=== PATIENT | male | born 1965 | race Caucasian/White ===

== ENCOUNTER 2019-09-08 12:16 | Inpatient (IN) | payer OTHER, SELFPAY ==
[2019-09-08] VITALS (9 sets, daily range): BP systolic 106–149; BP diastolic 77–95; PULSE 51–68; RESP 15–22; TEMP 36.4–36.8; O2SAT 97–100; BMI 34.7
--- NOTE | ~2019-09-08 | US_ITS ---
US renal BI 09/09/2019 09:59 Procedure: Realtime transabdominal ultrasound of the kidneys and bladder. Indication: Acute renal insufficiency Comparison: Ultrasound dated 08/08/2014 Findings: Renal echotexture is normal bilaterally without hydronephrosis, contour deforming mass or r enal calculus. The right kidney measures 12.1 cm and left kidney measures 11.5 cm. Bladder within no rmal limits. Impression: 1: Unremarkable renal ultrasound. No stones, masses or hydronephrosis. Reviewed, dictated and finalized at location B. SIFICATIONS OFFICER CC/CM Impression: 1: Unremarkable renal ultrasound. No stones, masses or hydronephrosis.
--- NOTE | ~2019-09-08 | XR_ITS ---
EXAMINATION: XR chest 2V DATE: 09/08/2019 13:14 INDICATION: Shortness of breath. Frontal chest pain. Vomiting and cough. TECHNIQUE: Frontal and lateral views of the chest were obtained. COMPARISON: Chest 2 views 03/14/2019, chest CT 03/14/2019 FINDINGS: There is chronic mild elevation of right hemidiaphragm. No pneumonia, pleural effusion, or pneumothorax. Cardiomegaly is noted. IMPRESSION: 1. Cardiomegaly. Reviewed, dictated and finalized at location A. K THREADER IMPRESSION: 1. Cardiomegaly.
--- NOTE | 2019-09-08 12:28 | ECG_ITS ---
Measurements Intervals [place] Rate: 52 P: [place]: 0 QRS: -39 QRSD: 121 T: -12 QT: 465 QTc: 435 Interpretive Statements SINUS RHYTHM WITH AV DISSOCIATION JUNCTIONAL ESCAPE RHYTHM LEFT AXIS DEVIATION INTRAVENTRICULAR CONDUCTION DELAY VOLTAGE CRITERIA FOR LVH POOR R WAVE PROGRESSION, ANTERIOR LEADS BORDERLINE T WAVE ABNORMALITY- INFERIOR LEADS BASELINE WANDER- V2 ABNORMAL ECG Electronically Signed On 09-08-2019 12:51:[address] INSPECTOR by John Garcia D.O.
--- NOTE | 2019-09-08 12:53 | ED.SOB ---
HPI - SOB/Dyspnea General Chief Complaint: Shortness of Breath/Dyspnea Stated Complaint: dizzy,short of breath Time Seen by Provider: 09/08/19 12:48 Source: patient Mode of arrival: ambulatory Limitations: no limitations History of Present Illness HPI Narrative: Pt is a 54 y/o male who presents to the ED with c/o SOB since Thursday (3 days ago). He reports associated generalized weakness, N/V, MCMILLAN, and dizziness. He states that he felt dizzy when sitting up and felt like he was going to pass out. He also notes decreased intake d/t his N/V. Pt states that he was in the ED in April with similar Sx and he was referred to customer engagement analyst, Dr. Huertas for CAD, AAA, and nonischemic cardiomyopathy with an EF of 45-50%. Pt had a cardiac echo done recently and he was supposed to see his PCP, Dr. Chang tomorrow. Pt notes soreness to his chest. He denies diarrhea, fever, chills, sweats, rhinorrhea, sore throat, ABD pain, leg swelling, wounds, rashes, melena, hematochezia, or hemoptysis. He has not been around anyone sick and he got his flu shot this year. MD elicited complaint: shortness of breath Onset (ago): day(s) (3) Timing: constant Associated symptoms: other (generalized weakness, N/V, MCMILLAN, and dizziness.) Related Data Home Medications Medication Instructions Recorded Confirmed aspirin 81 mg tablet,delayed 81 mg PO DAILY 06/10/19 release Allergies Allergy/AdvReac Type Severity Reaction Status Date / Time No Known Allergies Allergy Unverified 04/10/17 09:54 Review of Systems Review of Systems: Narrative: All systems reviewed & are unremarkable except as noted in HPI and below Constitutional: Constitutional: Denies chills, Denies fever(s), Reports weakness (generalized) and Denies other (sweats) ENT: Denies sore throat and Denies other (rhinorrhea) Cardiovascular: Cardiovascular: Denies leg edema and Reports other (chest soreness) Respiratory: Respiratory: Denies hemoptysis and Reports dyspnea Gastrointestinal: Gastrointestinal: Denies abdominal pain, Denies melena, Denies hematochezia, Denies diarrhea, Reports nausea and Reports vomiting Integumentary/Breasts: Skin/Breast: Denies rash and Denies wounds Neurologic: Reports dizziness, Reports headache(s) and Reports other (near syncope) [facility] Past Medical History Medical History (Updated 09/08/19 @ 14:56 by Chiquis Alicea MD) Anxiety Ascending aortic aneurysm CAD (coronary artery disease) Combined systolic and diastolic cardiac dysfunction Depression Erectile dysfunction HTN (hypertension) ERIKA (obstructive sleep apnea) Surgical History Surgical History (Updated 09/08/19 @ 13:09 by Alexa Steven) Hx of appendectomy Family History Family History (Updated 03/10/17 @ 13:35 by DOCTOR UNKNOWN) Mother Cerebrovascular accident Father Family history of diabetes mellitus in first degree relative Family history of coronary artery disease Sibling Family history of diabetes mellitus in first degree relative Other Diabetes mellitus Family history of malignant neoplasm Social History Social History Smoking status: Never smoker Alcohol intake: current Gender identity (if verbalized by the patient): Male Exam Const: General: cooperative, no acute distress and alert Nutritional Appearance: obese Orientation/consciousness: patient oriented x3 Limitations: no limitations HENMT: Mouth: Yes lip normal and Yes dry mucous membranes Resp: Effort & Inspection: normal respiratory effort Auscultation: clear to auscultation bilaterally Cardio: Rate: bradycardic Rhythm: regular rhythm Heart sounds: Murmur heart sound present systolic Peripheral pulses: dorsalis pedis present bilateral GI: GI Palp: Yes Soft to palpation and No Tenderness to palpation present (GI) Auscultation: normal bowel sounds Skin: General skin exam: normal color Neuro: General: patient oriented x3 Cognition (Neuro
[2019-09-08 12:55] LABS: Basophils Percent Auto 0.5 % (0.2-1.2); Eosinophils Absolute Auto 0.1 K/mm3 (0-0.3); Eosinophils Percent Auto 0.8 % (0-4.4); Hematocrit 34.3 % (42.0-52.0); Hemoglobin 12.4 g/dL (14.0-18.0); Immature Granulocyte Absolute 0.02 K/mm3 (0.00-0.031); Immature Granulocyte Percent A 0.3 % (0-0.5); Lymphocytes Absolute Auto 0.84 K/mm3 (0.9-3.2); Mean Corpuscular HGB Conc 36.2 g/dl (32-36); Mean Corpuscular Hemoglobin 34.1 pg (26-34); Mean Corpuscular Volume 94.2 fl (80-100); Mean Platelet Volume 10.4 fl (7.4-10.4); Monocytes Absolute Auto 0.4 K/mm3 (0.1-0.6); Monocytes Percent Auto 7.1 % (2.6-8.5); Neutrophils Absolute Auto 4.7 K/mm3 (1.3-6.7); Neutrophils Percent Auto 77.3 % (45.5-73.1); Platelet Count Result 224 k/mm3 (150-375); Red Blood Count 3.64 M/mm3 (4.6-6.20); Red Cell Distribution Width 11.9 % (11.5-14.5)
[2019-09-08 13:07] LABS: Blood Urea Nitrogen 57 mg/dL (9-20); Calcium 7.6 mg/dL (8.4-10.2); Carbon Dioxide 26 mmol/L (22-30); Chloride 92 mmol/L (98-107); Estimated CRCL calculation 14 ml/min; Estimated Glomerular Filt Rate 9; Glucose 194 mg/dL (75-110); Potassium 3.1 mmol/L (3.4-5.0); Sodium 134 mmol/L (137-145)
[2019-09-08] MEDS: LACTATED RINGERS 1,000 ML 150 ML IV CONT ×3 (13:31→23:46)
[2019-09-08 13:37] LABS: INR 1.1
[2019-09-08 13:40] LABS: Partial Thromboplastin Time 26.7 SECONDS (22.3-36.8)
[2019-09-08 13:47] LABS: Alanine Aminotransferase 510 U/L (4-50); Albumin Level 3.6 g/dL (3.5-5.1); Alkaline Phosphatase 112 U/L (38-126); Aspartate Amino Transferase 491 U/L (17-59); Bilirubin Direct 0.4 mg/dL (0-0.3); Bilirubin,Total 2.6 mg/dL (0.2-1.3); Magnesium 1.1 mg/dL (1.6-2.3)
[2019-09-08 13:56] LABS: NT Pro B Type Natriuretic Pept 874 PG/ML (5-100)
[2019-09-08 13:57] LABS: Troponin I 0.023 ng/mL (0.000-0.034)
--- NOTE | 2019-09-08 14:25 | PM.IMHP ---
H&P: HPI History of Present Illness Chief complaint: Weakness, dizziness, shortness of breath. Narrative: Cesar Handley is a 54-year-old male with longstanding history of alcohol abuse with historically poorly controlled hypertension, mixed systolic and diastolic congestive heart failure, nonischemic cardiomyopathy, and sleep apnea who presented to the emergency department earlier this afternoon for evaluation of weakness, dizziness, and shortness of breath. He was admitted to the hospital in March 2019 with shortness of breath and uncontrolled hypertension. Echocardiogram done at that time showed mixed systolic and diastolic dysfunction with an ejection fraction of 40 to 45% as well as mild to moderate aortic stenosis. He underwent cardiac catheterization per Dr. Bay on March 17, 2019 which revealed a diagonal branch with diffuse 50% stenosis without any other significant coronary disease in addition to a 4 centimeter ascending aortic aneurysm. He was started on metoprolol, statin, and had his losartan increased at that time due to poorly controlled hypertension. Since that time, he has had some adjustments to his antihypertensives and tells me that is not unusual for his blood pressures to be in the 150s to 170 systolic despite these changes. He also notes occasional orthostatic hypotension, but that is rare. Since that stay, he has cut back his drinking significantly. Previously he drank upwards of 15 beers per day, but has been taking naltrexone and reportedly he is only drinking a few times a week now. He has not had any alcohol since Thursday, however, because he is felt so poorly. He notes dizziness with position changes, especially bending forward. With further questioning, he has noticed a decrease in urine output recently. Additionally, his appetite has been poor, but he goes on to say that he has had intermittent nausea and dry heaves since April of 2019. He also mentions dyspnea on exertion, and the inability to do as much at work as he typically does due to the shortness of breath and generalized weakness. He has not had fever, chills, or sweats. No headache, auditory visual changes, vertigo, paresthesias, or focal weakness. He has not had chest pain or pleuritic pain. No abdominal pain. He denies diarrhea. No melena or hematochezia. No dysuria or hematuria. Review of Systems Review of Systems: Narrative: Twelve systems were reviewed with pertinent positives and negatives as per HPI. No fever, chills, or sweats. No recent cold or flu symptoms. No hematemesis, melena, or hematochezia. Denies diarrhea. No history of alcohol withdrawal seizure. Denies hallucinations. No tremors. except as documented, all other systems were reviewed and are negative. [facility] Past Medical History Medical History (Updated 09/08/19 @ 23:41 by Mini Strong PA-C) Alcohol abuse Anxiety Aortic stenosis Mild to moderate aortic stenosis noted on echocardiogram in March 2019. Ascending aortic aneurysm 4 centimeter ascending aortic aneurysm noted in fall 2018. Bladder cancer With history of TURBT and mitomycin installation. CAD (coronary artery disease) Diffuse 50% stenosis of the marginal branch noted on cardiac catheterization in March 2019. Combined systolic and diastolic cardiac dysfunction Ejection fraction of 40 to 45% in March 2019. Depression Erectile dysfunction HTN (hypertension) ERIKA (obstructive sleep apnea) Previous history of noncompliance with CPAP therapy. Surgical History Surgical History Hx of appendectomy Family History Family History Mother Cerebrovascular accident Family history of diabetes mellitus in first degree relative Father Family history of diabetes mellitus in first degree relative Family history of coronary artery disease Sibling Family history of diabetes reynaldo
--- NOTE | 2019-09-08 14:31 | PC.NURSE ---
Pt given urinal to provide u/a.
[2019-09-08 15:20] LABS: Add Urine Microscopic? YES; Appearance Urine Clear (Clear); Bacteria Urine Trace /hpf; Bilirubin Urine Negative (Negative); Blood Urine Negative (Negative); Color Urine Yellow (Yellow); Glucose Urine UA Negative (Negative); Ketones Urine Negative (Negative); Leukocyte Esterase Ur Negative LEU/UL (Negative); Mucus Urine Rare /lpf; Nitrate Urine Negative (Negative); Protein Urine Negative (Negative); RBC Urine 0-2 /hpf (0-2); Specific Grav Ur 1.012 (1.001-1.035); Squamous Epithelial Cell Urine Rare /hpf (Few); WBC Urine 0-3 /hpf
[2019-09-08 16:51] LABS: Troponin I 0.018 ng/mL (0.000-0.034)
--- NOTE | 2019-09-08 17:34 | ADMGEN ---
This patient, Cesar Handley, was admitted to Medical Room 252-01. Patient/family oriented to hospital policies and general routines including ID bracelet, bed and alarms, visiting hours, pain management, procedures, bathroom and other care routines, personal items, smoking policy, room service/diet, and visiting hours. Valuables list has been completed. Information on how to activate the Rapid Response Team has been discussed. Patient/Family are encouraged to report perceived risks to care and to ask questions if they do not understand what they are told or what they should do.
[2019-09-08 22:43] LABS: Blood Urea Nitrogen 57 mg/dL (9-20); Calcium 7.6 mg/dL (8.4-10.2); Carbon Dioxide 29 mmol/L (22-30); Chloride 93 mmol/L (98-107); Creatine Kinase 93 U/L (55-170); Estimated CRCL calculation 14 ml/min; Estimated Glomerular Filt Rate 10; Glucose 104 mg/dL (75-110); Magnesium 1.2 mg/dL (1.6-2.3); Phosphorus 3.3 mg/dL (2.5-4.5); Potassium 3.3 mmol/L (3.4-5.0); Sodium 133 mmol/L (137-145)
[2019-09-08 23:14] LABS: Hepatitis B Surface Antigen Negative (Negative)
[2019-09-08 23:20] LABS: HAV RESULT Negative (Negative); Hepatitis B Core IgM Result Negative (Negative)
[2019-09-08 23:31] LABS: Hepatitis C Virus Antibody Negative (Negative)
[2019-09-08] MEDS: MAGNESIUM SULF 4 GM/WATER100ML 4 GM/100 ML BAG IVPB (23:40)
[2019-09-08] MEDS: carvediloL 6.25 MG TABLET PO (23:40)
[2019-09-08] MEDS: busPIRone HCL 5 MG TABLET PO (23:41)
[2019-09-09] VITALS (13 sets, daily range): BP systolic 105–147; BP diastolic 63–86; PULSE 49–62; RESP 14–20; TEMP 36.1–36.9; O2SAT 97–100
[2019-09-09 00:02] LABS: Folic Acid 16.3 ng/mL (2.76->20); Vitamin B12 > 1000.0 pg/mL (239-931)
[2019-09-09 05:30] LABS: Hematocrit 31.3 % (42.0-52.0); Hemoglobin 11.2 g/dL (14.0-18.0); Mean Corpuscular HGB Conc 35.8 g/dl (32-36); Mean Corpuscular Volume 95.1 fl (80-100); Mean Platelet Volume 10.3 fl (7.4-10.4); Platelet Count Result 187 k/mm3 (150-375); Red Blood Count 3.29 M/mm3 (4.6-6.20); Red Cell Distribution Width 11.9 % (11.5-14.5); White Blood Count 6.3 K/mm3 (4.5-10.0)
[2019-09-09 05:42] LABS: INR 1.2; Prothrombin Time 15.1 Seconds (11.1-14.7)
[2019-09-09 05:46] LABS: Alanine Aminotransferase 380 U/L (4-50); Albumin Level 3.2 g/dL (3.5-5.1); Alkaline Phosphatase 104 U/L (38-126); Aspartate Amino Transferase 296 U/L (17-59); Bilirubin,Total 1.9 mg/dL (0.2-1.3); Blood Urea Nitrogen 54 mg/dL (9-20); Calcium 7.4 mg/dL (8.4-10.2); Carbon Dioxide 26 mmol/L (22-30); Chloride 93 mmol/L (98-107); Estimated CRCL calculation 16 ml/min; Estimated Glomerular Filt Rate 11; Glucose 105 mg/dL (75-110); Magnesium 2.6 mg/dL (1.6-2.3); Phosphorus 4.1 mg/dL (2.5-4.5); Potassium 3.1 mmol/L (3.4-5.0); Sodium 132 mmol/L (137-145)
[2019-09-09] MEDS: LACTATED RINGERS 1,000 ML 150 ML IV CONT ×2 (08:06→15:39)
[2019-09-09] MEDS: FOLIC ACID 1 MG TABLET PO (08:12)
[2019-09-09] MEDS: CITALOPRAM HYDROBROMIDE 20 MG TABLET 40 MG PO (08:12)
[2019-09-09] MEDS: THIAMINE HCL 100 MG TABLET PO (08:12)
[2019-09-09] MEDS: carvediloL 6.25 MG TABLET PO ×2 (08:13→21:05)
[2019-09-09] MEDS: busPIRone HCL 5 MG TABLET PO ×2 (08:13→16:23)
--- NOTE | 2019-09-09 09:35 | PC.NURSE ---
To Radiology per stretcher.
--- NOTE | 2019-09-09 11:22 | PM.IMPN ---
Progress Note: A&P Assessment and Plan (1) Acute kidney injury: Code(s): N17.9 - Acute kidney failure, unspecified Status: Acute Assessment and Plan: Precipitating etiology is not clear, but is likely multifactorial in etiology due to poor oral intake in the setting of diuretic and ARB use. Renal US showing no postobstructive issues. Nephrology consulted. Cr better today. Continue IV fluids for rehydration. Avoid nephrotoxic agents. (2) Hypomagnesemia: Code(s): E83.42 - Hypomagnesemia Status: Acute Assessment and Plan: Magnesium 1.2 on admission. This has been replaced. Magnesium today is 2.6. Continue to follow. (3) Hypokalemia: Code(s): E87.6 - Hypokalemia Status: Acute Assessment and Plan: Potassium 3.1 on admission. This was not replaced. Repeat potassium this morning is unchanged. Urine output is poor so will hold on replacing potassium at this time. Continue to monitor. (4) Junctional escape rhythm: Code(s): I49.49 - Other premature depolarization Status: Acute Assessment and Plan: EKG showing junctional rhythm with bradycardia although P waves are noted. This is most likely related to electrolyte abnormalities with low magnesium and potassium. Magnesium has been replaced. Potassium is still low. Renal function is improved. Continue to monitor on telemetry. (5) Transaminasemia: Code(s): R74.0 - Nonspecific elevation of levels of transaminase and lactic acid dehydrogenase [LDH] Status: Acute Assessment and Plan: Elevated liver enzymes for unclear etiology. Most likely related to alcoholism and dehydration. Hepatitis panel is negative. Levels are trending downward. He has been educated about the benefits abstain from alcohol. Continue to monitor. (6) Combined systolic and diastolic cardiac dysfunction: Code(s): I51.89 - Other ill-defined heart diseases Status: Chronic Assessment and Plan: Appears euvolemic at this time. Continue to monitor closely for evidence of exacerbation. Continue IV fluids for now. (7) ERIKA (obstructive sleep apnea): Code(s): G47.33 - Obstructive sleep apnea (adult) (pediatric) Status: Chronic Assessment and Plan: Stable. Continue CPAP at night and with naps. (8) HTN (hypertension): Code(s): I10 - Essential (primary) hypertension Status: Chronic Assessment and Plan: Blood pressure 119/82 on admission most likely related to dehydration. blood pressure reviewed on 09/09/2019. Overall patient's blood pressures well controlled since admission continue Coreg. Losartan and chlorthalidone on hold related to the renal failure. (9) Alcohol use disorder: Status: Chronic Assessment and Plan: Brayan still continues to drink. No evidence of withdrawal at this time. Continue CIWA protocol. Continue thiamine and folate. Subjective Date/time seen: 09/09/19 11:22 Interval history: 54yo male with hx of alcohol abuse, CHF and ERIKA here for MACO and elevated LFTs. Patient still continues to drink but has cut back significantly and this is corroborated by family. He is compliant with CPAP most nights. He has not been eating much past few days. Also with n/v and dry heaves. Takes atorvastatin and chlorthalidone. He denies and nausea today and actually feels hungry. He denies CP. Still has the LH with standing. No dysuria or hematuria. Has been voiding small volumes recently. Exam Narrative: Exam Narrative: Gen - WN/WD male NARD sitting up in a chair Chest - CTA bilat, nml RR CV - RRR S1/S2 with a 2/6 systolic murmur loudest in the RUSB Abd - soft, NT/ND, +BS Ext - no pedal edema Psych - nml mood and affect. No tremors Skin - warmand dry, no diaphoresis Objective Data Vital Signs Vital Signs: Vital Signs - 24 hr 09/08/19 12:29 09/08/19 14:31 09/08/19 15:28 Temperature 97.
--- NOTE | 2019-09-09 15:28 | PM.CNNEP ---
Assessment and Plan Assessment and plan (1) Acute kidney injury: Code(s): N17.9 - Acute kidney failure, unspecified Status: Acute (2) Hypokalemia: Code(s): E87.6 - Hypokalemia Status: Acute (3) Hypomagnesemia: Code(s): E83.42 - Hypomagnesemia Status: Acute (4) HTN (hypertension): Code(s): I10 - Essential (primary) hypertension Status: Chronic (5) ERIKA (obstructive sleep apnea): Code(s): G47.33 - Obstructive sleep apnea (adult) (pediatric) Status: Chronic Assessment and Plan: . Additional Plan Cesar has suffered acute kidney injury/ acute renal failure as evidenced by his labs on admission. Is unclear what exactly occurred that led to this significant incline in his kidney function. . I suppose dehydration is a possibility particularly given his history of heavy alcohol intake both in the past and recently although this has been somewhat reduced by his symptoms in general. I suppose the possibility of some type of acute glomerulonephritis or vasculitis is possible as well, however he gives no history with regard to hematuria or hemoptysis and his urinalysis is essentially benign in terms of blood or protein as well. At this point, I would check urine electrolytes, urine senna fills, and follow the trend of his repeat labs and urine output with the interventions that have been done to date. His kidney function continues to deteriorate he may require further intervention in terms of possibly hitting dialysis which I discussed in detail with the patient as well. I will see what his urine output and repeat labs do in the next 24 hr and if they fail to improve significantly or deteriorate even further, I will proceed with a significant serological evaluation to rule out any other disease or disease process that may be present in general. I will continue to follow the patient with you while he may is hospitalized and make further recommendations during his hospital course Thank you for allowing me to participate in the care this patient. History of Present Illness Reason for Consult Consult date: 09/09/19 Reason for consult: acute renal failure Chief Complaint Chief complaint: Acute renal failure History of Present Illness Narrative: The patient is a 54-year-old male with a past medical history as outlined below who presented to the [facility] ER yesterday afternoon for conplains of weakness, dizziness, and shortness of breath. For the last few days if not longer, he has noted the a for mention dizziness with positional changes, especially wean forward. He also reports decreased urine output, poor appetite, and decreased energy level. He also reports mild symptoms of dyspnea on exertion as well but denies fevers chills headaches or night sweats. As these symptoms continued to persist if not worsen, he presented the ER for further evaluation. It should be noted the patient was recently hospitalized here in March 2019 for shortness of breath and uncontrolled hypertension. During that hospitalization he was diagnosed with mixed systolic and diastolic dysfunction as well as moderate aortic stenosis. He did undergo cardiac catheterization without much significant coronary artery disease but did have a 4 cm ascending aortic aneurysm. He was treated medically with beta-blockers, statin, and titration of his losartan for treatment of this condition as well as his uncontrolled hypertension. in spite of these issues, he still has difficult to control blood pressure with his systolic BP running normally anywhere from on 150s to 170s in general. Workup and evaluation in the emergency room demonstrated the patient to be hemodynamically stable. Routine blood test demonstrated marked decline in his kidney function in comparison to what it was previously. He had no critical electrolyte abnormalities (iin fact, his potassium was on the lower side of normal) in association
[2019-09-09 15:35] LABS: Potassium 2.9 mmol/L (3.4-5.0)
[2019-09-09] MEDS: POTASSIUM CHLORIDE 20 MEQ TABLET PO (17:02)
[2019-09-09 17:16] LABS: Creatinine Urine 116.1 mg/dL; Total Protein Urine Random 12 mg/dL
[2019-09-09 17:23] LABS: Sodium Urine Random 21 meq/L
[2019-09-10] VITALS (10 sets, daily range): BP systolic 123–149; BP diastolic 74–81; PULSE 53–66; RESP 16–18; TEMP 36.3–36.7; O2SAT 97–100
[2019-09-10] MEDS: LACTATED RINGERS 1,000 ML 150 ML IV CONT ×3 (00:31→17:08)
[2019-09-10] MEDS: LORAZEPAM INJ 2 MG/ML VIAL 1 MG IV PUSH ×2 (03:57→23:15)
[2019-09-10 05:35] LABS: Basophils Percent Auto 0.5 % (0.2-1.2); Eosinophils Absolute Auto 0.1 K/mm3 (0-0.3); Eosinophils Percent Auto 2.1 % (0-4.4); Hematocrit 28.4 % (42.0-52.0); Hemoglobin 9.8 g/dL (14.0-18.0); Immature Granulocyte Absolute 0.05 K/mm3 (0.00-0.031); Immature Granulocyte Percent A 0.9 % (0-0.5); Lymphocytes Absolute Auto 1.49 K/mm3 (0.9-3.2); Lymphocytes Percent Auto 25.5 % (18.3-44.2); Mean Corpuscular HGB Conc 34.5 g/dl (32-36); Mean Corpuscular Hemoglobin 33.6 pg (26-34); Mean Corpuscular Volume 97.3 fl (80-100); Mean Platelet Volume 10.6 fl (7.4-10.4); Monocytes Absolute Auto 0.7 K/mm3 (0.1-0.6); Monocytes Percent Auto 11.3 % (2.6-8.5); Neutrophils Absolute Auto 3.5 K/mm3 (1.3-6.7); Neutrophils Percent Auto 59.7 % (45.5-73.1); Platelet Count Result 157 k/mm3 (150-375); Red Blood Count 2.92 M/mm3 (4.6-6.20); White Blood Count 5.8 K/mm3 (4.5-10.0)
[2019-09-10 05:52] LABS: Alanine Aminotransferase 268 U/L (4-50); Alkaline Phosphatase 106 U/L (38-126); Aspartate Amino Transferase 157 U/L (17-59); Bilirubin,Total 1.8 mg/dL (0.2-1.3); Blood Urea Nitrogen 47 mg/dL (9-20); Calcium 7.2 mg/dL (8.4-10.2); Carbon Dioxide 29 mmol/L (22-30); Chloride 94 mmol/L (98-107); Estimated CRCL calculation 20 ml/min; Estimated Glomerular Filt Rate 15; Glucose 99 mg/dL (75-110); Magnesium 1.7 mg/dL (1.6-2.3); Potassium 3.1 mmol/L (3.4-5.0); Sodium 130 mmol/L (137-145)
--- NOTE | 2019-09-10 08:19 | PM.PNNEP ---
Progress Note: A&P Assessment and Plan (1) Acute kidney injury: Code(s): N17.9 - Acute kidney failure, unspecified Status: Acute Assessment and Plan: Patient has acute kidney injury. Renal ultrasound is unremarkable. Urine electrolytes are pre renal. Urinalysis shows a bland sediment. I suspect this is pre renal azotemia, possibly from over control of blood pressure and may be a little dehydration. His creatinine is better (2) Hypokalemia: Code(s): E87.6 - Hypokalemia Status: Acute Assessment and Plan: Potassium is a bit low. Supplement this. Potassium supplementation was already ordered (3) Hypomagnesemia: Code(s): E83.42 - Hypomagnesemia Status: Acute Assessment and Plan: Is okay today. (4) HTN (hypertension): Code(s): I10 - Essential (primary) hypertension Status: Chronic Assessment and Plan: Blood pressure meds on hold. His systolic seems to be coming up. (5) ERIKA (obstructive sleep apnea): Code(s): G47.33 - Obstructive sleep apnea (adult) (pediatric) Status: Chronic Assessment and Plan: . He is on a CPAP machine Additional Plan Subjective Date/time seen: 09/10/19 08:19 Interval history: Patient is alert. He is up in a chair. Feels bit woozy at times. Review of Systems Cardiovascular: Cardiovascular: Reports no additional cardiovascular complaints Respiratory: Respiratory: Reports no additional respiratory complaints Gastrointestinal: Gastrointestinal: Reports no additional gastrointestinal complaints Genitourinary: Genitourinary: Reports no additional male genitourinary complaints Exam Narrative: Exam Narrative: Well developed well-nourished in no acute distress Lungs clear Heart regular without rub Abdomen bowel sounds positive soft nontender Extremities no edema Skin no rash Objective Data Vital Signs Vital Signs: Vital Signs - 24 hr 09/09/19 12:00 09/09/19 14:00 09/09/19 16:01 Temperature 36.1 C L Pulse Rate 49 L 51 L 52 L Respiratory Rate 18 Blood Pressure 105/63 Pulse Oximetry 100 09/09/19 20:00 09/09/19 21:05 09/09/19 22:00 Temperature 36.9 C Pulse Rate 57 L 54 L 54 L Respiratory Rate 16 Blood Pressure 118/67 Pulse Oximetry 100 09/09/19 22:17 09/10/19 00:00 09/10/19 04:00 Temperature Pulse Rate 62 54 L 66 Respiratory Rate Blood Pressure Pulse Oximetry 97 09/10/19 06:00 Temperature 36.4 C Pulse Rate 57 L Respiratory Rate 16 Blood Pressure 127/74 Pulse Oximetry 97 Intake/Output Intake/Output: Intake & Output 09/07/19 09/08/19 09/09/19 09/10/19 23:59 23:59 23:59 23:59 Intake Total 1000 5175 300 Output Total 0 1550 600 Balance 1000 3625 -300 Meds/Results Medications: Active Medications Generic Name Dose Route Start Last Admin Trade Name Freq PRN Reason Stop Dose Admin Buspirone HCl 5 mg 09/08/19 23:00 09/09/19 16:23 Buspar PO 5 mg BID JAGDISH Administration Carvedilol 6.25 mg 09/08/19 23:00 09/09/19 21:05 Coreg PO 6.25 mg Q12HR JAGDISH Administration Citalopram Hydrobromide 40 mg 09/09/19 09:00 09/09/19 08:12 Celexa PO 40 mg DAILY JAGDISH Administration Folic Acid 1 mg 09/09/19 09:00 09/09/19 08:12 Folic Acid PO 1 mg DAILY JAGDISH Administration Lactated Ringer's 1,000 mls @ 150 mls/hr 09/08/19 14:25 09/10/19 00:31 Lr - Lactated Ringers Iv IV CONT 150 mls/hr .[id number] JAGDISH Administration Lorazepam 1 mg 09/08/19 23:45 09/10/19 03:57 Ativan Inj IV PUSH 1 mg Q6H PRN Administration Alcohol Withdrawal & CIWA > 8 Magnesium Oxide 400 mg 09/10/19 09:00 Mag-Ox PO QAM JAGDISH Potassium Chloride 10 meq 09/10/19 08:10 Kcl Tablet PO 09/10/19 08:11 ONCE ONE Thiamine HCl 100 mg 09/09/19 09:00 09/09/19 08:12 Vitamin B-1 PO 100 mg QAM JAGDISH Administration Radiology Results: ITS Impressions Chest X-Ray 09/08/19
[2019-09-10] MEDS: busPIRone HCL 5 MG TABLET PO ×2 (08:36→16:32)
[2019-09-10] MEDS: carvediloL 6.25 MG TABLET PO ×2 (08:36→20:41)
[2019-09-10] MEDS: POTASSIUM CHLORIDE 10 MEQ TABLET PO (08:36)
[2019-09-10] MEDS: CITALOPRAM HYDROBROMIDE 20 MG TABLET 40 MG PO (08:38)
[2019-09-10] MEDS: THIAMINE HCL 100 MG TABLET PO (08:38)
[2019-09-10] MEDS: FOLIC ACID 1 MG TABLET PO (08:38)
[2019-09-10] MEDS: MAGNESIUM OXIDE 400 MG TABLET PO (08:39)
--- NOTE | 2019-09-10 16:58 | PM.IMPN ---
Progress Note: A&P Assessment and Plan (1) Acute kidney injury: Code(s): N17.9 - Acute kidney failure, unspecified Status: Acute Assessment and Plan: BUN 57 with Cr 6.5 on admission. Precipitating etiology is not clear, but is likely multifactorial in etiology due to poor oral intake in the setting of diuretic and ARB use. Labs consistent with a pre-renal etiology. Renal US showing no postobstructive issues. Nephrology consulted and appreciate their input. Cr better today at 4.1. Continue IV fluids for rehydration. Avoid nephrotoxic agents. (2) Hypomagnesemia: Code(s): E83.42 - Hypomagnesemia Status: Acute Assessment and Plan: Magnesium 1.2 on admission. This has been replaced. Magnesium today is 1.7. Oral daily replacement ordered. Continue to follow. (3) Hypokalemia: Code(s): E87.6 - Hypokalemia Status: Acute Assessment and Plan: Potassium 3.1 on admission. Essentially unchanged today. Will replace today. Continue to follow. (4) Junctional escape rhythm: Code(s): I49.49 - Other premature depolarization Status: Acute Assessment and Plan: EKG showing junctional rhythm with bradycardia although P waves are noted. This is most likely related to electrolyte abnormalities with low magnesium and potassium. Magnesium has been replaced and remaining normal. Potassium is still low and small oral replacement dose given. Renal function is improved. Okay to stop tele. Oral daily Mag replacement ordered. (5) Transaminasemia: Code(s): R74.0 - Nonspecific elevation of levels of transaminase and lactic acid dehydrogenase [LDH] Status: Acute Assessment and Plan: Liver enzymes elevated on admission with AST 491 and ALT 510 with TB 2.6. Elevated liver enzymes of unclear etiology. Hepatitis panel is negative. Most likely related to alcoholism and dehydration. Levels are trending downward. He has been educated about the benefits abstain from alcohol. Continue to monitor. (6) Combined systolic and diastolic cardiac dysfunction: Code(s): I51.89 - Other ill-defined heart diseases Status: Chronic Assessment and Plan: Mild pedal edema noted. Monitor closely for evidence of exacerbation. Continue IV fluids for now but decrease rate. (7) ERIKA (obstructive sleep apnea): Code(s): G47.33 - Obstructive sleep apnea (adult) (pediatric) Status: Chronic Assessment and Plan: Stable. Continue CPAP at night and with naps. (8) HTN (hypertension): Code(s): I10 - Essential (primary) hypertension Status: Chronic Assessment and Plan: Blood pressure 119/82 on admission most likely related to dehydration. Blood pressure reviewed on 09/10/2019. BP remains well controlled with Coreg. Losartan and chlorthalidone remain on hold related to the renal failure. (9) Alcohol use disorder: Status: Chronic Assessment and Plan: Patient still continues to drink. No evidence of withdrawal at this time. Continue CIWA protocol. Continue thiamine and folate. Subjective Date/time seen: 09/10/19 16:58 Interval history: 54yo male with hx of alcohol abuse, CHF and ERIKA here for MACO and elevated LFTs. Patient had trouble getting comfortable last night. He was up and down. He denies orthopnea. Voiding well. Urine clear. Eating okay. Exam Narrative: Exam Narrative: Gen - WN/WD male NARD sitting up in a chair Chest - CTA bilat, nml RR CV - RRR S1/S2; Tele showing no significant dysrhythmias Abd - soft, NT/ND, +BS Ext - trace pedal edema Psych - nml mood and affect. No tremors Skin - warm and dry, no diaphoresis Objective Data Vital Signs Vital Signs: Vital Signs - 24 hr 09/09/19 20:00 09/09/19 21:05 09/09/19 22:00 Temperature 98.4 F Pulse Rate 57 L 54 L 54 L Respiratory Rate 16 Blood Pressure 118/67 Pulse Oximetry 100 09/09/19 2
[2019-09-11 00:32] VITALS: PULSE 66; O2SAT 98
--- NOTE | 2019-09-11 03:03 | PC.NURSE ---
Daylight Savings Time For Daylight Savings Time Ending in the Fall - Clocks are moved back. For Daylight Savings Time Beginning in the Spring - Clocks are moved ahead. For [facility], the time of change occurs at 0200 hrs. Time is taken from the in room dining server. This entry on the patient's chart recognizes the change in time reflected during documentation. Example: 2 entries for vital signs may be charted for 0200 hrs.
[2019-09-11 05:48] LABS: Basophils Absolute Auto 0.1 K/mm3 (0.0-0.1); Basophils Percent Auto 0.8 % (0.2-1.2); Eosinophils Absolute Auto 0.1 K/mm3 (0-0.3); Eosinophils Percent Auto 1.8 % (0-4.4); Hematocrit 28.8 % (42.0-52.0); Hemoglobin 9.8 g/dL (14.0-18.0); Immature Granulocyte Absolute 0.07 K/mm3 (0.00-0.031); Immature Granulocyte Percent A 1.1 % (0-0.5); Lymphocytes Absolute Auto 1.86 K/mm3 (0.9-3.2); Lymphocytes Percent Auto 28.3 % (18.3-44.2); Mean Corpuscular Hemoglobin 33.8 pg (26-34); Mean Corpuscular Volume 99.3 fl (80-100); Mean Platelet Volume 10.7 fl (7.4-10.4); Monocytes Absolute Auto 0.6 K/mm3 (0.1-0.6); Monocytes Percent Auto 9.4 % (2.6-8.5); Neutrophils Absolute Auto 3.9 K/mm3 (1.3-6.7); Neutrophils Percent Auto 58.6 % (45.5-73.1); Platelet Count Result 155 k/mm3 (150-375); Red Cell Distribution Width 12.1 % (11.5-14.5); White Blood Count 6.6 K/mm3 (4.5-10.0)
[2019-09-11] MEDS: LACTATED RINGERS 1,000 ML 100 ML IV CONT (05:58)
[2019-09-11 06:00] VITALS: BP 150/90; PULSE 57; RESP 20; TEMP 37.1; O2SAT 99
[2019-09-11 06:00] LABS: Potassium 3.4 mmol/L (3.4-5.0)
[2019-09-11 06:07] LABS: Alanine Aminotransferase 200 U/L (4-50); Albumin Level 2.9 g/dL (3.5-5.1); Alkaline Phosphatase 110 U/L (38-126); Aspartate Amino Transferase 92 U/L (17-59); Bilirubin,Total 1.1 mg/dL (0.2-1.3); Blood Urea Nitrogen 39 mg/dL (9-20); Calcium 7.4 mg/dL (8.4-10.2); Carbon Dioxide 29 mmol/L (22-30); Chloride 97 mmol/L (98-107); Estimated CRCL calculation 32 ml/min; Estimated Glomerular Filt Rate 26; Glucose 93 mg/dL (75-110); Phosphorus 3.2 mg/dL (2.5-4.5); Sodium 132 mmol/L (137-145)
[2019-09-11] MEDS: CITALOPRAM HYDROBROMIDE 20 MG TABLET 40 MG PO (08:01)
[2019-09-11] MEDS: busPIRone HCL 5 MG TABLET PO ×2 (08:01→16:56)
[2019-09-11] MEDS: FOLIC ACID 1 MG TABLET PO (08:01)
[2019-09-11 08:02] VITALS: PULSE 60
[2019-09-11] MEDS: carvediloL 6.25 MG TABLET PO ×2 (08:02→20:39)
[2019-09-11] MEDS: MAGNESIUM OXIDE 400 MG TABLET PO (08:02)
[2019-09-11] MEDS: THIAMINE HCL 100 MG TABLET PO (08:02)
--- NOTE | 2019-09-11 09:23 | PM.PNNEP ---
Progress Note: A&P Assessment and Plan (1) Acute kidney injury: Code(s): N17.9 - Acute kidney failure, unspecified Status: Acute Assessment and Plan: Patient has acute kidney injury. Renal ultrasound is unremarkable. Urine electrolytes are pre renal. Urinalysis shows a bland sediment. Most likely due to pre renal azotemia. He is getting IV fluids. His creatinine dropped quite a bit from above 4.0 to about 2.1. He is eating okay. Will stop IV fluids. (2) Hypokalemia: Code(s): E87.6 - Hypokalemia Status: Acute Assessment and Plan: Okay today. (3) Hypomagnesemia: Code(s): E83.42 - Hypomagnesemia Status: Acute Assessment and Plan: Is okay today. (4) HTN (hypertension): Code(s): I10 - Essential (primary) hypertension Status: Chronic Assessment and Plan: He is on carvedilol. His blood pressure is on the rise. This is expected because his dehydration is improving. He was on losartan and diuretic before admission. I do not want to restart either of those because of the renal insufficiency. Will add amlodipine for now. Once his creatinine is better we can go back to the losartan. He does drink a lot of alcohol. Since he is not drinking now he may not need as much blood pressure medication if he stays off the alcohol going forward. (5) ERIKA (obstructive sleep apnea): Code(s): G47.33 - Obstructive sleep apnea (adult) (pediatric) Status: Chronic Assessment and Plan: . He is on a CPAP machine Additional Plan Subjective Date/time seen: 09/11/19 09:23 Interval history: Patient is alert. He is up in a chair. He feels better today. Blood pressure is a bit higher. Review of Systems Cardiovascular: Cardiovascular: Reports no additional cardiovascular complaints Respiratory: Respiratory: Reports no additional respiratory complaints Gastrointestinal: Gastrointestinal: Reports no additional gastrointestinal complaints Genitourinary: Genitourinary: Reports no additional male genitourinary complaints Exam Narrative: Exam Narrative: Well developed well-nourished in no acute distress Lungs clear Heart regular without rub Abdomen bowel sounds positive soft nontender Extremities 1+ edema Skin no rash Objective Data Vital Signs Vital Signs: Vital Signs - 24 hr 09/10/19 08:36 09/10/19 12:00 09/10/19 14:00 Temperature 36.3 C L Pulse Rate 56 L 66 56 L Respiratory Rate 18 Blood Pressure 123/76 Pulse Oximetry 100 09/10/19 16:00 09/10/19 20:41 09/10/19 22:00 Temperature 36.7 C Pulse Rate 60 60 57 L Respiratory Rate 16 Blood Pressure 149/81 H Pulse Oximetry 100 09/11/19 00:32 09/11/19 06:00 09/11/19 08:02 Temperature 37.1 C Pulse Rate 66 57 L 60 Respiratory Rate 20 Blood Pressure 150/90 H Pulse Oximetry 98 99 Intake/Output Intake/Output: Intake & Output 09/08/19 09/09/19 09/10/19 09/12/19 23:59 23:59 23:59 00:59 Intake Total 1000 5175 4465 1350 Output Total 0 1550 2475 Balance 1000 3625 1989 1350 Meds/Results Medications: Active Medications Generic Name Dose Route Start Last Admin Trade Name Freq PRN Reason Stop Dose Admin Amlodipine Besylate 2.5 mg 09/11/19 09:00 Norvasc PO QAM JAGDISH Buspirone HCl 5 mg 09/08/19 23:00 09/11/19 08:01 Buspar PO 5 mg BID JAGDISH Administration Carvedilol 6.25 mg 09/08/19 23:00 09/11/19 08:02 Coreg PO 6.25 mg Q12HR JAGDISH Administration Citalopram Hydrobromide 40 mg 09/09/19 09:00 09/11/19 08:01 Celexa PO 40 mg DAILY JAGDISH Administration Folic Acid 1 mg 09/09/19 09:00 09/11/19 08:01 Folic Acid PO 1 mg DAILY JAGDISH Administration Lactated Ringer's 1,000 mls @ 50 mls/hr 09/08/19 14:25 09/11/19 09:01 Lr - Lactated Ringers Iv IV CONT 50 mls/hr .Q20H JAGDISH Infusion Lorazepam 1 mg 09/08/19 23:45 09/10/19 23:15 Ativan Inj IV PUSH 1 mg Q6H
[2019-09-11] MEDS: AMLODIPINE BESYLATE 2.5 MG TABLET PO (10:05)
[2019-09-11 14:00] VITALS: BP 126/77; PULSE 58; RESP 18; TEMP 36.7; O2SAT 100
--- NOTE | 2019-09-11 16:17 | PM.IMPN ---
Progress Note: A&P Assessment and Plan (1) Acute kidney injury: Code(s): N17.9 - Acute kidney failure, unspecified Status: Acute Assessment and Plan: BUN 57 with Cr 6.5 on admission. Precipitating etiology is not clear, but is likely multifactorial in etiology due to alcoholism, poor oral intake in the setting of diuretic and ARB use. Labs consistent with a pre-renal etiology. Renal US showing no postobstructive issues. Nephrology consulted and appreciate their input. Cr better today at 2.6 Will stop IV fluids. Avoid nephrotoxic agents. Home tomorrow if Cr remains stable or improves. (2) Hypomagnesemia: Code(s): E83.42 - Hypomagnesemia Status: Acute Assessment and Plan: Magnesium 1.2 on admission. This has been replaced. Magnesium 1.7 yesterday. Continue oral daily replacement. Continue to follow. (3) Hypokalemia: Code(s): E87.6 - Hypokalemia Status: Acute Assessment and Plan: Potassium 3.1 on admission. Potassium normal today. Continue to monitor. (4) Junctional escape rhythm: Code(s): I49.49 - Other premature depolarization Status: Acute Assessment and Plan: EKG showing junctional rhythm with bradycardia although P waves are noted. This is most likely related to electrolyte abnormalities with low magnesium and potassium. Electrolytes have been replaced. Renal function also improving. Off tele currently (5) Transaminasemia: Code(s): R74.0 - Nonspecific elevation of levels of transaminase and lactic acid dehydrogenase [LDH] Status: Acute Assessment and Plan: Liver enzymes elevated on admission with AST 491 and ALT 510 with TB 2.6. Elevated liver enzymes of unclear etiology. Hepatitis panel is negative. Most likely related to alcoholism and dehydration. Levels continue to trend downward. He has been educated about the benefits abstain from alcohol. Continue to monitor. (6) Combined systolic and diastolic cardiac dysfunction: Code(s): I51.89 - Other ill-defined heart diseases Status: Chronic Assessment and Plan: Mild pedal edema noted but lungs clear. IV fluids stopped. Monitor closely for evidence of exacerbation. (7) ERIKA (obstructive sleep apnea): Code(s): G47.33 - Obstructive sleep apnea (adult) (pediatric) Status: Chronic Assessment and Plan: Stable. Continue CPAP at night and with naps. (8) HTN (hypertension): Code(s): I10 - Essential (primary) hypertension Status: Chronic Assessment and Plan: Blood pressure 119/82 on admission most likely related to dehydration. Blood pressure reviewed on 09/11/2019. BP remains well controlled with Coreg. Losartan and chlorthalidone remain on hold related to the renal failure. (9) Alcohol use disorder: Status: Chronic Assessment and Plan: Patient has been educated about the benefits of abstaining from alcohol. CIWA mostly 2-3 but up to 11 last night. Has Ativan available and did require 1 dose last night and has had only 2 doses since admission. Continue CIWA protocol. Continue thiamine and folate. Subjective Date/time seen: 09/11/19 16:17 Interval history: 54yo male with hx of alcohol abuse, CHF and ERIKA here for MACO and elevated LFTs. Slept off and on. Anxious last night for unclear reasons. Feels fatigued today. He is now able to walk back and forth to the BR with minimal dizziness. No CP or SOB Exam Narrative: Exam Narrative: Gen - NARD Chest - CTA bilat, nml RR CV - RRR S1/S2 with a 2/6 systolic murmur loudest in the RUSB Abd - soft, NT Ext - trace pedal edema Psych - nml mood and affect. No tremors Skin - warm and dry, no diaphoresis Objective Data Vital Signs Vital Signs: Vital Signs - 24 hr 09/10/19 16:00 09/10/19 20:41 09/10/19 22:00 Temperature 98.1 F Pulse Rate 60 60 57 L Respiratory Rate 16 Blood Pressure 149/81 H Pu
[2019-09-11 20:39] VITALS: PULSE 70
[2019-09-11 21:20] VITALS: BP 139/89; PULSE 100; RESP 18; TEMP 36.1; O2SAT 100
[2019-09-12 06:00] VITALS: BP 168/87; PULSE 59; RESP 18; TEMP 36.2; O2SAT 99
[2019-09-12 06:59] LABS: Alanine Aminotransferase 160 U/L (4-50); Albumin Level 3.1 g/dL (3.5-5.1); Alkaline Phosphatase 98 U/L (38-126); Aspartate Amino Transferase 65 U/L (17-59); Bilirubin,Total 0.8 mg/dL (0.2-1.3); Blood Urea Nitrogen 31 mg/dL (9-20); Calcium 8.1 mg/dL (8.4-10.2); Carbon Dioxide 32 mmol/L (22-30); Chloride 100 mmol/L (98-107); Estimated CRCL calculation 49 ml/min; Estimated Glomerular Filt Rate 40; Glucose 89 mg/dL (75-110); Potassium 3.6 mmol/L (3.4-5.0); Sodium 135 mmol/L (137-145)
[2019-09-12 08:51] VITALS: PULSE 59
[2019-09-12] MEDS: CITALOPRAM HYDROBROMIDE 20 MG TABLET 40 MG PO (08:51)
[2019-09-12] MEDS: carvediloL 6.25 MG TABLET PO (08:51)
[2019-09-12] MEDS: AMLODIPINE BESYLATE 2.5 MG TABLET PO (08:52)
[2019-09-12] MEDS: FOLIC ACID 1 MG TABLET PO (08:52)
[2019-09-12] MEDS: busPIRone HCL 5 MG TABLET PO (08:52)
[2019-09-12] MEDS: THIAMINE HCL 100 MG TABLET PO (08:52)
[2019-09-12] MEDS: MAGNESIUM OXIDE 400 MG TABLET PO (08:52)
--- NOTE | 2019-09-12 10:40 | PM.DS ---
DS: Diagnosis Admitting Diagnosis Admitting Diagnosis: Acute kidney failure, unspecified Discharge Diagnosis (1) Acute kidney injury: Code(s): N17.9 - Acute kidney failure, unspecified Status: Acute Assessment and Plan: BUN 57 with Cr 6.5 on admission. Precipitating etiology is not clear, but is likely multifactorial due to alcoholism, poor oral intake in the setting of diuretic and ARB use. Labs consistent with a pre-renal etiology. Renal US showing no postobstructive issues. Nephrology consulted and appreciate their input. Cr improved to 2.6 with IV fluids. IV fluids stopped and Cr today is 1.8. (2) Hypomagnesemia: Code(s): E83.42 - Hypomagnesemia Status: Acute Assessment and Plan: Magnesium 1.2 on admission. This has been replaced. Magnesium climbed to 1.7. (3) Hypokalemia: Code(s): E87.6 - Hypokalemia Status: Acute Assessment and Plan: Potassium 3.1 on admission. Potassium normal today. (4) Junctional escape rhythm: Code(s): I49.49 - Other premature depolarization Status: Acute Assessment and Plan: EKG showing junctional rhythm with bradycardia although P waves are noted. This is most likely related to electrolyte abnormalities with low magnesium and potassium. Electrolytes have been replaced. Renal function also improving. Off tele currently (5) Transaminasemia: Code(s): R74.0 - Nonspecific elevation of levels of transaminase and lactic acid dehydrogenase [LDH] Status: Acute Assessment and Plan: Liver enzymes elevated on admission with AST 491 and ALT 510 with TB 2.6. Elevated liver enzymes of unclear etiology. Hepatitis panel is negative. Most likely related to alcoholism and dehydration. Atorvastatin held. Levels continue to trend downward with AST 65 and ALT 160 now. Total bili normal. He has been educated about the benefits abstaining from alcohol. (6) Combined systolic and diastolic cardiac dysfunction: Code(s): I51.89 - Other ill-defined heart diseases Status: Chronic Assessment and Plan: Not felt to have fluid overload. Fluid status was monitored closely (7) ERIKA (obstructive sleep apnea): Code(s): G47.33 - Obstructive sleep apnea (adult) (pediatric) Status: Chronic Assessment and Plan: Stable. We continued CPAP at night and with naps. (8) HTN (hypertension): Code(s): I10 - Essential (primary) hypertension Status: Chronic Assessment and Plan: Blood pressure low normal on admission most likely related to dehydration. Blood pressure monitored closely. BP became elevated at times so amlodipine added to the Coreg. Losartan and chlorthalidone remain on hold related to the renal failure. Elevated BP seems mostly in the morning before his meds. Will advance Amlodipne and change to HS dosing. (9) Alcohol use disorder: Status: Chronic Assessment and Plan: Patient has been educated about the benefits of abstaining from alcohol. Last alcoholic drink was 1 week ago. CIWA protocol followed. Only required 2 doses of Ativan since admission. Also treated with thiamine and folate. DS: Summary Hospital Course Reason for hospitalization: 54yo male here for weakness and found to have MACO. please see H&P for details Hospital Course: as above Time Spent with Patient Time attestation: Total time spent providing and/or coordinating discharge services:33 minutes Time spent: Greater than 30 minutes Specific discharge activities: discussed with patient and nephrology Exam Narrative: Exam Narrative: Gen - NARD Chest - CTA bilat, nml RR CV - RRR S1/S2 with a 2/6 systolic murmur USB Abd - soft, NT/ND, +BS Ext - trace pedal edema Psych - nml mood and affect Skin - warm and dry DS: Data Data Completed and Pending Labs on day of discharge: Labs from last 24 hours 09/12/19 05:45 Sodium 135
[2019-09-14 13:42] LABS: Chloride Rand Ur < 20 mmol/L (32-290); Creatinine Random Urine 111 mg/dL (20-320)
== END 2019-09-12 13:05 | disposition home or self-care (01) | DRG 683 ==
LOC: ANHED 14:56 → ANH2MED 23:35
PROVIDERS: Internal Medicine Nephrology; Physician Assistant; Admitting Provider Family Medicine; Emergency Provider Emergency Medicine; PCP Family Medicine; Visit Provider Internal Medicine
DX: N17.9 Acute kidney failure, unspecified (principal); I50.32 Chronic diastolic (congestive) heart failure; I42.8 Other cardiomyopathies; I11.0 Hypertensive heart disease with heart failure; F41.8 Other specified anxiety disorders; I35.0 Nonrheumatic aortic (valve) stenosis; I71.4 Abdominal aortic aneurysm, without rupture; G47.33 Obstructive sleep apnea (adult) (pediatric); Z85.51 Personal history of malignant neoplasm of bladder; I25.10 Atherosclerotic heart disease of native coronary artery without angina pectoris; N52.9 Male erectile dysfunction, unspecified; T50.2X5A Adverse effect of carbonic-anhydrase inhibitors, benzothiadiazides and other diuretics, initial encounter; E87.6 Hypokalemia; E86.0 Dehydration; E83.42 Hypomagnesemia; I49.49 Other premature depolarization; F10.20 Alcohol dependence, uncomplicated
CPT/HCPCS: 36415; 71046; 76775; 80048; 80053; 80074; 80076; 81001; 81050; 82436; 82550; 82570; 82607; 82746; 83735; 83880; 84100; 84132; 84156; 84300; 84443; 84484; 85025; 85027; 85610; 85730; 85999; 87804; 93005; 99285; A9270; J2060; J3475; J7120

== ENCOUNTER 2019-10-10 11:39 | Outpatient (CLI) | payer OTHER, SELFPAY ==
[2019-10-10 12:13] LABS: Hemoglobin 12.2 g/dL (14.0-18.0); Mean Corpuscular HGB Conc 33.9 g/dl (32-36); Mean Corpuscular Hemoglobin 33.8 pg (26-34); Mean Corpuscular Volume 99.7 fl (80-100); Mean Platelet Volume 9.2 fl (7.4-10.4); Platelet Count Result 274 k/mm3 (150-375); Red Blood Count 3.61 M/mm3 (4.6-6.20); Red Cell Distribution Width 12.4 % (11.5-14.5); White Blood Count 7.6 K/mm3 (4.5-10.0)
[2019-10-10 12:31] LABS: Alanine Aminotransferase 24 U/L (4-50); Alkaline Phosphatase 70 U/L (38-126); Aspartate Amino Transferase 26 U/L (17-59); Bilirubin,Total 0.5 mg/dL (0.2-1.3); Blood Urea Nitrogen 13 mg/dL (9-20); Calcium 9.3 mg/dL (8.4-10.2); Carbon Dioxide 32 mmol/L (22-30); Chloride 101 mmol/L (98-107); Estimated Glomerular Filt Rate > 60; Glucose 182 mg/dL (75-110); Magnesium 1.6 mg/dL (1.6-2.3); Potassium 4.4 mmol/L (3.4-5.0); Sodium 136 mmol/L (137-145)
[2019-10-10 12:37] LABS: NT Pro B Type Natriuretic Pept 469 PG/ML (5-100)
== END 2019-10-10 11:40 | disposition home or self-care (01) ==
PROVIDERS: PCP Family Medicine; Visit Provider Physician Assistant
DX: E83.42 Hypomagnesemia (principal); I51.89 Other ill-defined heart diseases; N17.9 Acute kidney failure, unspecified
CPT/HCPCS: 36415; 80053; 83735; 83880; 85027

== ENCOUNTER 2021-07-29 11:05 | Observation (INO) | payer OTHER, SELFPAY ==
[2021-07-29] VITALS (10 sets, daily range): BP systolic 124–184; BP diastolic 95–114; PULSE 74–83; RESP 13–96; TEMP 36.5; O2SAT 95–99; BMI 37.4
--- NOTE | ~2021-07-29 | XR_ITS ---
EXAMINATION: XR chest 2V 07/29/2021 12:06 INDICATION: Shortness of breath. PROCEDURE: 2 view chest COMPARISON: 09/08/2019 FINDINGS: The lungs are clear. The cardiomediastinal silhouette is within normal limits. There are no pleural effusions. There is no pneumothorax suspected. Shallow inspiration with crowding of the pulmonary vasculature. IMPRESSION: 1: NO ACUTE CARDIOPULMONARY DISEASE. Reviewed, dictated and finalized at location B. 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
--- NOTE | ~2021-07-29 | CT_ITS ---
EXAMINATION: CTA chest PE protocol DATE: 07/29/2021 15:32 INDICATION: Shortness of breath for 2 days TECHNIQUE: Computed tomography angiography (CTA) of the chest was performed with 100 mL Omnipaque-350 intravenous contrast timed to evaluate the pulmonary arteries. Coronal maximum intensity projection 3D-reconstructions were created by the technologist. Automated exposure control and iterative reconst ruction technique were employed. Exam dose: 1045.16 mGy-cm total exam DLP. COMPARISON: 07/25/2021 PA and lateral chest FINDINGS: There is diagnostic contrast enhancement of the pulmonary arteries and no evidence of pulmo nary embolism. Heart size is upper limits of normal. Coronary artery calcifications. No pericardial or pleural effus ion. No thoracic aortic aneurysm or dissection. No hilar or mediastinal mass lesion or lymphadenopathy. No pulmonary infiltrate or consolidation or pulmonary mass lesion. There is very prominent diffuse hepatic steatosis. Normal morphology of the adrenal glands. Included skeletal structures are unremarkable. IMPRESSION: No evidence of pulmonary embolism Reviewed, dictated and finalized at Location A. Reviewed, dictated and finalized at location A. TNING ROD ERECTOR
--- NOTE | 2021-07-29 11:52 | ECG_ITS ---
Measurements Intervals [place] Rate: 70 P: 50 [place]: 196 QRS: -55 QRSD: 106 T: 44 QT: 413 QTc: 449 Interpretive Statements SINUS RHYTHM LEFT AXIS DEVIATION POOR R WAVE PROGRESSION, ANTERIOR LEADS BASELINE ARTIFACT- I, II, III, AVR, AVL, AVF, V3-V6 BORDERLINE ECG Electronically Signed On 07-29-2021 12:46:21 REHABILITATION MEDICINE PHYSICIAN by John Garcia D.O.
[2021-07-29 12:11] LABS: Basophils Absolute Auto 0.1 K/mm3 (0.0-0.1); Basophils Percent Auto 0.9 % (0.2-1.2); Eosinophils Absolute Auto 0.1 K/mm3 (0-0.3); Eosinophils Percent Auto 0.9 % (0-4.4); Hematocrit 45.2 % (42.0-52.0); Hemoglobin 16.3 g/dL (14.0-18.0); Immature Granulocyte Absolute 0.04 K/mm3 (0.00-0.031); Immature Granulocyte Percent A 0.6 % (0-0.5); Lymphocytes Absolute Auto 0.94 K/mm3 (0.9-3.2); Lymphocytes Percent Auto 14.2 % (18.3-44.2); Mean Corpuscular HGB Conc 36.1 g/dl (32-36); Mean Corpuscular Hemoglobin 35.7 pg (26-34); Mean Corpuscular Volume 98.9 fl (80-100); Mean Platelet Volume 9.7 fl (7.4-10.4); Monocytes Absolute Auto 0.6 K/mm3 (0.1-0.6); Monocytes Percent Auto 9.4 % (2.6-8.5); Neutrophils Absolute Auto 4.9 K/mm3 (1.3-6.7); Platelet Count Result 202 k/mm3 (150-375); Red Blood Count 4.57 M/mm3 (4.6-6.20); Red Cell Distribution Width 11.9 % (11.5-14.5); White Blood Count 6.6 K/mm3 (4.5-10.0)
[2021-07-29 12:19] LABS: Alanine Aminotransferase 100 U/L (4-50); Albumin Level 4.6 g/dL (3.5-5.1); Alkaline Phosphatase 74 U/L (38-126); Anion Gap 14 mmol/L (8-16); Aspartate Amino Transferase 117 U/L (17-59); Bilirubin,Total 1.6 mg/dL (0.2-1.3); Blood Urea Nitrogen 10 mg/dL (9-20); Calcium 9.3 mg/dL (8.4-10.2); Carbon Dioxide 27 mmol/L (22-30); Chloride 92 mmol/L (98-107); Estimated CRCL calculation 122 ml/min; Estimated Glomerular Filt Rate > 60; Glucose 165 mg/dL (65-110); Lipase 368 U/L (23-300); Sodium 133 mmol/L (137-145)
[2021-07-29 12:23] LABS: INR 1.1
[2021-07-29 12:24] LABS: Partial Thromboplastin Time 29.1 SECONDS (22.3-36.8)
[2021-07-29 12:29] LABS: Troponin I < 0.012 ng/mL (0.000-0.034)
--- NOTE | 2021-07-29 13:48 | ED.GENADULT ---
HPI - General Adult General Chief complaint: Shortness of Breath/Dyspnea Stated complaint: sob Time Seen by Provider: 07/29/21 13:16 Source: patient and RN notes reviewed History of Present Illness HPI narrative: Patient is a 56 y/o male complaining of severe SOB starting 3-4 days ago. There is no alleviating or exacerbating factor. He also has some cough and chest pain. He has no fever. He states that he has a bad valve in his heart and he may need surgery. Related Data Home Medications Medication Instructions Recorded Confirmed aspirin 81 mg tablet,delayed 81 mg PO DAILY 06/10/19 07/29/21 release Allergies Allergy/AdvReac Type Severity Reaction Status Date / Time No Known Allergies Allergy Unverified 07/29/21 22:11 Review of Systems Constitutional: Constitutional: Denies chills, Denies fever(s), Denies headache(s) and Denies weakness Eyes: Eyes: Denies blurry vision ENT: Denies headache(s) and Denies neck pain Cardiovascular: Cardiovascular: Denies chest pain and Reports dyspnea Respiratory: Respiratory: Reports cough and Reports dyspnea Gastrointestinal: Gastrointestinal: Denies abdominal pain, Denies diarrhea, Denies nausea and Denies vomiting Genitourinary: Genitourinary: Denies hematuria and Denies dysuria Musculoskeletal: Musculoskeletal: Denies back pain and Denies neck pain Neurologic: Denies headache(s) and Denies weakness PMFSH Past Medical History Medical History Alcohol abuse Anxiety Aortic stenosis Mild to moderate aortic stenosis noted on echocardiogram in March 2019. Ascending aortic aneurysm 4 centimeter ascending aortic aneurysm noted in fall 2018. Bladder cancer With history of TURBT and mitomycin installation. CAD (coronary artery disease) Diffuse 50% stenosis of the marginal branch noted on cardiac catheterization in March 2019. Combined systolic and diastolic cardiac dysfunction Ejection fraction of 40 to 45% in March 2019. Depression Erectile dysfunction HTN (hypertension) Nonischemic cardiomyopathy ERIKA (obstructive sleep apnea) Previous history of noncompliance with CPAP therapy. Surgical History Surgical History Hx of appendectomy Family History Family History Mother Cerebrovascular accident Family history of diabetes mellitus in first degree relative Father Family history of diabetes mellitus in first degree relative Family history of coronary artery disease Sibling Family history of diabetes mellitus in first degree relative Family history of malignant neoplasm Other Diabetes mellitus Social History Social History Social History: The patient lives in his own home in [place]. Recently . 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 He designates his daughter, Gita Mccullough, as his surrogate decision maker and he wishes to be a full code. He has a history of alcohol abuse, drinking between 7 to 15 beers a day for most of his adult life. He has cut back significantly in recent months, but does not qualify. He chews tobacco daily. Denies illicit drug use. Smoking status: Never smoker Alcohol intake: current Drinks per week: 18 Substance use: never Substance use type: does not use Gender identity (if verbalized by the patient): Male Spiritual care concerns: No Agree to blood products: No Exam Const: General: no acute distress and well developed Orientation/consciousness: oriented to person, oriented to place, oriented to time and patient oriented x3 HENMT: Head: normocephalic Ears: external ears normal General nose exam: Normal external nose present Eyes: General: appearance normal, both eyes and all related structures Conjunctivae: conjunctivae normal Neck: Neck: normal visual inspection and ful
[2021-07-29 13:56] LABS: NT Pro B Type Natriuretic Pept 910 pg/mL (5-100)
[2021-07-29 15:51] LABS: SARS-CoV-2 RNA PCR Negative
[2021-07-29] MEDS: FUROSEMIDE INJ 40 MG/4 ML VIAL IV PUSH (17:50)
--- NOTE | 2021-07-29 17:55 | PC.NURSE ---
added ethanol on with michael in lab at 17:55
[2021-07-29 18:04] LABS: Ethanol < 10 mg/dL (<10)
[2021-07-29 18:27] LABS: Troponin I < 0.012 ng/mL (0.000-0.034)
--- NOTE | 2021-07-29 20:18 | PM.IMHP ---
H&P: HPI History of Present Illness Date/Time: 07/29/21 20:18 Chief Complaint: Shortness of breath Narrative: This is a 56-year-old male with past medical history significant for obesity, hypertension, dyslipidemia, GERD, moderate aortic stenosis. Patient presents to the emergency room due to shortness of breath for the last 3 days or so patient has not been able to sleep apparently patient is wakes up in the middle of the night with shortness of breath he denies any cough or sputum production no fevers no rigors no chills has retrosternal chest pain and numbness of the left upper extremity denies radiation of the pain to the jaw or shoulder denies any chest pain with activity or at exertion has had leg swelling patient drinks 2 beers every night before going to bed and on the weekends he can not drink up to a six-pack, no light headedness no dizziness no syncope or near syncope, no palpitations. Preliminary workup has been essentially nonrevealing. Patient has been admitted for further evaluation management and treatment. Review of Systems Review of Systems: Shortness of breath and retrosternal chest pain Constitutional: Constitutional: Denies chills, Denies fatigue, Denies fever(s), Denies malaise, Denies night sweats and Denies weakness Eyes: Eyes: Denies change in vision ENT: Denies dysphagia, Denies vertigo, Denies dizziness, Denies nasal congestion, Denies nasal discharge, Denies nasal obstruction and Denies odynophagia Cardiovascular: Cardiovascular: Denies irregular heart rhythm, Reports leg edema, Denies lightheadedness, Denies radiating jaw, neck or arm pain, Denies palpitations, Denies dyspnea on exertion, Reports orthopnea and Reports paroxysmal nocturnal dyspnea Comments: Left arm numbness Respiratory: Respiratory: Denies change in phlegm color, Denies chest congestion, Denies cough and Denies excessive phlegm production Gastrointestinal: Gastrointestinal: Denies abdominal pain, Denies dyspepsia, Denies heartburn, Denies diarrhea, Denies nausea and Denies vomiting Genitourinary: Genitourinary: Denies dysuria Musculoskeletal: Musculoskeletal: Denies back pain Integumentary/Breasts: Skin/Breast: Denies rash Neurologic: Denies vertigo, Denies dizziness, Denies focal weakness and Denies Sensory deficit (Neuro) Psychiatric: Psychiatric: Reports no additional psychiatric complaints and Reports as per HPI Endocrine: Endocrine: Denies cold intolerance, Denies heat intolerance, Denies polyphagia, Denies polydipsia, Denies polyuria and Denies palpitations Hematologic/Lymphatic: Hematologic/Lymphatic: Reports no additional hematologic/lymphatic complaints and Reports as per HPI Allergic/Immunologic: Allergic/Immunologic: Reports no additional allergic/immunologic complaints and Reports as per HPI [facility] Past Medical History Medical History Alcohol abuse Anxiety Aortic stenosis Mild to moderate aortic stenosis noted on echocardiogram in March 2019. Ascending aortic aneurysm 4 centimeter ascending aortic aneurysm noted in fall 2018. Bladder cancer With history of TURBT and mitomycin installation. CAD (coronary artery disease) Diffuse 50% stenosis of the marginal branch noted on cardiac catheterization in March 2019. Combined systolic and diastolic cardiac dysfunction Ejection fraction of 40 to 45% in March 2019. Depression Erectile dysfunction HTN (hypertension) Nonischemic cardiomyopathy ERIKA (obstructive sleep apnea) Previous history of noncompliance with CPAP therapy. Surgical History Surgical History Hx of appendectomy Family History Family History Mother Cerebrovascular accident Family history of diabetes mellitus in first degree relative Father Family history of diabetes mellitus in first degree relative Family history of coronary artery di
--- NOTE | 2021-07-29 22:08 | ADMGEN ---
This patient, Cesar Handley, was admitted to Medical Room 247-. Patient/family oriented to hospital policies and general routines including ID bracelet, bed and alarms, visiting hours, pain management, procedures, bathroom and other care routines, personal items, smoking policy, room service/diet, and visiting hours. Information on how to activate the Rapid Response Team has been discussed. Patient/Family are encouraged to report perceived risks to care and to ask questions if they do not understand what they are told or what they should do.
[2021-07-30] VITALS (10 sets, daily range): BP systolic 126–160; BP diastolic 81–98; PULSE 65–81; RESP 14–18; TEMP 36.4–36.6; O2SAT 95–98
--- NOTE | 2021-07-30 06:00 | ECHO_ITS ---
Patient Info Name: Cesar Handley Age: 56 years : 1965 Gender: Male Ht: 67 in Wt: 239 lbs BSA: 2.31 m2 HR: 81 bpm BP: 150 / 81 mmHg Heart Rhythm: Sinus Rhythm Technical Quality: Fair Exam Date: 07/30/2021 7:23 AM Exam Location: [facility] Pul[facility] Patient Status: Outpatient Admit Date: 07/29/2021 Staff Ordering Physician: Alea Garza MD Box Sorter: Migdalia Francois RDCS Attending Provider: Argenis Tidwell DO Referring Physician: Greg BALDERAS; Exam Type: CA echo doppler color flow Study Info Indications - aortic stenosis Complete two-dimensional, color flow and Doppler transthoracic echocardiogram is performed. Summary 1. Complete two-dimensional, color flow and Doppler transthoracic echocardiogram is performed. 2. Left ventricular chamber dimension is normal. 3. Left ventricular systolic function is normal, estimated at 55-60%. 4. There is mildly increased left ventricular wall thickness. 5. Left ventricular septal wall motion is abnormal with septal motion related to bundle branch block. 6. The left ventricular diastolic function is grade I diastolic dysfunction. 7. The aortic valve is not well visualized. 8. There is moderate to severe aortic valve stenosis with a peak velocity of 363 cm/s, mean gradient of 26 mmHg, and aortic valve area of 0.9 cm2. 9. There is severe focal calcification of the anterior leaflet with poor visualization of the other leaflet(s). Cqnnot rule out bicuspid aortic valve. Consider TREY if clinically indicated. 10. There is no aortic valve regurgitation. 11. Epicardial fat pad noted. 12. There is small pericardial effusion. Left Ventricle Left ventricular chamber dimension is normal. Left ventricular systolic function is normal, estimated at 55-60%. There is mildly increased left ventricular wall thickness. Left ventricular septal wall motion is abnormal with septal motion related to bundle branch block. The left ventricular diastolic function is grade I diastolic dysfunction. Right Ventricle Right ventricular chamber dimension is normal. Right ventricular systolic function is normal. Left Atria Left atrial chamber dimension is normal. Right Atria Right atrial chamber dimension is mildly enlarged. Aortic Valve The aortic valve is not well visualized. There is moderate to severe aortic valve stenosis with a peak velocity of 363 cm/s, mean gradient of 26 mmHg, and aortic valve area of 0.9 cm2. There is no aortic valve regurgitation. There is severe focal calcification of the anterior leaflet with poor visualization of the other leaflet(s). Cqnnot rule out bicuspid aortic valve. Consider TREY if clinically indicated. Pulmonic Valve The pulmonic valve is not well visualized. Mitral Valve The mitral valve has normal leaflets. There is trace mitral valve regurgitation. The mitral valve annulus is mildly calcified. Tricuspid Valve The tricuspid valve leaflets are normal. There is trace tricuspid valve regurgitation. Mild pulmonary hypertension, estimated pulmonary arterial systolic pressure is 37 mmHg. Pericardium/Pleural Epicardial fat pad noted. There is small pericardial effusion. Aorta The aortic root size at the sinus of Valsalva is normal. There is mild-moderate aortic atherosclerosis. Left Ventricular Outflow Tract Name Value Normal
--- NOTE | 2021-07-30 08:58 | PM.CNCAR ---
Assessment and Plan Assessment and plan (1) Aortic stenosis: Qualifiers: Cardiac valve disease etiology: etiology unspecified Qualified Code(s): I35.0 - Nonrheumatic aortic (valve) stenosis Code(s): I35.0 - Nonrheumatic aortic (valve) stenosis Status: Acute Assessment and Plan: suspected bicuspid congenital aortic stenosis, however, this has not been definitively documented. Discussed options at length. Discussed criteria for severe aortic stenosis valve area 0.9 centimeters squared but with peak velocity 3.6 a mean gradient 26 mm Hg. This has progressed compared to echo July 2020 and symptoms are also consistent with progressive aortic stenosis. -Explained the potential he may have an anatomic 3 leaflet valve but acting functionally bicuspid due to leaflet fusion vs anatomically bicuspid valve and clinical implications. He verbalized understanding. We also discussed symptoms may also be complicated by underlying CAD particularly if he had progression in severity. in 2019 left heart catheterization had mild nonobstructive CAD. we discussed at length options including open surgical aortic valve replacement mechanical versus bioprosthetic and or TAVR options and potential for valve in valve replacement as necessary in the future. Discussed anticoagulation with mechanical aortic valve. He would require preoperative left heart catheterization either way. Given severe aortic stenosis and potential for valve replacement surgery stress test was canceled until further clarification of management plans. All questions answered to his satisfaction. Patient verbalized understanding and agreed with plan of care. Spent 75 minutes in the care of this patient at bedside including patient discussions, counseling, examination, chart review, decision making, discussions with colleagues including primary service and Dr Huertas. (2) Chest pain: Code(s): R07.9 - Chest pain, unspecified Status: Acute Assessment and Plan: Somewhat atypical may be explained by severe aortic stenosis and or progression of underlying CAD although previously noted 2019 to be nonobstructive. Discussed potential difficulty in determining precise etiology of his symptoms given the circumstances. Nonetheless as above he will require left heart catheterization preoperatively. 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 Huertas we agree clarification of the anatomy is aortic valve and planimetry of the aortic valve area then to decide which direction to go as far as possible TAVR versus surgical valve replacement and accordance to scheduling with left heart catheterization. For example, TAVR workup would not be ideally initiated here at this hospital. - troponins negative thus far. Obtained 3rd set to complete series. Twelve lead EKG without acute ischemic changes, poor R-wave progression (3) Acute on chronic diastolic (congestive) heart failure: Code(s): I50.33 - Acute on chronic diastolic (congestive) heart failure Status: Acute Assessment and Plan: Minimal decompensation heart failure with preserved ejection fraction in setting of probable severe aortic stenosis, uncontrolled hypertension, ERIKA, morbid obesity. He also has a history of alcohol abuse. Cautious diuresis. Mild elevation in BNP, CT angiogram of the chest no pulmonary embolism, thoracic aortic aneurysm or dissection, infiltrate or vascular congestion. (4) CAD (coronary artery disease): Code(s): I25.10 - Atherosclerotic heart disease of yurok coronary artery without angina pectoris Status: Chronic Assessment and Plan: Coronary calcification by CT angiogram of the chest with known history of mild nonobstructive CAD 50% stenosis diagonal branch 2019 left heart catheterization. Continue aggressive medical therapy with aspirin, statin beta-alexandru. Workup for elevated blood sugars per primary service, lifestyle loreto
[2021-07-30 09:23] LABS: Hemoglobin A1C 5.8 % (<5.7)
[2021-07-30] MEDS: ASPIRIN 81 MG ENTERIC TABLET PO (10:07)
[2021-07-30] MEDS: MAGNESIUM OXIDE 400 MG TABLET PO (10:07)
[2021-07-30] MEDS: FOLIC ACID 1 MG TABLET PO (10:07)
[2021-07-30] MEDS: CITALOPRAM HYDROBROMIDE 20 MG TABLET 40 MG PO (10:07)
[2021-07-30] MEDS: ATORVASTATIN 20 MG TABLET PO (10:07)
[2021-07-30] MEDS: THIAMINE HCL 100 MG TABLET PO (10:07)
[2021-07-30] MEDS: busPIRone HCL 5 MG TABLET PO ×2 (10:07→17:22)
--- NOTE | 2021-07-30 11:24 | PM.IMPN ---
Progress Note: A&P Assessment and Plan (1) Acute on chronic diastolic (congestive) heart failure: Code(s): I50.33 - Acute on chronic diastolic (congestive) heart failure Status: Acute Assessment and Plan: Pt received iv lasix in ED can transition to oral lasix (2) Aortic stenosis: Qualifiers: Cardiac valve disease etiology: etiology unspecified Qualified Code(s): I35.0 - Nonrheumatic aortic (valve) stenosis Code(s): I35.0 - Nonrheumatic aortic (valve) stenosis Status: Acute Assessment and Plan: Moderate benefits from TAVR work up later, Slitting Machine Feeder are in discussion. (3) Chest pain: Code(s): R07.9 - Chest pain, unspecified Status: Acute Assessment and Plan: Resolved presently, reviewed by cardiology, PRN NTG, heart cath later as outpatient (4) Aortic stenosis: Code(s): I35.0 - Nonrheumatic aortic (valve) stenosis Status: Acute Assessment and Plan: As above (5) Obesity (BMI 30-39.9): Code(s): E66.9 - Obesity, unspecified Status: Acute Assessment and Plan: Weight loss adviced HBAic ordered to check for preDM (6) Alcohol abuse: Code(s): F10.10 - Alcohol abuse, uncomplicated Status: Acute Assessment and Plan: Adviced to quit Alcholol Subjective Date/time seen: 07/30/21 11:25 Interval history: 56-year-old male with past medical history significant for obesity, hypertension, dyslipidemia, GERD, moderate aortic stenosis. Patient presents to the emergency room due to shortness of breath for the last 3 days or so patient has not been able to sleep apparently patient is wakes up in the middle of the night with shortness of breath. Cardiologists are in discussion regarding TAVR and heart cath, Heart cath can be completed as outpatient. Review of Systems Review of Systems: All systems reviewed & are unremarkable except as noted in HPI and below Exam Const: General: cooperative and healthy appearing; No in distress Nutritional Appearance: overweight Orientation/consciousness: oriented to person HENMT: Head: normal to inspection Resp: Effort & Inspection: no respiratory distress Auscultation: no rhonchi and no wheezes Cardio: Rate: regular rate Rhythm: regular rhythm GI: Inspection: normal to inspection GI Palp: No abdominal tenderness, No Guarding due to palpation present (GI) and No Hepatomegaly present Auscultation: normal bowel sounds Neuro: General: oriented to person Objective Data Vital Signs Vital Signs: Vital Signs - 24 hr 07/29/21 13:12 07/29/21 13:35 07/29/21 14:59 Temperature Pulse Rate 76 74 Respiratory Rate 13 19 Blood Pressure 164/113 H 156/107 H Pulse Oximetry 97 99 96 07/29/21 17:55 07/29/21 18:49 07/29/21 19:12 Temperature Pulse Rate 79 81 83 Respiratory Rate 21 H 18 96 H Blood Pressure 158/114 H 124/95 H Pulse Oximetry 98 98 97 07/29/21 21:36 07/29/21 22:05 07/29/21 22:37 Temperature 36.5 C Pulse Rate 81 81 78 Respiratory Rate 18 18 16 Blood Pressure 124/95 H 145/95 H Pulse Oximetry 95 95 97 07/30/21 00:00 07/30/21 04:00 07/30/21 06:00 Temperature 36.6 C Pulse Rate 71 65 81 Respiratory Rate 16 Blood Pressure 150/81 H Pulse Oximetry 97 07/30/21 08:23 Temperature Pulse Rate 77 Respiratory Rate Blood Pressure Pulse Oximetry Intake/Output Intake/Output: Intake & Output 07/27/21 07/28/21 07/29/21 07/30/21 23:59 23:59 23:59 23:59 Intake Total 300 Balance 300 Meds/Results Medications: Active Medications Generic Name Dose Route Start Last Admin Trade Name Freq PRN Reason Stop Dose Admin Amlodipine Besylate 5 mg 07/30/21 21:00 Amlodipine Besylate 5 Mg Tablet PO HS JAGDISH Aspirin 81 mg 07/30/21 09:00 07/30/21 10:07 Aspirin 81 Mg Enteric Tablet PO 81 mg DAILY JAGDISH Administration Atorvastatin Calcium 20 mg 07/30/21 09:00 07/30/21 10:07 Atorvastatin
[2021-07-30] MEDS: amLODIPine BESYLATE 5 MG TABLET PO (23:15)
[2021-07-31] VITALS (14 sets, daily range): BP systolic 113–149; BP diastolic 82–118; PULSE 69–97; RESP 12–20; TEMP 36.1–36.9; O2SAT 96–99
[2021-07-31 08:50] LABS: Alanine Aminotransferase 90 U/L (4-50); Albumin Level 4.1 g/dL (3.5-5.1); Alkaline Phosphatase 68 U/L (38-126); Anion Gap 11 mmol/L (8-16); Aspartate Amino Transferase 89 U/L (17-59); Bilirubin,Total 1.2 mg/dL (0.2-1.3); Blood Urea Nitrogen 13 mg/dL (9-20); Calcium 8.9 mg/dL (8.4-10.2); Carbon Dioxide 30 mmol/L (22-30); Chloride 93 mmol/L (98-107); Estimated CRCL calculation 121 ml/min; Estimated Glomerular Filt Rate > 60; Glucose 130 mg/dL (65-110); Magnesium 1.5 mg/dL (1.6-2.3); Potassium 3.5 mmol/L (3.4-5.0); Sodium 134 mmol/L (137-145)
[2021-07-31 09:39] LABS: Basophils Percent Auto 0.8 % (0.2-1.2); Eosinophils Absolute Auto 0.2 K/mm3 (0-0.3); Hematocrit 45.8 % (42.0-52.0); Hemoglobin 15.8 g/dL (14.0-18.0); Immature Granulocyte Absolute 0.03 K/mm3 (0.00-0.031); Immature Granulocyte Percent A 0.6 % (0-0.5); Lymphocytes Absolute Auto 1.09 K/mm3 (0.9-3.2); Lymphocytes Percent Auto 20.8 % (18.3-44.2); Mean Corpuscular HGB Conc 34.5 g/dl (32-36); Mean Corpuscular Volume 101.6 fl (80-100); Mean Platelet Volume 10.5 fl (7.4-10.4); Monocytes Absolute Auto 0.7 K/mm3 (0.1-0.6); Monocytes Percent Auto 13.4 % (2.6-8.5); Neutrophils Absolute Auto 3.2 K/mm3 (1.3-6.7); Neutrophils Percent Auto 60.4 % (45.5-73.1); Platelet Count Result 167 k/mm3 (150-375); Red Blood Count 4.51 M/mm3 (4.6-6.20); White Blood Count 5.2 K/mm3 (4.5-10.0)
[2021-07-31 10:02] LABS: Hemoglobin A1C 5.8 % (<5.7)
--- NOTE | 2021-07-31 10:30 | PM.IMPN ---
Progress Note: A&P Assessment and Plan (1) Acute on chronic diastolic (congestive) heart failure: Code(s): I50.33 - Acute on chronic diastolic (congestive) heart failure Status: Acute Assessment and Plan: BNP 910 Echo EF of 55-60%, grade 1 DD, and severe aortic valve stenosis Lasix 20mg PO daily Probably an acute exacerbation of diastolic dysfunction Monitor urine output Daily weights (2) Aortic stenosis: Qualifiers: Cardiac valve disease etiology: etiology unspecified Qualified Code(s): I35.0 - Nonrheumatic aortic (valve) stenosis Code(s): I35.0 - Nonrheumatic aortic (valve) stenosis Status: Acute Assessment and Plan: Moderate benefits from TAVR work up later, Student Accounts Coordinator are in discussion Is being referred by cards (3) Chest pain: Code(s): R07.9 - Chest pain, unspecified Status: Acute Assessment and Plan: Resolved presently, reviewed by cardiology, PRN NTG, heart cath later as outpatient (4) Obesity (BMI 30-39.9): Code(s): E66.9 - Obesity, unspecified Status: Acute Assessment and Plan: Weight loss adviced HBAic ordered to check for preDM (5) Alcohol abuse: Code(s): F10.10 - Alcohol abuse, uncomplicated Status: Acute Assessment and Plan: Advised to quit Alcohol Time Spent With Patient Time with patient: Greater than 35 minutes Subjective Date/time seen: 07/31/21 1030 Interval history: 56-year-old male with past medical history significant for obesity, hypertension, dyslipidemia, GERD, moderate aortic stenosis. Patient presents to the emergency room due to shortness of breath for the last 3 days or so patient has not been able to sleep apparently patient is wakes up in the middle of the night with shortness of breath. Cardiologists are in discussion regarding TAVR and heart cath, Heart cath can be completed as outpatient. 07/31/21 1030 Patient is lying in bed. Patient did state that he felt okay. Patient is worried about having his valve replacement surgery. Patient is going down for TREY. Patient denies having any complaints of chest pain, shortness of breath, nausea, vomiting, sweats, fevers, chills. Patient did state that he was just really tired and has no idea how he feels today. Review of Systems Review of Systems: All systems reviewed & are unremarkable except as noted in HPI and below Exam Const: General: cooperative, healthy appearing, comfortable, no acute distress, well developed, alert, awake, Physically active and anxious; No in distress Nutritional Appearance: obese and overweight Orientation/consciousness: oriented to person and patient oriented x3 HENMT: Head: normal to inspection, normocephalic and atraumatic Ears: hearing grossly normal bilaterally General nose exam: Normal external nose present Face and sinus: normal facial exam Mouth: Yes Normal oral and palatal mucosa present Eyes: General: appearance normal, both eyes and all related structures Alignment and Position: alignment normal Sclera: sclerae normal Pupils: Equal, round and reactive pupils present EOM: EOMs intact bilaterally Neck: Neck: normal visual inspection, full ROM, no lymphadenopathy, supple and no JVD Thyroid: thyroid normal Lymphatic: no lymphadenopathy noted Resp: Effort & Inspection: normal respiratory effort, able to speak in complete sentences, no cough and no respiratory distress Auscultation: clear to auscultation bilaterally, no crackles, no rales, no rhonchi and no wheezes Cardio: Jugular venous distension: no JVD Rate: regular rate Rhythm: regular rhythm Heart sounds: S1 normal heart sound present, S2 normal heart sound present and Murmur heart sound present diastolic mid, harsh and III/ GI: Inspection: normal to inspection and obesity Auscultation: normal bowel sounds : General: Yes deferred Skin: General skin exam: normal color Rashes: no rashes Wounds
--- NOTE | 2021-07-31 10:50 | WPDANESEPPF ---
Anes - Initial Pre Proc Eval Procedure: Operation Date: 07/31/21 12:30 Proposed Procedures p Trans Esophageal Echo TREY - Chu Yoon MD Date/Time: 07/31/21 10:50 Surgeon: Argenis Tidwell DO Pre Op Diagnosis: sob Patient Data Age: 56 Gender: M Height: 1.7 m Weight: 108.5 kg Last Vital Signs Temp 36.9 C 07/31/21 03:52 Pulse 71 07/31/21 04:00 Resp 18 07/31/21 03:52 BP 134/99 H 07/31/21 03:52 Pulse Ox 96 07/31/21 03:52 Allergies Allergy/AdvReac Type Severity Reaction Status Date / Time No Known Allergies Allergy Unverified 07/29/21 22:11 Home Medications Medication Instructions Recorded Confirmed Type aspirin 81 mg tablet,delayed 81 mg PO DAILY 06/10/19 07/29/21 History release thiamine HCl (vitamin B1) [Vitamin 100 mg PO QAM #30 tablet 09/12/19 07/29/21 Rx B-1] folic acid 1 mg tablet 1 mg PO DAILY #30 tablet 10/17/19 07/29/21 Rx magnesium oxide 400 mg (241.3 mg 400 mg PO QAM #30 tablet 10/17/19 07/29/21 Rx magnesium) tablet amlodipine 5 mg tablet 5 mg PO HS #90 tablet 12/05/20 07/29/21 Rx atorvastatin 20 mg tablet 20 mg PO DAILY #90 tablet 03/14/21 07/29/21 Rx buspirone 5 mg tablet 5 mg PO BID #60 tablet 04/15/21 07/29/21 Rx citalopram 40 mg tablet 40 mg PO DAILY #30 tablet 04/29/21 07/29/21 Rx Laboratory Tests 07/31/21 07/31/21 07/31/21 08:17 08:17 08:17 WBC 5.2 K/mm3 K/mm3 (4.5-10.0) RBC 4.51 M/mm3 L M/mm3 (4.6-6.20) Hgb 15.8 g/dL g/dL (14.0-18.0) Hct 45.8 % % (42.0-52.0) MCV 101.6 fl H fl (80-100) MCH 35.0 pg H pg (26-34) MCHC 34.5 g/dl g/dl (32-36) RDW 12.0 % % (11.5-14.5) Plt Count 167 k/mm3 k/mm3 (150-375) MPV 10.5 fl H fl (7.4-10.4) Immature Gran % (Auto) 0.6 % H % (0-0.5) Neut % (Auto) 60.4 % % (45.5-73.1) Lymph % (Auto) 20.8 % % (18.3-44.2) Lincoln % (Auto) 13.4 % H % (2.6-8.5) Eos % (Auto) 4.0 % % (0-4.4) Baso % (Auto) 0.8 % % (0.2-1.2) Lymph # (Auto) 1.09 K/mm3 K/mm3 (0.9-3.2) Lincoln # (Auto) 0.7 K/mm3 H K/mm3 (0.1-0.6) Eos # (Auto) 0.2 K/mm3 K/mm3 (0-0.3) Baso # (Auto) 0.0 K/mm3 K/mm3 (0.0-0.1) Abs Immat Gran (auto) 0.03 K/mm3 K/mm3 (0.00-0.031) Absolute Neuts (auto) 3.2 K/mm3 K/mm3 (1.3-6.7) Absolute Nucleated RBC 0.0 K/mm3 K/mm3 (0.0-0.012) Nucleated RBC % 0.0 % % (0.0-0.2) Sodium 134 mmol/L L mmol/L (137-145) Potassium 3.5 mmol/L mmol/L (3.4-5.0) Chloride 93 mmol/L L mmol/L (98-107) Carbon Dioxide 30 mmol/L mmol/L (22-30) Anion Gap 11 mmol/L mmol/L (8-16) BUN 13 mg/dL mg/dL (9-20) Creatinine 0.70 mg/dL mg/dL (0.7-1.3) Estim Creat Clear Calc 121 ml/min ml/min Estimated GFR > 60 (59 - ) Glucose 130 mg/dL H mg/dL (65-110) Hemoglobin A1c 5.8 % H % (<5.7) Calcium 8.9 mg/dL mg/dL (8.4-10.2) Magnesium 1.5 mg/dL L mg/dL (1.6-2.3) Total Bilirubin 1.2 mg/dL mg/dL (0.2-1.3) AST 89 U/L H U/L (17-59) ALT 90 U/L H U/L (4-50) Alkaline Phosphatase 68 U/L U/L (38-126) Total Protein 7.0 g/dL g/dL (6.3-8.2) Albumin 4.1 g/dL g/dL (3.5-5.1) Patient hx anesthesia problems: none Family hx anesthesia problems: none Results Review: All pre-operative results and documents have been reviewed as part of the pre-operative evaluation. [facility] Past Medical History Medical History Alcohol abuse Anxiety Aortic stenosis Mild to moderate aortic stenosis noted on echocardiogram in March 2019. Ascending aortic aneurysm 4 centimeter ascending aortic aneurysm noted in fall 2018. Bladder cancer With history of TURBT
--- NOTE | 2021-07-31 12:15 | PC.NURSE ---
Patient to [facility] for TREY. IV intact.
--- NOTE | 2021-07-31 12:59 | WPDTEECHO ---
TREY TransEsophageal Echocardiogram Date of procedure: 07/31/21 Procedure Type: Transesophageal echocardiogram Diagnosis: aortic stenosis, possible bicuspid aortic valve Indications: aortic stenosis, possible bicuspid aortic valve Image Quality: fair Findings: Brief history present illness: Patient is a pleasant 56-year-old male with a history of probable bicuspid aortic valve stenosis, nonobstructive CAD, hypertension, alcohol abuse, morbid obesity, ERIKA on CPAP who presented with progressive exertional dyspnea, fatigue and chest discomfort ruled out for myocardial infarction with mild heart failure with preserved ejection fraction surface echocardiogram suggested progression of his aortic stenosis severity with calculated valve area 0.9 centimeters squared referred for transesophageal echocardiogram. Procedure in detail: After verbal and written informed consent was obtained the patient risks, benefits, and alternatives explained in detail the patient agreed to proceed with the plan of care as outlined above. The patient was evaluated at bedside in the gastroenterology procedure room. The posterior oropharynx, neck, and jaw angle all within normal limits on examination. Lungs were clear to auscultation. See pre-sedation note for further details The patient was then placed in the appropriate 30 to 45 degree angle supine position at a slight left lateral decubitus position. Patient was monitored throughout the study with telemetry, oxygen saturation, end-tidal CO2 monitoring, blood pressure, heart rate, and respirations per Anesthesiology. After confirmation of adequate sedation administered by Anesthesiology, the transesophageal echocardiogram probe was advanced through the oral bite block into the posterior hypopharynx and into the esophagus easily and without complication. Multiple, multiplanar echocardiographic images were obtained in multiple standard re- projections. Pulsed wave, continuous-wave, and color-flow Doppler were utilized in conjunction with this study. At the conclusion of the study, the transesophageal echocardiogram probe was removed easily and without complication. The patient tolerated the procedure well without difficulty. Patient was in sinus rhythm throughout the study. Sedation/Anesthesia administration: Patient reports no prior problems with sedation/anesthesia. Please see Anesthesiology documentation for further details and protocols regarding sedation administration. FINDINGS: LEFT VENTRICLE: Technically difficult study. Size and systolic function were within normal limits without wall motion abnormalities with ejection fraction of 55%with mild concentric left ventricular hypertrophy. RIGHT VENTRICLE: Appears at least moderately enlarged with mild RV systolic dysfunction where it could be visualized although clearest imaging off axis. LEFT ATRIUM: Normal size. RIGHT ATRIUM: Moderate enlargement although off axis. INTERATRIAL SEPTUM: Interatrial septum is anatomically normal without evidence of shunt with color-flow Doppler nor with injection of agitated saline. MITRAL VALVE: Mitral valve is anatomically normal with preserved leaflet excursion and mild regurgitation with several smaller jets. AORTIC VALVE: The aortic valve was difficult to visualize, however, appeared to be a bicuspid valve with leaflets in the 11 o'clock and 5 o'clock positions with moderate calcification and more prominent calcification and restriction the leaflet in the 5 o'clock position. Multiple planimetered valve areas obtained averaging approximately 1.0cm2 consistent with moderate to severe aortic stenosis. Trivial regurgitation identified. Median raphe suspected 5 o'clock leaflet. TRICUSPID VALVE: The tricuspid valve is anatomically normal with normal leaflet excursion with mild regurgitation. No mobile elements identified. PULMONIC VALVE: Pulmonic valve was not well visualized. LEFT ATRIAL APPENDAGE: Anatomically normal structure
--- NOTE | 2021-07-31 13:45 | PC.NURSE ---
Patient back to room from [facility]
[2021-07-31] MEDS: MAGNESIUM OXIDE 400 MG TABLET PO (13:53)
[2021-07-31] MEDS: THIAMINE HCL 100 MG TABLET PO (13:53)
[2021-07-31] MEDS: CITALOPRAM HYDROBROMIDE 20 MG TABLET 40 MG PO (13:53)
[2021-07-31] MEDS: ATORVASTATIN 20 MG TABLET PO (13:53)
[2021-07-31] MEDS: ASPIRIN 81 MG ENTERIC TABLET PO (13:53)
[2021-07-31] MEDS: FUROSEMIDE 20 MG TABLET PO (13:53)
[2021-07-31] MEDS: MAGNESIUM SULF 4 GM/WATER100ML 4 GM/100 ML BAG IVPB (13:54)
[2021-07-31] MEDS: FOLIC ACID 1 MG TABLET PO (13:54)
[2021-07-31] MEDS: ENOXAPARIN 40 MG/0.4 ML SYRINGE SUB-Q (13:54)
[2021-07-31] MEDS: busPIRone HCL 5 MG TABLET PO ×2 (13:54→17:09)
[2021-07-31] MEDS: amLODIPine BESYLATE 5 MG TABLET PO (20:52)
[2021-08-01] VITALS (24 sets, daily range): BP systolic 112–156; BP diastolic 90–117; PULSE 64–91; RESP 13–20; TEMP 36.2–36.5; O2SAT 95–100
[2021-08-01 06:41] LABS: Basophils Absolute Auto 0.1 K/mm3 (0.0-0.1); Basophils Percent Auto 1.3 % (0.2-1.2); Eosinophils Absolute Auto 0.3 K/mm3 (0-0.3); Hematocrit 42.3 % (42.0-52.0); Hemoglobin 14.8 g/dL (14.0-18.0); Immature Granulocyte Absolute 0.03 K/mm3 (0.00-0.031); Immature Granulocyte Percent A 0.6 % (0-0.5); Lymphocytes Absolute Auto 1.33 K/mm3 (0.9-3.2); Lymphocytes Percent Auto 25.3 % (18.3-44.2); Mean Corpuscular Hemoglobin 35.2 pg (26-34); Mean Corpuscular Volume 100.5 fl (80-100); Mean Platelet Volume 10.4 fl (7.4-10.4); Monocytes Absolute Auto 0.7 K/mm3 (0.1-0.6); Monocytes Percent Auto 13.3 % (2.6-8.5); Neutrophils Absolute Auto 2.9 K/mm3 (1.3-6.7); Neutrophils Percent Auto 54.5 % (45.5-73.1); Platelet Count Result 162 k/mm3 (150-375); Red Blood Count 4.21 M/mm3 (4.6-6.20); Red Cell Distribution Width 11.9 % (11.5-14.5); White Blood Count 5.3 K/mm3 (4.5-10.0)
[2021-08-01 07:00] LABS: Alanine Aminotransferase 85 U/L (4-50); Albumin Level 3.9 g/dL (3.5-5.1); Alkaline Phosphatase 63 U/L (38-126); Anion Gap 10 mmol/L (8-16); Aspartate Amino Transferase 74 U/L (17-59); Bilirubin,Total 1.1 mg/dL (0.2-1.3); Blood Urea Nitrogen 18 mg/dL (9-20); Calcium 8.4 mg/dL (8.4-10.2); Carbon Dioxide 29 mmol/L (22-30); Chloride 93 mmol/L (98-107); Estimated CRCL calculation 107 ml/min; Estimated Glomerular Filt Rate > 60; Glucose 122 mg/dL (65-110); Potassium 3.5 mmol/L (3.4-5.0); Sodium 132 mmol/L (137-145)
--- NOTE | 2021-08-01 08:30 | PM.IMPN ---
Progress Note: A&P Assessment and Plan (1) Acute on chronic diastolic (congestive) heart failure: Code(s): I50.33 - Acute on chronic diastolic (congestive) heart failure Status: Acute Assessment and Plan: BNP 910 Echo EF of 55-60%, grade 1 DD, and severe aortic valve stenosis Lasix 20mg PO daily Probably an acute exacerbation of diastolic dysfunction Monitor urine output Daily weights (2) Aortic stenosis: Qualifiers: Cardiac valve disease etiology: etiology unspecified Qualified Code(s): I35.0 - Nonrheumatic aortic (valve) stenosis Code(s): I35.0 - Nonrheumatic aortic (valve) stenosis Status: Acute Assessment and Plan: Moderate benefits from TAVR work up later, Supply Chain Development Manager are in discussion Is being referred by cards (3) Chest pain: Code(s): R07.9 - Chest pain, unspecified Status: Acute Assessment and Plan: Resolved presently, reviewed by cardiology, PRN NTG, Cardiac cath done today with no blockages noted. (4) Obesity (BMI 30-39.9): Code(s): E66.9 - Obesity, unspecified Status: Acute Assessment and Plan: Weight loss adviced A1c 5.8 Probably would benefit from some metformin (5) Alcohol abuse: Code(s): F10.10 - Alcohol abuse, uncomplicated Status: Acute Assessment and Plan: Advised to quit Alcohol Subjective Date/time seen: 08/01/21829 Interval history: 56-year-old male with past medical history significant for obesity, hypertension, dyslipidemia, GERD, moderate aortic stenosis. Patient presents to the emergency room due to shortness of breath for the last 3 days or so patient has not been able to sleep apparently patient is wakes up in the middle of the night with shortness of breath. Cardiologists are in discussion regarding TAVR and heart cath, Heart cath can be completed as outpatient. 07/31/21 1030 Patient is lying in bed. Patient did state that he felt okay. Patient is worried about having his valve replacement surgery. Patient is going down for TREY. Patient denies having any complaints of chest pain, shortness of breath, nausea, vomiting, sweats, fevers, chills. Patient did state that he was just really tired and has no idea how he feels today. 08/01/21 08 Patient is laying in bed. He does not really know how he feels because he just woke up. He did ask about getting a new CPAP. Talked with Dr. Yoon and he would like to wait to watch his kidney functions due to the fact the patient received a lot of contrast in the cardiac cath. He denies chest pain, shortness of breath, nausea, vomiting, diarrhea. Review of Systems Review of Systems: All systems reviewed & are unremarkable except as noted in HPI and below Exam Const: General: cooperative, healthy appearing, comfortable, no acute distress, well developed, alert, awake, Physically active and anxious; No in distress Nutritional Appearance: obese and overweight Orientation/consciousness: oriented to person and patient oriented x3 HENMT: Head: normal to inspection, normocephalic and atraumatic Ears: hearing grossly normal bilaterally General nose exam: Normal external nose present Face and sinus: normal facial exam Mouth: Yes Normal oral and palatal mucosa present Eyes: General: appearance normal, both eyes and all related structures Alignment and Position: alignment normal Sclera: sclerae normal Pupils: Equal, round and reactive pupils present EOM: EOMs intact bilaterally Neck: Neck: normal visual inspection, full ROM, no lymphadenopathy, supple and no JVD Thyroid: thyroid normal Lymphatic: no lymphadenopathy noted Resp: Effort & Inspection: normal respiratory effort, able to speak in complete sentences, no cough and no respiratory distress Auscultation: clear to auscultation bilaterally, no crackles, no rales, no rhonchi and no wheezes Cardio: Jugular venous distension: no JVD Rate: regular
--- NOTE | 2021-08-01 09:24 | WPDANESPN ---
Anes - Prog Note Post-Op Date/Time: 08/01/21 09:24 Cardiovascular status: normal Respiratory status: normal Airway patency: baseline Mental status: baseline Post-Op hydration status: normal Vital Signs: Last Vital Signs Temp 36.5 C 08/01/21 03:30 Pulse 69 08/01/21 04:00 Resp 16 08/01/21 03:30 BP 140/90 08/01/21 03:30 Pulse Ox 97 08/01/21 03:30 Pain Score (VAS): 1 I/O: Intake & Output 07/31/21 08/01/21 08/01/21 23:59 07:59 15:59 Intake Total 640 400 Balance 640 400 Laboratory Tests 08/01/21 06:00 08/01/21 06:00 07/31/21 07/31/21 08/01/21 08:17 08:17 06:00 WBC 5.2 5.3 RBC 4.51 L 4.21 L Hgb 15.8 14.8 Hct 45.8 42.3 MCV 101.6 H 100.5 H MCH 35.0 H 35.2 H MCHC 34.5 35.0 RDW 12.0 11.9 Plt Count 167 162 MPV 10.5 H 10.4 Immature Gran % (Auto) 0.6 H 0.6 H Neut % (Auto) 60.4 54.5 Lymph % (Auto) 20.8 25.3 [place] % (Auto) 13.4 H 13.3 H Eos % (Auto) 4.0 5.0 H Baso % (Auto) 0.8 1.3 H Lymph # (Auto) 1.09 1.33 [place] # (Auto) 0.7 H 0.7 H Eos # (Auto) 0.2 0.3 Baso # (Auto) 0.0 0.1 Abs Immat Gran (auto) 0.03 0.03 Absolute Neuts (auto) 3.2 2.9 Absolute Nucleated RBC 0.0 0.0 Nucleated RBC % 0.0 0.0 Sodium Potassium Chloride Carbon Dioxide Anion Gap BUN Creatinine Estim Creat Clear Calc Estimated GFR Glucose Hemoglobin A1c 5.8 H Calcium Magnesium Total Bilirubin AST ALT Alkaline Phosphatase Total Protein Albumin 08/01/21 06:00 WBC RBC Hgb Hct MCV MCH MCHC RDW Plt Count MPV Immature Gran % (Auto) Neut % (Auto) Lymph % (Auto) [place] % (Auto) Eos % (Auto) Baso % (Auto) Lymph # (Auto) [place] # (Auto) Eos # (Auto) Baso # (Auto) Abs Immat Gran (auto) Absolute Neuts (auto) Absolute Nucleated RBC Nucleated RBC % Sodium 132 L Potassium 3.5 Chloride 93 L Carbon Dioxide 29 Anion Gap 10 BUN 18 Creatinine 0.80 Estim Creat Clear Calc 107 Estimated GFR > 60 Glucose 122 H Hemoglobin A1c Calcium 8.4 Magnesium 2.0 Total Bilirubin 1.1 AST 74 H ALT 85 H Alkaline Phosphatase 63 Total Protein 7.0 Albumin 3.9 Post-procedural complaints: none Patient Feedback: Patient satisfied with anesthetic care.
--- NOTE | 2021-08-01 10:50 | PC.NURSE ---
Patient to [facility] for heart cath. IV intact.
--- NOTE | 2021-08-01 11:03 | WPDMODSED ---
Moderate Sedation Note-Pt Data Patient Data Diagnosis: CAD, progressive exertional dyspnea, chest pain Present Complaint: shortness of breath Procedure to be performed/Plan: left heart catheterization with selective left and right coronary angiography with possible percutaneous intervention and stent implantation. Allergies Allergy/AdvReac Type Severity Reaction Status Date / Time No Known Allergies Allergy Unverified 07/29/21 22:11 Home Medications Medication Instructions Recorded Confirmed Type aspirin 81 mg tablet,delayed 81 mg PO DAILY 06/10/19 07/29/21 History release thiamine HCl (vitamin B1) [Vitamin 100 mg PO QAM #30 tablet 09/12/19 07/29/21 Rx B-1] folic acid 1 mg tablet 1 mg PO DAILY #30 tablet 10/17/19 07/29/21 Rx magnesium oxide 400 mg (241.3 mg 400 mg PO QAM #30 tablet 10/17/19 07/29/21 Rx magnesium) tablet amlodipine 5 mg tablet 5 mg PO HS #90 tablet 12/05/20 07/29/21 Rx atorvastatin 20 mg tablet 20 mg PO DAILY #90 tablet 03/14/21 07/29/21 Rx buspirone 5 mg tablet 5 mg PO BID #60 tablet 04/15/21 07/29/21 Rx citalopram 40 mg tablet 40 mg PO DAILY #30 tablet 04/29/21 07/29/21 Rx Current Medications: Active Medications Amlodipine Besylate (Amlodipine Besylate 5 Mg Tablet) 5 mg PO HS [facility] Last Admin: 07/31/21 20:52 Dose: 5 mg Documented by: Aspirin (Aspirin 81 Mg Enteric Tablet) 81 mg PO DAILY [facility] Last Admin: 07/31/21 13:53 Dose: 81 mg Documented by: Atorvastatin Calcium (Atorvastatin 20 Mg Tablet) 20 mg PO DAILY [facility] Last Admin: 07/31/21 13:53 Dose: 20 mg Documented by: Buspirone HCl (Buspirone Hcl 5 Mg Tablet) 5 mg PO BID [facility] Last Admin: 07/31/21 17:09 Dose: 5 mg Documented by: Citalopram Hydrobromide (Citalopram Hydrobromide 20 Mg Tablet) 40 mg PO DAILY [facility] Last Admin: 07/31/21 13:53 Dose: 40 mg Documented by: Enoxaparin Sodium (Enoxaparin 40 Mg/0.4 Ml Syringe) 40 mg SUB-Q DAILY [facility] Last Admin: 07/31/21 13:54 Dose: 40 mg Documented by: Folic Acid (Folic Acid 1 Mg Tablet) 1 mg PO DAILY [facility] Last Admin: 07/31/21 13:54 Dose: 1 mg Documented by: Furosemide (Furosemide 20 Mg Tablet) 20 mg PO DAILY [facility] Last Admin: 07/31/21 13:53 Dose: 20 mg Documented by: Magnesium Oxide (Magnesium Oxide 400 Mg Tablet) [facility] [place] [facility] [place] Last Admin: 07/31/21 13:53 Dose: 400 mg Documented by: Nitroglycerin (Nitroglycerin Sl 0.4 Mg Tablet) 0.4 mg SUBLINGUAL Q5MIN PRN PRN Reason: Chest Pain Thiamine HCl (Thiamine Hcl 100 Mg Tablet) [facility] [place] [facility] [place] Last Admin: 07/31/21 13:53 Dose: 100 mg Documented by: Sedation/Anesthesia: Patient had difficulty with sedation/anesthesia recently so prefers to avoid any sedation which is the plan (including family history). [facility] Past Medical History Medical History Alcohol abuse Anxiety Aortic stenosis Mild to moderate aortic stenosis noted on echocardiogram in March 2019. Ascending aortic aneurysm 4 centimeter ascending aortic aneurysm noted in fall 2018. Bladder cancer With history of TURBT and mitomycin installation. CAD (coronary artery disease) Diffuse 50% stenosis of the marginal branch noted on cardiac catheterization in March 2019. Combined systolic and diastolic cardiac dysfunction Ejection fraction of 40 to 45% in March 2019. Depression Erectile dysfunction HTN (hypertension) Nonischemic cardiomyopathy ERIKA (obstructive sleep apnea) Previous history of noncompliance with CPAP therapy. Surgical History Surgical History Hx of appendectomy Family History Family History Mother Cerebrovascular accident Family history of diabetes mellitus in first degree relative Father Family history of diabetes mellitus in first degree relative Family history of coronary artery disease Sibling Family history of diabetes mellitus in first degree rel
--- NOTE | 2021-08-01 12:56 | PM.OP ---
Procedure Note - Brief Procedure Note - Brief Date of procedure: 08/01/21 Pre-op diagnosis: sob SOB, CP, CAD, bicuspid aortic stenosis Post-op diagnosis: same Procedure performed: Left heart catheterization with selective left and right coronary angiography, selective Right femoral/iliac angiography Description of procedure: BRIEF HISTORY OF PRESENT ILLNESS: Patient is a pleasant 56-year-old male with a history of nonobstructive CAD previously documented as 50% diagonal branch stenosis, bicuspid aortic valve, small ascending aortic aneurysm, hypertension, alcohol abuse, obesity, ERIKA on CPAP presented with progressive limiting exertional dyspnea chest pain decompensated failure with preserved ejection fraction. He underwent TREY confirming congenital bicuspid aortic valve with calculated valve area ranging 0.9-1.0 cm2. Given persistence of symptoms with suspicion they may be out of proportion to that expected due to his aortic stenosis severity with rather mild progression from 07/2020, coronary angiography was then recommended to exclude progression of underlying CAD as additional contribution to symptom complex. PROCEDURES PERFORMED: 1. Left heart catheterization 2. Selective left and right coronary angiography 3. Selective R femoral/iliac angiography CATHETERS UTILIZED: Left coronary system- 5 Spanish FL6 catheter Right coronary system- 5 Spanish AL1 catheter Left ventriculography and hemodynamics- not performed PROCEDURE IN DETAIL: This was a very difficult case requiring involvement of my interventionalist with case start 1111 and case end 1233 for a total of 82 minutes. After verbal and written informed consent was obtained the patient, risks, benefits, and alternatives explained in detail the patient agreed to proceed with the plan of care as outlined above. The patient was subsequently brought to the cardiac catheterization lab, placed on the cardiac catheterization table, and prepped and draped in the usual sterile fashion. Utilizing approximately 20cc of 1% subcutaneous Lidocaine, the right groin was then locally anesthetized. Utilizing the modified Seldinger technique, a 5 Spanish arterial vascular access sheath was inserted in the right common femoral artery easily and without complications. Through this access, the standard length guidewire and FL4 catheter was advanced easily. upon removal of the guidewire the FL4 catheter was noted to have prolapsed upon itself. This was once again straightening with the guidewire and again upon removal the catheter prolapsed. Subsequently, the FL4 catheter over the guidewire was removed. Over the guidewire, the FR4 catheter was able to be advanced without resistance and attempts to cannulate the right coronary artery were undertaken but were unsuccessful. Catheter manipulation was very difficult complicating attempts at engagement of the coronary arteries. Of note, significant catheter whip was noted presumably due to high velocity outflow from this severe aortic stenosis. Upon removal of the FR4 catheter over the guidewire we then planned to attempt one more time but this time advancement of the standard guidewire and FR4 catheter were met with resistance so further attempt to advance the guidewire were immediately stopped and catheters/guidewires removed. Selective right femoral and iliac angiography was performed with a saline contrast mix injected through the side arm port of the 5 Spanish arterial vascular access sheath in the standard ROLON projection. The arteriotomy site was noted to be above the bifurcation at the proximal 3rd of the femoral head and below the inguinal ligament. Beginning at the most proximal portion of the right common femoral and distal external iliac were noted to be highly tortuous with an abrupt rubi's crook following a long sweeping path but no evidence of dissection or significant stenosis. Following this, one further attempt with a 260cm exchange length guidewire was successf
--- NOTE | 2021-08-01 14:25 | SUR.PHASEII ---
NAKIA Melton gave report to NAKIA Panda-[phone].
--- NOTE | 2021-08-01 14:41 | PC.NURSE ---
Patient returned to room from [facility]. Will maintain bedrest until 1610 per [facility] RN.
--- NOTE | 2021-08-01 16:09 | PC.NURSE ---
On 08/01/21, the student, [Bryce Mackey], provided care and completed [facility] documentation on this patient. I have reviewed the student's documentation and agree with the findings.
[2021-08-01] MEDS: ATORVASTATIN 20 MG TABLET PO (16:35)
[2021-08-01] MEDS: THIAMINE HCL 100 MG TABLET PO (16:35)
[2021-08-01] MEDS: CITALOPRAM HYDROBROMIDE 20 MG TABLET 40 MG PO (16:35)
[2021-08-01] MEDS: MAGNESIUM OXIDE 400 MG TABLET PO (16:35)
[2021-08-01] MEDS: FOLIC ACID 1 MG TABLET PO (16:35)
[2021-08-01] MEDS: busPIRone HCL 5 MG TABLET PO (16:35)
[2021-08-01] MEDS: FUROSEMIDE 20 MG TABLET PO (16:35)
[2021-08-01] MEDS: ASPIRIN 81 MG ENTERIC TABLET PO (16:35)
[2021-08-01] MEDS: amLODIPine BESYLATE 5 MG TABLET PO (21:30)
[2021-08-02] VITALS (7 sets, daily range): BP systolic 143–149; BP diastolic 76–94; PULSE 62–85; RESP 18–20; TEMP 36.2–36.4; O2SAT 95–98
[2021-08-02 07:52] LABS: Basophils Absolute Auto 0.1 K/mm3 (0.0-0.1); Basophils Percent Auto 0.8 % (0.2-1.2); Eosinophils Absolute Auto 0.2 K/mm3 (0-0.3); Eosinophils Percent Auto 3.5 % (0-4.4); Hematocrit 44.4 % (42.0-52.0); Hemoglobin 15.5 g/dL (14.0-18.0); Immature Granulocyte Absolute 0.02 K/mm3 (0.00-0.031); Immature Granulocyte Percent A 0.3 % (0-0.5); Lymphocytes Absolute Auto 0.91 K/mm3 (0.9-3.2); Lymphocytes Percent Auto 15.1 % (18.3-44.2); Mean Corpuscular HGB Conc 34.9 g/dl (32-36); Mean Corpuscular Hemoglobin 35.8 pg (26-34); Mean Corpuscular Volume 102.5 fl (80-100); Mean Platelet Volume 10.1 fl (7.4-10.4); Monocytes Absolute Auto 0.9 K/mm3 (0.1-0.6); Monocytes Percent Auto 14.5 % (2.6-8.5); Neutrophils Percent Auto 65.8 % (45.5-73.1); Platelet Count Result 150 k/mm3 (150-375); Red Blood Count 4.33 M/mm3 (4.6-6.20); Red Cell Distribution Width 12.1 % (11.5-14.5)
--- NOTE | 2021-08-02 08:00 | PM.DS ---
DS: Admitting Diagnosis Discharge Date 08/02/21 0800 Admitting Diagnosis Aortic valve stenosis DS: Discharge Diagnosis Discharge Diagnosis (1) Acute on chronic diastolic (congestive) heart failure: Code(s): I50.33 - Acute on chronic diastolic (congestive) heart failure Status: Acute Assessment and Plan: BNP 910 Echo EF of 55-60%, grade 1 DD, and severe aortic valve stenosis Lasix 20mg PO daily Probably an acute exacerbation of diastolic dysfunction Monitor urine output Daily weights (2) Aortic stenosis: Qualifiers: Cardiac valve disease etiology: etiology unspecified Qualified Code(s): I35.0 - Nonrheumatic aortic (valve) stenosis Code(s): I35.0 - Nonrheumatic aortic (valve) stenosis Status: Acute Assessment and Plan: Moderate benefits from TAVR work up later, Cloth Sponger are in discussion Is being referred by cards (3) Chest pain: Code(s): R07.9 - Chest pain, unspecified Status: Acute Assessment and Plan: Resolved presently, reviewed by cardiology, PRN NTG, Cardiac cath done today with no blockages noted. (4) Obesity (BMI 30-39.9): Code(s): E66.9 - Obesity, unspecified Status: Acute Assessment and Plan: Weight loss adviced A1c 5.8 Probably would benefit from some metformin (5) Alcohol abuse: Code(s): F10.10 - Alcohol abuse, uncomplicated Status: Acute Assessment and Plan: Advised to quit Alcohol (6) Transaminasemia: Code(s): R74.0 - Nonspecific elevation of levels of transaminase and lactic acid dehydrogenase [LDH] Status: Acute Assessment and Plan: Liver enzymes have been elevated since admission Trending down Secondary to ETOH abuse DS: Summary Hospital Course Hospital Course: Patient is a 56-year-old male with a past medical history significant for obesity, hypertension, hyperlipidemia, GERD and alcohol abuse who presented the ED for shortness of breath for 3 days. Patient was noted chest pain. Cardiology was consulted. EEG was performed upon arrival and showed sinus rhythm. Echocardiogram was also performed which showed an EF of 55-60% with severe aortic stenosis and grade 1 diastolic dysfunction. John was also performed and showed ejection fraction 55% with left ventricular hypertrophy moderate calcification on 11 and 5:00 a.m. positions. John also showed moderate RV enlargement and dysfunction. Patient also went for a cardiac catheterization which did not show any blockages. Patient is probably in an acute exacerbation of diastolic heart failure. Patient has been treated with 20 mg of p.o. Lasix. BNP was elevated on admission at 910. Since admission chest pain has resolved. Patient is concerned about getting a new CPAP. Liver enzymes have been elevated since admission. AST and ALT are trending down. Magnesium has also been low and has been replaced accordingly. Alcohol cessation has been advised. Patient is aware that he has had need a valve replacement and Cardiology is sitting up further workup outpatient. Today patient is anxious is worried about going home however he was reassured that he will need to follow up outpatient for further medical progression. Cardiology has set the patient up with a surgeon. Patient denies chest pain, shortness of breath, nausea, vomiting, diarrhea constipation, weakness, fatigue. Status at Discharge Functional status at discharge: independent ambulation Overall status at discharge: patient is progressing back to baseline Time Spent with Patient Time attestation: Total time spent providing and/or coordinating discharge services:52 minutes Time spent: Greater than 30 minutes Specific discharge activities: Diagnostic testing, chart review, developing a treatment plan, education, care coordination documentation, physical exam, result review Exam Const: General: cooperative, healthy appearing, comfortable,
[2021-08-02 08:25] LABS: Alanine Aminotransferase 83 U/L (4-50); Albumin Level 4.1 g/dL (3.5-5.1); Alkaline Phosphatase 73 U/L (38-126); Anion Gap 10 mmol/L (8-16); Aspartate Amino Transferase 69 U/L (17-59); Bilirubin,Total 1.1 mg/dL (0.2-1.3); Blood Urea Nitrogen 14 mg/dL (9-20); Calcium 8.8 mg/dL (8.4-10.2); Carbon Dioxide 29 mmol/L (22-30); Chloride 96 mmol/L (98-107); Estimated CRCL calculation 107 ml/min; Estimated Glomerular Filt Rate > 60; Glucose 128 mg/dL (65-110); Magnesium 1.9 mg/dL (1.6-2.3); Potassium 3.9 mmol/L (3.4-5.0); Sodium 135 mmol/L (137-145)
--- NOTE | 2021-08-02 09:15 | PM.PNCARD ---
Progress Note: A&P Assessment and Plan (1) Aortic stenosis: Qualifiers: Cardiac valve disease etiology: etiology unspecified Qualified Code(s): I35.0 - Nonrheumatic aortic (valve) stenosis <TRINITY Sierra - Last Filed: 08/02/21 11:25> Code(s): I35.0 - Nonrheumatic aortic (valve) stenosis <TRINITY Sierra - Last Filed: 08/02/21 11:25> Status: Acute <TRINITY Sierra - Last Filed: 08/02/21 11:25> Assessment and Plan: Presented with symptoms consistent with severe aortic stenosis. Underwent transesophageal echocardiogram earlier this week that did reveal a bicuspid aortic valve with in aortic valve area 1.0 cm2 suggestive moderate to severe stenosis with moderate calcification. -patient has been referred to Cardiothoracic surgery a [facility] for consideration for AVR. <TRINITY Sierra - Last Filed: 08/02/21 11:25> (2) Chest pain: Code(s): R07.9 - Chest pain, unspecified <TRINITY Sierra - Last Filed: 08/02/21 11:25> Status: Acute <TRINITY Sierra - Last Filed: 08/02/21 11:25> Assessment and Plan: He underwent left heart catheterization yesterday as part of a preoperative evaluation for AVR. He does have single-vessel coronary artery disease with 80% stenosis in his 1st diagonal branch. This is unchanged from previous left heart catheterization from March of 2019. Chest pain possibly secondary to severe that I he had negative troponins and his EKG did not have any acute ischemic changes. Currently not experiencing chest pain. <TRINITY Sierra - Last Filed: 08/02/21 11:25> (3) Acute on chronic diastolic (congestive) heart failure: Code(s): I50.33 - Acute on chronic diastolic (congestive) heart failure <TRINITY Sierra - Last Filed: 08/02/21 11:25> Status: Acute <TRINITY Sierra - Last Filed: 08/02/21 11:25> Assessment and Plan: Minimal decompensation heart failure with preserved ejection fraction in setting of probable severe aortic stenosis, uncontrolled hypertension, ERIKA, morbid obesity. He also has a history of alcohol abuse. Want to avoid intravascular volume depletion given his severe aortic stenosis status. Cautious diuresis. <TRINITY Sierra - Last Filed: 08/02/21 11:25> (4) CAD (coronary artery disease): Code(s): I25.10 - Atherosclerotic heart disease of [place] coronary artery without angina pectoris <TRINITY Sierra - Last Filed: 08/02/21 11:25> Status: Chronic <TRINITY Sierra - Last Filed: 08/02/21 11:25> Assessment and Plan: Coronary calcification by CT angiogram of the chest with known history of mild nonobstructive CAD 50% stenosis diagonal branch 2019 left heart catheterization. Continue aggressive medical therapy with aspirin, statin beta-alexandru. Workup for elevated blood sugars per primary service, lifestyle modification risk factor did counseling performed. <TRINITY Sierra - Last Filed: 08/02/21 11:25> (5) ERIKA (obstructive sleep apnea): Code(s): G47.33 - Obstructive sleep apnea (adult) (pediatric) <TRINITY Sierra - Last Filed: 08/02/21 11:25> Status: Chronic <TRINITY Sierra - Last Filed: 08/02/21 11:25> Assessment and Plan: Strongly encouraged compliance with CPAP for treatment of ERIKA. <TRINITY Sierra - Last Filed: 08/02/21 11:25> (6) Ascending aortic aneurysm: Code(s): I71.2 - Thoracic aortic aneurysm, without rupture <TRINITY Sierra - Last Filed: 08/02/21 11:25> Status: Chronic <TRINITY Sierra - Last Filed: 08/02/21 11:25> (7) HTN (hypertension): Qualifiers: Hypertension type: primary hypertension Qualified Code(s): I10 - Essential (primary) hypertension <THOR SierraC - Last Filed: 08/02/21 11:25> Code(s): I10 - Essent
[2021-08-02] MEDS: ENOXAPARIN 40 MG/0.4 ML SYRINGE SUB-Q (09:24)
[2021-08-02] MEDS: busPIRone HCL 5 MG TABLET PO (09:25)
[2021-08-02] MEDS: CITALOPRAM HYDROBROMIDE 20 MG TABLET 40 MG PO (10:39)
[2021-08-02] MEDS: ASPIRIN 81 MG ENTERIC TABLET PO (10:39)
[2021-08-02] MEDS: ATORVASTATIN 20 MG TABLET PO (10:39)
[2021-08-02] MEDS: THIAMINE HCL 100 MG TABLET PO (10:40)
[2021-08-02] MEDS: FUROSEMIDE 20 MG TABLET PO (10:40)
[2021-08-02] MEDS: MAGNESIUM OXIDE 400 MG TABLET PO (10:40)
[2021-08-02] MEDS: FOLIC ACID 1 MG TABLET PO (10:40)
== END 2021-08-02 15:15 | disposition home or self-care (01) ==
LOC: ANHED 13:16 → ANH2MED 07-30 04:29 → ANH3MEDSUR 08-06 10:12
PROVIDERS: Family Medicine; Internal Medicine; Internal Medicine Cardiovascular Disease; Nurse Practitioner; Admitting Provider Internal Medicine; Emergency Provider Emergency Medicine; PCP Family Medicine; Visit Provider Internal Medicine
PROC: (CPT 93312; principal; 2021-07-31 12:30)
DX: I11.0 Hypertensive heart disease with heart failure (principal); I50.33 Acute on chronic diastolic (congestive) heart failure; Q23.1 Congenital insufficiency of aortic valve; R74.01 Elevation of levels of liver transaminase levels; R74.02 Elevation of levels of lactic acid dehydrogenase [LDH]; R07.9 Chest pain, unspecified; R06.02 Shortness of breath; I71.2 Thoracic aortic aneurysm, without rupture; I25.10 Atherosclerotic heart disease of native coronary artery without angina pectoris; I42.8 Other cardiomyopathies; G47.33 Obstructive sleep apnea (adult) (pediatric); F10.10 Alcohol abuse, uncomplicated; F41.8 Other specified anxiety disorders; E78.5 Hyperlipidemia, unspecified; K21.9 Gastro-esophageal reflux disease without esophagitis; E66.9 Obesity, unspecified; Z68.37 Body mass index [BMI] 37.0-37.9, adult; Z85.51 Personal history of malignant neoplasm of bladder; Z79.82 Long term (current) use of aspirin; Z20.822 Contact with and (suspected) exposure to COVID-19; Z79.899 Other long term (current) drug therapy
CPT/HCPCS: 36415; 71046; 71275; 80053; 80307; 83036; 83690; 83735; 83880; 84484; 85025; 85380; 85610; 85730; 93005; 93306; 93312; 93320; 93325; 93454; 96374; 99285; A9270; C1769; C1887; C1894; C9803; G0378; J1644; J1650; J1940; J2704; J3475; J7030; J7040; Q9967; U0003; U0005

== ENCOUNTER 2021-09-16 13:47 | Outpatient (CLI) | payer OTHER, SELFPAY ==
[2021-09-16 14:23] LABS: Anion Gap 5 mmol/L (8-16); Blood Urea Nitrogen 15 mg/dL (9-20); Calcium 9.2 mg/dL (8.4-10.2); Carbon Dioxide 32 mmol/L (22-30); Chloride 98 mmol/L (98-107); Estimated Glomerular Filt Rate > 60; Glucose 148 mg/dL (65-110); Potassium 3.9 mmol/L (3.4-5.0); Sodium 135 mmol/L (137-145)
== END 2021-09-16 13:48 | disposition home or self-care (01) ==
LOC: ANHLAB 13:51
PROVIDERS: PCP Family Medicine
DX: Z95.2 Presence of prosthetic heart valve (principal); Z95.1 Presence of aortocoronary bypass graft; R35.0 Frequency of micturition
CPT/HCPCS: 36415; 80048

== ENCOUNTER 2021-09-16 14:57 | Outpatient (CLI) | payer OTHER, SELFPAY ==
--- NOTE | ~2021-09-16 | US_ITS ---
EXAMINATION: US venous doppler [facility] DATE: 09/16/2021 15:26 INDICATION: Left lower limb swelling. TECHNIQUE: Grayscale ultrasound images without and with compression and Doppler ultrasound images of the left lower extremity veins were obtained. COMPARISON: None. FINDINGS: The visualized portions of left common femoral vein, profunda (deep) femoral vein, femoral vein, popl iteal vein, peroneal veins, posterior tibial veins, and greater saphenous vein outflow are patent. IMPRESSION: 1. No deep venous thrombosis. Reviewed, dictated and finalized at location A.
== END 2021-09-16 14:58 | disposition home or self-care (01) ==
LOC: ANHIMG 15:01
PROVIDERS: PCP Family Medicine; Visit Provider Internal Medicine Cardiovascular Disease
DX: M79.89 Other specified soft tissue disorders (principal)
CPT/HCPCS: 36415; 80048; 93971

== ENCOUNTER 2021-12-04 11:45 | Outpatient (CLI) | payer OTHER, SELFPAY ==
--- NOTE | ~2021-12-04 | XR_ITS ---
EXAMINATION: XR wrist RT min 3V, XR hand RT 2V, XR hand LT 2V, XR wrist LT min 3V DATE: 12/04/2021 12:44 INDICATION: Bilateral hand and wrist pain. TECHNIQUE: 1. Posteroanterior, ulnar deviation, oblique, and lateral views of the left wrist were obtained. 2. Dorsal palmar and lateral views of the left hand were obtained. 3. Posteroanterior, ulnar deviation, oblique, and lateral views of the right wrist were obtained. 4. Dorsal palmar and lateral views of the right hand were obtained. COMPARISON: None. FINDINGS: Bilateral dorsal intercalated segment instability (DISI) with increased scapholunate and lunocapitate angles. Alignment of the bilateral hands and wrists is otherwise normal. Small ossicle at the radial side of the head of the left third proximal phalanx which could represent either degenerative loose body or more likely heterotopic ossicles related to chronic soft tissue injury likely of the radial c ollateral ligament complex. No fracture identified. Moderate osteoarthritis at the left lunocapitate articulation of the midcarpal joint and mild left radiocarpal osteoarthritis consistent with scapholu ana maria advanced collapse (SLAC) wrist. Minimal osteoarthritis at the bilateral first carpometacarpal magda ints and several bilateral interphalangeal joints.. No erosions to suggest an inflammatory arthritis. IMPRESSION: 1. 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 2. Atypical pattern of moderate osteoarthritis at the left lunocapitate articulation and mild radiosc aphoid osteoarthritis consistent with secondary scapholunate advanced collapse (SLAC) wrist. Reviewed, dictated and finalized at location B. IMPRESSION: 1. Bilateral dorsal intercalated segment instability (DISI) consistent with sca pholunate ligament insufficiency. 2. Atypical pattern of moderate osteoarthritis at the left lunocapitate articul ation and mild radioscaphoid osteoarthritis consistent with secondary scapholun ate advanced collapse (SLAC) wrist. IMPRESSION: 1. Bilateral dorsal intercalated segment instability (DISI) consistent with sca pholunate ligament insufficiency. 2. Atypical pattern of moderate osteoarthritis at the left lunocapitate articul ation and mild radioscaphoid osteoarthritis consistent with secondary scapholun ate advanced collapse (SLAC) wrist. IMPRESSION: 1. Bilateral dorsal intercalated segment instability (DISI) consistent with sca pholunate ligament insufficiency. 2. Atypical pattern of moderate osteoarthritis at the left lunocapitate articul ation and mild radioscaphoid osteoarthritis consistent with secondary scapholun ate advanced collapse (SLAC) wrist.
--- NOTE | ~2021-12-04 | XR_ITS ---
XR knee LT 3V 12/04/2021 12:45 Indication: Right knee pain Procedure: 3 views right knee Comparison: No prior studies for comparison. Findings: There is an oval mass medial to the proximal tibia near the surgical clips. No significant joint space narrowing. No joint effusion. No fracture or traumatic malalignment. Impression: 1: Oval soft tissue mass medial to the proximal aspect of the tibia near the previous surgical site, possibly postoperative seroma/hematoma. Correlate for point tenderness. Consider correlation with ult rasound. Reviewed, dictated and finalized at location A. Impression: 1: Oval soft tissue mass medial to the proximal aspect of the tibia near the pr evious surgical site, possibly postoperative seroma/hematoma. Correlate for poi nt tenderness. Consider correlation with ultrasound.
--- NOTE | ~2021-12-04 | XR_ITS ---
XR chest 2V 12/04/2021 12:45 Indication: Chest pain Procedure: 2 view chest Comparison: Comparison to multiple prior studies sequentially, with oldest reviewed study dated 12/24. Findings: Status post median sternotomy for CABG. There is a prosthetic heart valve. Heart size upper normal for technique. No focal air space disease, pulmonary edema, pleural effusion or suspected pne umothorax. Impression: 1: No acute cardiopulmonary disease. Reviewed, dictated and finalized at location A. Impression: 1: No acute cardiopulmonary disease.
--- NOTE | ~2021-12-04 | XR_ITS ---
XR knee RT 3V 12/04/2021 12:45 Indication: Right knee pain Procedure: 3 views right knee Comparison: No prior studies for comparison. Findings: No fracture, subluxation or dislocation. No significant joint effusion. No foreign bodies. There is anatomic alignment. No focal soft tissue abnormality. Impression: 1: No significant bone or joint abnormality. Reviewed, dictated and finalized at location A. Impression: 1: No significant bone or joint abnormality.
--- NOTE | ~2021-12-04 | XR_ITS ---
EXAMINATION: XR ankle LT 2V, XR foot RT 2V, XR ankle RT 2V, XR foot LT 2V DATE: 12/04/2021 12:44 INDICATION: Bilateral foot and ankle pain TECHNIQUE: 1. Anteroposterior and lateral view of the left ankle were obtained. 2. Dorsoplantar and lateral views of the left foot were obtained. 3. Anteroposterior and lateral view of the right ankle were obtained. 4. Dorsoplantar and lateral views of the right foot were obtained. COMPARISON: None. FINDINGS: There appears to be bilateral pes planus, left greater than right although this is not diagnostically evaluated on nonweightbearing imaging. Alignment of the bilateral feet and ankles is otherwise humble l. Corticated ossicle at the tip of the left lateral malleolus likely either chronic nonunited avulsi on fracture fragment or heterotopic ossification related to chronic lateral ankle sprain. No acute fr acture. Mild osteoarthritis at the left navicular cuneiform and tarsal metatarsal joints. Remaining j oint spaces at the bilateral feet and ankles appear relatively preserved. Small left plantar calcanea l spur. No ankle joint effusion. The soft tissues are unremarkable. IMPRESSION: 1. Ossicle at the tip of the left lateral malleolus likely sequela of old trauma. No acute osseous ab normality at either foot or ankle. 2. Bilateral pes planus, left greater than right, suggested on nonweightbearing imaging. 3. Mild osteoarthritis at the left navicular cuneiform and first metatarsophalangeal joints. Reviewed, dictated and finalized at location B. IMPRESSION: 1. Ossicle at the tip of the left lateral malleolus likely sequela of old traum a. No acute osseous abnormality at either foot or ankle. 2. Bilateral pes planus, left greater than right, suggested on nonweightbearing imaging. 3. Mild osteoarthritis at the left navicular cuneiform and first metatarsophala ngeal joints. IMPRESSION: 1. Ossicle at the tip of the left lateral malleolus likely sequela of old traum a. No acute osseous abnormality at either foot or ankle. 2. Bilateral pes planus, left greater than right, suggested on nonweightbearing imaging. 3. Mild osteoarthritis at the left navicular cuneiform and first metatarsophala ngeal joints. IMPRESSION: 1. Ossicle at the tip of the left lateral malleolus likely sequela of old traum a. No acute osseous abnormality at either foot or ankle. 2. Bilateral pes planus, left greater than right, suggested on nonweightbearing imaging. 3. Mild osteoarthritis at the left navicular cuneiform and first metatarsophala ngeal joints.
== END 2021-12-04 11:46 | disposition home or self-care (01) ==
PROVIDERS: PCP Family Medicine; Visit Provider Nurse Practitioner Family
DX: M25.562 Pain in left knee (principal); M25.561 Pain in right knee; R07.9 Chest pain, unspecified; M79.642 Pain in left hand; M79.641 Pain in right hand; M25.532 Pain in left wrist; M25.531 Pain in right wrist; M25.571 Pain in right ankle and joints of right foot; M25.572 Pain in left ankle and joints of left foot; M79.671 Pain in right foot; M79.672 Pain in left foot; M25.332 Other instability, left wrist; M25.331 Other instability, right wrist; M13.0 Polyarthritis, unspecified; M21.42 Flat foot [pes planus] (acquired), left foot; M21.41 Flat foot [pes planus] (acquired), right foot; M89.9 Disorder of bone, unspecified; R22.41 Localized swelling, mass and lump, right lower limb
CPT/HCPCS: 71046; 73110; 73120; 73562; 73600; 73620

== ENCOUNTER 2021-12-12 09:52 | Outpatient (CLI) | payer OTHER, SELFPAY ==
[2021-12-12 10:19] LABS: Basophils Absolute Auto 0.1 K/mm3 (0.0-0.1); Basophils Percent Auto 1.4 % (0.2-1.2); Eosinophils Absolute Auto 0.1 K/mm3 (0-0.3); Eosinophils Percent Auto 2.7 % (0-4.4); Hematocrit 41.7 % (42.0-52.0); Hemoglobin 13.8 g/dL (14.0-18.0); Immature Granulocyte Absolute 0.02 K/mm3 (0.00-0.031); Immature Granulocyte Percent A 0.5 % (0-0.5); Lymphocytes Absolute Auto 1.38 K/mm3 (0.9-3.2); Lymphocytes Percent Auto 33.3 % (18.3-44.2); Mean Corpuscular HGB Conc 33.1 g/dl (32-36); Mean Corpuscular Hemoglobin 31.1 pg (26-34); Mean Corpuscular Volume 93.9 fl (80-100); Mean Platelet Volume 9.3 fl (7.4-10.4); Monocytes Absolute Auto 0.4 K/mm3 (0.1-0.6); Monocytes Percent Auto 9.9 % (2.6-8.5); Neutrophils Absolute Auto 2.2 K/mm3 (1.3-6.7); Neutrophils Percent Auto 52.2 % (45.5-73.1); Platelet Count Result 246 k/mm3 (150-375); Red Blood Count 4.44 M/mm3 (4.6-6.20); Red Cell Distribution Width 14.2 % (11.5-14.5); White Blood Count 4.1 K/mm3 (4.5-10.0)
[2021-12-12 10:35] LABS: Alanine Aminotransferase 68 U/L (6-50); Albumin Level 4.4 g/dL (3.5-5.1); Alkaline Phosphatase 95 U/L (38-126); Anion Gap 8 mmol/L (8-16); Aspartate Amino Transferase 71 U/L (17-59); Bilirubin,Total 0.2 mg/dL (0.2-1.3); Blood Urea Nitrogen 19 mg/dL (9-20); Calcium 8.5 mg/dL (8.4-10.2); Carbon Dioxide 28 mmol/L (22-30); Chloride 107 mmol/L (98-107); Estimated Glomerular Filt Rate > 60; Glucose 122 mg/dL (65-110); Sodium 143 mmol/L (137-145)
[2021-12-12 11:04] LABS: Hemoglobin A1C 5.9 % (<5.7)
== END 2021-12-12 09:53 | disposition home or self-care (01) ==
PROVIDERS: PCP Family Medicine; Visit Provider Nurse Practitioner Family
DX: D64.9 Anemia, unspecified (principal); I10 Essential (primary) hypertension; R73.01 Impaired fasting glucose
CPT/HCPCS: 36415; 80053; 83036; 85025

== ENCOUNTER 2021-12-27 12:33 | Outpatient (RCR) | payer OTHER, SELFPAY ==
[2021-09-30 10:43] LABS: Prothrombin Time 22.2 Seconds (11.1-14.7)
[2021-10-15 11:50] LABS: INR 1.2; Prothrombin Time 14.9 Seconds (11.1-14.7)
[2021-10-18 11:08] LABS: INR 2.1; Prothrombin Time 22.5 Seconds (11.1-14.7)
[2021-10-23 10:35] LABS: INR 3.1; Prothrombin Time 30.6 Seconds (11.1-14.7)
[2021-10-29 13:29] LABS: INR 2.6; Prothrombin Time 26.7 Seconds (11.1-14.7)
[2021-11-11 10:29] LABS: INR 3.9; Prothrombin Time 36.7 Seconds (11.1-14.7)
[2021-11-28 12:17] LABS: INR 2.7; Prothrombin Time 27.5 Seconds (11.1-14.7)
[2021-12-12 10:35] LABS: Prothrombin Time 44.7 Seconds (11.1-14.7)
[2021-12-27 13:17] LABS: INR 3.3; Prothrombin Time 32.4 Seconds (11.1-14.7)
== END 2021-12-29 23:59 | disposition home or self-care (01) ==
LOC: ANHLAB 12:33
PROVIDERS: PCP Family Medicine; Visit Provider Internal Medicine Cardiovascular Disease
DX: Z95.2 Presence of prosthetic heart valve (principal)
CPT/HCPCS: 36415; 85610

== ENCOUNTER 2022-08-06 13:08 | Emergency (ER) | payer OTHER, SELFPAY ==
--- NOTE | ~2022-08-06 | CT_ITS ---
EXAMINATION: CTA chest PE protocol DATE: 08/06/2022 19:30 INDICATION: Shortness of breath. TECHNIQUE: Computed tomography angiography (CTA) of the chest was performed with 100 mL Omnipaque-350 intravenous contrast timed to evaluate the pulmonary arteries. Coronal maximum intensity projection 3D-reconstructions were created by the technologist. Automated exposure control and iterative reconst ruction technique were employed. The dose-length product was 883.93 mGy-cm. COMPARISON: Chest CT 07/29/2021 FINDINGS: The lungs demonstrate mild atelectasis. No pleural effusion. Cardiomegaly is noted. There a re changes of aortic valve replacement. There is ectasia of ascending aorta measuring 4.5 cm. There a re coronary artery calcifications. No pericardial effusion. There is no pulmonary embolus. There is d iffuse hepatic steatosis. There is mild thoracic spondylosis. IMPRESSION: 1. No pulmonary embolus. Reviewed, dictated and finalized at location A. E TEACHER IMPRESSION: 1. No pulmonary embolus.
--- NOTE | ~2022-08-06 | XR_ITS ---
EXAMINATION: XR chest 2V DATE: 08/06/2022 18:46 INDICATION: Shortness of breath. TECHNIQUE: Frontal and lateral views of the chest were obtained. COMPARISON: Chest 2 views 12/04/2021, chest CT 07/29/2021 FINDINGS: There is no pneumonia, pleural effusion, or pneumothorax. Cardiomegaly is noted. There are changes of heart valve replacement. Mediastinal lipomatosis is noted. IMPRESSION: 1. Cardiomegaly. Reviewed, dictated and finalized at location A. WOOD CUTTER IMPRESSION: 1. Cardiomegaly.
[2022-08-06 13:12] VITALS: BP 188/107; PULSE 76; RESP 16; TEMP 36.4; O2SAT 96
[2022-08-06 13:12] LABS: Glucose Point of Care 245 mg/dl (65-105)
--- NOTE | 2022-08-06 13:15 | ECG_ITS ---
Measurements Intervals [place] Rate: 77 P: 34 NE: 206 QRS: -48 QRSD: 90 T: -27 QT: 308 QTc: 349 Interpretive Statements SINUS RHYTHM POOR R-WAVE PROGRESSION INFERIOR MYOCARDIAL INFARCTION , OF INDETERMINATE AGE [40+ ms Q WAVE AND/OR ST/T ABNORMALITY IN II/aVF] COMPARED TO ECG 07/29/2021 11:57:03 NO SIGNIFICANT CHANGES Electronically Signed On 08-06-2022 15:07:41 PARTS CONTROL CLERK by Noe Astorga M.D.
[2022-08-06 13:36] LABS: Basophils Absolute Auto 0.1 K/mm3 (0.0-0.1); Eosinophils Absolute Auto 0.1 K/mm3 (0-0.3); Eosinophils Percent Auto 1.9 % (0-4.4); Hematocrit 44.9 % (42.0-52.0); Hemoglobin 15.3 g/dL (14.0-18.0); Immature Granulocyte Absolute 0.03 K/mm3 (0.00-0.031); Immature Granulocyte Percent A 0.4 % (0-0.5); Lymphocytes Absolute Auto 1.23 K/mm3 (0.9-3.2); Lymphocytes Percent Auto 16.7 % (18.3-44.2); Mean Corpuscular HGB Conc 34.1 g/dl (32-36); Mean Corpuscular Hemoglobin 35.7 pg (26-34); Mean Corpuscular Volume 104.9 fl (80-100); Mean Platelet Volume 9.5 fl (7.4-10.4); Monocytes Absolute Auto 0.7 K/mm3 (0.1-0.6); Monocytes Percent Auto 9.2 % (2.6-8.5); Neutrophils Absolute Auto 5.2 K/mm3 (1.3-6.7); Neutrophils Percent Auto 70.8 % (45.5-73.1); Platelet Count Result 228 k/mm3 (150-375); Red Blood Count 4.28 M/mm3 (4.6-6.20); Red Cell Distribution Width 12.4 % (11.5-14.5); White Blood Count 7.4 K/mm3 (4.5-10.0)
[2022-08-06 13:45] LABS: Alanine Aminotransferase 65 U/L (6-50); Alkaline Phosphatase 107 U/L (38-126); Anion Gap 6 mmol/L (8-16); Aspartate Amino Transferase 99 U/L (17-59); Bilirubin,Total 1.2 mg/dL (0.2-1.3); Blood Urea Nitrogen 12 mg/dL (9-20); Calcium 8.7 mg/dL (8.4-10.2); Carbon Dioxide 29 mmol/L (22-30); Chloride 96 mmol/L (98-107); Estimated CRCL calculation 115 ml/min; Estimated Glomerular Filt Rate > 60; Glucose 200 mg/dL (65-110); Potassium 4.3 mmol/L (3.4-5.0); Sodium 131 mmol/L (137-145)
[2022-08-06 15:18] LABS: INR 1.1; Partial Thromboplastin Time 28.9 SECONDS (22.3-36.8); Prothrombin Time 13.5 Seconds (11.1-14.7)
[2022-08-06 16:16] VITALS: BP 173/113; PULSE 70; RESP 16; O2SAT 98
[2022-08-06 16:29] LABS: Appearance Urine Slightly Cloudy (Clear); Bilirubin Urine 2+ (Negative); Blood Urine Negative (Negative); Color Urine Yellow (Yellow); Glucose Urine UA Negative (Negative); Ketones Urine 1+ mg/dL (Negative); Leukocyte Esterase Ur Negative LEU/UL (Negative); Nitrate Urine Negative (Negative); Protein Urine 2+ mg/dL (Negative); Specific Grav Ur 1.015 (1.001-1.035); pH Urine 8.5 (5.0-9.0)
[2022-08-06 16:39] LABS: Mucus Urine Few /lpf; RBC Urine 0-2 /hpf (0-2); Squamous Epithelial Cell Urine Rare /hpf (Few); WBC Urine 0-3 /hpf
[2022-08-06 16:40] LABS: Add Urine Microscopic? NO
--- NOTE | 2022-08-06 17:26 | ED.RECABL ---
HPI - Recheck/Abnormal Lab/Rx General Chief Complaint: Recheck/Abnormal Lab/Rx Stated Complaint: not feeling right , weakness Time Seen by Provider: 08/06/22 16:24 Source: patient Mode of arrival: ambulatory Limitations: no limitations History of Present Illness HPI narrative: This is a 57 year old male that presents to the ER for feeling generally unwell. Reports worsening shortness of breath over the last couple of months. Reports he has not seen his doctors in some time and hasn't been taking great care of himself. Reports he has been drinking daily. Reports he has been taking his medications. Denies fever, chest pain, abdominal pain, vomiting, dysuria, or lower extremity edema. Related Data Allergies Allergy/AdvReac Type Severity Reaction Status Date / Time No Known Allergies Allergy Unverified 12/06/21 10:30 Review of Systems Review of Systems: CONSTITUTIONAL: Denies fever ENT: Denies rhinorrhea, congestion, sore throat CARDIOVASCULAR: Denies chest pain, or edema. RESPIRATORY: Reports dyspnea. Denies cough GASTROINTESTINAL: Denies abdominal pain, nausea, vomiting GENITOURINARY: Denies dysuria NEUROLOGIC: Denies numbness, or weakness. All systems reviewed & are unremarkable except as noted in HPI and below PMFSH Past Medical History Medical History Alcohol abuse Anxiety Aortic stenosis Mild to moderate aortic stenosis noted on echocardiogram in March 2019. Ascending aortic aneurysm 4 centimeter ascending aortic aneurysm noted in fall 2018. Bladder cancer With history of TURBT and mitomycin installation. CAD (coronary artery disease) Diffuse 50% stenosis of the marginal branch noted on cardiac catheterization in March 2019. Chronic diastolic (congestive) heart failure Combined systolic and diastolic cardiac dysfunction Ejection fraction of 40 to 45% in March 2019. Depression Erectile dysfunction HTN (hypertension) Nonischemic cardiomyopathy ERIKA (obstructive sleep apnea) Previous history of noncompliance with CPAP therapy. Surgical History Surgical History Hx of appendectomy S/P aortic valve replacement Family History Family History Mother Cerebrovascular accident Family history of diabetes mellitus in first degree relative Father Family history of diabetes mellitus in first degree relative Family history of coronary artery disease Sibling Family history of diabetes mellitus in first degree relative Family history of malignant neoplasm Other Diabetes mellitus Social History Social History Social History: The patient lives in his own home in [place]. Recently . 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 He designates his daughter, Gita Mccullough, as his surrogate decision maker and he wishes to be a full code. He has a history of alcohol abuse, drinking between 7 to 15 beers a day for most of his adult life. He has cut back significantly in recent months, but does not qualify. He chews tobacco daily. Denies illicit drug use. Smoking status: Never smoker Alcohol intake: current Drinks per week: 18 Substance use: never Substance use type: does not use Living arrangements: alone Occupation/Education: occupation Gender identity (if verbalized by the patient): Male Spiritual care concerns: No Agree to blood products: No Exam Narrative: GENERAL: Well-appearing, well-nourished, and in no acute distress. HEAD: Normocephalic, atraumatic. EYES: PERRLA and EOMI. ENT: Nares clear, no rhinorrhea or epistaxis. Mucous membranes moist. Oropharynx without tonsillar hypertrophy exudate or other lesions. Bilateral TMs pearly alarcon non-bulging NECK: Supple. No adenopathy or masses. CHEST: Clear to auscultation. No respiratory distress. No
[2022-08-06 18:00] VITALS: BP 157/105; PULSE 70; RESP 17; O2SAT 99
[2022-08-06 18:26] LABS: NT Pro B Type Natriuretic Pept 1950 pg/mL (19.9-100)
[2022-08-06 18:39] LABS: Hemoglobin A1C 5.4 % (<5.7)
[2022-08-06 19:03] LABS: D Dimer 0.66 ug/mL (<0.48)
[2022-08-06 19:58] VITALS: BP 158/101; PULSE 98; O2SAT 98
[2022-08-06] MEDS: ONDANSETRON HCL ODT 4 MG TABLET PO (20:35)
[2022-08-06 20:39] LABS: Glucose Point of Care 144 mg/dl (65-105)
[2022-08-06 21:03] VITALS: BP 178/102; PULSE 96; RESP 21; O2SAT 99
== END 2022-08-06 21:04 | disposition home or self-care (01) ==
PROVIDERS: Emergency Medicine; Physician Assistant; Emergency Provider Emergency Medicine; PCP Family Medicine
DX: R06.02 Shortness of breath (principal); R53.1 Weakness; I11.0 Hypertensive heart disease with heart failure; F10.90 Alcohol use, unspecified, uncomplicated; F41.9 Anxiety disorder, unspecified; G47.30 Sleep apnea, unspecified; I25.10 Atherosclerotic heart disease of native coronary artery without angina pectoris; F32.9 Major depressive disorder, single episode, unspecified; I50.9 Heart failure, unspecified
CPT/HCPCS: 36415; 71046; 71275; 80053; 81003; 82948; 83036; 83880; 85025; 85380; 85610; 85730; 93005; 99284; A9270; Q9967

== ENCOUNTER 2022-10-24 10:52 | Inpatient (IN) | payer OTHER, MEDICAID, SELFPAY ==
[2022-10-24] VITALS (34 sets, daily range): BP systolic 101–153; BP diastolic 50–96; PULSE 74–86; RESP 10–21; TEMP 36.1–36.8; O2SAT 92–100; BMI 38.3
--- NOTE | ~2022-10-24 | CT_ITS ---
EXAMINATION: CT abdomen pelvis w con DATE: 10/24/2022 12:54 INDICATION: Jaundice. Hyperbilirubinemia. TECHNIQUE: Computed tomography (CT) of the abdomen and pelvis was performed with 100 cc Omnipaque 350 intravenous contrast. The dose-length product was 1295.04 mGy-cm. Automated exposure control and ite rative reconstruction technique were employed. COMPARISON: CT dated 09/18/2016. FINDINGS: Diffuse fatty infiltration of the liver. Small amount of ascites along the hepatic margin. Gallbladder is present. Lung bases are unremarkable. Mild cardiomegaly. No significant pleural or per icardial effusion. Mild atherosclerosis without aneurysm. The spleen, pancreas, adrenal glands and ri ght kidney are unremarkable. Small subcentimeter hypodensities of the left kidney, most likely benign cysts. No lymphadenopathy. Nonobstructive bowel pattern. No free air. There is grade 1 spondylolisth esis at L5-S1 secondary to spondylolysis. There is disc narrowing at L4-5 and L5-S1. IMPRESSION: 1. Hepatic steatosis. 2: Trace ascites along the liver margin. Reviewed, dictated and finalized at location A.
--- NOTE | ~2022-10-24 | XR_ITS ---
XR chest 2V 10/24/2022 11:36 Indication: Chest pain and weakness Procedure: 2 views of the chest Comparison: Comparison to multiple prior studies sequentially, with oldest reviewed study dated 11/2019. Findings: Status post median sternotomy for CABG. Heart size normal. No focal air space disease, pulm onary edema, pleural effusion or suspected pneumothorax. There is a prosthetic heart valve. Impression: 1: No acute cardiopulmonary disease. Reviewed, dictated and finalized at location A. Impression: 1: No acute cardiopulmonary disease.
--- NOTE | ~2022-10-24 | US_ITS ---
EXAMINATION: US abdomen complete DATE: 10/30/2022 11:02 INDICATION: Hepatomegaly TECHNIQUE: Multiple grayscale and Doppler ultrasound images of the abdomen were obtained. COMPARISON: CT and ultrasounds dated 10/24/2022 FINDINGS: Bowel gas obscures visualization of the pancreas. The visualized portions of the pancreas a re unremarkable. The liver demonstrates increased echogenicity, heterogenous echotexture, and decreas ed through transmission. The enlarged liver measures 23 cm. No surface nodularity. Normal hepatopetal flow in the main portal vein. The gallbladder is normal with no abnormal wall thickening, pericholec ystic fluid or stones. The normal common bile duct measures 6 mm. There was no sonographic Crowder sig n. The aorta and inferior vena cava are not visualized due to body habitus. The spleen measures 11.9 cm. A hypoechoic area in the caudal pole of the spleen measuring approximate ly 1.5 cm likely reflects a cyst or lymphangioma. The right kidney measures 11.8 x 6.6 x 6.1 cm. The left kidney measures 12.3 x 5.3 x 6.1 cm. There is an area of cortical scarring in the left kidney. T he kidneys demonstrate normal parenchymal echogenicity. A small volume of ascites is present. There i s no hydronephrosis. IMPRESSION: 1. Hepatomegaly with diffuse hepatic steatosis. 2. Small volume of ascites. Reviewed, dictated and finalized at location L.
--- NOTE | ~2022-10-24 | US_ITS ---
Limited Abdominal Sonogram: Real-time sonographic imaging of the right upper quadrant was performed. Clinical History: Elevated bilirubin Findings: The liver appears echogenic, with no evidence of mass lesion or bile duct dilatation. Main portal vein demonstrates normal direction of flow. The gallbladder is well distended, and appears no rmal with no evidence of gallstone or wall thickening. The common bile duct is not well seen. The pa ncreas, aorta, and IVC are obscured by bowel gas shadowing. Impression: Diffuse fatty infiltration of the liver. Reviewed, dictated and finalized at location M. Impression: Diffuse fatty infiltration of the liver.
--- NOTE | 2022-10-24 11:04 | ECG_ITS ---
Measurements Intervals [place] Rate: 75 P: 13 DC: 206 QRS: -54 QRSD: 105 T: 157 QT: 378 QTc: 425 Interpretive Statements SINUS RHYTHM LEFT VENTRICULAR HYPERTROPHY AND ST-T CHANGE [VOLTAGE CRITERIA PLUS ST/T ABNORMALITY] PREVIOUS ANTERIOR AND PREVIOUS INFERIOR INFARCTION ABNORMAL ECG COMPARED TO ECG 08/06/2022 13:21:10 NO SIGNIFICANT DIFFERENCE Electronically Signed On 10-24-2022 15:36:26 CDT by Diego Lei M.D.
[2022-10-24 11:28] LABS: Basophils Absolute Auto 0.1 K/mm3 (0.0-0.1); Basophils Percent Auto 1.5 % (0.2-1.2); Eosinophils Percent Auto 0.3 % (0-4.4); Hematocrit 31.7 % (42.0-52.0); Hemoglobin 10.8 g/dL (14.0-18.0); Immature Granulocyte Absolute 0.07 K/mm3 (0.00-0.031); Immature Granulocyte Percent A 1.1 % (0-0.5); Lymphocytes Absolute Auto 0.93 K/mm3 (0.9-3.2); Lymphocytes Percent Auto 15.2 % (18.3-44.2); Mean Corpuscular HGB Conc 34.1 g/dl (32-36); Mean Corpuscular Hemoglobin 34.7 pg (26-34); Mean Corpuscular Volume 101.9 fl (80-100); Mean Platelet Volume 10.7 fl (7.4-10.4); Monocytes Absolute Auto 0.5 K/mm3 (0.1-0.6); Monocytes Percent Auto 7.4 % (2.6-8.5); Neutrophils Absolute Auto 4.6 K/mm3 (1.3-6.7); Neutrophils Percent Auto 74.5 % (45.5-73.1); Nucleated Red Blood Cells Absolute Auto 0.1 K/mm3 (0.0-0.012); Nucleated Red Blood Cells Perc 1.3 % (0.0-0.2); Platelet Count Result 177 k/mm3 (150-375); Red Blood Count 3.11 M/mm3 (4.6-6.20); Red Cell Distribution Width 18.2 % (11.5-14.5); White Blood Count 6.1 K/mm3 (4.5-10.0)
[2022-10-24 11:38] LABS: INR 1.3; Prothrombin Time 15.5 Seconds (11.1-14.7)
[2022-10-24 11:39] LABS: Alanine Aminotransferase 106 U/L (6-50); Albumin Level 3.8 g/dL (3.5-5.1); Alkaline Phosphatase 233 U/L (38-126); Anion Gap 13 mmol/L (8-16); Aspartate Amino Transferase 590 U/L (17-59); Bilirubin,Total 10.7 mg/dL (0.2-1.3); Blood Urea Nitrogen 10 mg/dL (9-20); Calcium 8.4 mg/dL (8.4-10.2); Carbon Dioxide 31 mmol/L (22-30); Chloride 91 mmol/L (98-107); Estimated CRCL calculation 135 ml/min; Estimated Glomerular Filt Rate > 60; Glucose 178 mg/dL (65-110); Lipase 330 U/L (23-300); Partial Thromboplastin Time 32.3 SECONDS (22.3-36.8); Potassium 3.2 mmol/L (3.4-5.0); Sodium 135 mmol/L (137-145)
[2022-10-24 11:54] LABS: Troponin I 0.154 ng/mL (0.000-0.034)
--- NOTE | 2022-10-24 12:07 | ED.GENADULT ---
HPI - General Adult General Chief complaint: Chest Pain Stated complaint: Nausea Time Seen by Provider: 10/24/22 11:58 History of Present Illness HPI narrative: 57-year-old male presented to the emergency department for evaluation of jaundice nausea vomiting and increased generalized weakness. Patient states he does drink daily, drinks about a half a pint of vodka daily, has not drank since yesterday. Patient suspects he may be going through withdrawals at this time. Patient reports over the course of the last 7 to 9 days he has had increased nausea, increased generalized weakness and has noticed a yellowing of his skin. Patient does state that he has had history of liver disease but denies any prior history of gallbladder disease. Patient states that he does not currently follow-up with a liver specialist. Patient did have a CABG approximately 1 year ago at [facility]. Patient states he is not having any chest pain at this time. Related Data Home Medications Medication Instructions Recorded Confirmed arginine (L-arginine) 500 mg tablet 500 mg PO DAILY 10/24/22 10/24/22 [id number] 333 mg-133 3 tablet PO DAILY 10/24/22 10/24/22 mg-8.3 mg tablet carvedilol 6.25 mg tablet 6.25 mg PO Q12H 10/24/22 10/24/22 cyanocobalamin (vitamin B-12) 5,000 mcg sublingual DAILY 10/24/22 10/24/22 5,000 mcg sublingual tablet (Vitamin B-12) diphenhydramine HCl 50 mg capsule 50 mg PO HS PRN Insomnia 10/24/22 10/24/22 furosemide 20 mg tablet 20 mg PO DAILY 10/24/22 10/24/22 melatonin 12 mg tablet 12 mg PO HS PRN Insomnia 10/24/22 10/24/22 potassium 99 mg tablet 99 mg PO DAILY 10/24/22 10/24/22 warfarin 3 mg tablet 3 mg PO DAILY 10/24/22 10/24/22 Allergies Allergy/AdvReac Type Severity Reaction Status Date / Time No Known Allergies Allergy Verified 08/08/22 13:47 Review of Systems Review of Systems: All systems reviewed & are unremarkable except as noted in HPI and below PMFSH Past Medical History Medical History Alcohol abuse Anxiety Aortic stenosis Mild to moderate aortic stenosis noted on echocardiogram in March 2019. Ascending aortic aneurysm 4 centimeter ascending aortic aneurysm noted in fall 2018. Bladder cancer With history of TURBT and mitomycin installation. CAD (coronary artery disease) Diffuse 50% stenosis of the marginal branch noted on cardiac catheterization in March 2019. Chronic diastolic (congestive) heart failure Combined systolic and diastolic cardiac dysfunction Ejection fraction of 40 to 45% in March 2019. Depression Erectile dysfunction HTN (hypertension) Nonischemic cardiomyopathy ERIKA (obstructive sleep apnea) Previous history of noncompliance with CPAP therapy. Surgical History Surgical History Hx of appendectomy S/P aortic valve replacement Family History Family History (Updated 10/24/22 @ 19:00 by Deedee Zambrano RN) Mother Family history of diabetes mellitus in first degree relative Cerebrovascular accident Father Family history of diabetes mellitus in first degree relative Family history of coronary artery disease Sibling Family history of diabetes mellitus in first degree relative Other Diabetes mellitus Social History Social History Social History: The patient lives in his own home in [place]. Recently . 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 He designates his daughter, Gita Mccullough, as his surrogate decision maker and he wishes to be a full code. He has a history of alcohol abuse, drinking between 7 to 15 beers a day for most of his adult life. He has cut back significantly in recent months, but does not qualify. He chews tobacco daily. Denies illicit drug use. Smoking status: Never smoker Alcohol intake: current Drinks per week: 18 Substance use: never Subst
--- NOTE | 2022-10-24 12:10 | ECG_ITS ---
Measurements Intervals [place] Rate: 81 P: 43 AL: 210 QRS: -55 QRSD: 93 T: 157 QT: 385 QTc: 447 Interpretive Statements SINUS RHYTHM WITH FIRST DEGREE AV BLOCK PREVIOUS ANTERIOR AND PREVIOUS INFERIOR INFARCTION ABNORMAL ECG COMPARED TO ECG 10/24/2022 11:16:49 COMPARED TO 15 MINUTES AGO NO SIGNIFICANT DIFFERENCE Electronically Signed On 10-24-2022 15:40:02 CDT by Diego Lei M.D.
[2022-10-24] MEDS: LORazepam INJ (*CRX) 2 MG/ML VIAL 0.5 MG IV PUSH (12:15)
[2022-10-24] MEDS: ONDANSETRON INJ 4 MG/2 ML VIAL IV PUSH (12:15)
[2022-10-24 12:34] LABS: Ammonia 27 umol/L (9-30); Ethanol 32 mg/dL (<10)
--- NOTE | 2022-10-24 12:42 | PC.NURSE ---
ERP via verbal order readback. Do not administer 4 baby aspirins at this time.
[2022-10-24 12:43] LABS: Erythrocyte Sedimentation Rate 97 mm/hr (0-20)
[2022-10-24 12:44] LABS: NT Pro B Type Natriuretic Pept 513 pg/mL (19.9-100)
[2022-10-24] MEDS: SODIUM CHLORIDE 0.9% IV 1,000 ML 500 ML IV CONT (13:04)
[2022-10-24] MEDS: LORazepam INJ (*CRX) 2 MG/ML VIAL 1 MG IV PUSH (14:40)
[2022-10-24 14:45] LABS: Troponin I 0.136 ng/mL (0.000-0.034)
[2022-10-24 14:52] LABS: Barbiturate Screen Urine Negative (Negative); Benzodiazepines Screen Urine Negative (Negative)
[2022-10-24 14:56] LABS: Amphetamine Screen Urine Negative (Negative); Cocaine Screen Urine Negative (Negative); Methadone Screen Urine Negative (Negative); Opiate Screen Urine Negative (Negative); Phencyclidine Screen Urine Negative (Negative)
[2022-10-24] MEDS: METOCLOPRAMIDE HCL INJ 10 MG/2 ML VIAL IV PUSH (14:56)
[2022-10-24 15:03] LABS: Cannabinoid Screen Urine Negative (Negative)
[2022-10-24 15:20] LABS: Reflex Lactic Acid Yes or No Add Lactic
--- NOTE | 2022-10-24 15:30 | WPDGICN ---
Assessment and Plan Assessment and plan (1) Jaundice: Code(s): R17 - Unspecified jaundice Status: Acute Assessment and Plan: he 1st noticed that his urine was turning dark and that his eyes were yellow sometime up over week ago. He thinks his urine has been dark for almost 2 weeks. (2) Acute liver failure: Code(s): K72.00 - Acute and subacute hepatic failure without coma Status: Acute Assessment and Plan: his liver function studies are dramatically different from the last values in August when bilirubin was only 1.2 verses 10.7 now. Likewise transaminases which were less than 100 are no 590 and 106 respectively for AST and ALT I had a discussion with the patient and his daughter regarding his liver status. I told him that he may well have cirrhosis. I also explained that the elevation of the enzymes being rather acute suggest that this may be at least in part reversible, only if he can stop drinking alcohol. We discussed the natural progression of liver disease from fatty liver to cirrhosis. I also discussed with them possible complications of chronic liver disease such as ascites due to portal hypertension as well as esophageal varices and hepatic encephalopathy. (3) Alcohol abuse: Code(s): F10.10 - Alcohol abuse, uncomplicated Status: Acute Assessment and Plan: he admits to drinking at least a half pt of vodka per day. Even in the past week when he has been nauseated most the time he had been able to drink up until last evening. He denies any prior hospitalizations for alcohol abuse. He states that he is definitely going to go into alcohol rehab center when he is discharged. I discussed with the patient and his daughter the fact that he is at risk for alcohol withdrawal syndrome that we monitor him for that initiate a protocol. (4) Transaminasemia: Code(s): R74.0 - Nonspecific elevation of levels of transaminase and lactic acid dehydrogenase [LDH] Status: Acute Assessment and Plan: Transaminases have been somewhat elevated for the past year. In August AST was 99 but now is 590 ALT was 65 and now is 106. The alkaline phosphatase had been normal but now is 233. (5) Pancreatitis: Code(s): K85.90 - Acute pancreatitis without necrosis or infection, unspecified Status: Acute Assessment and Plan: He is not having liver disease but lipase is elevated at 330. He does not believe that he has ever had pancreatitis. Ultrasound is negative for gallstone (6) Nausea and vomiting: Code(s): R11.2 - Nausea with vomiting, unspecified Status: Acute Assessment and Plan: this began 2 weeks ago. I am fairly certain this is all secondary to his acute alcoholic hepatitis. (7) Elevated troponin: Code(s): R77.8 - Other specified abnormalities of plasma proteins Status: Acute Assessment and Plan: cardiology will be consulted. He does not give any history or complained of any symptoms that would suggest acute ischemia. (8) Lactic acidemia: Code(s): E87.20 - Acidosis, unspecified Status: Acute Assessment and Plan: The elevation is probably due to his overall poor condition but At this juncture I do not think he has ischemic disease. GI Consult Note Consult date/time: 10/24/22 15:30 HPI: Cesar Handley is a 57 year old male who presented to the emergency room today complaining of weakness and dark urine for the past 2 weeks. He states that he has been able to eat for 2 weeks he has been vomiting. He can eat some breakfast but after that cannot keep anything down although he has been able to keep 5 get down and does drink quite a bit of vodka every day. His daughter added that this has been going on for a long time. He has never had admission for alcohol-related problems such as withdrawal symptoms. He had never been told he had cirrhosis. He has been told to watch it referring
[2022-10-24 15:51] LABS: Lactic Acid 1.9 mmol/L (0.7-2.0)
[2022-10-24 17:50] LABS: Troponin I 0.157 ng/mL (0.000-0.034)
--- NOTE | 2022-10-24 18:42 | ADMGEN ---
This patient, Cesar Handley, was admitted to IMU Room 204-01. Patient/family oriented to hospital policies and general routines including ID bracelet, bed and alarms, visiting hours, pain management, procedures, bathroom and other care routines, personal items, smoking policy, room service/diet, and visiting hours. Information on how to activate the Rapid Response Team has been discussed. Patient/Family are encouraged to report perceived risks to care and to ask questions if they do not understand what they are told or what they should do.
--- NOTE | 2022-10-24 19:10 | PM.IMHP ---
H&P: HPI History of Present Illness Date/Time: 10/24/22 19:10 Chief Complaint: Chest pain and nausea Narrative: This is a 57-year-old male patient to came to the emergency room for complaint of jaundice. The patient has nausea vomiting and increased generalized weakness. The patient states that he drinks approximately a half pt of vodka daily the patient has not drink since yesterday. The patient suspects that he is going through withdrawals. The patient has some mild hand tremors. The patient has has increased nausea and increased generalized weakness over the last 7-9 days. Patient also noticed that he has yellowing of his eyes and is skin. 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 The patient stated that he has had a history of liver disease. His H&H is 10.8 and 31.7. MCV 101.9. Platelets are 177. ESR is 97. INR is 1.3. His sodium was 135 potassium 3.2. Chloride 91. His blood glucose is 178. Lactic is 1.9. Total bilirubin 10.7. AST is 590. ALT is 106. Patient's toxicology screen was negative. His ethyl alcohol was 32. The patient was given aspirin, Ativan, Zofran, Reglan, and normal saline in the ER. Patient is being admitted to observation status on 10/24/2022 Review of Systems Review of Systems: All systems reviewed & are unremarkable except as noted in HPI and below Constitutional: Constitutional: Reports as per HPI and Reports no additional constitutional complaints Eyes: Eyes: Reports as per HPI and Reports no additional eye complaints ENT: Reports system reviewed and no additional complaints, except as documented and Reports Normal hearing present Cardiovascular: Cardiovascular: Reports no additional cardiovascular complaints Respiratory: Respiratory: Reports no additional respiratory complaints and Reports no additional respiratory complaints Gastrointestinal: Gastrointestinal: Reports as per HPI and Reports no additional gastrointestinal complaints Musculoskeletal: Musculoskeletal: Reports no additional musculoskeletal complaints Integumentary/Breasts: Skin/Breast: Reports system reviewed and no additional complaints, except as docu and Reports as per HPI Neurologic: Reports system reviewed and no additional complaints, except as documented, Reports as per HPI and Reports Normal hearing present Psychiatric: Psychiatric: Reports no additional psychiatric complaints and Reports as per HPI Endocrine: Endocrine: Reports no additional endocrine complaints Hematologic/Lymphatic: Hematologic/Lymphatic: Reports no additional hematologic/lymphatic complaints Allergic/Immunologic: Allergic/Immunologic: Reports no additional allergic/immunologic complaints PMFSH Past Medical History Medical History (Updated 10/24/22 @ 23:47 by Yee Cabrera NP) Alcohol abuse Anxiety Aortic stenosis Mild to moderate aortic stenosis noted on echocardiogram in March 2019. Ascending aortic aneurysm 4 centimeter ascending aortic aneurysm noted in fall 2018. Bladder cancer With history of TURBT and mitomycin installation. CAD (coronary artery disease) Diffuse 50% stenosis of the marginal branch noted on cardiac catheterization in March 2019. Chronic diastolic (congestive) heart failure Combined systolic and diastolic cardiac dysfunction Ejection fraction of 40 to 45% in March 2019. Depression Erectile dysfunction HTN (hypertension) Nonischemic cardiomyopathy ERIKA (obstructive sleep apnea) Previous history of noncompliance with CPAP therapy. Surgical History Surgical History (Updated 10/24/22 @ 23:45 by Yee Cabrera NP) Aortic valve replaced History of tonsillectomy and adenoidectomy Hx of appendectomy S/P aortic valve replacement S/P CABG x 1 S/P TURP Family History Family History Mother Family history of diabetes mellitus in first degree relative Cerebrovascular accident Father Family history of diabetes mellitus in f
[2022-10-24] MEDS: SODIUM CHLORIDE 0.9% IV 1,000 ML 100 ML IV CONT (20:37)
[2022-10-24 23:13] LABS: Hematocrit 29.6 % (42.0-52.0); Hemoglobin 10.1 g/dL (14.0-18.0)
[2022-10-24 23:49] LABS: Glucose Point of Care 130 mg/dl (65-105)
[2022-10-25] VITALS (16 sets, daily range): BP systolic 104–123; BP diastolic 65–88; PULSE 70–115; RESP 12–20; TEMP 35.1–36.4; O2SAT 92–97
--- NOTE | 2022-10-25 | ECHO_ITS ---
Patient Info Name: Cesar Handley Age: 57 years : 1965 Gender: Male Ht: 67 in Wt: 244 lbs BSA: 2.34 m2 HR: 78 bpm BP: 110 / 67 mmHg Heart Rhythm: Sinus Rhythm Technical Quality: Fair Exam Date: 10/25/2022 1:53 PM Exam Location: [facility] Pul[facility] Exam Room: [facility] Patient Status: Outpatient Admit Date: 10/24/2022 Staff Ordering Physician: Yee Cabrera NP [employer] Driver: Radha Sierra RDCS Attending Provider: Diego Montgomery MD Referring Physician: Rick ORTIZ; Exam Type: CA echo doppler color flow Study Info Indications - chf s/p AVR Complete two-dimensional, color flow and Doppler transthoracic echocardiogram is performed. Summary 1. Complete two-dimensional, color flow and Doppler transthoracic echocardiogram is performed. 2. Technically somewhat difficult echocardiogram. 3. Postop septal motion otherwise preserved left ventricular systolic function. 4. Aortic valve appears to be a prosthetic apparatus which is not well visualized but by Doppler is functioning well. 5. Identity of the aortic valve prosthesis is not provided to me at the time of this report. Left Ventricle Left ventricular chamber dimension is normal. Left ventricular systolic function is normal, estimated at 50-55%. Left ventricular septal wall motion is abnormal with septal motion related to a post-operative state. The left ventricular diastolic function is grade I diastolic dysfunction. Right Ventricle Right ventricular chamber dimension is normal. Left Atria Left atrial chamber dimension is normal. Right Atria Right atrial chamber dimension is normal. Aortic Valve The not well visualized prosthetic aortic valve is not well visualized. Pulmonic Valve The pulmonic valve is normal. Mitral Valve The mitral valve has normal leaflets. Tricuspid Valve The tricuspid valve leaflets are normal. Pericardium/Pleural The pericardium appears normal. Aorta The aortic root size at the sinus of Valsalva is normal. Left Ventricular Outflow Tract Name Value Normal LVOT 2D LVOT Diameter 2.2 cm LVOT Doppler LVOT Peak Gradient 5 mmHg LVOT Mean Gradient 3 mmHg LVOT VTI 22 cm LVOT VTI/AV VTI Ratio 0.6 LVOT Stroke Volume 80 ml LVOT CO 16.9 l/min LVOT CI 7.2 l/min/m2 Pulmonic Valve Name Value Normal PV Doppler PV Peak Gradient 3 mmHg Mitral Valve Name Value Normal MV Doppler
[2022-10-25] MEDS: POTASSIUM CHLORIDE 20 MEQ PACKET (FOR LIQUID) PO (00:12)
[2022-10-25] MEDS: carvediloL 6.25 MG TABLET PO ×3 (00:12→20:21)
[2022-10-25] MEDS: chlordiazePOXIDE (*CRX) 25 MG CAPSULE PO ×4 (00:12→17:36)
[2022-10-25] MEDS: WARFARIN (*PBKC) 3 MG TABLET PO ×2 (00:13→17:33)
[2022-10-25] MEDS: ENOXAPARIN 100 MG/ML SYRINGE SUB-Q ×3 (00:13→20:22)
[2022-10-25] MEDS: MELATONIN 5 MG TABLET 10 MG PO (00:14)
[2022-10-25 05:27] LABS: Basophils Absolute Auto 0.1 K/mm3 (0.0-0.1); Basophils Percent Auto 0.9 % (0.2-1.2); Eosinophils Absolute Auto 0.1 K/mm3 (0-0.3); Eosinophils Percent Auto 0.9 % (0-4.4); Hemoglobin 9.5 g/dL (14.0-18.0); Immature Granulocyte Absolute 0.05 K/mm3 (0.00-0.031); Immature Granulocyte Percent A 0.9 % (0-0.5); Lymphocytes Absolute Auto 0.86 K/mm3 (0.9-3.2); Lymphocytes Percent Auto 15.5 % (18.3-44.2); Mean Corpuscular HGB Conc 33.9 g/dl (32-36); Mean Corpuscular Hemoglobin 34.8 pg (26-34); Mean Corpuscular Volume 102.6 fl (80-100); Mean Platelet Volume 10.7 fl (7.4-10.4); Monocytes Absolute Auto 0.5 K/mm3 (0.1-0.6); Neutrophils Absolute Auto 4.1 K/mm3 (1.3-6.7); Neutrophils Percent Auto 72.8 % (45.5-73.1); Nucleated Red Blood Cells Absolute Auto 0.1 K/mm3 (0.0-0.012); Nucleated Red Blood Cells Perc 2.2 % (0.0-0.2); Platelet Count Result 147 k/mm3 (150-375); Red Blood Count 2.73 M/mm3 (4.6-6.20); Red Cell Distribution Width 18.5 % (11.5-14.5); White Blood Count 5.6 K/mm3 (4.5-10.0)
[2022-10-25 05:36] LABS: INR 1.6; Prothrombin Time 18.1 Seconds (11.1-14.7)
[2022-10-25 05:39] LABS: Lactic Acid Reflex 1.2 mmol/L (0.7-2.0)
[2022-10-25 05:39] LABS: Alanine Aminotransferase 95 U/L (6-50); Albumin Level 3.1 g/dL (3.5-5.1); Alkaline Phosphatase 186 U/L (38-126); Anion Gap 4 mmol/L (8-16); Aspartate Amino Transferase 514 U/L (17-59); Blood Urea Nitrogen 11 mg/dL (9-20); Calcium 7.7 mg/dL (8.4-10.2); Carbon Dioxide 36 mmol/L (22-30); Chloride 94 mmol/L (98-107); Estimated CRCL calculation 164 ml/min; Estimated Glomerular Filt Rate > 60; Glucose 117 mg/dL (65-110); Magnesium 1.3 mg/dL (1.6-2.3); Potassium 3.5 mmol/L (3.4-5.0); Sodium 134 mmol/L (137-145)
[2022-10-25 05:42] LABS: Ammonia 46 umol/L (9-30)
[2022-10-25] MEDS: SODIUM CHLORIDE 0.9% IV 1,000 ML 100 ML IV CONT ×2 (05:43→17:31)
[2022-10-25 06:03] LABS: Hemoglobin A1C 5.1 % (<5.7)
--- NOTE | 2022-10-25 06:03 | ECG_ITS ---
Measurements Intervals [place] Rate: 116 P: NC: 0 QRS: -44 QRSD: 101 T: 162 QT: 326 QTc: 453 Interpretive Statements ATRIAL FIBRILLATION WITH RAPID VENTRICULAR RESPONSE PREVIOUS ANTERIOR AND INFERIOR INFARCTIONS NONSPECIFIC T-WAVE ABNORMALITY ABNORMAL ECG COMPARED TO ECG 10/24/2022 12:16:49 ATRIAL FIBRILLATION REPLACES SINUS RHYTHM Electronically Signed On 10-25-2022 7:30:39 CDT by Diego Lei M.D.
[2022-10-25] MEDS: POTASSIUM CHLORIDE 20 MEQ TABLET 40 MEQ PO (07:20)
[2022-10-25] MEDS: MAGNESIUM SULFATE 3GM/D5W100ML 3 GM/100 ML BAG IVPB (07:20)
[2022-10-25] MEDS: ONDANSETRON INJ 4 MG/2 ML VIAL IV PUSH (09:26)
--- NOTE | 2022-10-25 09:56 | PM.CNCAR ---
Assessment and Plan Assessment and plan (1) Aortic valve replaced: Code(s): Z95.2 - Presence of prosthetic heart valve Status: Acute (2) Elevated troponin: Code(s): R77.8 - Other specified abnormalities of plasma proteins Status: Acute Plan This is a 57-year-old man with a very difficult an unfortunate situation. He is in actively drinking alcoholic with alcoholic liver disease and hepatic inflammation and significant jaundice. He also has and mechanical aortic valve it was placed about 1 year ago elsewhere for treatment of significant aortic valve stenosis. His INR has not been therapeutic in quite some time. Coumadin at the previously effective dose of 3 mg per day has been started. It is nearly impossible to predict how this gentleman will metabolize Coumadin given his active alcoholic liver disease. The principal reason for consulting me to see him was elevated troponin. There is no clinical evidence of a coronary problem and there is no need to consider an ischemia workup in this setting. At this point I would simply monitor his INR with a target range of 2-3 and strong recommendation is for alcohol cessation. Diego Lei MD [facility] History of Present Illness History of Present Illness Consult date/time: 10/25/22 09:56 Reason For Visit: Liver Failure/Alcohol Withdrawal/Elevated Troponin Narrative: This is a 57-year-old man was unknown to me prior to this encounter I am seeing at the request of the hospitalist today because of troponin being out of normal range. The patient is known to Dr. Huertas of our practice with a history of coronary and aortic valve disease. He entered the hospital yesterday through the emergency room because of jaundice and significant hepatic inflammation related to active alcohol excess. The patient is an actively drinking alcoholic and drinks an excessive amount of vodka on a daily basis. He was evaluated in the emergency room he is not reporting any sense of chest pain pressure or heaviness and denies any active cardiac symptomatology. He has been followed in the past by our practice/Dr. Huertas because of aortic valve and coronary disease. He had a bicuspid aortic valve and has a moderate stenosis in a diagonal branch of his LAD. His a echo aortic stenosis became severe/symptomatic last year and he was referred for cardiothoracic surgery consultation. He was evaluated in [place] and underwent mechanical aortic valve replacement and a single-vessel bypass to his diagonal. The patient states that he saw Dr. Chip crews once in the office after his surgery and then he lost his job lost his insurance and could not afford further follow-up appointments. He also freely admits to ongoing drinking and to not taking his Coumadin reliably. I do not believe there is any when checking his INR he has had several of them checked since July of this year all of which are normal. He in this setting is being seen in consultation. Patient's electrocardiogram interestingly shows sinus rhythm with anterior and inferior Q-waves. His electrocardiogram last year prior to his surgery had the same appearance. Troponin level was found to be 0.15 which prompted the decision to consult me to see him today. I am not sure why troponins were checked in the emergency room. Review of Systems Constitutional: Constitutional: Reports fatigue Eyes: Eyes: Reports no additional eye complaints ENT: Reports system reviewed and no additional complaints, except as documented Cardiovascular: Cardiovascular: Reports no additional cardiovascular complaints Respiratory: Respiratory: Reports no additional respiratory complaints Gastrointestinal: Gastrointestinal: Reports as per HPI Genitourinary: Comments: Dark colored urine Musculoskeletal: Musculoskeletal: Reports no additional musculoskeletal complaints Neurologic: Reports system reviewed and no additional complaints, except as documented Psyc
--- NOTE | 2022-10-25 10:09 | WPDGIPROGNO ---
Progress Note: A&P Assessment and Plan (1) Jaundice: Code(s): R17 - Unspecified jaundice Status: Acute Assessment and Plan: he 1st noticed that his urine was turning dark and that his eyes were yellow sometime up over week ago. He thinks his urine has been dark for almost 2 weeks. He does not have pruritus. He has not been exposed to hepatitis. (2) Acute liver failure: Qualifiers: Hepatic coma status: without hepatic coma Qualified Code(s): K72.00 - Acute and subacute hepatic failure without coma Code(s): K72.00 - Acute and subacute hepatic failure without coma Status: Acute Assessment and Plan: his liver function studies are dramatically different from the last values in August when bilirubin was only 1.2 verses 10.7 now. Likewise transaminases which were less than 100 are no 590 and 106 respectively for AST and ALT I had a discussion with the patient and his daughter regarding his liver status. I told him that he may well have cirrhosis. I also explained that the elevation of the enzymes being rather acute suggest that this may be at least in part reversible, only if he can stop drinking alcohol. We discussed the natural progression of liver disease from fatty liver to cirrhosis. I also discussed with them possible complications of chronic liver disease such as ascites due to portal hypertension as well as esophageal varices and hepatic encephalopathy. His Oxford alcoholic hepatitis score is 8. Patient's who are 9 or greater benefit from steroids. Therefore think at this point we can observe him and see what direction he heads. (3) Alcohol abuse: Code(s): F10.10 - Alcohol abuse, uncomplicated Status: Acute Assessment and Plan: he admits to drinking at least a half pt of vodka per day. Even in the past week when he has been nauseated most the time he had been able to drink up until last evening. He denies any prior hospitalizations for alcohol abuse. He states that he is definitely going to go into alcohol rehab center when he is discharged. I discussed with the patient and his daughter the fact that he is at risk for alcohol withdrawal syndrome that we monitor him for that, initiate a protocol. (4) Transaminasemia: Code(s): R74.0 - Nonspecific elevation of levels of transaminase and lactic acid dehydrogenase [LDH] Status: Acute Assessment and Plan: Transaminases have been somewhat elevated for the past year. In August AST was 99 but now is 590 ALT was 65 and now is 106. The alkaline phosphatase had been normal but now is 233. (5) Pancreatitis: Code(s): K85.90 - Acute pancreatitis without necrosis or infection, unspecified Status: Acute Assessment and Plan: He has no history of pancreatic diseasebut lipase is elevated at 330. He does not believe that he has ever had pancreatitis. Ultrasound is negative for gallstone (6) Nausea and vomiting: Code(s): R11.2 - Nausea with vomiting, unspecified Status: Acute Assessment and Plan: this began 2 weeks ago. I am fairly certain this is all secondary to his acute alcoholic hepatitis. he no vomiting this morning. Will try advancing diet (7) Elevated troponin: Code(s): R77.8 - Other specified abnormalities of plasma proteins Status: Acute Assessment and Plan: cardiology will be consulted. He does not give any history or complained of any symptoms that would suggest acute ischemia. (8) Lactic acidemia: Code(s): E87.20 - Acidosis, unspecified Status: Acute Assessment and Plan: The elevation is probably due to his overall poor condition but At this juncture I do not think he has ischemic disease. (9) Anemia: Code(s): D64.9 - Anemia, unspecified Status: Acute Assessment and Plan: hemoglobin was 13.8 last December, 15.3 in August of this year, 10.8 on admission and 9.5 today. Platelet
[2022-10-25] MEDS: THIAMINE HCL 200 MG/2 ML VIAL 100 MG IV PUSH (10:43)
[2022-10-25] MEDS: busPIRone HCL 10 MG TABLET PO ×2 (10:44→17:33)
[2022-10-25] MEDS: PANTOPRAZOLE SODIUM IV 40 MG VIAL IV PUSH ×2 (10:44→20:22)
[2022-10-25] MEDS: CITALOPRAM HYDROBROMIDE 20 MG TABLET 40 MG PO (10:45)
[2022-10-25] MEDS: FUROSEMIDE 20 MG TABLET PO (10:45)
[2022-10-25] MEDS: MAGNESIUM OXIDE 400 MG TABLET PO (10:46)
[2022-10-25] MEDS: CYANOCOBALAMIN 1,000 MCG TABLET 5000 MCG BY MOUTH (10:46)
[2022-10-25] MEDS: CALCIUM CARBONATE (OSCAL) 500 MG TABLET PO (10:46)
[2022-10-25] MEDS: ZINC SULFATE 220 MG CAPSULE PO (10:46)
[2022-10-25] MEDS: FOLIC ACID 1 MG TABLET PO (10:46)
[2022-10-25] MEDS: ATORVASTATIN 20 MG TABLET PO (10:46)
[2022-10-25 12:13] LABS: Hematocrit 30.8 % (42.0-52.0); Hemoglobin 10.7 g/dL (14.0-18.0)
[2022-10-25 12:23] LABS: Glucose Point of Care 153 mg/dl (65-105)
[2022-10-25] MEDS: LORazepam INJ (*CRX) 2 MG/ML VIAL IV PUSH (12:53)
--- NOTE | 2022-10-25 12:54 | PM.IMPN ---
Progress Note: A&P Assessment and Plan (1) Elevated troponin: Code(s): R77.8 - Other specified abnormalities of plasma proteins Status: Acute Assessment and Plan: The patient does have a history of coronary artery disease status post CABG x1 vessel Patient's troponin 0.154, 0.136, and 0.157. Patient has no further complaints of chest pain. Cardiology has been consulted. Continue with Coreg Continue with atorvastatin (2) Jaundice: Code(s): R17 - Unspecified jaundice Status: Acute Assessment and Plan: The patient has a history of alcoholism and has elevated liver enzymes Check ammonia level GI has been consulted LFTs acutely elevated likely due to acute alcohol use Acute alcoholic hepatitis Ultrasound negative for cirrhosis (3) Acute liver failure: Qualifiers: Hepatic coma status: without hepatic coma Qualified Code(s): K72.00 - Acute and subacute hepatic failure without coma Code(s): K72.00 - Acute and subacute hepatic failure without coma Status: Acute Assessment and Plan: GI has seen the patient as per Dr. Freeman's note his liver function studies are dramatically different from the last values in August when bilirubin was only 1.2 verses 10.7 now.? Likewise transaminases which were less than 100 are no 590 and 106 respectively for AST and ALT ?I had a discussion with the patient and his daughter regarding his liver status.? I told him that he may well have cirrhosis.? I also explained that the elevation of the enzymes being rather acute suggest that this may be at least in part reversible, only if he can stop drinking alcohol.? We discussed the natural progression of liver disease from fatty liver to cirrhosis.? I also discussed with them possible complications of chronic liver disease such as ascites due to portal hypertension as well as esophageal varices and hepatic encephalopathy.' Protonix IV has been started Abdominal ultrasound was read as diffuse fatty infiltration of the liver. Abdominal pelvis CT was read as. 1.Hepatic steatosis. 2:? Trace ascites along the liver margin. Ammonia level slightly elevated will add lactulose institutional research coordinator consult for possible rehab Monitor liver enzymes Monitor coags as well. (4) Alcohol withdrawal: Qualifiers: Complication of substance-induced condition: uncomplicated Qualified Code(s): F10.930 - Alcohol use, unspecified with withdrawal, uncomplicated Code(s): F10.939 - Alcohol use, unspecified with withdrawal, unspecified Status: Acute Assessment and Plan: Continue with [facility] protocol Folic acid and thiamin P.r.n. Librium P.r.n. Ativan P.r.n. Haldol (5) HTN (hypertension): Qualifiers: Hypertension type: primary hypertension Qualified Code(s): I10 - Essential (primary) hypertension Code(s): I10 - Essential (primary) hypertension Status: Chronic Assessment and Plan: Continue with Coreg I am holding his Benadryl as that may cause his blood pressure to elevate. (6) Anxiety: Code(s): F41.9 - Anxiety disorder, unspecified Status: Chronic Assessment and Plan: P.r.n. Ativan (7) Depression: Qualifiers: Depression Type: unspecified Qualified Code(s): F32.A - Depression, unspecified Code(s): F32.9 - Major depressive disorder, single episode, unspecified Status: Chronic Assessment and Plan: Continue with Celexa (8) ERIKA (obstructive sleep apnea): Code(s): G47.33 - Obstructive sleep apnea (adult) (pediatric) Status: Chronic Assessment and Plan: The patient is not compliant. 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 Continue with Coreg Continue with Lasix Last echo on 07/30/2021 read as the following? 1. Complete two-dimensional,
[2022-10-25] MEDS: LACTULOSE 20 GM/30 ML UDC PO (17:32)
[2022-10-25] MEDS: ASPIRIN 81 MG CHEWABLE TABLET PO (17:37)
[2022-10-25 17:44] LABS: Hematocrit 32.6 % (42.0-52.0); Hemoglobin 10.7 g/dL (14.0-18.0)
[2022-10-25 18:13] LABS: Glucose Point of Care 186 mg/dl (65-105)
[2022-10-25 19:38] LABS: Glucose Point of Care 167 mg/dl (65-105)
[2022-10-25 23:43] LABS: Glucose Point of Care 131 mg/dl (65-105)
[2022-10-26] VITALS (18 sets, daily range): BP systolic 98–122; BP diastolic 67–83; PULSE 76–110; RESP 16–24; TEMP 36.2–37.1; O2SAT 94–98
[2022-10-26] MEDS: SODIUM CHLORIDE 0.9% IV 1,000 ML 100 ML IV CONT (03:33)
[2022-10-26 03:55] LABS: Basophils Absolute Auto 0.1 K/mm3 (0.0-0.1); Basophils Percent Auto 1.2 % (0.2-1.2); Eosinophils Absolute Auto 0.1 K/mm3 (0-0.3); Eosinophils Percent Auto 1.3 % (0-4.4); Hematocrit 28.2 % (42.0-52.0); Hemoglobin 9.6 g/dL (14.0-18.0); Immature Granulocyte Absolute 0.09 K/mm3 (0.00-0.031); Immature Granulocyte Percent A 1.5 % (0-0.5); Lymphocytes Absolute Auto 1.36 K/mm3 (0.9-3.2); Lymphocytes Percent Auto 22.4 % (18.3-44.2); Mean Corpuscular Hemoglobin 34.2 pg (26-34); Mean Corpuscular Volume 100.4 fl (80-100); Mean Platelet Volume 11.3 fl (7.4-10.4); Monocytes Absolute Auto 0.5 K/mm3 (0.1-0.6); Monocytes Percent Auto 7.4 % (2.6-8.5); Neutrophils Percent Auto 66.2 % (45.5-73.1); Nucleated Red Blood Cells Absolute Auto 0.2 K/mm3 (0.0-0.012); Nucleated Red Blood Cells Perc 3.6 % (0.0-0.2); Platelet Count Result 158 k/mm3 (150-375); Red Blood Count 2.81 M/mm3 (4.6-6.20); Red Cell Distribution Width 18.8 % (11.5-14.5); White Blood Count 6.1 K/mm3 (4.5-10.0)
[2022-10-26 04:14] LABS: Alanine Aminotransferase 88 U/L (6-50); Albumin Level 2.8 g/dL (3.5-5.1); Alkaline Phosphatase 188 U/L (38-126); Anion Gap 4 mmol/L (8-16); Aspartate Amino Transferase 407 U/L (17-59); Bilirubin,Total 10.4 mg/dL (0.2-1.3); Blood Urea Nitrogen 10 mg/dL (9-20); Calcium 7.4 mg/dL (8.4-10.2); Carbon Dioxide 33 mmol/L (22-30); Chloride 96 mmol/L (98-107); Estimated CRCL calculation 140 ml/min; Estimated Glomerular Filt Rate > 60; Glucose 103 mg/dL (65-110); Lipase 305 U/L (23-300); Magnesium 1.7 mg/dL (1.6-2.3); Potassium 3.3 mmol/L (3.4-5.0); Sodium 133 mmol/L (137-145)
[2022-10-26] MEDS: ENOXAPARIN 100 MG/ML SYRINGE SUB-Q (08:57)
[2022-10-26] MEDS: PANTOPRAZOLE SODIUM IV 40 MG VIAL IV PUSH ×2 (08:57→21:48)
[2022-10-26] MEDS: THIAMINE HCL 200 MG/2 ML VIAL 100 MG IV PUSH (08:57)
[2022-10-26] MEDS: LACTULOSE 20 GM/30 ML UDC PO (08:57)
[2022-10-26] MEDS: CYANOCOBALAMIN 1,000 MCG TABLET 5000 MCG BY MOUTH (08:58)
[2022-10-26] MEDS: busPIRone HCL 10 MG TABLET PO ×2 (08:59→17:44)
[2022-10-26] MEDS: ASPIRIN 81 MG CHEWABLE TABLET PO (08:59)
[2022-10-26] MEDS: CALCIUM CARBONATE (OSCAL) 500 MG TABLET PO (09:00)
[2022-10-26] MEDS: MAGNESIUM OXIDE 400 MG TABLET PO (09:00)
[2022-10-26] MEDS: chlordiazePOXIDE (*CRX) 25 MG CAPSULE PO ×3 (09:00→17:44)
[2022-10-26] MEDS: ZINC SULFATE 220 MG CAPSULE PO (09:00)
[2022-10-26] MEDS: FOLIC ACID 1 MG TABLET PO (09:01)
[2022-10-26] MEDS: CITALOPRAM HYDROBROMIDE 20 MG TABLET 40 MG PO (09:01)
--- NOTE | 2022-10-26 10:02 | WPDGIPROGNO ---
Progress Note: A&P Assessment and Plan (1) Jaundice: Code(s): R17 - Unspecified jaundice Status: Acute Assessment and Plan: he 1st noticed that his urine was turning dark and that his eyes were yellow sometime up over week ago. He thinks his urine has been dark for almost 2 weeks. He does not have pruritus. He has not been exposed to hepatitis. 10/26/2022 bilirubin remains elevated unchanged. 10.4 today. Denies pruritus (2) Acute liver failure: Qualifiers: Hepatic coma status: without hepatic coma Qualified Code(s): K72.00 - Acute and subacute hepatic failure without coma Code(s): K72.00 - Acute and subacute hepatic failure without coma Status: Acute Assessment and Plan: his liver function studies are dramatically different from the last values in August when bilirubin was only 1.2 verses 10.7 now. Likewise transaminases which were less than 100 are no 590 and 106 respectively for AST and ALT I had a discussion with the patient and his daughter regarding his liver status. I told him that he may well have cirrhosis. I also explained that the elevation of the enzymes being rather acute suggest that this may be at least in part reversible, only if he can stop drinking alcohol. We discussed the natural progression of liver disease from fatty liver to cirrhosis. I also discussed with them possible complications of chronic liver disease such as ascites due to portal hypertension as well as esophageal varices and hepatic encephalopathy. His [place] alcoholic hepatitis score is 8. Patient's who are 9 or greater benefit from steroids. Therefore think at this point we can observe him and see what direction he heads. 10/26/2022 fortunately his liver status is stable and not worsening. He has had some increased however pneumonia and we will need to watch that. (3) Alcohol abuse: Code(s): F10.10 - Alcohol abuse, uncomplicated Status: Acute Assessment and Plan: he admits to drinking at least a half pt of vodka per day. Even in the past week when he has been nauseated most the time he had been able to drink up until last evening. He denies any prior hospitalizations for alcohol abuse. He states that he is definitely going to go into alcohol rehab center when he is discharged. I discussed with the patient and his daughter the fact that he is at risk for alcohol withdrawal syndrome that we monitor him for that, initiate a protocol. (4) Transaminasemia: Code(s): R74.0 - Nonspecific elevation of levels of transaminase and lactic acid dehydrogenase [LDH] Status: Acute Assessment and Plan: Transaminases have been somewhat elevated for the past year. In August AST was 99 but now is 590 ALT was 65 and now is 106. The alkaline phosphatase had been normal but now is 233. 10/26/2022 transaminases are slowly improving. (5) Pancreatitis: Code(s): K85.90 - Acute pancreatitis without necrosis or infection, unspecified Status: Acute Assessment and Plan: He has no history of pancreatic diseasebut lipase is elevated at 330. He does not believe that he has ever had pancreatitis. Ultrasound is negative for gallstone 10/26/2022 lipase remains elevated, 305 today. He is not having pain. I told him that this probably reflects chronic inflammation of the pancreas due to the alcohol. (6) Nausea and vomiting: Code(s): R11.2 - Nausea with vomiting, unspecified Status: Acute Assessment and Plan: this began 2 weeks ago. I am fairly certain this is all secondary to his acute alcoholic hepatitis. he no vomiting this morning. Will try advancing diet Will begin regular diet today (7) Elevated troponin: Code(s): R77.8 - Other specified abnormalities of plasma proteins Status: Acute Assessment and Plan: cardiology will be consulted. He does not give any history or complained of any symptoms that wo
[2022-10-26 10:06] LABS: INR 2.2; Prothrombin Time 23.4 Seconds (11.1-14.7)
[2022-10-26 10:07] LABS: Ammonia 54 umol/L (9-30)
[2022-10-26 12:26] LABS: Glucose Point of Care 164 mg/dl (65-105)
--- NOTE | 2022-10-26 13:48 | PM.IMPN ---
Progress Note: A&P Assessment and Plan (1) Elevated troponin: Code(s): R77.8 - Other specified abnormalities of plasma proteins Status: Acute Assessment and Plan: The patient does have a history of coronary artery disease status post CABG x1 vessel Patient's troponin 0.154, 0.136, and 0.157. Patient has no further complaints of chest pain. Cardiology has been consulted. Continue with Coreg Continue with atorvastatin (2) Jaundice: Code(s): R17 - Unspecified jaundice Status: Acute Assessment and Plan: The patient has a history of alcoholism and has elevated liver enzymes Ammonia level mildly elevated on lactulose p.r.n. titrate to get at least 1-2 bowel movement every day GI has been consulted LFTs acutely elevated likely due to acute alcohol use Acute alcoholic hepatitis Ultrasound negative for cirrhosis (3) Acute liver failure: Qualifiers: Hepatic coma status: without hepatic coma Qualified Code(s): K72.00 - Acute and subacute hepatic failure without coma Code(s): K72.00 - Acute and subacute hepatic failure without coma Status: Acute Assessment and Plan: GI has seen the patient as per Dr. Freeman's note his liver function studies are dramatically different from the last values in August when bilirubin was only 1.2 verses 10.7 now.? Likewise transaminases which were less than 100 are no 590 and 106 respectively for AST and ALT ?I had a discussion with the patient and his daughter regarding his liver status.? I told him that he may well have cirrhosis.? I also explained that the elevation of the enzymes being rather acute suggest that this may be at least in part reversible, only if he can stop drinking alcohol.? We discussed the natural progression of liver disease from fatty liver to cirrhosis.? I also discussed with them possible complications of chronic liver disease such as ascites due to portal hypertension as well as esophageal varices and hepatic encephalopathy.' Protonix IV has been started Abdominal ultrasound was read as diffuse fatty infiltration of the liver. Abdominal pelvis CT was read as. 1.Hepatic steatosis. 2:? Trace ascites along the liver margin. Ammonia level slightly elevated will add lactulose record center coordinator consult for possible rehab Monitor liver enzymes Monitor coags as well. (4) Alcohol withdrawal: Qualifiers: Complication of substance-induced condition: uncomplicated Qualified Code(s): F10.930 - Alcohol use, unspecified with withdrawal, uncomplicated Code(s): F10.939 - Alcohol use, unspecified with withdrawal, unspecified Status: Acute Assessment and Plan: Continue with CIWA protocol Folic acid and thiamin Schedule Librium P.r.n. Ativan P.r.n. Haldol (5) HTN (hypertension): Qualifiers: Hypertension type: primary hypertension Qualified Code(s): I10 - Essential (primary) hypertension Code(s): I10 - Essential (primary) hypertension Status: Chronic Assessment and Plan: Continue with Coreg Hold Lasix at borderline blood pressures (6) Anxiety: Code(s): F41.9 - Anxiety disorder, unspecified Status: Chronic Assessment and Plan: P.r.n. Ativan (7) Depression: Qualifiers: Depression Type: unspecified Qualified Code(s): F32.A - Depression, unspecified Code(s): F32.9 - Major depressive disorder, single episode, unspecified Status: Chronic Assessment and Plan: Continue with Celexa (8) ERIKA (obstructive sleep apnea): Code(s): G47.33 - Obstructive sleep apnea (adult) (pediatric) Status: Chronic Assessment and Plan: The patient is not compliant. 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 Continue with Coreg Continue with Lasix Last echo on 07/30/2021 [place]
[2022-10-26] MEDS: POTASSIUM CHLORIDE 20 MEQ TABLET 40 MEQ PO (14:14)
[2022-10-26] MEDS: carvediloL 6.25 MG TABLET PO ×2 (14:14→21:48)
[2022-10-26 14:59] LABS: Creatine Kinase 70 U/L (55-170)
[2022-10-26 16:51] LABS: Glucose Point of Care 165 mg/dl (65-105)
[2022-10-26] MEDS: WARFARIN (*PBKC) 3 MG TABLET PO (17:44)
[2022-10-26] MEDS: SODIUM CHLORIDE 0.45% 1,000 ML 50 ML IV CONT (17:44)
--- NOTE | 2022-10-26 18:39 | PC.NURSE ---
Attempted to obtain urine specimen, patient was incontinent of urine. Postvoid bladder scan obtained to verify bladder empty, and 30 ml urine noted. Will continue to attempt to collect urine specimen.
[2022-10-26] MEDS: SALINE LOCK FLUSH 10 ML IV PUSH (21:48)
[2022-10-27] VITALS (20 sets, daily range): BP systolic 97–134; BP diastolic 56–92; PULSE 77–107; RESP 11–20; TEMP 35.7–36.7; O2SAT 95–100; BMI 39.6
[2022-10-27] MEDS: chlordiazePOXIDE (*CRX) 25 MG CAPSULE PO ×2 (00:38→11:52)
[2022-10-27 07:16] LABS: Basophils Absolute Auto 0.1 K/mm3 (0.0-0.1); Basophils Percent Auto 1.3 % (0.2-1.2); Eosinophils Absolute Auto 0.1 K/mm3 (0-0.3); Eosinophils Percent Auto 1.9 % (0-4.4); Hematocrit 31.4 % (42.0-52.0); Hemoglobin 10.3 g/dL (14.0-18.0); Immature Granulocyte Absolute 0.12 K/mm3 (0.00-0.031); Immature Granulocyte Percent A 1.9 % (0-0.5); Lymphocytes Absolute Auto 1.16 K/mm3 (0.9-3.2); Lymphocytes Percent Auto 18.8 % (18.3-44.2); Mean Corpuscular HGB Conc 32.8 g/dl (32-36); Mean Corpuscular Hemoglobin 34.9 pg (26-34); Mean Corpuscular Volume 106.4 fl (80-100); Monocytes Absolute Auto 0.4 K/mm3 (0.1-0.6); Neutrophils Absolute Auto 4.3 K/mm3 (1.3-6.7); Neutrophils Percent Auto 69.1 % (45.5-73.1); Nucleated Red Blood Cells Absolute Auto 0.3 K/mm3 (0.0-0.012); Platelet Count Result 165 k/mm3 (150-375); Red Blood Count 2.95 M/mm3 (4.6-6.20); Red Cell Distribution Width 20.2 % (11.5-14.5); White Blood Count 6.2 K/mm3 (4.5-10.0)
[2022-10-27 07:27] LABS: INR 2.7; Prothrombin Time 27.6 Seconds (11.1-14.7)
[2022-10-27 07:30] LABS: Alanine Aminotransferase 83 U/L (6-50); Albumin Level 3.2 g/dL (3.5-5.1); Alkaline Phosphatase 193 U/L (38-126); Anion Gap 4 mmol/L (8-16); Aspartate Amino Transferase 394 U/L (17-59); Bilirubin,Total 10.7 mg/dL (0.2-1.3); Blood Urea Nitrogen 9 mg/dL (9-20); Calcium 7.7 mg/dL (8.4-10.2); Carbon Dioxide 33 mmol/L (22-30); Chloride 98 mmol/L (98-107); Estimated CRCL calculation 141 ml/min; Estimated Glomerular Filt Rate > 60; Glucose 102 mg/dL (65-110); Magnesium 1.5 mg/dL (1.6-2.3); Potassium 3.7 mmol/L (3.4-5.0); Sodium 135 mmol/L (137-145)
[2022-10-27] MEDS: THIAMINE HCL 200 MG/2 ML VIAL 100 MG IV PUSH (08:27)
[2022-10-27] MEDS: FOLIC ACID 1 MG TABLET PO (08:27)
[2022-10-27] MEDS: PANTOPRAZOLE SODIUM IV 40 MG VIAL IV PUSH ×2 (08:27→21:13)
[2022-10-27] MEDS: ZINC SULFATE 220 MG CAPSULE PO (08:27)
[2022-10-27] MEDS: CITALOPRAM HYDROBROMIDE 20 MG TABLET 40 MG PO (08:27)
[2022-10-27] MEDS: CYANOCOBALAMIN 1,000 MCG TABLET 5000 MCG BY MOUTH (08:27)
[2022-10-27] MEDS: busPIRone HCL 10 MG TABLET PO ×2 (08:27→16:47)
[2022-10-27] MEDS: MAGNESIUM OXIDE 400 MG TABLET PO (08:27)
[2022-10-27] MEDS: CALCIUM CARBONATE (OSCAL) 500 MG TABLET PO (08:27)
[2022-10-27] MEDS: carvediloL 6.25 MG TABLET PO ×2 (08:28→21:13)
[2022-10-27] MEDS: ASPIRIN 81 MG CHEWABLE TABLET PO (08:29)
[2022-10-27 08:45] LABS: Glucose Point of Care 128 mg/dl (65-105)
[2022-10-27 10:17] LABS: Glucose Point of Care 109 mg/dl (65-105)
--- NOTE | 2022-10-27 11:49 | PM.PNCARD ---
Progress Note: A&P Assessment and Plan (1) Aortic valve replaced: Code(s): Z95.2 - Presence of prosthetic heart valve Status: Acute Assessment and Plan: Resume warfarin. Follow INRs. 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 On warfarin. Some degree of auto anticoagulation also because of liver dysfunction (6) Chronic diastolic (congestive) heart failure: Code(s): I50.32 - Chronic diastolic (congestive) heart failure Status: Acute Assessment and Plan: He does have some worsening swelling. Will give a dose of IV furosemide 20 mg IV x1. Subjective Date/time seen: 10/27/22 11:49 Interval history: 57-year-old with alcoholism as well as mechanical aortic valve and placing coronary disease. Date of service 10/27/2022: Feels weak. Has swelling. No chest pain. Review of Systems Constitutional: Constitutional: Reports fatigue Eyes: Eyes: Reports no additional eye complaints ENT: Reports system reviewed and no additional complaints, except as documented Cardiovascular: Cardiovascular: Reports no additional cardiovascular complaints Respiratory: Respiratory: Reports no additional respiratory complaints Gastrointestinal: Gastrointestinal: Reports as per HPI Musculoskeletal: Musculoskeletal: Reports no additional musculoskeletal complaints Neurologic: Reports system reviewed and no additional complaints, except as documented Psychiatric: Psychiatric: Reports as per HPI Endocrine: Endocrine: Reports no additional endocrine complaints and Reports fatigue Hematologic/Lymphatic: Hematologic/Lymphatic: Reports no additional hematologic/lymphatic complaints Allergic/Immunologic: Allergic/Immunologic: Reports no additional allergic/immunologic complaints Exam Const: Other: Overweight white male appearing his stated age sitting in the chair watching television no distress HENMT: Mouth: Yes moist mucous membranes Eyes: Other: Scleral icterus noted Neck: Neck: no JVD Other: Neck is supple no audible carotid bruit Resp: Effort & Inspection: normal respiratory effort Auscultation: clear to auscultation bilaterally Cardio: Other: Normal mechanical aortic valve closure sound noted systolic murmur at the base does not radiate no diastolic murmur GI: Auscultation: normal bowel sounds Skin: General skin exam: normal color Neuro: Other: Alert and oriented x3 Extrem: General: edema Objective Data Vital Signs Vital Signs: Vital Signs - 24 hr 10/26/22 12:00 10/26/22 12:00 10/26/22 12:00 Temperature 36.2 C L Pulse Rate 76 94 Pulse Rate [Bilateral Pedal (Dorsalis Pedis) Palpation] 76 Respiratory Rate 24 H Blood Pressure 105/77 105/77 Pulse Oximetry 98 Oxygen Delivery 10/26/22 12:00 10/26/22 14:00 10/26/22 14:14 Temperature Pulse Rate 98 95 93 Pulse Rate [Bilateral Pedal (Dorsalis Pedis) Palpation] Respiratory Rate 24 H Blood Pressure Pulse Oximetry 98 Oxygen Delivery Room Air 10/26/22 15:26 10/26/22 16:00 10/26/22 16:00 Temperature 36.4 C Pulse Rate 93 110 H Pulse Rate [Bilateral Pedal (Dorsalis Pedis) Palpation] Respiratory Rate 16 Blood Pressure 119/78 119/78 Pulse Oximetry 98 Oxygen Delivery Room Air 10/26/22 16:00 10/26/22 18:00 10/26/22 20:16 Temperature
[2022-10-27 12:02] LABS: Glucose Point of Care 135 mg/dl (65-105)
--- NOTE | 2022-10-27 13:14 | PC.NURSE ---
To GI Lab per [ stretcher], IV [fluids paused ]. Report given to [NAKIA Kemp @ [id number] ].
--- NOTE | 2022-10-27 13:50 | WPDANESEPPF ---
Anes - Initial Pre Proc Eval Procedure: Operation Date: 10/27/22 14:45 Proposed Procedures p Esophagogastroduodenoscopy - Liam Freeman MD Date/Time: 10/27/22 13:50 Surgeon: Diego Montgomery MD Pre Op Diagnosis: Liver Failure/Alcohol Withdrawal/Elevated Troponin Patient Data Age: 57 Gender: M Height: 1.7 m Weight: 114.9 kg Last Vital Signs Temp 36.3 C L 10/27/22 13:36 Pulse 77 10/27/22 13:36 Resp 20 10/27/22 13:36 BP 120/92 H 10/27/22 13:36 Pulse Ox 99 10/27/22 13:36 O2 Del Method Room Air 10/27/22 13:36 Allergies Allergy/AdvReac Type Severity Reaction Status Date / Time No Known Allergies Allergy Verified 10/27/22 13:32 Home Medications Medication Instructions Recorded Confirmed Type atorvastatin 20 mg tablet 20 mg PO DAILY #90 tabs 03/14/21 10/24/22 Rx nitroglycerin 0.4 mg sublingual 0.4 mg sublingual Q5MIN PRN Chest 08/02/21 10/24/22 Rx tablet (Nitrostat) Pain #30 tabs lancets #200 ea 09/17/21 10/24/22 Rx blood sugar diagnostic (Blood #100 ea 10/02/21 10/24/22 Rx Glucose Test strips) blood-glucose meter #1 ea 10/02/21 10/24/22 Rx buspirone 10 mg tablet 10 mg PO BID #180 tabs 08/05/22 10/24/22 Rx naltrexone 50 mg tablet 50 mg PO DAILY #30 tabs 08/08/22 10/24/22 Rx pantoprazole 40 mg tablet,delayed 40 mg PO QAM #90 tabs 08/08/22 10/24/22 Rx release citalopram 40 mg tablet (Celexa) 40 mg PO DAILY #30 tabs 09/01/22 10/24/22 Rx arginine (L-arginine) 500 mg tablet 500 mg PO DAILY 10/24/22 10/24/22 History ezgbvxw-upxizqonn-djgm 333 mg-133 3 tablet PO DAILY 10/24/22 10/24/22 History mg-8.3 mg tablet carvedilol 6.25 mg tablet 6.25 mg PO Q12H 10/24/22 10/24/22 History cyanocobalamin (vitamin B-12) 5,000 mcg sublingual DAILY 10/24/22 10/24/22 History 5,000 mcg sublingual tablet (Vitamin B-12) diphenhydramine HCl 50 mg capsule 50 mg PO HS PRN Insomnia 10/24/22 10/24/22 History furosemide 20 mg tablet 20 mg PO DAILY 10/24/22 10/24/22 History melatonin 12 mg tablet 12 mg PO HS PRN Insomnia 10/24/22 10/24/22 History potassium 99 mg tablet 99 mg PO DAILY 10/24/22 10/24/22 History warfarin 3 mg tablet 3 mg PO DAILY 10/24/22 10/24/22 History Laboratory Tests 10/26/22 10/26/22 10/26/22 03:07 16:02 20:08 WBC RBC Hgb Hct MCV MCH MCHC RDW Plt Count MPV Immature Gran % (Auto) Neut % (Auto) Lymph % (Auto) [place] % (Auto) Eos % (Auto) Baso % (Auto) Lymph # (Auto) [place] # (Auto) Eos # (Auto) Baso # (Auto) Abs Immat Gran (auto) Absolute Neuts (auto) Absolute Nucleated RBC Nucleated RBC % PT INR Sodium Potassium Chloride Carbon Dioxide Anion Gap BUN Creatinine Estim Creat Clear Calc Estimated GFR Glucose POC Capillary Glucose 165 mg/dl H mg/dl 109 mg/dl H mg/dl (65-105) (65-105) Calcium Magnesium Total Bilirubin AST ALT Alkaline Phosphatase Total Creatine Kinase 70 U/L U/L (55-170) Total Protein Albumin 10/27/22 10/27/22 10/27/22 07:06 07:06 07:06 WBC 6.2 K/mm3 K/mm3 (4.5-10.0) RBC 2.95 M/mm3 L M/mm3 (4.6-6.20) Hgb 10.3 g/dL L g/dL (14.0-18.0) Hct 31.4 % L % (42.0-52.0) MCV 106.4 fl H D fl (80-100) MCH 34.9 pg H pg (26-34) MCHC 32.8 g/dl g/dl (32-36) RDW 20.2 % H % (11.5-14.5) Plt Count 165 k/mm3 k/mm3 (150-375) MPV 11.0 fl H fl (7.4-10.4) Immature Gran % (Auto) 1.9 % H % (0-
[2022-10-27] MEDS: LACTATED RINGERS 1,000 ML 150 ML IV CONT (13:57)
[2022-10-27] MEDS: GENTAMICIN 80MG/SOD CHL 50 ML 80 MG/50 ML BAG 100 MG IVPB (13:57)
[2022-10-27] MEDS: AMPICILLIN 2 GM/NS 100 ML 2 GM/100 ML BAG IVPB (14:09)
--- NOTE | 2022-10-27 14:58 | PC.NURSE ---
Returned from GI Lab. Report received from NAKIA Holloway @ [id number]. IV Fluids resumed. No complaints from patient noted
[2022-10-27] MEDS: SALINE LOCK FLUSH 10 ML IV PUSH ×2 (15:09→21:14)
[2022-10-27] MEDS: FUROSEMIDE INJ 40 MG/4 ML VIAL 20 MG IV PUSH (15:09)
[2022-10-27] MEDS: LACTULOSE 20 GM/30 ML UDC PO (16:47)
--- NOTE | 2022-10-27 16:59 | PM.IMPN ---
Progress Note: A&P Assessment and Plan (1) Elevated troponin: Code(s): R77.8 - Other specified abnormalities of plasma proteins Status: Acute Assessment and Plan: The patient does have a history of coronary artery disease status post CABG x1 vessel Patient's troponin 0.154, 0.136, and 0.157. Patient has no further complaints of chest pain. Cardiology has been consulted. Continue with Coreg Continue with atorvastatin (2) Jaundice: Code(s): R17 - Unspecified jaundice Status: Acute Assessment and Plan: The patient has a history of alcoholism and has elevated liver enzymes Ammonia level mildly elevated on lactulose p.r.n. titrate to get at least 1-2 bowel movement every day GI has been consulted LFTs acutely elevated likely due to acute alcohol use Acute alcoholic hepatitis Ultrasound negative for cirrhosis LFT slowly improving the jaundice level is about the same (3) Acute liver failure: Qualifiers: Hepatic coma status: without hepatic coma Qualified Code(s): K72.00 - Acute and subacute hepatic failure without coma Code(s): K72.00 - Acute and subacute hepatic failure without coma Status: Acute Assessment and Plan: GI has seen the patient as per Dr. Freeman's note his liver function studies are dramatically different from the last values in August when bilirubin was only 1.2 verses 10.7 now.? Likewise transaminases which were less than 100 are no 590 and 106 respectively for AST and ALT ?I had a discussion with the patient and his daughter regarding his liver status.? I told him that he may well have cirrhosis.? I also explained that the elevation of the enzymes being rather acute suggest that this may be at least in part reversible, only if he can stop drinking alcohol.? We discussed the natural progression of liver disease from fatty liver to cirrhosis.? I also discussed with them possible complications of chronic liver disease such as ascites due to portal hypertension as well as esophageal varices and hepatic encephalopathy.' Protonix IV has been started Abdominal ultrasound was read as diffuse fatty infiltration of the liver. Abdominal pelvis CT was read as. 1.Hepatic steatosis. 2:? Trace ascites along the liver margin. Ammonia level slightly elevated will add lactulose environmental services coordinator consult for possible rehab Monitor liver enzymes Monitor coags as well. Monitor coags INR is 2.7 will hold Coumadin tonight (4) Alcohol withdrawal: Qualifiers: Complication of substance-induced condition: uncomplicated Qualified Code(s): F10.930 - Alcohol use, unspecified with withdrawal, uncomplicated Code(s): F10.939 - Alcohol use, unspecified with withdrawal, unspecified Status: Acute Assessment and Plan: Continue with CIWA protocol Folic acid and thiamin Schedule Librium. Lower Librium as he is bit sleepy today P.r.n. Ativan P.r.n. Haldol (5) HTN (hypertension): Qualifiers: Hypertension type: primary hypertension Qualified Code(s): I10 - Essential (primary) hypertension Code(s): I10 - Essential (primary) hypertension Status: Chronic Assessment and Plan: Continue with Coreg Hold Lasix at borderline blood pressures (6) Anxiety: Code(s): F41.9 - Anxiety disorder, unspecified Status: Chronic Assessment and Plan: P.r.n. Ativan (7) Depression: Qualifiers: Depression Type: unspecified Qualified Code(s): F32.A - Depression, unspecified Code(s): F32.9 - Major depressive disorder, single episode, unspecified Status: Chronic Assessment and Plan: Continue with Celexa (8) ERIKA (obstructive sleep apnea): Code(s): G47.33 - Obstructive sleep apnea (adult) (pediatric) Status: Chronic Assessment and Plan: The patient is not compliant. 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
[2022-10-27 17:12] LABS: Glucose Point of Care 114 mg/dl (65-105)
[2022-10-27] MEDS: chlordiazePOXIDE (*CRX) 10 MG CAPSULE PO ×2 (17:24→23:23)
[2022-10-27 20:40] LABS: Glucose Point of Care 113 mg/dl (65-105)
[2022-10-28] VITALS (13 sets, daily range): BP systolic 98–105; BP diastolic 52–84; PULSE 73–973; RESP 18–22; TEMP 36.2–36.9; O2SAT 95–97
[2022-10-28 04:55] LABS: Basophils Absolute Auto 0.1 K/mm3 (0.0-0.1); Basophils Percent Auto 0.8 % (0.2-1.2); Eosinophils Absolute Auto 0.1 K/mm3 (0-0.3); Eosinophils Percent Auto 1.3 % (0-4.4); Hematocrit 29.6 % (42.0-52.0); Hemoglobin 9.8 g/dL (14.0-18.0); Immature Granulocyte Absolute 0.11 K/mm3 (0.00-0.031); Immature Granulocyte Percent A 1.6 % (0-0.5); Lymphocytes Absolute Auto 1.09 K/mm3 (0.9-3.2); Lymphocytes Percent Auto 15.4 % (18.3-44.2); Mean Corpuscular HGB Conc 33.1 g/dl (32-36); Mean Corpuscular Hemoglobin 34.3 pg (26-34); Mean Corpuscular Volume 103.5 fl (80-100); Mean Platelet Volume 10.8 fl (7.4-10.4); Monocytes Absolute Auto 0.7 K/mm3 (0.1-0.6); Monocytes Percent Auto 9.6 % (2.6-8.5); Neutrophils Percent Auto 71.3 % (45.5-73.1); Nucleated Red Blood Cells Absolute Auto 0.2 K/mm3 (0.0-0.012); Nucleated Red Blood Cells Perc 2.4 % (0.0-0.2); Platelet Count Result 150 k/mm3 (150-375); Red Blood Count 2.86 M/mm3 (4.6-6.20); White Blood Count 7.1 K/mm3 (4.5-10.0)
[2022-10-28 05:06] LABS: Alanine Aminotransferase 79 U/L (6-50); Albumin Level 2.7 g/dL (3.5-5.1); Alkaline Phosphatase 188 U/L (38-126); Anion Gap 4 mmol/L (8-16); Aspartate Amino Transferase 322 U/L (17-59); Bilirubin,Total 10.5 mg/dL (0.2-1.3); Blood Urea Nitrogen 10 mg/dL (9-20); Calcium 7.6 mg/dL (8.4-10.2); Carbon Dioxide 33 mmol/L (22-30); Chloride 100 mmol/L (98-107); Estimated CRCL calculation 141 ml/min; Estimated Glomerular Filt Rate > 60; Glucose 116 mg/dL (65-110); Magnesium 1.5 mg/dL (1.6-2.3); Potassium 3.5 mmol/L (3.4-5.0); Sodium 137 mmol/L (137-145)
[2022-10-28] MEDS: SALINE LOCK FLUSH 10 ML IV PUSH ×3 (05:18→20:33)
[2022-10-28 07:39] LABS: Iron 89 ug/dL (49-181)
[2022-10-28 07:48] LABS: Percent Iron Saturation 50 % (20-50)
--- NOTE | 2022-10-28 07:58 | WPDGIPROGNO ---
Progress Note: A&P Assessment and Plan (1) Jaundice: Code(s): R17 - Unspecified jaundice Status: Acute Assessment and Plan: he 1st noticed that his urine was turning dark and that his eyes were yellow sometime up over week ago. He thinks his urine has been dark for almost 2 weeks. He does not have pruritus. He has not been exposed to hepatitis. 10/26/2022 bilirubin remains elevated unchanged. 10.4 today. Denies pruritus 10/28/2022 although LFTs are improving, bilirubin remains at 10. It appears that this may be his baseline although he is fairly certain that he was not jaundiced until 2 weeks ago. He certainly needs to follow-up with acid conditioning worker. (2) Acute liver failure: Qualifiers: Hepatic coma status: without hepatic coma Qualified Code(s): K72.00 - Acute and subacute hepatic failure without coma Code(s): K72.00 - Acute and subacute hepatic failure without coma Status: Acute Assessment and Plan: his liver function studies are dramatically different from the last values in August when bilirubin was only 1.2 verses 10.7 now. Likewise transaminases which were less than 100 are no 590 and 106 respectively for AST and ALT I had a discussion with the patient and his daughter regarding his liver status. I told him that he may well have cirrhosis. I also explained that the elevation of the enzymes being rather acute suggest that this may be at least in part reversible, only if he can stop drinking alcohol. We discussed the natural progression of liver disease from fatty liver to cirrhosis. I also discussed with them possible complications of chronic liver disease such as ascites due to portal hypertension as well as esophageal varices and hepatic encephalopathy. His [place] alcoholic hepatitis score is 8. Patient's who are 9 or greater benefit from steroids. Therefore think at this point we can observe him and see what direction he heads. 10/26/2022 fortunately his liver status is stable and not worsening. He has had some increased however ammonia and we will need to watch that. (3) Alcohol abuse: Code(s): F10.10 - Alcohol abuse, uncomplicated Status: Acute Assessment and Plan: he admits to drinking at least a half pt of vodka per day. Even in the past week when he has been nauseated most the time he had been able to drink up until last evening. He denies any prior hospitalizations for alcohol abuse. He states that he is definitely going to go into alcohol rehab center when he is discharged. I discussed with the patient and his daughter the fact that he is at risk for alcohol withdrawal syndrome that we monitor him for that, initiate a protocol. (4) Transaminasemia: Code(s): R74.0 - Nonspecific elevation of levels of transaminase and lactic acid dehydrogenase [LDH] Status: Acute Assessment and Plan: Transaminases have been somewhat elevated for the past year. In August AST was 99 but now is 590 ALT was 65 and now is 106. The alkaline phosphatase had been normal but now is 233. 10/26/2022 transaminases are slowly improving. (5) Pancreatitis: Code(s): K85.90 - Acute pancreatitis without necrosis or infection, unspecified Status: Acute Assessment and Plan: He has no history of pancreatic diseasebut lipase is elevated at 330. He does not believe that he has ever had pancreatitis. Ultrasound is negative for gallstone 10/26/2022 lipase remains elevated, 305 today. He is not having pain. I told him that this probably reflects chronic inflammation of the pancreas due to the alcohol. (6) Nausea and vomiting: Code(s): R11.2 - Nausea with vomiting, unspecified Status: Acute Assessment and Plan: this began 2 weeks ago. I am fairly certain this is all secondary to his acute alcoholic hepatitis. he no vomiting this morning. Will try advancing diet Will begin regular diet today (7) Elevated t
[2022-10-28 08:07] LABS: Glucose Point of Care 123 mg/dl (65-105)
[2022-10-28 09:09] LABS: Ferritin > 2000.00 ng/mL (11.1-264)
[2022-10-28] MEDS: PANTOPRAZOLE SODIUM IV 40 MG VIAL IV PUSH ×2 (09:09→20:33)
[2022-10-28] MEDS: CYANOCOBALAMIN 1,000 MCG TABLET 5000 MCG BY MOUTH ×2 (09:09→09:16)
[2022-10-28] MEDS: CITALOPRAM HYDROBROMIDE 20 MG TABLET 40 MG PO (09:10)
[2022-10-28] MEDS: LACTULOSE 20 GM/30 ML UDC PO ×2 (09:10→17:04)
[2022-10-28] MEDS: ZINC SULFATE 220 MG CAPSULE PO (09:10)
[2022-10-28] MEDS: ATORVASTATIN 20 MG TABLET PO (09:10)
[2022-10-28] MEDS: THIAMINE HCL 200 MG/2 ML VIAL 100 MG IV PUSH (09:12)
--- NOTE | 2022-10-28 09:14 | PM.IMPN ---
Progress Note: A&P Assessment and Plan (1) Elevated troponin: Code(s): R77.8 - Other specified abnormalities of plasma proteins Status: Acute Assessment and Plan: The patient does have a history of coronary artery disease status post CABG x1 vessel Patient's troponin 0.154, 0.136, and 0.157. Patient has no further complaints of chest pain. Cardiology has been consulted. Continue with Coreg Continue with atorvastatin Echo with EF 50-55% functioning well aortic valve by Doppler. Grade 1 diastolic dysfunction (2) Jaundice: Code(s): R17 - Unspecified jaundice Status: Acute Assessment and Plan: The patient has a history of alcoholism and has elevated liver enzymes Ammonia level mildly elevated on lactulose p.r.n. titrate to get at least 1-2 bowel movement every day GI has been consulted LFTs acutely elevated likely due to acute alcohol use Acute alcoholic hepatitis Ultrasound negative for cirrhosis LFT slowly improving the jaundice level is about the same (3) Acute liver failure: Qualifiers: Hepatic coma status: without hepatic coma Qualified Code(s): K72.00 - Acute and subacute hepatic failure without coma Code(s): K72.00 - Acute and subacute hepatic failure without coma Status: Acute Assessment and Plan: GI has seen the patient as per Dr. Freeman's note his liver function studies are dramatically different from the last values in August when bilirubin was only 1.2 verses 10.7 now.? Likewise transaminases which were less than 100 are no 590 and 106 respectively for AST and ALT ?I had a discussion with the patient and his daughter regarding his liver status.? I told him that he may well have cirrhosis.? I also explained that the elevation of the enzymes being rather acute suggest that this may be at least in part reversible, only if he can stop drinking alcohol.? We discussed the natural progression of liver disease from fatty liver to cirrhosis.? I also discussed with them possible complications of chronic liver disease such as ascites due to portal hypertension as well as esophageal varices and hepatic encephalopathy.' Protonix IV has been started Abdominal ultrasound was read as diffuse fatty infiltration of the liver. Abdominal pelvis CT was read as. 1.Hepatic steatosis. 2:? Trace ascites along the liver margin. Ammonia level slightly elevated will add lactulose student outreach coordinator consult for possible rehab Monitor liver enzymes Monitor coags as well. Monitor coags INR is 2.7 held Coumadin 10/27/2022 awaiting INR to resume the Coumadin back (4) Alcohol withdrawal: Qualifiers: Complication of substance-induced condition: uncomplicated Qualified Code(s): F10.930 - Alcohol use, unspecified with withdrawal, uncomplicated Code(s): F10.939 - Alcohol use, unspecified with withdrawal, unspecified Status: Acute Assessment and Plan: Continue with CIWA protocol Folic acid and thiamin Schedule Librium. Lower Librium to 10 mg q.6 hours slowly taper as tolerated P.r.n. Ativan P.r.n. Haldol (5) HTN (hypertension): Qualifiers: Hypertension type: primary hypertension Qualified Code(s): I10 - Essential (primary) hypertension Code(s): I10 - Essential (primary) hypertension Status: Chronic Assessment and Plan: Continue with Coreg Lasix and Aldactone as ordered Borderline l blood pressure (6) Anxiety: Code(s): F41.9 - Anxiety disorder, unspecified Status: Chronic Assessment and Plan: P.r.n. Ativan (7) Depression: Qualifiers: Depression Type: unspecified Qualified Code(s): F32.A - Depression, unspecified Code(s): F32.9 - Major depressive disorder, single episode, unspecified Status: Chronic Assessment and Plan: Continue with Celexa (8) ERIKA (obstructive sleep apnea): Code(s): G47.33 - Obstructive sleep apnea (adult) (pediatric) Status: Chronic
[2022-10-28] MEDS: MAGNESIUM OXIDE 400 MG TABLET PO (09:16)
[2022-10-28] MEDS: carvediloL 6.25 MG TABLET PO ×2 (09:16→20:33)
[2022-10-28] MEDS: busPIRone HCL 10 MG TABLET PO ×2 (09:16→17:04)
[2022-10-28] MEDS: CALCIUM CARBONATE (OSCAL) 500 MG TABLET PO (09:16)
[2022-10-28] MEDS: FUROSEMIDE 20 MG TABLET PO (09:17)
[2022-10-28] MEDS: FOLIC ACID 1 MG TABLET PO (09:17)
[2022-10-28] MEDS: MAGNESIUM SULF 1 GM/D5W 100 ML 1 GM/100 ML BAG IVPB (09:37)
[2022-10-28] MEDS: ASPIRIN 81 MG CHEWABLE TABLET PO (09:37)
[2022-10-28 10:00] LABS: INR 3.3; Prothrombin Time 32.1 Seconds (11.1-14.7)
--- NOTE | 2022-10-28 10:22 | WPDANESPN ---
Anes - Prog Note Post-Op Date/Time: 10/28/22 10:22 Cardiovascular status: normal Respiratory status: normal Airway patency: baseline Mental status: baseline Post-Op hydration status: normal Vital Signs: Last Vital Signs Temp 36.2 C L 10/28/22 08:37 Pulse 84 10/28/22 09:16 Resp 22 H 10/28/22 08:37 BP 105/70 10/28/22 08:37 Pulse Ox 96 10/28/22 08:37 O2 Del Method Room Air 10/28/22 04:00 Pain Score (VAS): Patient asleep, no nonverbal signs of pain at this time I/O: Intake & Output 10/27/22 10/28/22 10/28/22 23:59 07:59 15:59 Intake Total 1360 350 240 Output Total 200 Balance 1360 150 240 Laboratory Tests 10/28/22 04:36 10/28/22 04:36 10/27/22 10/27/22 10/27/22 11:56 16:47 20:37 WBC RBC Hgb Hct MCV MCH MCHC RDW Plt Count MPV Immature Gran % (Auto) Neut % (Auto) Lymph % (Auto) [place] % (Auto) Eos % (Auto) Baso % (Auto) Lymph # (Auto) [place] # (Auto) Eos # (Auto) Baso # (Auto) Abs Immat Gran (auto) Absolute Neuts (auto) Absolute Nucleated RBC Nucleated RBC % PT INR Sodium Potassium Chloride Carbon Dioxide Anion Gap BUN Creatinine Estim Creat Clear Calc Estimated GFR Glucose POC Capillary Glucose 135 H 114 H 113 H Calcium Magnesium Iron TIBC % Saturation Ferritin Total Bilirubin AST ALT Alkaline Phosphatase Total Protein Albumin SHRUTHI Screen 10/28/22 10/28/22 10/28/22 04:33 04:33 04:36 WBC 7.1 RBC 2.86 L Hgb 9.8 L Hct 29.6 L MCV 103.5 H MCH 34.3 H MCHC 33.1 RDW 21.0 H Plt Count 150 MPV 10.8 H Immature Gran % (Auto) 1.6 H Neut % (Auto) 71.3 Lymph % (Auto) 15.4 L [place] % (Auto) 9.6 H Eos % (Auto) 1.3 Baso % (Auto) 0.8 Lymph # (Auto) 1.09 [place] # (Auto) 0.7 H Eos # (Auto) 0.1 Baso # (Auto) 0.1 Abs Immat Gran (auto) 0.11 H Absolute Neuts (auto) 5.0 Absolute Nucleated RBC 0.2 H Nucleated RBC % 2.4 H PT INR Sodium Potassium Chloride Carbon Dioxide Anion Gap BUN Creatinine Estim Creat Clear Calc Estimated GFR Glucose POC Capillary Glucose Calcium Magnesium Iron 89 TIBC 177 L % Saturation 50 Ferritin > 2000.00 H Total Bilirubin AST ALT Alkaline Phosphatase Total Protein Albumin SHRUTHI Screen Pending 10/28/22 10/28/22 10/28/22 04:36 07:33 09:33 WBC RBC Hgb Hct MCV MCH MCHC RDW Plt Count MPV Immature Gran % (Auto) Neut % (Auto) Lymph % (Auto) [place] % (Auto) Eos % (Auto) Baso % (Auto) Lymph # (Auto) [place] # (Auto) Eos # (Auto) Baso # (Auto) Abs Immat Gran (auto) Absolute Neuts (auto) Absolute Nucleated RBC Nucleated RBC % PT 32.1 H INR 3.3 Sodium 137 Potassium 3.5 Chloride 100 Carbon Dioxide 33 H Anion Gap 4 L BUN 10 Creatinine 0.60 L Estim Creat Clear Calc 141 Estimated GFR > 60 Glucose 116 H POC Capillary Glucose 123 H Calcium 7.6 L Magnesium 1.5 L Iron TIBC % Saturation Ferritin Total Bilirubin 10.5 H AST 322 H ALT 79 H Alkaline Phosphatase 188 H Total Protein 6.0 L Albumin 2.7 L SHRUTHI Screen Post-procedural complaints: none Patient Feedback: Patient satisfied with anesthetic care.
[2022-10-28] MEDS: MAGNESIUM SULF 2 GM/WATER 50ML 2 GM/50 ML BAG IVPB (10:54)
[2022-10-28 11:57] LABS: Glucose Point of Care 142 mg/dl (65-105)
--- NOTE | 2022-10-28 16:20 | PC.NURSE ---
Received from [facility] / via bed.
[2022-10-28 16:54] LABS: Glucose Point of Care 152 mg/dl (65-105)
[2022-10-28] MEDS: chlordiazePOXIDE (*CRX) 10 MG CAPSULE PO (17:19)
[2022-10-28 21:13] LABS: Glucose Point of Care 120 mg/dl (65-105)
[2022-10-29] MEDS: chlordiazePOXIDE (*CRX) 10 MG CAPSULE PO ×4 (00:06→21:52)
[2022-10-29 05:16] VITALS: BP 112/71; PULSE 76; RESP 18; TEMP 36.8; O2SAT 100
[2022-10-29 05:51] LABS: Basophils Absolute Auto 0.1 K/mm3 (0.0-0.1); Basophils Percent Auto 0.8 % (0.2-1.2); Eosinophils Absolute Auto 0.1 K/mm3 (0-0.3); Eosinophils Percent Auto 1.3 % (0-4.4); Hematocrit 30.8 % (42.0-52.0); Hemoglobin 10.4 g/dL (14.0-18.0); Immature Granulocyte Percent A 1.3 % (0-0.5); Immature Platelet Fraction Pct 9.2 % (0.9-11.2); Lymphocytes Absolute Auto 0.97 K/mm3 (0.9-3.2); Lymphocytes Percent Auto 12.6 % (18.3-44.2); Mean Corpuscular HGB Conc 33.8 g/dl (32-36); Mean Corpuscular Volume 106.6 fl (80-100); Mean Platelet Volume 11.6 fl (7.4-10.4); Monocytes Absolute Auto 0.6 K/mm3 (0.1-0.6); Neutrophils Absolute Auto 5.8 K/mm3 (1.3-6.7); Nucleated Red Blood Cells Absolute Auto 0.1 K/mm3 (0.0-0.012); Nucleated Red Blood Cells Perc 1.2 % (0.0-0.2); Platelet Count Result 135 k/mm3 (150-375); Red Blood Count 2.89 M/mm3 (4.6-6.20); Red Cell Distribution Width 21.6 % (11.5-14.5); White Blood Count 7.7 K/mm3 (4.5-10.0)
[2022-10-29 05:59] LABS: Alanine Aminotransferase 77 U/L (6-50); Albumin Level 2.7 g/dL (3.5-5.1); Alkaline Phosphatase 198 U/L (38-126); Ammonia 45 umol/L (9-30); Anion Gap 1 mmol/L (8-16); Aspartate Amino Transferase 296 U/L (17-59); Bilirubin,Total 10.9 mg/dL (0.2-1.3); Blood Urea Nitrogen 10 mg/dL (9-20); Calcium 7.6 mg/dL (8.4-10.2); Carbon Dioxide 35 mmol/L (22-30); Chloride 100 mmol/L (98-107); Estimated CRCL calculation 141 ml/min; Estimated Glomerular Filt Rate > 60; Glucose 121 mg/dL (65-110); Magnesium 1.7 mg/dL (1.6-2.3); Potassium 3.5 mmol/L (3.4-5.0); Sodium 136 mmol/L (137-145)
[2022-10-29 06:06] LABS: INR 3.2; Prothrombin Time 31.9 Seconds (11.1-14.7)
[2022-10-29] MEDS: SALINE LOCK FLUSH 20 ML IV PUSH (06:20)
[2022-10-29] MEDS: SALINE LOCK FLUSH 10 ML IV PUSH ×3 (06:21→21:52)
[2022-10-29 06:23] LABS: Poikilocytosis 1+ (NORMAL); Target Cells 2+ (NORMAL); Tear Drop Cells 1+ (NORMAL)
[2022-10-29 06:24] LABS: Anisocytosis 1+ (NORMAL); Macrocytosis 1+ (NORMAL); Polychromasia 1+ (NORMAL); Schistocytes Rare (NORMAL)
[2022-10-29 08:10] VITALS: RESP 18; O2SAT 100
[2022-10-29] MEDS: ASPIRIN 81 MG CHEWABLE TABLET PO (08:27)
[2022-10-29] MEDS: MAGNESIUM OXIDE 400 MG TABLET PO (08:27)
[2022-10-29] MEDS: CALCIUM CARBONATE (OSCAL) 500 MG TABLET PO (08:27)
[2022-10-29] MEDS: busPIRone HCL 10 MG TABLET PO ×2 (08:28→16:32)
[2022-10-29] MEDS: THIAMINE HCL 200 MG/2 ML VIAL 100 MG IV PUSH (08:28)
[2022-10-29] MEDS: CITALOPRAM HYDROBROMIDE 20 MG TABLET 40 MG PO (08:28)
[2022-10-29] MEDS: ATORVASTATIN 20 MG TABLET PO (08:28)
[2022-10-29] MEDS: FUROSEMIDE 20 MG TABLET PO (08:28)
[2022-10-29] MEDS: FOLIC ACID 1 MG TABLET PO (08:28)
[2022-10-29] MEDS: PANTOPRAZOLE SODIUM IV 40 MG VIAL IV PUSH (08:28)
[2022-10-29] MEDS: ZINC SULFATE 220 MG CAPSULE PO (08:28)
[2022-10-29] MEDS: LACTULOSE 20 GM/30 ML UDC PO ×2 (08:29→16:32)
[2022-10-29 08:50] LABS: Glucose Point of Care 129 mg/dl (65-105)
[2022-10-29 08:52] VITALS: BP 94/72; PULSE 86
--- NOTE | 2022-10-29 09:13 | WPDPN ---
Progress Note: A&P Assessment and Plan (1) Elevated troponin: Code(s): R77.8 - Other specified abnormalities of plasma proteins Status: Acute Assessment and Plan: The patient does have a history of coronary artery disease status post CABG x1 vessel Patient's troponin elevated but flat at 0.154, 0.136, and 0.157. Patient has no further complaints of chest pain. Echo with EF 50-55%, Grade 1 diastolic dysfunction and septal wall motion abnormality (felt related to post-op state) Cardiology consulted and appreciate their input. Continue medical management with Coreg and atorvastatin (2) Jaundice: Code(s): R17 - Unspecified jaundice Status: Acute Assessment and Plan: The patient has a history of alcoholism and has elevated liver enzymes TBili elevated 10.7 and relatively unchanged since admission. Bili has not been fractionated. Ammonia level mildly elevated to 54. On scheduled lactulose now. AST 514 and ALT 106 and values have trended downward. Alk-phos was 233 and runs mostly in the 180-[address] A/P showing hepatic steatosis and trace ascites RUQ US showing diffuse fatty liver infiltration GI has been consulted and appreciate their input. Liver function studies are higher from the last values in August when bili was only 1.2 and transaminases were less than 100 LFTs acutely elevated likely due to acute alcoholic hepatitis LFT slowly improving the jaundice level is about the same. Continue to monitor (3) Acute liver failure: Qualifiers: Hepatic coma status: without hepatic coma Qualified Code(s): K72.00 - Acute and subacute hepatic failure without coma Code(s): K72.00 - Acute and subacute hepatic failure without coma Status: Acute Assessment and Plan: As above (4) Alcohol withdrawal: Qualifiers: Complication of substance-induced condition: uncomplicated Qualified Code(s): F10.930 - Alcohol use, unspecified with withdrawal, uncomplicated Code(s): F10.939 - Alcohol use, unspecified with withdrawal, unspecified Status: Acute Assessment and Plan: CIWA protocol ordered and scores running 0-1. Continue folic acid and thiamine. On scheduled Librium. Continue taper as tolerated Continue P.r.n. Ativan and P.r.n. Haldol (5) HTN (hypertension): Qualifiers: Hypertension type: primary hypertension Qualified Code(s): I10 - Essential (primary) hypertension Code(s): I10 - Essential (primary) hypertension Status: Chronic Assessment and Plan: Patient's blood pressure was reviewed on 10/29 Blood pressure remains borderline Will continue current medications. (6) Anxiety: Code(s): F41.9 - Anxiety disorder, unspecified Status: Chronic Assessment and Plan: Pshayne Sifuentes (7) Depression: Qualifiers: Depression Type: unspecified Qualified Code(s): F32.A - Depression, unspecified Code(s): F32.9 - Major depressive disorder, single episode, unspecified Status: Chronic Assessment and Plan: Mood stable. Continue with Celexa (8) ERIKA (obstructive sleep apnea): Code(s): G47.33 - Obstructive sleep apnea (adult) (pediatric) Status: Chronic Assessment and Plan: The patient is not compliant. 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
--- NOTE | 2022-10-29 10:25 | PC.NURSE ---
On 10/29/22, the student, [Brenda Causey], provided care and completed [facility] documentation on this patient. I have reviewed the student's documentation and agree with the findings.
[2022-10-29 12:11] LABS: Glucose Point of Care 129 mg/dl (65-105)
[2022-10-29 13:50] VITALS: BP 107/80; PULSE 81; RESP 16; TEMP 36.4; O2SAT 99
--- NOTE | 2022-10-29 13:55 | WPDGIPROGNO ---
Progress Note: A&P Assessment and Plan (1) Jaundice: Code(s): R17 - Unspecified jaundice Status: Acute Assessment and Plan: he 1st noticed that his urine was turning dark and that his eyes were yellow sometime up over week ago. He thinks his urine has been dark for almost 2 weeks. He does not have pruritus. He has not been exposed to hepatitis. 10/26/2022 bilirubin remains elevated unchanged. 10.4 today. Denies pruritus 10/28/2022 although LFTs are improving, bilirubin remains at 10. It appears that this may be his baseline although he is fairly certain that he was not jaundiced until 2 weeks ago. He certainly needs to follow-up with [employer] commissioner. 10/29/2022 no change in bilirubin. I think that we can discontinue daily checks. This appears to be his baseline. (2) Acute liver failure: Qualifiers: Hepatic coma status: without hepatic coma Qualified Code(s): K72.00 - Acute and subacute hepatic failure without coma Code(s): K72.00 - Acute and subacute hepatic failure without coma Status: Acute Assessment and Plan: his liver function studies are dramatically different from the last values in August when bilirubin was only 1.2 verses 10.7 now. Likewise transaminases which were less than 100 are no 590 and 106 respectively for AST and ALT I had a discussion with the patient and his daughter regarding his liver status. I told him that he may well have cirrhosis. I also explained that the elevation of the enzymes being rather acute suggest that this may be at least in part reversible, only if he can stop drinking alcohol. We discussed the natural progression of liver disease from fatty liver to cirrhosis. I also discussed with them possible complications of chronic liver disease such as ascites due to portal hypertension as well as esophageal varices and hepatic encephalopathy. His Alycia alcoholic hepatitis score is 8. Patient's who are 9 or greater benefit from steroids. Therefore think at this point we can observe him and see what direction he heads. 10/26/2022 fortunately his liver status is stable and not worsening. He has had some increased however ammonia and we will need to watch that. 10/29/2022 LFTs continue to improve. We do need to get him connected with hepatology (3) Alcohol abuse: Code(s): F10.10 - Alcohol abuse, uncomplicated Status: Acute Assessment and Plan: he admits to drinking at least a half pt of vodka per day. Even in the past week when he has been nauseated most the time he had been able to drink up until last evening. He denies any prior hospitalizations for alcohol abuse. He states that he is definitely going to go into alcohol rehab center when he is discharged. I discussed with the patient and his daughter the fact that he is at risk for alcohol withdrawal syndrome that we monitor him for that, initiate a protocol. (4) Transaminasemia: Code(s): R74.0 - Nonspecific elevation of levels of transaminase and lactic acid dehydrogenase [LDH] Status: Acute Assessment and Plan: Transaminases have been somewhat elevated for the past year. In August AST was 99 but now is 590 ALT was 65 and now is 106. The alkaline phosphatase had been normal but now is 233. 10/26/2022 transaminases are slowly improving. 10/29/2022 continue slow improvement in transaminases. (5) Pancreatitis: Code(s): K85.90 - Acute pancreatitis without necrosis or infection, unspecified Status: Acute Assessment and Plan: He has no history of pancreatic diseasebut lipase is elevated at 330. He does not believe that he has ever had pancreatitis. Ultrasound is negative for gallstone 10/26/2022 lipase remains elevated, 305 today. He is not having pain. I told him that this probably reflects chronic inflammation of the pancreas due to the alcohol. (6) Nausea and vomiting: Code(s): R11.2 - Nausea with vomiting, uns
[2022-10-29 17:08] LABS: Glucose Point of Care 141 mg/dl (65-105)
[2022-10-29 21:06] LABS: Glucose Point of Care 216 mg/dl (65-105)
[2022-10-29 21:52] VITALS: PULSE 74
[2022-10-29] MEDS: carvediloL 6.25 MG TABLET PO (21:52)
[2022-10-29 22:00] VITALS: BP 103/73; PULSE 76; RESP 18; TEMP 36.3; O2SAT 98
[2022-10-30 04:55] VITALS: BP 108/66; PULSE 80; RESP 18; TEMP 36.7; O2SAT 95
[2022-10-30] MEDS: SALINE LOCK FLUSH 20 ML IV PUSH (05:18)
[2022-10-30 05:33] LABS: Basophils Absolute Auto 0.1 K/mm3 (0.0-0.1); Basophils Percent Auto 0.9 % (0.2-1.2); Eosinophils Absolute Auto 0.1 K/mm3 (0-0.3); Eosinophils Percent Auto 1.6 % (0-4.4); Hematocrit 29.7 % (42.0-52.0); Hemoglobin 10.1 g/dL (14.0-18.0); Immature Granulocyte Absolute 0.11 K/mm3 (0.00-0.031); Immature Granulocyte Percent A 1.6 % (0-0.5); Immature Platelet Fraction Pct 11.2 % (0.9-11.2); Lymphocytes Absolute Auto 1.31 K/mm3 (0.9-3.2); Mean Corpuscular Hemoglobin 36.3 pg (26-34); Mean Corpuscular Volume 106.8 fl (80-100); Monocytes Absolute Auto 0.7 K/mm3 (0.1-0.6); Monocytes Percent Auto 9.9 % (2.6-8.5); Neutrophils Absolute Auto 4.6 K/mm3 (1.3-6.7); Nucleated Red Blood Cells Absolute Auto 0.1 K/mm3 (0.0-0.012); Platelet Count Result 133 k/mm3 (150-375); Red Blood Count 2.78 M/mm3 (4.6-6.20); Red Cell Distribution Width 22.1 % (11.5-14.5); White Blood Count 6.9 K/mm3 (4.5-10.0)
[2022-10-30 05:49] LABS: Alanine Aminotransferase 73 U/L (6-50); Albumin Level 2.6 g/dL (3.5-5.1); Alkaline Phosphatase 205 U/L (38-126); Anion Gap 0 mmol/L (8-16); Aspartate Amino Transferase 249 U/L (17-59); Bilirubin Indirect 1.6 mg/dL (0-1.1); Blood Urea Nitrogen 11 mg/dL (9-20); Calcium 7.4 mg/dL (8.4-10.2); Carbon Dioxide 37 mmol/L (22-30); Chloride 98 mmol/L (98-107); Estimated CRCL calculation 142 ml/min; Estimated Glomerular Filt Rate > 60; Glucose 102 mg/dL (65-110); Magnesium 1.6 mg/dL (1.6-2.3); Phosphorus 2.6 mg/dL (2.5-4.5); Potassium 3.6 mmol/L (3.4-5.0); Sodium 135 mmol/L (137-145)
[2022-10-30] MEDS: chlordiazePOXIDE (*CRX) 10 MG CAPSULE PO ×3 (05:53→22:30)
[2022-10-30] MEDS: SALINE LOCK FLUSH 10 ML IV PUSH ×3 (05:54→22:29)
[2022-10-30 06:33] LABS: Hypochromasia 1+ (NORMAL)
[2022-10-30 06:34] LABS: Anisocytosis 1+ (NORMAL); Macrocytosis 1+ (NORMAL); Target Cells 1+ (NORMAL)
[2022-10-30 06:35] LABS: Schistocytes None Seen (NORMAL)
--- NOTE | 2022-10-30 06:42 | WPDGIPROGNO ---
Progress Note: A&P Assessment and Plan (1) Jaundice: Code(s): R17 - Unspecified jaundice Status: Acute Assessment and Plan: he 1st noticed that his urine was turning dark and that his eyes were yellow sometime up over week ago. He thinks his urine has been dark for almost 2 weeks. He does not have pruritus. He has not been exposed to hepatitis. 10/26/2022 bilirubin remains elevated unchanged. 10.4 today. Denies pruritus 10/28/2022 although LFTs are improving, bilirubin remains at 10. It appears that this may be his baseline although he is fairly certain that he was not jaundiced until 2 weeks ago. He certainly needs to follow-up with stitching machine feeder or offbearer. 10/29/2022 no change in bilirubin. I think that we can discontinue daily checks. This appears to be his baseline. 10/30/2022 I told him that his bilirubin is staying around 10 and 11 [address] to stay that way indicating he has significant liver disease and will need to be seen by hepatology. (2) Acute liver failure: Qualifiers: Hepatic coma status: without hepatic coma Qualified Code(s): K72.00 - Acute and subacute hepatic failure without coma Code(s): K72.00 - Acute and subacute hepatic failure without coma Status: Acute Assessment and Plan: his liver function studies are dramatically different from the last values in August when bilirubin was only 1.2 verses 10.7 now. Likewise transaminases which were less than 100 are no 590 and 106 respectively for AST and ALT I had a discussion with the patient and his daughter regarding his liver status. I told him that he may well have cirrhosis. I also explained that the elevation of the enzymes being rather acute suggest that this may be at least in part reversible, only if he can stop drinking alcohol. We discussed the natural progression of liver disease from fatty liver to cirrhosis. I also discussed with them possible complications of chronic liver disease such as ascites due to portal hypertension as well as esophageal varices and hepatic encephalopathy. His Alycia alcoholic hepatitis score is 8. Patient's who are 9 or greater benefit from steroids. Therefore think at this point we can observe him and see what direction he heads. 10/26/2022 fortunately his liver status is stable and not worsening. He has had some increased however ammonia and we will need to watch that. 10/29/2022 LFTs continue to improve. We do need to get him connected with hepatology (3) Alcohol abuse: Code(s): F10.10 - Alcohol abuse, uncomplicated Status: Acute Assessment and Plan: he admits to drinking at least a half pt of vodka per day. Even in the past week when he has been nauseated most the time he had been able to drink up until last evening. He denies any prior hospitalizations for alcohol abuse. He states that he is definitely going to go into alcohol rehab center when he is discharged. I discussed with the patient and his daughter the fact that he is at risk for alcohol withdrawal syndrome that we monitor him for that, initiate a protocol. (4) Transaminasemia: Code(s): R74.0 - Nonspecific elevation of levels of transaminase and lactic acid dehydrogenase [LDH] Status: Acute Assessment and Plan: Transaminases have been somewhat elevated for the past year. In August AST was 99 but now is 590 ALT was 65 and now is 106. The alkaline phosphatase had been normal but now is 233. 10/26/2022 transaminases are slowly improving. 10/29/2022 continue slow improvement in transaminases. (5) Pancreatitis: Code(s): K85.90 - Acute pancreatitis without necrosis or infection, unspecified Status: Acute Assessment and Plan: He has no history of pancreatic diseasebut lipase is elevated at 330. He does not believe that he has ever had pancreatitis. Ultrasound is negative for gallstone 10/26/2022 lipase remains elevated, 305 today. He is not hav
[2022-10-30 07:28] LABS: Creatine Kinase 26 U/L (55-170)
[2022-10-30 08:40] LABS: Glucose Point of Care 126 mg/dl (65-105)
[2022-10-30 09:20] LABS: INR 2.6; Prothrombin Time 30.1 Seconds (11.1-14.7)
[2022-10-30 09:29] VITALS: RESP 18; O2SAT 95
[2022-10-30] MEDS: CYANOCOBALAMIN 1,000 MCG TABLET 5000 MCG BY MOUTH (10:58)
[2022-10-30] MEDS: MAGNESIUM OXIDE 400 MG TABLET PO (10:58)
[2022-10-30] MEDS: CITALOPRAM HYDROBROMIDE 20 MG TABLET 40 MG PO (10:59)
[2022-10-30] MEDS: SPIRONOLACTONE 50 MG TABLET PO (10:59)
[2022-10-30 11:00] VITALS: PULSE 80
[2022-10-30] MEDS: FUROSEMIDE 20 MG TABLET PO (11:00)
[2022-10-30] MEDS: carvediloL 6.25 MG TABLET PO ×2 (11:00→22:30)
[2022-10-30] MEDS: PANTOPRAZOLE 40 MG TABLET PO (11:00)
[2022-10-30] MEDS: FOLIC ACID 1 MG TABLET PO (11:01)
[2022-10-30] MEDS: busPIRone HCL 10 MG TABLET PO ×2 (11:01→16:54)
[2022-10-30] MEDS: ZINC SULFATE 220 MG CAPSULE PO (11:01)
[2022-10-30] MEDS: ASPIRIN 81 MG CHEWABLE TABLET PO (11:01)
[2022-10-30] MEDS: CALCIUM CARBONATE (OSCAL) 500 MG TABLET PO (11:01)
[2022-10-30] MEDS: THIAMINE HCL 200 MG/2 ML VIAL 100 MG IV PUSH (11:02)
--- NOTE | 2022-10-30 11:03 | PC.NURSE ---
On 10/30/22, the student, [Yousuf James], provided care and completed [facility] documentation on this patient. I have reviewed the student's documentation and agree with the findings.
[2022-10-30 12:02] LABS: Glucose Point of Care 125 mg/dl (65-105)
--- NOTE | 2022-10-30 12:06 | PCNFU ---
Nutrition Follow-Up Complete: Inadequate energy intake related to NPO status as evidenced by current diet order Goal: PO intake 75% of meals Patient is progressing towards goal. Pt current nutrition is 2 gm Na . Last recorded weight is 116.4 kg. Bowel Motility:+Bm reported 10/29 Labs Reviewed:Cr 0.6,Na 135, Alb 2.6 Meds Noted:B12, Thiamine, Oscal, Lasix, Folic Acid Skin: WNL Additional Notes: Patient had US of abdomen today. Diet order has advanced to a 2 gm Na diet. Oral Intake is being tolerated as patient is consuming 50-100% of meals. Agree with diet orders. Monitor for diet order, intake, wt, labs. Follow up in 7 days.
--- NOTE | 2022-10-30 13:43 | PC.NURSE ---
On 10/30/22, the student, [Jose J Merino], provided care and completed [facility] documentation on this patient. I have reviewed the student's documentation and agree with the findings.
[2022-10-30 13:49] VITALS: BP 110/65; PULSE 73; RESP 18; TEMP 37.2; O2SAT 98
[2022-10-30] MEDS: LACTULOSE 20 GM/30 ML UDC PO (16:55)
--- NOTE | 2022-10-30 17:13 | PM.IMPN ---
Progress Note: A&P Assessment and Plan (1) Elevated troponin: Code(s): R77.8 - Other specified abnormalities of plasma proteins Status: Acute Assessment and Plan: The patient does have a history of coronary artery disease status post CABG x1 vessel Patient's troponin elevated but flat at 0.154, 0.136, and 0.157. Patient has no further complaints of chest pain. Echo with EF 50-55%, Grade 1 diastolic dysfunction and septal wall motion abnormality (felt related to post-op state) Cardiology consulted and appreciate their input. Continue medical management with Coreg and atorvastatin (2) Jaundice: Code(s): R17 - Unspecified jaundice Status: Acute Assessment and Plan: The patient has a history of alcoholism and has elevated liver enzymes Liver function studies are higher from the last values in August when bili was only 1.2 and transaminases were less than 100. TBili elevated 10.7 and relatively unchanged since admission. Mostly direct bilirubin. Ammonia level mildly elevated to 54. On scheduled lactulose now. AST 514 and ALT 106 and values have trended downward. Alk-phos was [address] A/P showing hepatic steatosis and trace ascites RUQ US showing diffuse fatty liver infiltration. GI has been consulted and appreciate their input. LFTs acutely elevated likely due to acute alcoholic hepatitis. LFT slowly improving but the TBili level is about the same. Continue to monitor (3) Acute liver failure: Qualifiers: Hepatic coma status: without hepatic coma Qualified Code(s): K72.00 - Acute and subacute hepatic failure without coma Code(s): K72.00 - Acute and subacute hepatic failure without coma Status: Acute Assessment and Plan: As above (4) Alcohol withdrawal: Qualifiers: Complication of substance-induced condition: uncomplicated Qualified Code(s): F10.930 - Alcohol use, unspecified with withdrawal, uncomplicated Code(s): F10.939 - Alcohol use, unspecified with withdrawal, unspecified Status: Acute Assessment and Plan: CIWA protocol ordered and scores running 0-1. Continue folic acid and thiamine. On scheduled Librium. Continue wean librium Continue P.r.n. Ativan and P.r.n. Haldol (5) HTN (hypertension): Qualifiers: Hypertension type: primary hypertension Qualified Code(s): I10 - Essential (primary) hypertension Code(s): I10 - Essential (primary) hypertension Status: Chronic Assessment and Plan: Patient's blood pressure was reviewed on 10/30 Blood pressure remains well controlled Will continue current medications. (6) Anxiety: Code(s): F41.9 - Anxiety disorder, unspecified Status: Chronic Assessment and Plan: Pshayne Sifuentes (7) Depression: Qualifiers: Depression Type: unspecified Qualified Code(s): F32.A - Depression, unspecified Code(s): F32.9 - Major depressive disorder, single episode, unspecified Status: Chronic Assessment and Plan: Mood stable. Continue with Celexa (8) ERIKA (obstructive sleep apnea): Code(s): G47.33 - Obstructive sleep apnea (adult) (pediatric) Status: Chronic Assessment and Plan: The patient is not compliant. 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 Therap
[2022-10-30 17:19] LABS: Glucose Point of Care 143 mg/dl (65-105)
[2022-10-30] MEDS: WARFARIN (*PBKC) 3 MG TABLET PO (19:07)
[2022-10-30 22:00] VITALS: BP 112/79; PULSE 84; RESP 20; TEMP 36.1; O2SAT 98
[2022-10-30 22:30] VITALS: PULSE 84
[2022-10-30 23:34] LABS: Glucose Point of Care 123 mg/dl (65-105)
[2022-10-31] MEDS: SALINE LOCK FLUSH 10 ML IV PUSH (05:10)
[2022-10-31] MEDS: SALINE LOCK FLUSH 20 ML IV PUSH (05:10)
[2022-10-31 05:30] LABS: Ammonia 51 umol/L (9-30)
[2022-10-31 05:33] LABS: Basophils Absolute Auto 0.1 K/mm3 (0.0-0.1); Basophils Percent Auto 0.8 % (0.2-1.2); Eosinophils Absolute Auto 0.1 K/mm3 (0-0.3); Eosinophils Percent Auto 1.7 % (0-4.4); Hematocrit 31.2 % (42.0-52.0); Hemoglobin 10.5 g/dL (14.0-18.0); Immature Granulocyte Percent A 1.7 % (0-0.5); Lymphocytes Absolute Auto 1.31 K/mm3 (0.9-3.2); Lymphocytes Percent Auto 21.9 % (18.3-44.2); Mean Corpuscular HGB Conc 33.7 g/dl (32-36); Mean Corpuscular Volume 106.8 fl (80-100); Mean Platelet Volume 12.2 fl (7.4-10.4); Monocytes Absolute Auto 0.7 K/mm3 (0.1-0.6); Monocytes Percent Auto 11.2 % (2.6-8.5); Neutrophils Absolute Auto 3.7 K/mm3 (1.3-6.7); Neutrophils Percent Auto 62.7 % (45.5-73.1); Nucleated Red Blood Cells Perc 0.5 % (0.0-0.2); Platelet Count Result 133 k/mm3 (150-375); Red Blood Count 2.92 M/mm3 (4.6-6.20); Red Cell Distribution Width 22.3 % (11.5-14.5)
[2022-10-31 05:43] LABS: INR 2.4; Prothrombin Time 27.4 Seconds (11.1-14.7)
[2022-10-31 06:00] VITALS: BP 108/75; PULSE 80; RESP 20; TEMP 36; O2SAT 98
[2022-10-31 06:00] LABS: Alanine Aminotransferase 72 U/L (6-50); Albumin Level 2.6 g/dL (3.5-5.1); Alkaline Phosphatase 199 U/L (38-126); Anion Gap -1 mmol/L (8-16); Aspartate Amino Transferase 224 U/L (17-59); Bilirubin,Total 11.1 mg/dL (0.2-1.3); Blood Urea Nitrogen 13 mg/dL (9-20); Calcium 7.5 mg/dL (8.4-10.2); Carbon Dioxide 37 mmol/L (22-30); Chloride 98 mmol/L (98-107); Estimated CRCL calculation 142 ml/min; Estimated Glomerular Filt Rate > 60; Glucose 99 mg/dL (65-110); Potassium 3.8 mmol/L (3.4-5.0); Sodium 134 mmol/L (137-145)
[2022-10-31 06:43] LABS: Anisocytosis 3+ (NORMAL); Macrocytosis 1+ (NORMAL)
[2022-10-31 06:45] LABS: Schistocytes None Seen (NORMAL); Target Cells 2+ (NORMAL)
[2022-10-31 08:34] LABS: Glucose Point of Care 116 mg/dl (65-105)
[2022-10-31] MEDS: PANTOPRAZOLE 40 MG TABLET PO (08:42)
[2022-10-31] MEDS: CALCIUM CARBONATE (OSCAL) 500 MG TABLET PO (08:42)
[2022-10-31] MEDS: THIAMINE HCL 200 MG/2 ML VIAL 100 MG IV PUSH (08:42)
[2022-10-31 08:43] VITALS: PULSE 86
[2022-10-31] MEDS: FUROSEMIDE 20 MG TABLET PO (08:43)
[2022-10-31] MEDS: LACTULOSE 20 GM/30 ML UDC PO ×2 (08:43→17:42)
[2022-10-31] MEDS: carvediloL 6.25 MG TABLET PO ×2 (08:43→21:27)
[2022-10-31] MEDS: SPIRONOLACTONE 50 MG TABLET PO (08:43)
[2022-10-31] MEDS: busPIRone HCL 10 MG TABLET PO ×2 (08:45→17:42)
[2022-10-31] MEDS: CYANOCOBALAMIN 1,000 MCG TABLET 5000 MCG BY MOUTH (08:45)
[2022-10-31] MEDS: CITALOPRAM HYDROBROMIDE 20 MG TABLET 40 MG PO (08:45)
[2022-10-31] MEDS: ASPIRIN 81 MG CHEWABLE TABLET PO (08:45)
[2022-10-31] MEDS: MAGNESIUM OXIDE 400 MG TABLET PO (08:45)
[2022-10-31] MEDS: FOLIC ACID 1 MG TABLET PO (08:45)
[2022-10-31] MEDS: ZINC SULFATE 220 MG CAPSULE PO (08:46)
--- NOTE | 2022-10-31 11:33 | PC.NURSE ---
On 10/31/22, the student, [Jose J Merino], provided care and completed [facility] documentation on this patient. I have reviewed the student's documentation and agree with the findings.
[2022-10-31 12:06] LABS: Glucose Point of Care 124 mg/dl (65-105)
--- NOTE | 2022-10-31 12:27 | WPDGIPROGNO ---
Progress Note: A&P Assessment and Plan (1) Alcoholic liver disease: Code(s): K70.9 - Alcoholic liver disease, unspecified Status: Acute Assessment and Plan: Patient with alcoholic liver disease. Difficult this stage no office alcoholic hepatitis or if there could be underlying cirrhosis. Plan to continue supportive care. Patient remains quite jaundiced but his liver tests are stable. He likely will need to follow-up with hepatology at [facility]. Continue supportive care for now. Patient appears to have very mild ascites and elevated ammonia suggesting he may have some encephalopathy on this basis. Low-dose diuretic and lactulose will be of some benefit. I would probably avoid steroids for now. (2) Hepatomegaly: Code(s): R16.0 - Hepatomegaly, not elsewhere classified Status: Acute (3) Alcohol use disorder: Status: Chronic Assessment and Plan: Alcohol avoidance strongly encouraged (4) Hyperammonemia: Code(s): E72.20 - Disorder of urea cycle metabolism, unspecified Status: Acute Assessment and Plan: elevated ammonia level suggest patient may have some hepatic encephalopathy. Currently on lactulose would continue this and titrate so that he only has loose stools and no overt diarrhea. (5) Pancreatitis: Code(s): K85.90 - Acute pancreatitis without necrosis or infection, unspecified Status: Acute Assessment and Plan: Pancreatitis felt to be unlikely. He has a mild elevation of lipase but this is nonspecific. This not elevated to the degree I will call pancreatitis. (6) Type 2 diabetes mellitus: Qualifiers: Diabetes mellitus jail insulin use: without terminal operator use Diabetes mellitus complication status: without complication Qualified Code(s): E11.9 - Type 2 diabetes mellitus without complications Code(s): E11.9 - Type 2 diabetes mellitus without complications Status: Acute (7) Aortic valve replaced: Code(s): Z95.2 - Presence of prosthetic heart valve Status: Acute Assessment and Plan: Patient on anticoagulation with history of aortic valve replacement anticoagulation will be continued. Subjective Date/time seen: 10/31/22 12:27 Interval history: Patient is seen today in the absence of Dr. Freeman. Patient denies abdominal pain. Appears to have somewhat slow mentation. But answers appropriately. Tolerating diet. Review of Systems Review of Systems: Review of systems noncontributory. Exam Narrative: Physical exam reveals patient be alert. Appears to be oriented. Vital signs are stable. HEENT exam reveals marked icterus. Lungs are clear. Heart without murmur. Abdomen is obese. Bowel sounds are present soft nontender. Difficult to appreciate any shifting dullness. Objective Data Vital Signs Vital Signs: Vital Signs - 24 hr 10/30/22 13:12 10/30/22 13:49 10/30/22 22:30 Temperature 98.9 F Pulse Rate 73 84 Respiratory Rate 18 Blood Pressure 110/65 Pulse Oximetry 98 Oxygen Delivery Room Air 10/30/22 22:00 10/30/22 20:00 10/31/22 06:00 Temperature 97.0 F L 96.8 F L Pulse Rate 84 80 Respiratory Rate 20 20 Blood Pressure 112/79 108/75 Pulse Oximetry 98 98 Oxygen Delivery Room Air 10/31/22 08:43 Temperature Pulse Rate 86 Respiratory Rate Blood Pressure Pulse Oximetry Oxygen Delivery Intake/Output Intake/Output: Intake & Output 10/28/22 10/29/22 10/30/22 10/31/22 23:59 23:59 23:59 23:59 Intake Total 1070 779 820 620 Output Total 200 Balance 870 779 820 620 Meds/Results Medications: Active Medications Generic Name Dose Route Start Last Admin Trade Name Freq PRN Reason Stop Dose Admin Aspirin 81 mg 10/25/22 08:00 10/31/22 08:45 Aspirin 81 Mg Chewable Tablet PO 81 mg DAILY@0800 JAGDISH Administration Atorvastatin Calcium 20 mg 10/25/22 09:00 10/29/22 08:28 Atorvastatin
[2022-10-31 14:00] VITALS: BP 122/75; PULSE 75; RESP 16; TEMP 37.2; O2SAT 95
--- NOTE | 2022-10-31 15:26 | PM.IMPN ---
Progress Note: A&P Assessment and Plan (1) Elevated troponin: Code(s): R77.8 - Other specified abnormalities of plasma proteins Status: Acute Assessment and Plan: The patient does have a history of coronary artery disease status post CABG x1 vessel Patient's troponin elevated but flat at 0.154, 0.136, and 0.157. Echo with EF 50-55%, Grade 1 diastolic dysfunction and septal wall motion abnormality (felt related to post-op state) Cardiology consulted and appreciate their input. Patient has no further complaints of chest pain. Continue medical management with Coreg and atorvastatin (2) Acute liver failure: Qualifiers: Hepatic coma status: without hepatic coma Qualified Code(s): K72.00 - Acute and subacute hepatic failure without coma Code(s): K72.00 - Acute and subacute hepatic failure without coma Status: Acute Assessment and Plan: The patient has a history of alcoholism and has elevated liver enzymes on admission Liver function studies are higher from the last values in August when bili was only 1.2 and transaminases were less than 100. TBili elevated 10-11 and relatively unchanged since admission. Mostly direct bilirubin. Ammonia level mildly elevated to 54. On scheduled lactulose now. INR elevated but on Coumadin AST 514 and ALT 106 and values have trended downward. Alk-phos was [address] up [address] A/P 10/24 showing hepatic steatosis and trace ascites RUQ US 10/24 showing diffuse fatty liver infiltration (US repeated 10/30 without change) GI has been consulted and appreciate their input. LFTs acutely elevated likely due to acute alcoholic hepatitis with underlying liver dysfunction. LFT slowly improving but the TBili level is about the same. Spironolactone added. Continue Lasix. Mild confusion. Will stop librium. Advance latulose. Continue to monitor (3) Jaundice: Code(s): R17 - Unspecified jaundice Status: Acute Assessment and Plan: As above (4) Alcohol withdrawal: Qualifiers: Complication of substance-induced condition: uncomplicated Qualified Code(s): F10.930 - Alcohol use, unspecified with withdrawal, uncomplicated Code(s): F10.939 - Alcohol use, unspecified with withdrawal, unspecified Status: Acute Assessment and Plan: CIWA protocol ordered and scores running 0-1. Was on scheduled Librium. Librium being weaned but will stop now Continue P.r.n. Haldol Continue folic acid and thiamine. (5) HTN (hypertension): Qualifiers: Hypertension type: primary hypertension Qualified Code(s): I10 - Essential (primary) hypertension Code(s): I10 - Essential (primary) hypertension Status: Chronic Assessment and Plan: Patient's blood pressure was reviewed on 10/31 Blood pressure remains well controlled Will continue current medications. (6) Anxiety: Code(s): F41.9 - Anxiety disorder, unspecified Status: Chronic Assessment and Plan: Stop prn ativan. monitor. (7) Depression: Qualifiers: Depression Type: unspecified Qualified Code(s): F32.A - Depression, unspecified Code(s): F32.9 - Major depressive disorder, single episode, unspecified Status: Chronic Assessment and Plan: Mood stable. Continue with Celexa (8) ERIKA (obstructive sleep apnea): Code(s): G47.33 - Obstructive sleep apnea (adult) (pediatric) Status: Chronic Assessment and Plan: The patient is not compliant. Midl confusion. 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
[2022-10-31 16:09] LABS: Alveolar/Arterial O2 Gradient 23.9 mmHg; Base Excess ABG 6.3 mEq/l (+/-2.0); Fractional Inspired Oxygen 21 %; HCO3 ABG 31.5 mEq/l (22.0-26.0); Oxygen Content ABG 15.6 %vol (16.0-22.0); Oxyhemoglobin 91.3 % THb (90.0-100.0); PCO2 ABG 48.1 mmHg (35.0-45.0); PO2 ABG 68.2 mmHg (80.0-100.0); PO2 FiO2 Ratio Arterial Blood 3.25 %; Total Hemoglobin 12.1 g/dL (12.0-18.0); pH ABG 7.434 (7.350-7.450)
[2022-10-31 16:10] LABS: Device ROOM AIR; Modified Allen's Test Pass; Site Drawn RIGHT RADIAL
[2022-10-31 17:09] LABS: Glucose Point of Care 114 mg/dl (65-105)
[2022-10-31] MEDS: WARFARIN (*PBKC) 3 MG TABLET PO (17:43)
[2022-10-31 20:46] VITALS: BP 114/87; PULSE 81; RESP 19; TEMP 36.1; O2SAT 95
[2022-10-31 20:53] LABS: Glucose Point of Care 130 mg/dl (65-105)
[2022-10-31 21:27] VITALS: PULSE 81
[2022-11-01 04:40] VITALS: BP 100/65; PULSE 92; RESP 19; TEMP 36.6; O2SAT 90
[2022-11-01 08:33] LABS: Glucose Point of Care 143 mg/dl (65-105)
[2022-11-01 08:41] VITALS: PULSE 90
[2022-11-01] MEDS: CALCIUM CARBONATE (OSCAL) 500 MG TABLET PO (08:41)
[2022-11-01] MEDS: carvediloL 6.25 MG TABLET PO ×2 (08:41→20:23)
[2022-11-01] MEDS: LACTULOSE 20 GM/30 ML UDC PO ×3 (08:41→17:46)
[2022-11-01] MEDS: SPIRONOLACTONE 50 MG TABLET PO (08:42)
[2022-11-01] MEDS: busPIRone HCL 10 MG TABLET PO ×2 (08:42→17:46)
[2022-11-01] MEDS: ASPIRIN 81 MG CHEWABLE TABLET PO (08:42)
[2022-11-01] MEDS: PANTOPRAZOLE 40 MG TABLET PO (08:42)
[2022-11-01] MEDS: FOLIC ACID 1 MG TABLET PO (08:42)
[2022-11-01] MEDS: MAGNESIUM OXIDE 400 MG TABLET PO (08:42)
[2022-11-01] MEDS: FUROSEMIDE 20 MG TABLET PO (08:42)
[2022-11-01] MEDS: CYANOCOBALAMIN 1,000 MCG TABLET 5000 MCG BY MOUTH (08:42)
[2022-11-01] MEDS: CITALOPRAM HYDROBROMIDE 20 MG TABLET 40 MG PO (08:42)
[2022-11-01] MEDS: ZINC SULFATE 220 MG CAPSULE PO (08:43)
--- NOTE | 2022-11-01 08:52 | WPDGIPROGNO ---
Progress Note: A&P Assessment and Plan (1) Alcoholic liver disease: Code(s): K70.9 - Alcoholic liver disease, unspecified Status: Acute Assessment and Plan: Patient with alcoholic liver disease. He may have underlying cirrhosis. Apparently was drinking up until time of admission the hospital. Plan to continue supportive care for now. Small amount of ascites on CT scan. Patient now on diuretics and low-salt diet. He continues to have significant jaundice. predominantly indirect bilirubin. Plan to fractionate bilirubin more completely. No evidence of dilated bile ducts on imaging. No gallstones on ultrasound. Given his prolonged elevation of bilirubin he being benefit from hepatology consultation at [facility]. Long-term alcohol abstinence will be necessary. To new supportive care. Family is anticipating rehab after discharge from hospital. (2) Hyperammonemia: Code(s): E72.20 - Disorder of urea cycle metabolism, unspecified Status: Acute Assessment and Plan: Mild elevation of ammonia level noted. He may have tendency towards encephalopathy. Agree with lactulose currently in progress. (3) Alcohol abuse: Code(s): F10.10 - Alcohol abuse, uncomplicated Status: Acute Assessment and Plan: Alcohol abstinence is crucial (4) Aortic valve replaced: Code(s): Z95.2 - Presence of prosthetic heart valve Status: Acute (5) Chronic anticoagulation: Code(s): Z79.01 - long term care phlebotomist (current) use of anticoagulants Status: Acute Assessment and Plan: patient now on anticoagulation because of history of aortic valve replacement. Subjective Date/time seen: 11/01/22 08:52 Interval history: Patient seen today in the absence of Dr. Freeman. Patient alert. Appears comfortable at rest. He reports he tolerates diet okay. He denies abdominal pain. Answers questions appropriately today. Daughter present today. Concerned about hepatic encephalopathy. Apparently they will seek physical therapy and rehab. Ultimately plan to see soap drier tender at tertiary [facility]. Review of Systems Review of Systems: Review of systems noncontributory. Exam Narrative: Physical exam reveals patient lying in bed comfortable at rest. HEENT exam reveals scleral icterus. Lungs are clear. Heart without murmur. Abdomen is obese. Somewhat distended. No organomegaly is able to be palpated. No shifting dullness appreciated. No tenderness noted. Objective Data Vital Signs Vital Signs: Vital Signs - 24 hr 10/31/22 10:40 10/31/22 14:00 10/31/22 20:46 Temperature 98.9 F 97 F L Pulse Rate 75 81 Respiratory Rate 16 19 Blood Pressure 122/75 114/87 Pulse Oximetry 95 95 Oxygen Delivery Room Air 10/31/22 21:27 11/01/22 04:40 10/31/22 20:00 Temperature 97.9 F Pulse Rate 81 92 Respiratory Rate 19 Blood Pressure 100/65 Pulse Oximetry 90 Oxygen Delivery Room Air 11/01/22 08:41 Temperature Pulse Rate 90 Respiratory Rate Blood Pressure Pulse Oximetry Oxygen Delivery Intake/Output Intake/Output: Intake & Output 10/29/22 10/30/22 10/31/22 11/01/22 23:59 23:59 23:59 23:59 Intake Total 754 361 8202 200 Balance 094 803 0299 200 Meds/Results Medications: Active Medications Generic Name Dose Route Start Last Admin Trade Name Freq PRN Reason Stop Dose Admin Aspirin 81 mg 10/25/22 08:00 11/01/22 08:42 Aspirin 81 Mg Chewable Tablet PO 81 mg DAILY@0800 JAGDISH Administration Atorvastatin Calcium 20 mg 10/25/22 09:00 10/29/22 08:28 Atorvastatin 20 Mg Tablet PO 20 mg DAILY JADGISH Administration Buspirone HCl 10 mg 10/25/22 09:00 11/01/22 08:42 Buspirone Hcl 10 Mg Tablet PO 10 mg BID JAGDISH Administration Calcium Carbonate 500 mg 10/25/22 09:00 11/01/22 08:41 Calcium Carbonate (Oscal) 500 Mg Tablet PO 500 mg QAM JAGDISH Administration Carvedilol 6.25 mg 10/24/22
[2022-11-01 11:10] LABS: Basophils Absolute Auto 0.1 K/mm3 (0.0-0.1); Basophils Percent Auto 0.8 % (0.2-1.2); Eosinophils Absolute Auto 0.1 K/mm3 (0-0.3); Eosinophils Percent Auto 1.4 % (0-4.4); Hematocrit 32.5 % (42.0-52.0); Hemoglobin 10.6 g/dL (14.0-18.0); Immature Granulocyte Absolute 0.07 K/mm3 (0.00-0.031); Immature Granulocyte Percent A 1.2 % (0-0.5); Lymphocytes Absolute Auto 1.14 K/mm3 (0.9-3.2); Lymphocytes Percent Auto 19.4 % (18.3-44.2); Mean Corpuscular HGB Conc 32.6 g/dl (32-36); Mean Corpuscular Volume 107.3 fl (80-100); Mean Platelet Volume 12.1 fl (7.4-10.4); Monocytes Absolute Auto 0.7 K/mm3 (0.1-0.6); Monocytes Percent Auto 11.4 % (2.6-8.5); Neutrophils Absolute Auto 3.9 K/mm3 (1.3-6.7); Neutrophils Percent Auto 65.8 % (45.5-73.1); Nucleated Red Blood Cells Perc 0.3 % (0.0-0.2); Platelet Count Result 140 k/mm3 (150-375); Red Blood Count 3.03 M/mm3 (4.6-6.20); Red Cell Distribution Width 22.1 % (11.5-14.5); White Blood Count 5.9 K/mm3 (4.5-10.0)
[2022-11-01 11:22] LABS: Prothrombin Time 33.4 Seconds (11.1-14.7)
[2022-11-01 11:25] LABS: Bilirubin Direct 5.7 mg/dL (0-0.3); Bilirubin Indirect 1.9 mg/dL (0-1.1); Bilirubin,Total 12.4 mg/dL (0.2-1.3)
[2022-11-01 11:26] LABS: Alanine Aminotransferase 66 U/L (6-50); Albumin Level 2.7 g/dL (3.5-5.1); Alkaline Phosphatase 201 U/L (38-126); Anion Gap 1 mmol/L (8-16); Aspartate Amino Transferase 200 U/L (17-59); Bilirubin,Total 11.9 mg/dL (0.2-1.3); Blood Urea Nitrogen 11 mg/dL (9-20); Calcium 7.9 mg/dL (8.4-10.2); Carbon Dioxide 34 mmol/L (22-30); Chloride 98 mmol/L (98-107); Estimated CRCL calculation 144 ml/min; Estimated Glomerular Filt Rate > 60; Glucose 133 mg/dL (65-110); Potassium 3.8 mmol/L (3.4-5.0); Sodium 133 mmol/L (137-145)
[2022-11-01 11:40] LABS: Macrocytosis 1+ (NORMAL); Platelet Estimate Decreased (Adequate)
[2022-11-01 11:41] LABS: Schistocytes None Seen (NORMAL); Target Cells 2+ (NORMAL)
--- NOTE | 2022-11-01 12:04 | PM.IMPN ---
Progress Note: A&P Assessment and Plan (1) Acute liver failure: Qualifiers: Hepatic coma status: without hepatic coma Qualified Code(s): K72.00 - Acute and subacute hepatic failure without coma Code(s): K72.00 - Acute and subacute hepatic failure without coma Status: Acute Assessment and Plan: The patient has a history of alcoholism and has elevated liver enzymes on admission Liver function studies are higher from the last values in August when bili was only 1.2 and transaminases were less than 100. TBili elevated 10-11 and relatively unchanged since admission. Mostly direct bilirubin. Ammonia level mildly elevated to 54. On scheduled lactulose TID INR elevated but on Coumadin AST 514 and ALT 106 and values have trended downward. Alk-phos was [address] and up and down. [address] A/P 10/24 showing hepatic steatosis and trace ascites RUQ US 10/24 showing diffuse fatty liver infiltration (US repeated 10/30 without change) GI has been consulted and appreciate their input. LFTs acutely elevated likely due to acute alcoholic hepatitis with underlying liver dysfunction. LFT slowly improving but the TBili level is about the same. Continue Spironolactone and Lasix. Mild confusion still. Related to kernicterus? Librium stopped. Continue latulose. Continue to monitor (2) Elevated troponin: Code(s): R77.8 - Other specified abnormalities of plasma proteins Status: Acute Assessment and Plan: The patient does have a history of coronary artery disease status post CABG x1 vessel Patient's troponin elevated but flat at 0.154, 0.136, and 0.157. Echo with EF 50-55%, Grade 1 diastolic dysfunction and septal wall motion abnormality (felt related to post-op state) Cardiology consulted and appreciate their input. Patient has no further complaints of chest pain. Continue medical management with Coreg and atorvastatin (3) Jaundice: Code(s): R17 - Unspecified jaundice Status: Acute Assessment and Plan: As above (4) Alcohol withdrawal: Qualifiers: Complication of substance-induced condition: uncomplicated Qualified Code(s): F10.930 - Alcohol use, unspecified with withdrawal, uncomplicated Code(s): F10.939 - Alcohol use, unspecified with withdrawal, unspecified Status: Acute Assessment and Plan: CIWA protocol ordered and scores running 0-1. Was on scheduled Librium. Librium weaned off Continue P.r.n. Haldol Continue folic acid and thiamine. (5) HTN (hypertension): Qualifiers: Hypertension type: primary hypertension Qualified Code(s): I10 - Essential (primary) hypertension Code(s): I10 - Essential (primary) hypertension Status: Chronic Assessment and Plan: Patient's blood pressure was reviewed on 11/01 Blood pressure remains well controlled Will continue current medications. (6) Combined systolic and diastolic cardiac dysfunction: Code(s): I51.89 - Other ill-defined heart diseases Status: Chronic Assessment and Plan: Echo EF 50-55% grade 1 diastolic dysfunction Mild pedal edema noted but felt related to cirrhosis Continue with Coreg and Lasix. Add Tanner hose (7) Aortic valve replaced: Code(s): Z95.2 - Presence of prosthetic heart valve Status: Acute Assessment and Plan: The patient is on Coumadin however his INR was only 1.3. Therapeutic INR is 2-3. Echo showing that the aortic valve is not well visualized. Was on Lovenox but stopped with elevated INR. INR jumped so Coumadin held 10/27 INR better and Coumadin resumed. INR 3.0 Continue Coumadin. Continue daily INR (8) Anemia: Code(s): D64.9 - Anemia, unspecified Status: Acute Assessment and Plan: Hgb 10.8 on admission. His baseline Hgb is relatively normal. He is on anticoagulation Status post EGD with findings of gastritis 10/27/2022 Continue PPI (9) Elevated blood sugar: Code(s):
[2022-11-01] MEDS: THIAMINE HCL 100 MG TABLET PO (12:17)
[2022-11-01 12:32] LABS: Glucose Point of Care 125 mg/dl (65-105)
[2022-11-01 14:45] VITALS: BP 109/67; PULSE 76; RESP 18; TEMP 36.4; O2SAT 96
[2022-11-01 17:29] LABS: Glucose Point of Care 127 mg/dl (65-105)
[2022-11-01] MEDS: WARFARIN (*PBKC) 3 MG TABLET PO (17:47)
[2022-11-01 19:19] VITALS: BP 128/86; PULSE 85; RESP 18; TEMP 36.4; O2SAT 100
[2022-11-01 20:23] VITALS: PULSE 85
[2022-11-01 21:05] LABS: Glucose Point of Care 122 mg/dl (65-105)
[2022-11-02 06:00] VITALS: BP 98/55; PULSE 93; RESP 18; TEMP 36.7; O2SAT 90
[2022-11-02 07:29] LABS: Basophils Absolute Auto 0.1 K/mm3 (0.0-0.1); Basophils Percent Auto 1.2 % (0.2-1.2); Eosinophils Absolute Auto 0.1 K/mm3 (0-0.3); Eosinophils Percent Auto 1.2 % (0-4.4); Hematocrit 34.9 % (42.0-52.0); Hemoglobin 11.5 g/dL (14.0-18.0); Immature Granulocyte Absolute 0.06 K/mm3 (0.00-0.031); Immature Granulocyte Percent A 1.1 % (0-0.5); Lymphocytes Absolute Auto 1.04 K/mm3 (0.9-3.2); Lymphocytes Percent Auto 18.4 % (18.3-44.2); Mean Corpuscular Hemoglobin 35.1 pg (26-34); Mean Corpuscular Volume 106.4 fl (80-100); Mean Platelet Volume 12.5 fl (7.4-10.4); Monocytes Absolute Auto 0.6 K/mm3 (0.1-0.6); Monocytes Percent Auto 10.6 % (2.6-8.5); Neutrophils Absolute Auto 3.8 K/mm3 (1.3-6.7); Neutrophils Percent Auto 67.5 % (45.5-73.1); Platelet Count Result 152 k/mm3 (150-375); Red Blood Count 3.28 M/mm3 (4.6-6.20); Red Cell Distribution Width 22.2 % (11.5-14.5); White Blood Count 5.7 K/mm3 (4.5-10.0)
[2022-11-02 07:34] LABS: INR 3.7; Prothrombin Time 39.7 Seconds (11.1-14.7)
[2022-11-02 07:35] LABS: Alanine Aminotransferase 71 U/L (6-50); Albumin Level 2.8 g/dL (3.5-5.1); Alkaline Phosphatase 205 U/L (38-126); Anion Gap 2 mmol/L (8-16); Aspartate Amino Transferase 205 U/L (17-59); Blood Urea Nitrogen 10 mg/dL (9-20); Carbon Dioxide 36 mmol/L (22-30); Chloride 96 mmol/L (98-107); Estimated CRCL calculation 125 ml/min; Estimated Glomerular Filt Rate > 60; Glucose 149 mg/dL (65-110); Potassium 3.9 mmol/L (3.4-5.0); Sodium 134 mmol/L (137-145)
[2022-11-02 08:19] VITALS: PULSE 88
[2022-11-02] MEDS: SPIRONOLACTONE 50 MG TABLET PO (08:19)
[2022-11-02] MEDS: THIAMINE HCL 100 MG TABLET PO (08:19)
[2022-11-02] MEDS: CITALOPRAM HYDROBROMIDE 20 MG TABLET 40 MG PO (08:19)
[2022-11-02] MEDS: ZINC SULFATE 220 MG CAPSULE PO (08:19)
[2022-11-02] MEDS: CALCIUM CARBONATE (OSCAL) 500 MG TABLET PO (08:19)
[2022-11-02] MEDS: carvediloL 6.25 MG TABLET PO ×2 (08:19→21:48)
[2022-11-02] MEDS: ASPIRIN 81 MG CHEWABLE TABLET PO (08:20)
[2022-11-02] MEDS: busPIRone HCL 10 MG TABLET PO ×2 (08:20→17:16)
[2022-11-02] MEDS: FUROSEMIDE 20 MG TABLET PO (08:20)
[2022-11-02] MEDS: FOLIC ACID 1 MG TABLET PO (08:20)
[2022-11-02] MEDS: LACTULOSE 20 GM/30 ML UDC PO ×3 (08:20→17:16)
[2022-11-02] MEDS: MAGNESIUM OXIDE 400 MG TABLET PO (08:20)
[2022-11-02] MEDS: PANTOPRAZOLE 40 MG TABLET PO (08:20)
[2022-11-02] MEDS: CYANOCOBALAMIN 1,000 MCG TABLET 5000 MCG BY MOUTH (08:20)
[2022-11-02 08:34] LABS: Glucose Point of Care 138 mg/dl (65-105)
[2022-11-02 08:49] LABS: Platelet Estimate Adequate (Adequate)
[2022-11-02 08:50] LABS: Macrocytosis 1+ (NORMAL); Schistocytes None Seen (NORMAL); Target Cells 2+ (NORMAL)
--- NOTE | 2022-11-02 10:05 | WPDGIPROGNO ---
Progress Note: A&P Assessment and Plan (1) Alcoholic liver disease: Code(s): K70.9 - Alcoholic liver disease, unspecified Status: Acute Assessment and Plan: Patient with significant alcohol induced liver disease. His bilirubin LFTs remain quite elevated. Plan to continue alcohol avoidance. Continue monitor LFTs after discharge. I would encourage opinion from hepatology at tertiary care [facility] electively. Supportive care for now. Patient on low-dose lactulose and low-dose diuretic should be maintained. Continue to monitor electrolytes intermittently. (2) Chronic anticoagulation: Code(s): Z79.01 - [facility] (current) use of anticoagulants Status: Acute Assessment and Plan: Patient has restart anticoagulation because of history of heart valve replacement. Will need to monitor for signs of bleeding. No evidence bleeding today. (3) Hyperammonemia: Code(s): E72.20 - Disorder of urea cycle metabolism, unspecified Status: Acute Assessment and Plan: Mild elevation ammonia on presentation suggesting may have mild hepatic encephalopathy. Agree with maintaining lactulose. (4) Aortic valve replaced: Code(s): Z95.2 - Presence of prosthetic heart valve Status: Acute (5) Jaundice: Code(s): R17 - Unspecified jaundice Status: Acute Assessment and Plan: Patient's LFTs are essentially stable but quite elevated. The should be monitored as an outpatient. (6) Type 2 diabetes mellitus: Qualifiers: Diabetes mellitus chcf insulin use: without chcf use Diabetes mellitus complication status: without complication Qualified Code(s): E11.9 - Type 2 diabetes mellitus without complications Code(s): E11.9 - Type 2 diabetes mellitus without complications Status: Acute Subjective Date/time seen: 11/02/22 10:05 Interval history: Patient is seen today in absence of Dr. Freeman. Patient alert and this seems to be thinking clearly today. Denies abdominal pain. No clear evidence of agitation. No evidence for alcohol withdrawal. Denies abdominal pain. Review of Systems Review of Systems: Review of systems noncontributory. Exam Narrative: Physical exam reveals patient be alert. Vital signs stable. HEENT exam reveals scleral icterus. Lungs are clear. Heart without murmur. Abdomen is obese. Bowel sounds are present soft nontender. No obvious organomegaly. Objective Data Vital Signs Vital Signs: Vital Signs - 24 hr 11/01/22 14:45 11/01/22 19:19 11/01/22 20:23 Temperature 97.6 F 97.5 F L Pulse Rate 76 85 85 Respiratory Rate 18 18 Blood Pressure 109/67 128/86 Pulse Oximetry 96 100 Oxygen Delivery 11/02/22 06:00 11/02/22 08:19 11/02/22 08:18 Temperature 98.0 F Pulse Rate 93 88 Respiratory Rate 18 Blood Pressure 98/55 L Pulse Oximetry 90 Oxygen Delivery Room Air Intake/Output Intake/Output: Intake & Output 10/30/22 10/31/22 11/01/22 11/02/22 23:59 23:59 23:59 23:59 Intake Total 820 1280 570 Output Total 2 Balance 820 1280 570 -2 Meds/Results Medications: Active Medications Generic Name Dose Route Start Last Admin Trade Name Freq PRN Reason Stop Dose Admin Aspirin 81 mg 10/25/22 08:00 11/02/22 08:20 Aspirin 81 Mg Chewable Tablet PO 81 mg DAILY@0800 JAGDISH Administration Atorvastatin Calcium 20 mg 10/25/22 09:00 10/29/22 08:28 Atorvastatin 20 Mg Tablet PO 20 mg DAILY JAGDISH Administration Buspirone HCl 10 mg 10/25/22 09:00 11/02/22 08:20 Buspirone Hcl 10 Mg Tablet PO 10 mg BID JAGDISH Administration Calcium Carbonate 500 mg 10/25/22 09:00 11/02/22 08:19 Calcium Carbonate (Oscal) 500 Mg Tablet PO 500 mg QAM JAGDISH Administration Carvedilol 6.25 mg 10/24/22 22:30 11/02/22 08:19 Carvedilol 6.25 Mg Tablet PO 6.25 mg Q12HR JAGDISH Administration Citalopram Hydrobromide 40 mg 10/25/22 09:00 11/02/22 08
[2022-11-02 12:11] LABS: Glucose Point of Care 118 mg/dl (65-105)
[2022-11-02 14:00] VITALS: BP 109/66; PULSE 83; RESP 18; TEMP 36.4; O2SAT 97
--- NOTE | 2022-11-02 17:21 | PM.IMPN ---
Progress Note: A&P Assessment and Plan (1) Acute liver failure: Qualifiers: Hepatic coma status: without hepatic coma Qualified Code(s): K72.00 - Acute and subacute hepatic failure without coma Code(s): K72.00 - Acute and subacute hepatic failure without coma Status: Acute Assessment and Plan: The patient has a history of alcoholism and has elevated liver enzymes on admission Liver function studies are higher from the last values in August when bili was only 1.2 and transaminases were less than 100. TBili elevated 10-11 and relatively unchanged since admission. Mostly direct bilirubin. Ammonia level mildly elevated to 54. On scheduled lactulose TID INR elevated but on Coumadin AST 514 and ALT 106 and values have mostly trended downward. Alk-phos was [address] and up and down. CT A/P 10/24 showing hepatic steatosis and trace ascites RUQ US 10/24 showing diffuse fatty liver infiltration (US repeated 10/30 without change) GI has been consulted and appreciate their input. LFTs acutely elevated likely due to acute alcoholic hepatitis with underlying liver dysfunction. LFT mostly improving but the TBili level is about the same. Continue Spironolactone and Lasix. Mild confusion still. Related to kernicterus? Librium stopped. Continue Lactulose. Continue to monitor (2) Elevated troponin: Code(s): R77.8 - Other specified abnormalities of plasma proteins Status: Acute Assessment and Plan: The patient does have a history of coronary artery disease status post CABG x1 vessel Patient's troponin elevated but flat at 0.154, 0.136, and 0.157. Echo with EF 50-55%, Grade 1 diastolic dysfunction and septal wall motion abnormality (felt related to post-op state) Cardiology consulted and appreciate their input. Patient has no further complaints of chest pain. Continue medical management with Coreg; atorvastatin on hold (3) Jaundice: Code(s): R17 - Unspecified jaundice Status: Acute Assessment and Plan: As above (4) Alcohol withdrawal: Qualifiers: Complication of substance-induced condition: uncomplicated Qualified Code(s): F10.930 - Alcohol use, unspecified with withdrawal, uncomplicated Code(s): F10.939 - Alcohol use, unspecified with withdrawal, unspecified Status: Acute Assessment and Plan: CIWA protocol ordered and scores were running 0-1. Was on scheduled Librium but now weaned off Continue P.r.n. Haldol Continue folic acid and thiamine. (5) HTN (hypertension): Qualifiers: Hypertension type: primary hypertension Qualified Code(s): I10 - Essential (primary) hypertension Code(s): I10 - Essential (primary) hypertension Status: Chronic Assessment and Plan: Patient's blood pressure was reviewed on 11/02 Blood pressure remains reasonably well controlled Will continue current medications. (6) Combined systolic and diastolic cardiac dysfunction: Code(s): I51.89 - Other ill-defined heart diseases Status: Chronic Assessment and Plan: Echo EF 50-55% grade 1 diastolic dysfunction Mild pedal edema noted but felt related to cirrhosis Continue with Coreg and Lasix. Tanner mendez (7) Aortic valve replaced: Code(s): Z95.2 - Presence of prosthetic heart valve Status: Acute Assessment and Plan: The patient is on Coumadin however his INR was only 1.3. Therapeutic INR is 2-3. Echo showing that the aortic valve is not well visualized. Coumadin resumed. Was on Lovenox until INR therapeutic INR increased at times so Coumadin held. INR 3.7 today so will hold Coumadin again Continue Coumadin at lower dose when resuming. Continue daily INR (8) Anemia: Code(s): D64.9 - Anemia, unspecified Status: Acute Assessment and Plan: Hgb 10.8 on admission. His baseline Hgb is relatively normal. He is on anticoagulation Status post EGD with findings of gastritis 04
[2022-11-02 17:29] LABS: Glucose Point of Care 173 mg/dl (65-105)
[2022-11-02 19:15] VITALS: BP 107/79; PULSE 96; RESP 18; TEMP 36.3; O2SAT 96
[2022-11-02 21:48] VITALS: PULSE 96
[2022-11-03 05:19] LABS: Basophils Absolute Auto 0.1 K/mm3 (0.0-0.1); Basophils Percent Auto 1.1 % (0.2-1.2); Eosinophils Absolute Auto 0.1 K/mm3 (0-0.3); Hematocrit 33.6 % (42.0-52.0); Hemoglobin 11.1 g/dL (14.0-18.0); Immature Granulocyte Absolute 0.05 K/mm3 (0.00-0.031); Immature Granulocyte Percent A 0.7 % (0-0.5); Lymphocytes Absolute Auto 1.23 K/mm3 (0.9-3.2); Lymphocytes Percent Auto 17.5 % (18.3-44.2); Mean Corpuscular Hemoglobin 34.7 pg (26-34); Mean Platelet Volume 11.6 fl (7.4-10.4); Monocytes Absolute Auto 0.8 K/mm3 (0.1-0.6); Monocytes Percent Auto 11.8 % (2.6-8.5); Neutrophils Absolute Auto 4.8 K/mm3 (1.3-6.7); Neutrophils Percent Auto 67.9 % (45.5-73.1); Platelet Count Result 141 k/mm3 (150-375); Red Cell Distribution Width 22.1 % (11.5-14.5)
[2022-11-03 05:31] LABS: Alanine Aminotransferase 61 U/L (6-50); Albumin Level 2.6 g/dL (3.5-5.1); Alkaline Phosphatase 218 U/L (38-126); Anion Gap 1 mmol/L (8-16); Aspartate Amino Transferase 176 U/L (17-59); Blood Urea Nitrogen 9 mg/dL (9-20); Calcium 7.8 mg/dL (8.4-10.2); Carbon Dioxide 37 mmol/L (22-30); Chloride 97 mmol/L (98-107); Estimated CRCL calculation 125 ml/min; Estimated Glomerular Filt Rate > 60; Glucose 134 mg/dL (65-110); Potassium 3.9 mmol/L (3.4-5.0); Sodium 135 mmol/L (137-145)
[2022-11-03 05:34] LABS: INR 4.6; Prothrombin Time 47.2 Seconds (11.1-14.7)
[2022-11-03 05:39] LABS: Platelet Estimate Adequate (Adequate)
[2022-11-03 05:40] LABS: Target Cells 2+ (NORMAL)
[2022-11-03 05:41] LABS: Anisocytosis 2+ (NORMAL); Macrocytosis 1+ (NORMAL); Schistocytes None Seen (NORMAL)
[2022-11-03 06:00] VITALS: BP 100/47; PULSE 89; RESP 18; TEMP 36.9; O2SAT 96
[2022-11-03 08:51] LABS: Glucose Point of Care 121 mg/dl (65-105)
--- NOTE | 2022-11-03 09:45 | PM.IMPN ---
Progress Note: A&P Assessment and Plan (1) Acute liver failure: Qualifiers: Hepatic coma status: without hepatic coma Qualified Code(s): K72.00 - Acute and subacute hepatic failure without coma Code(s): K72.00 - Acute and subacute hepatic failure without coma Status: Acute Assessment and Plan: The patient has a history of alcoholism and has elevated liver enzymes on admission that are higher from August when bili was 1.2 and transaminases were less than 100. CT A/P 10/24 showing hepatic steatosis and trace ascites RUQ US 10/24 showing diffuse fatty liver infiltration (US repeated 10/30 without change) TBili elevated 10-11 and relatively unchanged since admission. Mostly direct bilirubin. Ammonia level mildly elevated to 54. On scheduled lactulose TID INR elevated but on Coumadin AST 514 and ALT 106 and values have mostly trended downward. Alk-phos was 233 and up and down. GI has been consulted and appreciate their input. LFTs acutely elevated likely due to acute alcoholic hepatitis with underlying liver dysfunction. LFT mostly improving but the TBili level is about the same. Continue Spironolactone and Lasix. Mild confusion better. Continue Lactulose. Continue to monitor (2) Elevated troponin: Code(s): R77.8 - Other specified abnormalities of plasma proteins Status: Acute Assessment and Plan: The patient does have a history of coronary artery disease status post CABG x1 vessel Patient's troponin elevated but flat at 0.154, 0.136, and 0.157. EKG - NSR, LVH, ST-T wave changes, previous anterior and inferior [place] Echo with EF 50-55%, Grade 1 diastolic dysfunction and septal wall motion abnormality (felt related to post-op state) Cardiology consulted and appreciate their input. Patient has no further complaints of chest pain. Continue medical management with Coreg; atorvastatin on hold (3) Atrial fibrillation: Code(s): I48.91 - Unspecified atrial fibrillation Status: Acute Assessment and Plan: EKG on admission was NSR but repeat EKG 10/25 showing AFib with RVR. Was on tele showing AFib. HR controlled with Coreg. Cardiology involved in his care. INR therapeutic. (4) Jaundice: Code(s): R17 - Unspecified jaundice Status: Acute Assessment and Plan: As above (5) Alcohol withdrawal: Qualifiers: Complication of substance-induced condition: uncomplicated Qualified Code(s): F10.930 - Alcohol use, unspecified with withdrawal, uncomplicated Code(s): F10.939 - Alcohol use, unspecified with withdrawal, unspecified Status: Acute Assessment and Plan: CIWA protocol ordered and scores were running 0-1. Was on scheduled Librium but now weaned off Continue P.r.n. Haldol Continue folic acid and thiamine. (6) HTN (hypertension): Qualifiers: Hypertension type: primary hypertension Qualified Code(s): I10 - Essential (primary) hypertension Code(s): I10 - Essential (primary) hypertension Status: Chronic Assessment and Plan: Patient's blood pressure was reviewed on 11/03 Blood pressure remains reasonably well controlled Will continue current medications. (7) Combined systolic and diastolic cardiac dysfunction: Code(s): I51.89 - Other ill-defined heart diseases Status: Chronic Assessment and Plan: Echo EF 50-55% grade 1 diastolic dysfunction Mild pedal edema noted but felt related to cirrhosis Continue with Coreg and Lasix. Tanner mendez ordered (8) Aortic valve replaced: Code(s): Z95.2 - Presence of prosthetic heart valve Status: Acute Assessment and Plan: The patient is on Coumadin however his INR was only 1.3. Therapeutic INR is 2-3. Echo showing that the aortic valve is not well visualized. Coumadin resumed. Was on Lovenox until INR therapeutic INR increased at times so Coumadin held. INR 4.6 today so will continue to hold Coumadin
--- NOTE | 2022-11-03 09:46 | ECG_ITS ---
Measurements Intervals [place] Rate: 77 P: OK: 0 QRS: -64 QRSD: 98 T: 242 QT: 403 QTc: 459 Interpretive Statements ATRIAL FIBRILLATION ANTEROLATERAL INFARCT, AGE INDETERMINATE INFERIOR INFARCT, AGE INDETERMINATE BORDERLINE ST-T WAVE ABNORMALITY- HIGH LATERAL LEADS ABNORMAL ECG COMPARED TO ECG 10/25/2022 06:13:19 HEART RATE HAS DECREASED Electronically Signed On 11-03-2022 13:09:04 CDT by John Garcia D.O.
[2022-11-03] MEDS: MAGNESIUM OXIDE 400 MG TABLET PO (10:01)
[2022-11-03] MEDS: LACTULOSE 20 GM/30 ML UDC PO ×3 (10:01→17:45)
[2022-11-03] MEDS: THIAMINE HCL 100 MG TABLET PO (10:02)
[2022-11-03] MEDS: ASPIRIN 81 MG CHEWABLE TABLET PO (10:02)
[2022-11-03] MEDS: busPIRone HCL 10 MG TABLET PO ×2 (10:02→17:45)
[2022-11-03] MEDS: CITALOPRAM HYDROBROMIDE 20 MG TABLET 40 MG PO (10:02)
[2022-11-03] MEDS: FOLIC ACID 1 MG TABLET PO (10:02)
[2022-11-03] MEDS: CALCIUM CARBONATE (OSCAL) 500 MG TABLET PO (10:02)
[2022-11-03] MEDS: ZINC SULFATE 220 MG CAPSULE PO (10:02)
[2022-11-03] MEDS: CYANOCOBALAMIN 1,000 MCG TABLET 5000 MCG BY MOUTH (10:03)
[2022-11-03] MEDS: PANTOPRAZOLE 40 MG TABLET PO (10:03)
[2022-11-03 10:04] VITALS: BP 100/50; PULSE 95; RESP 14; O2SAT 95
[2022-11-03 11:50] LABS: Glucose Point of Care 146 mg/dl (65-105)
[2022-11-03 13:46] VITALS: BP 98/52; PULSE 86; RESP 16; TEMP 36.3; O2SAT 100
[2022-11-03 17:12] LABS: Glucose Point of Care 109 mg/dl (65-105)
[2022-11-03 21:00] VITALS: PULSE 81
[2022-11-03] MEDS: carvediloL 6.25 MG TABLET PO (21:00)
[2022-11-03 22:36] VITALS: BP 111/91; PULSE 81; RESP 21; TEMP 36.9; O2SAT 100
[2022-11-04 05:37] LABS: Basophils Absolute Auto 0.1 K/mm3 (0.0-0.1); Basophils Percent Auto 1.1 % (0.2-1.2); Eosinophils Absolute Auto 0.1 K/mm3 (0-0.3); Hematocrit 36.7 % (42.0-52.0); Hemoglobin 12.1 g/dL (14.0-18.0); Immature Granulocyte Absolute 0.04 K/mm3 (0.00-0.031); Immature Granulocyte Percent A 0.5 % (0-0.5); Lymphocytes Absolute Auto 1.12 K/mm3 (0.9-3.2); Lymphocytes Percent Auto 14.1 % (18.3-44.2); Mean Corpuscular Hemoglobin 35.1 pg (26-34); Mean Corpuscular Volume 106.4 fl (80-100); Mean Platelet Volume 12.5 fl (7.4-10.4); Monocytes Absolute Auto 0.6 K/mm3 (0.1-0.6); Monocytes Percent Auto 7.7 % (2.6-8.5); Neutrophils Percent Auto 75.6 % (45.5-73.1); Platelet Count Result 157 k/mm3 (150-375); Red Blood Count 3.45 M/mm3 (4.6-6.20); Red Cell Distribution Width 21.8 % (11.5-14.5); White Blood Count 7.9 K/mm3 (4.5-10.0)
[2022-11-04 05:46] LABS: INR 3.3; Prothrombin Time 36.8 Seconds (11.1-14.7)
[2022-11-04 05:51] LABS: Alanine Aminotransferase 71 U/L (6-50); Alkaline Phosphatase 251 U/L (38-126); Anion Gap 2 mmol/L (8-16); Aspartate Amino Transferase 201 U/L (17-59); Bilirubin,Total 12.4 mg/dL (0.2-1.3); Blood Urea Nitrogen 9 mg/dL (9-20); Calcium 8.2 mg/dL (8.4-10.2); Carbon Dioxide 37 mmol/L (22-30); Chloride 96 mmol/L (98-107); Estimated CRCL calculation 125 ml/min; Estimated Glomerular Filt Rate > 60; Glucose 117 mg/dL (65-110); Potassium 4.4 mmol/L (3.4-5.0); Sodium 135 mmol/L (137-145)
[2022-11-04 05:59] LABS: Anisocytosis 2+ (NORMAL); Macrocytosis 1+ (NORMAL); Platelet Estimate Adequate (Adequate); Target Cells 2+ (NORMAL)
[2022-11-04 06:00] LABS: Schistocytes None Seen (NORMAL)
[2022-11-04 06:55] VITALS: BP 109/77; PULSE 94; RESP 18; TEMP 36.3; O2SAT 96
[2022-11-04] MEDS: FOLIC ACID 1 MG TABLET PO (08:33)
[2022-11-04] MEDS: FUROSEMIDE 20 MG TABLET PO (08:33)
[2022-11-04] MEDS: CITALOPRAM HYDROBROMIDE 20 MG TABLET 40 MG PO (08:33)
[2022-11-04] MEDS: SPIRONOLACTONE 50 MG TABLET PO (08:33)
[2022-11-04] MEDS: ZINC SULFATE 220 MG CAPSULE PO (08:33)
[2022-11-04] MEDS: busPIRone HCL 10 MG TABLET PO ×2 (08:33→17:21)
[2022-11-04] MEDS: CALCIUM CARBONATE (OSCAL) 500 MG TABLET PO (08:34)
[2022-11-04] MEDS: THIAMINE HCL 100 MG TABLET PO (08:34)
[2022-11-04] MEDS: ASPIRIN 81 MG CHEWABLE TABLET PO (08:34)
[2022-11-04] MEDS: PANTOPRAZOLE 40 MG TABLET PO (08:34)
[2022-11-04] MEDS: MAGNESIUM OXIDE 400 MG TABLET PO (08:34)
[2022-11-04] MEDS: CYANOCOBALAMIN 1,000 MCG TABLET 5000 MCG BY MOUTH (08:35)
[2022-11-04 08:36] VITALS: PULSE 68
[2022-11-04 08:36] LABS: Glucose Point of Care 115 mg/dl (65-105)
[2022-11-04] MEDS: LACTULOSE 20 GM/30 ML UDC PO ×3 (08:36→17:22)
[2022-11-04] MEDS: carvediloL 6.25 MG TABLET PO ×2 (08:36→20:23)
[2022-11-04 09:34] VITALS: O2SAT 96
[2022-11-04 14:17] VITALS: BP 106/68; PULSE 81; RESP 18; TEMP 36.8; O2SAT 100
--- NOTE | 2022-11-04 14:23 | PM.IMPN ---
Progress Note: A&P Assessment and Plan (1) Acute liver failure: Qualifiers: Hepatic coma status: without hepatic coma Qualified Code(s): K72.00 - Acute and subacute hepatic failure without coma Code(s): K72.00 - Acute and subacute hepatic failure without coma Status: Acute Assessment and Plan: The patient has a history of alcoholism and has elevated liver enzymes on admission that are higher from August when bili was 1.2 and transaminases were less than 100. CT A/P 10/24 showing hepatic steatosis and trace ascites RUQ US 10/24 showing diffuse fatty liver infiltration (US repeated 10/30 without change) TBili elevated 10-12 and relatively unchanged since admission. Mostly direct bilirubin. Ammonia level mildly elevated to 54. On scheduled lactulose TID INR elevated but on Coumadin AST 514 and ALT 106 and values have mostly trended downward. Alk-phos was 233 and up and down. GI has been consulted and appreciate their input. LFTs acutely elevated likely due to acute alcoholic hepatitis with underlying liver dysfunction. Continue Spironolactone and Lasix. Continue Lactulose. Continue to monitor (2) Elevated troponin: Code(s): R77.8 - Other specified abnormalities of plasma proteins Status: Acute Assessment and Plan: The patient does have a history of coronary artery disease status post CABG x1 vessel Patient's troponin elevated but flat at 0.154, 0.136, and 0.157. EKG - NSR, LVH, ST-T wave changes, previous anterior and inferior [place] Echo with EF 50-55%, Grade 1 diastolic dysfunction and septal wall motion abnormality (felt related to post-op state) Cardiology consulted and appreciate their input. Patient has no further complaints of chest pain. Continue medical management with Coreg; atorvastatin on hold (3) Atrial fibrillation: Code(s): I48.91 - Unspecified atrial fibrillation Status: Acute Assessment and Plan: EKG on admission was NSR but repeat EKG 10/25 showing AFib with RVR. Was on tele showing AFib. HR controlled with Coreg. Cardiology involved in his care. INR therapeutic. (4) Jaundice: Code(s): R17 - Unspecified jaundice Status: Acute Assessment and Plan: As above (5) Alcohol withdrawal: Qualifiers: Complication of substance-induced condition: uncomplicated Qualified Code(s): F10.930 - Alcohol use, unspecified with withdrawal, uncomplicated Code(s): F10.939 - Alcohol use, unspecified with withdrawal, unspecified Status: Acute Assessment and Plan: CIWA protocol ordered and scores were running 0-1. Was on scheduled Librium but now weaned off Continue P.r.n. Haldol Continue folic acid and thiamine. (6) HTN (hypertension): Qualifiers: Hypertension type: primary hypertension Qualified Code(s): I10 - Essential (primary) hypertension Code(s): I10 - Essential (primary) hypertension Status: Chronic Assessment and Plan: Patient's blood pressure was reviewed on 11/04 Blood pressure remains well controlled Will continue current medications. (7) Combined systolic and diastolic cardiac dysfunction: Code(s): I51.89 - Other ill-defined heart diseases Status: Chronic Assessment and Plan: Echo EF 50-55% grade 1 diastolic dysfunction Mild pedal edema noted but felt related to cirrhosis Continue with Coreg and Lasix. Continue Tanner hose (8) Aortic valve replaced: Code(s): Z95.2 - Presence of prosthetic heart valve Status: Acute Assessment and Plan: The patient is on Coumadin however his INR was only 1.3. Therapeutic INR is 2-3. Echo showing that the aortic valve is not well visualized. Coumadin resumed. Was on Lovenox until INR therapeutic INR increased at times so Coumadin held. INR down to 3.3 today so will resume Coumadin at lower dose Continue daily INR (9) Anemia: Code(s): D64.9 - Anemia, unspecifi
[2022-11-04] MEDS: WARFARIN (*PBKC) 2 MG TABLET PO (17:21)
[2022-11-04 20:23] VITALS: PULSE 80
[2022-11-04 20:35] VITALS: BP 116/77; PULSE 74; RESP 20; TEMP 35.9; O2SAT 96
[2022-11-05 03:23] VITALS: BP 110/68; PULSE 89; RESP 22; TEMP 36.5; O2SAT 94
[2022-11-05 05:42] LABS: Hematocrit 34.1 % (42.0-52.0); Hemoglobin 11.3 g/dL (14.0-18.0); Mean Corpuscular HGB Conc 33.1 g/dl (32-36); Mean Corpuscular Hemoglobin 35.3 pg (26-34); Mean Corpuscular Volume 106.6 fl (80-100); Mean Platelet Volume 12.3 fl (7.4-10.4); Platelet Count Result 150 k/mm3 (150-375); Red Cell Distribution Width 21.3 % (11.5-14.5); White Blood Count 7.7 K/mm3 (4.5-10.0)
[2022-11-05 05:49] LABS: Alanine Aminotransferase 60 U/L (6-50); Albumin Level 2.5 g/dL (3.5-5.1); Alkaline Phosphatase 188 U/L (38-126); Anion Gap -1 mmol/L (8-16); Aspartate Amino Transferase 161 U/L (17-59); Bilirubin,Total 11.6 mg/dL (0.2-1.3); Blood Urea Nitrogen 9 mg/dL (9-20); Calcium 7.7 mg/dL (8.4-10.2); Carbon Dioxide 36 mmol/L (22-30); Chloride 98 mmol/L (98-107); Estimated CRCL calculation 143 ml/min; Estimated Glomerular Filt Rate > 60; Glucose 98 mg/dL (65-110); Potassium 4.1 mmol/L (3.4-5.0); Sodium 133 mmol/L (137-145)
[2022-11-05 05:50] LABS: INR 2.9; Prothrombin Time 32.3 Seconds (11.1-14.7)
--- NOTE | 2022-11-05 07:09 | WPDGIPROGNO ---
Progress Note: A&P Assessment and Plan (1) Jaundice: Code(s): R17 - Unspecified jaundice Status: Acute Assessment and Plan: he 1st noticed that his urine was turning dark and that his eyes were yellow sometime up over week ago. He thinks his urine has been dark for almost 2 weeks. He does not have pruritus. He has not been exposed to hepatitis. 10/26/2022 bilirubin remains elevated unchanged. 10.4 today. Denies pruritus 10/28/2022 although LFTs are improving, bilirubin remains at 10. It appears that this may be his baseline although he is fairly certain that he was not jaundiced until 2 weeks ago. He certainly needs to follow-up with hat renovator. 10/29/2022 no change in bilirubin. I think that we can discontinue daily checks. This appears to be his baseline. 10/30/2022 I told him that his bilirubin is staying around 10 and 11 and [address] to stay that way indicating he has significant liver disease and will need to be seen by hepatology. 11/05 bilirubin still hovering around 10-11. Not likely to change (2) Acute liver failure: Qualifiers: Hepatic coma status: without hepatic coma Qualified Code(s): K72.00 - Acute and subacute hepatic failure without coma Code(s): K72.00 - Acute and subacute hepatic failure without coma Status: Acute Assessment and Plan: his liver function studies are dramatically different from the last values in August when bilirubin was only 1.2 verses 10.7 now. Likewise transaminases which were less than 100 are no 590 and 106 respectively for AST and ALT I had a discussion with the patient and his daughter regarding his liver status. I told him that he may well have cirrhosis. I also explained that the elevation of the enzymes being rather acute suggest that this may be at least in part reversible, only if he can stop drinking alcohol. We discussed the natural progression of liver disease from fatty liver to cirrhosis. I also discussed with them possible complications of chronic liver disease such as ascites due to portal hypertension as well as esophageal varices and hepatic encephalopathy. His Hildreth alcoholic hepatitis score is 8. Patient's who are 9 or greater benefit from steroids. Therefore think at this point we can observe him and see what direction he heads. 10/26/2022 fortunately his liver status is stable and not worsening. He has had some increased however ammonia and we will need to watch that. 10/29/2022 LFTs continue to improve. We do need to get him connected with hepatology 11/05/2022 although his iron level was normal he did have a very high ferritin and I think there is a chance he may also have hemochromatosis. I explained this to him and told that after discharge we need to get him to see a hat renovator. (3) Alcohol abuse: Code(s): F10.10 - Alcohol abuse, uncomplicated Status: Acute Assessment and Plan: he admits to drinking at least a half pt of vodka per day. Even in the past week when he has been nauseated most the time he had been able to drink up until last evening. He denies any prior hospitalizations for alcohol abuse. He states that he is definitely going to go into alcohol rehab center when he is discharged. I discussed with the patient and his daughter the fact that he is at risk for alcohol withdrawal syndrome that we monitor him for that, initiate a protocol. (4) Transaminasemia: Code(s): R74.0 - Nonspecific elevation of levels of transaminase and lactic acid dehydrogenase [LDH] Status: Acute Assessment and Plan: Transaminases have been somewhat elevated for the past year. In August AST was 99 but now is 590 ALT was 65 and now is 106. The alkaline phosphatase had been normal but now is 233. 10/26/2022 transaminases are slowly improving. 10/29/2022 continue slow improvement in transaminases. 11/05/2022 slow gradual improvement (5) Pancreatitis: Code(s): K8
[2022-11-05 08:13] LABS: Ammonia 41 umol/L (9-30)
[2022-11-05 08:22] VITALS: BP 120/88; PULSE 79; O2SAT 93
[2022-11-05 08:27] VITALS: PULSE 79
[2022-11-05] MEDS: ASPIRIN 81 MG CHEWABLE TABLET PO (08:27)
[2022-11-05] MEDS: busPIRone HCL 10 MG TABLET PO ×2 (08:27→17:47)
[2022-11-05] MEDS: carvediloL 6.25 MG TABLET PO ×2 (08:27→20:39)
[2022-11-05] MEDS: CALCIUM CARBONATE (OSCAL) 500 MG TABLET PO (08:27)
[2022-11-05] MEDS: CITALOPRAM HYDROBROMIDE 20 MG TABLET 40 MG PO (08:28)
[2022-11-05] MEDS: MAGNESIUM OXIDE 400 MG TABLET PO (08:28)
[2022-11-05] MEDS: THIAMINE HCL 100 MG TABLET PO (08:28)
[2022-11-05] MEDS: FOLIC ACID 1 MG TABLET PO (08:29)
[2022-11-05] MEDS: FUROSEMIDE 20 MG TABLET PO (08:29)
[2022-11-05] MEDS: ZINC SULFATE 220 MG CAPSULE PO (08:29)
[2022-11-05] MEDS: PANTOPRAZOLE 40 MG TABLET PO (08:29)
[2022-11-05] MEDS: CYANOCOBALAMIN 1,000 MCG TABLET 5000 MCG BY MOUTH (08:30)
[2022-11-05] MEDS: SPIRONOLACTONE 50 MG TABLET PO (08:30)
[2022-11-05] MEDS: LACTULOSE 20 GM/30 ML UDC PO ×3 (08:31→17:47)
[2022-11-05 14:06] VITALS: BP 83/48; PULSE 92; RESP 20; TEMP 36.4; O2SAT 97
--- NOTE | 2022-11-05 15:31 | PM.DS ---
DS: Admitting Diagnosis Discharge Date 11/06/22 Admitting Diagnosis Jaundice DS: Discharge Diagnosis Discharge Diagnosis (1) Acute liver failure: Qualifiers: Hepatic coma status: without hepatic coma Qualified Code(s): K72.00 - Acute and subacute hepatic failure without coma Code(s): K72.00 - Acute and subacute hepatic failure without coma Status: Acute Assessment and Plan: The patient has a history of alcoholism and has elevated liver enzymes on admission that are higher from August when bili was 1.2 and transaminases were less than 100. CT A/P 10/24 showing hepatic steatosis and trace ascites RUQ US 10/24 showing diffuse fatty liver infiltration (US repeated 10/30 without change) TBili elevated 10-12 and relatively unchanged since admission. Mostly direct bilirubin. Ammonia level mildly elevated to 54. On scheduled lactulose TID INR elevated but on Coumadin AST 514 and ALT 106 and values have mostly trended downward. Alk-phos was 233 and up and down. GI has been consulted and appreciate their input. LFTs acutely elevated likely due to acute alcoholic hepatitis with underlying liver dysfunction. Continue Spironolactone and Lasix. Continue Lactulose. Continue to monitor (2) Elevated troponin: Code(s): R77.8 - Other specified abnormalities of plasma proteins Status: Acute Assessment and Plan: The patient does have a history of coronary artery disease status post CABG x1 vessel Patient's troponin elevated but flat at 0.154, 0.136, and 0.157. EKG - NSR, LVH, ST-T wave changes, previous anterior and inferior [place] Echo with EF 50-55%, Grade 1 diastolic dysfunction and septal wall motion abnormality (felt related to post-op state) Cardiology consulted and appreciate their input. Patient has no further complaints of chest pain. Continue medical management with Coreg; atorvastatin on hold (3) Atrial fibrillation: Code(s): I48.91 - Unspecified atrial fibrillation Status: Acute Assessment and Plan: EKG on admission was NSR but repeat EKG 10/25 showing AFib with RVR. Was on tele showing AFib. HR controlled with Coreg. Cardiology involved in his care. INR therapeutic. (4) Jaundice: Code(s): R17 - Unspecified jaundice Status: Acute Assessment and Plan: As above (5) Alcohol withdrawal: Qualifiers: Complication of substance-induced condition: uncomplicated Qualified Code(s): F10.930 - Alcohol use, unspecified with withdrawal, uncomplicated Code(s): F10.939 - Alcohol use, unspecified with withdrawal, unspecified Status: Acute Assessment and Plan: CIWA protocol ordered and scores were running 0-1. Was on scheduled Librium but now weaned off Continue P.r.n. Haldol Continue folic acid and thiamine. (6) HTN (hypertension): Qualifiers: Hypertension type: primary hypertension Qualified Code(s): I10 - Essential (primary) hypertension Code(s): I10 - Essential (primary) hypertension Status: Chronic Assessment and Plan: Patient's blood pressure was reviewed on 11/05 Blood pressure remains well controlled Will continue current medications. (7) Combined systolic and diastolic cardiac dysfunction: Code(s): I51.89 - Other ill-defined heart diseases Status: Chronic Assessment and Plan: Echo EF 50-55% grade 1 diastolic dysfunction Mild pedal edema noted but felt related to cirrhosis Continue with Coreg and Lasix. Continue Tanner hose (8) Aortic valve replaced: Code(s): Z95.2 - Presence of prosthetic heart valve Status: Acute Assessment and Plan: The patient is on Coumadin however his INR was only 1.3. Therapeutic INR is 2-3. Echo showing that the aortic valve is not well visualized. Coumadin resumed. Was on Lovenox until INR therapeutic Continue daily INR (9) Anemia: Code(s): D64.9 - Anemia, unspecifie
[2022-11-05] MEDS: WARFARIN (*PBKC) 2 MG TABLET PO (17:47)
[2022-11-05 20:39] VITALS: PULSE 88
[2022-11-05] MEDS: rifAXIMin 550 MG TABLET PO (20:39)
[2022-11-05 21:09] VITALS: BP 108/55; PULSE 85; RESP 18; TEMP 37.1; O2SAT 96
[2022-11-06 04:46] VITALS: BP 120/89; PULSE 82; RESP 18; TEMP 36.8; O2SAT 96
[2022-11-06 06:12] LABS: INR 2.9; Prothrombin Time 33.2 Seconds (11.1-14.7)
[2022-11-06 08:21] VITALS: O2SAT 95
[2022-11-06] MEDS: PANTOPRAZOLE 40 MG TABLET PO (08:34)
[2022-11-06] MEDS: ZINC SULFATE 220 MG CAPSULE PO (08:34)
[2022-11-06] MEDS: ASPIRIN 81 MG CHEWABLE TABLET PO (08:34)
[2022-11-06] MEDS: CALCIUM CARBONATE (OSCAL) 500 MG TABLET PO (08:34)
[2022-11-06] MEDS: THIAMINE HCL 100 MG TABLET PO (08:34)
[2022-11-06] MEDS: rifAXIMin 550 MG TABLET PO (08:34)
[2022-11-06] MEDS: CYANOCOBALAMIN 1,000 MCG TABLET 5000 MCG BY MOUTH (08:34)
[2022-11-06] MEDS: LACTULOSE 20 GM/30 ML UDC PO ×2 (08:34→14:29)
[2022-11-06] MEDS: FUROSEMIDE 20 MG TABLET PO (08:34)
[2022-11-06 08:35] VITALS: PULSE 76
[2022-11-06] MEDS: FOLIC ACID 1 MG TABLET PO (08:35)
[2022-11-06] MEDS: CITALOPRAM HYDROBROMIDE 20 MG TABLET 40 MG PO (08:35)
[2022-11-06] MEDS: busPIRone HCL 10 MG TABLET PO (08:35)
[2022-11-06] MEDS: SPIRONOLACTONE 50 MG TABLET PO (08:35)
[2022-11-06] MEDS: MAGNESIUM OXIDE 400 MG TABLET PO (08:35)
[2022-11-06] MEDS: carvediloL 6.25 MG TABLET PO (08:35)
--- NOTE | 2022-11-06 08:35 | PM.IMPN ---
Progress Note: A&P Assessment and Plan (1) Acute liver failure: Qualifiers: Hepatic coma status: without hepatic coma Qualified Code(s): K72.00 - Acute and subacute hepatic failure without coma Code(s): K72.00 - Acute and subacute hepatic failure without coma Status: Acute Assessment and Plan: The patient has a history of alcoholism and has elevated liver enzymes on admission that are higher from August when bili was 1.2 and transaminases were less than 100. CT A/P 10/24 showing hepatic steatosis and trace ascites RUQ US 10/24 showing diffuse fatty liver infiltration (US repeated 10/30 without change) TBili elevated 10-12 and relatively unchanged since admission. Mostly direct bilirubin. Ammonia level mildly elevated to 54. On scheduled lactulose TID INR elevated but on Coumadin AST 514 and ALT 106 and values have mostly trended downward. Alk-phos was 233 and up and down. GI has been consulted and appreciate their input. LFTs acutely elevated likely due to acute alcoholic hepatitis with underlying liver dysfunction. Continue Spironolactone and Lasix. Continue Lactulose. Continue to monitor (2) Elevated troponin: Code(s): R77.8 - Other specified abnormalities of plasma proteins Status: Acute Assessment and Plan: The patient does have a history of coronary artery disease status post CABG x1 vessel Patient's troponin elevated but flat at 0.154, 0.136, and 0.157. EKG - NSR, LVH, ST-T wave changes, previous anterior and inferior [place] Echo with EF 50-55%, Grade 1 diastolic dysfunction and septal wall motion abnormality (felt related to post-op state) Cardiology consulted and appreciate their input. Patient has no further complaints of chest pain. Continue medical management with Coreg; atorvastatin on hold (3) Atrial fibrillation: Code(s): I48.91 - Unspecified atrial fibrillation Status: Acute Assessment and Plan: EKG on admission was NSR but repeat EKG 10/25 showing AFib with RVR. Was on tele showing AFib. HR controlled with Coreg. Cardiology involved in his care. INR therapeutic. (4) Jaundice: Code(s): R17 - Unspecified jaundice Status: Acute Assessment and Plan: As above (5) Alcohol withdrawal: Qualifiers: Complication of substance-induced condition: uncomplicated Qualified Code(s): F10.930 - Alcohol use, unspecified with withdrawal, uncomplicated Code(s): F10.939 - Alcohol use, unspecified with withdrawal, unspecified Status: Acute Assessment and Plan: CIWA protocol ordered and scores were running 0-1. Was on scheduled Librium but now weaned off Continue P.r.n. Haldol Continue folic acid and thiamine. (6) HTN (hypertension): Qualifiers: Hypertension type: primary hypertension Qualified Code(s): I10 - Essential (primary) hypertension Code(s): I10 - Essential (primary) hypertension Status: Chronic Assessment and Plan: Patient's blood pressure was reviewed on 11/05 Blood pressure remains well controlled Will continue current medications. (7) Combined systolic and diastolic cardiac dysfunction: Code(s): I51.89 - Other ill-defined heart diseases Status: Chronic Assessment and Plan: Echo EF 50-55% grade 1 diastolic dysfunction Mild pedal edema noted but felt related to cirrhosis Continue with Coreg and Lasix. Continue Tanner hose (8) Aortic valve replaced: Code(s): Z95.2 - Presence of prosthetic heart valve Status: Acute Assessment and Plan: The patient is on Coumadin however his INR was only 1.3. Therapeutic INR is 2-3. Echo showing that the aortic valve is not well visualized. Coumadin resumed. Was on Lovenox until INR therapeutic Continue daily INR (9) Anemia: Code(s): D64.9 - Anemia, unspecified Status: Acute Assessment and Plan: Hgb 10.8 on admission. His basel
--- NOTE | 2022-11-06 08:48 | PCPTNOTE ---
Attempted to see patient for PT, however patient was eating breakfast.
[2022-11-06 14:00] VITALS: BP 108/73; PULSE 79; RESP 18; TEMP 36.7; O2SAT 96
== END 2022-11-06 17:04 | DRG 432 ==
LOC: ANHED 14:54 → ANHIMU 18:13 → ANH2MED 10-28 16:09
PROVIDERS: Emergency Medicine; Internal Medicine; Internal Medicine Gastroenterology; Nurse Practitioner; Admitting Provider Chiropractor; Emergency Provider Emergency Medicine; PCP Family Medicine; Visit Provider Student in an Organized Health Care Education/Training Program
PROC: 0DJ08ZZ Inspection of Upper Intestinal Tract, Via Natural or Artificial Opening Endoscopic (ICD-10-PCS; CPT 43235; principal; 2022-10-27 14:45)
DX: K70.31 Alcoholic cirrhosis of liver with ascites (principal); K72.00 Acute and subacute hepatic failure without coma; K85.90 Acute pancreatitis without necrosis or infection, unspecified; F10.930 Alcohol use, unspecified with withdrawal, uncomplicated; I48.91 Unspecified atrial fibrillation; I25.10 Atherosclerotic heart disease of native coronary artery without angina pectoris; I10 Essential (primary) hypertension; I51.89 Other ill-defined heart diseases; D64.9 Anemia, unspecified; G47.33 Obstructive sleep apnea (adult) (pediatric); I71.20 Thoracic aortic aneurysm, without rupture, unspecified; F32.9 Major depressive disorder, single episode, unspecified; K29.70 Gastritis, unspecified, without bleeding; Z95.2 Presence of prosthetic heart valve; Z95.5 Presence of coronary angioplasty implant and graft; Z79.01 Long term (current) use of anticoagulants; Z79.899 Other long term (current) drug therapy
CPT/HCPCS: 36415; 36569; 36600; 71046; 74177; 76700; 76705; 80053; 80307; 81256; 82140; 82247; 82248; 82550; 82728; 82805; 82948; 83036; 83540; 83550; 83605; 83690; 83735; 83880; 84100; 84443; 84484; 85014; 85018; 85025; 85027; 85055; 85610; 85652; 85730; 86038; 86140; 87081; 93005; 93306; 96361; 96365; 96366; 96372; 96374; 96375; 96376; 97110; 97161; 97166; 97530; 97535; 99285; A9270; C1751; C9113; G0378; J0290; J1580; J1650; J1940; J2060; J2405; J2704; J2765; J3411; J3475; J7030; J7120; Q9967

== ENCOUNTER 2022-11-06 17:50 | Inpatient (IN) | payer OTHER, MEDICAID, SELFPAY ==
[2022-11-06 18:23] VITALS: BMI 41.2
--- NOTE | 2022-11-06 18:39 | PC.NURSE ---
Patient admitted to room 203 at 1810. Hospital policies related to visiting hours, call light bed controls, and rapid response given to patient. Personal belongings include glasses, cell phone and clothing. Patient voiced understanding of hospital policies.
[2022-11-06 19:38] VITALS: PULSE 79; RESP 16; O2SAT 96
[2022-11-06 21:15] VITALS: PULSE 79
[2022-11-06] MEDS: traZODone HCL 50 MG TABLET PO (21:15)
[2022-11-06] MEDS: LACTULOSE 20 GM/30 ML UDC PO (21:15)
[2022-11-06] MEDS: busPIRone HCL 5 MG TABLET 10 MG PO (21:15)
[2022-11-06] MEDS: MELATONIN 5 MG TABLET 10 MG PO (21:15)
[2022-11-06] MEDS: carvediloL 6.25 MG TABLET PO (21:15)
[2022-11-06] MEDS: ACETAMINOPHEN 325 MG TABLET 650 MG PO (21:16)
[2022-11-07] VITALS: BP 103/60; PULSE 79; RESP 16; TEMP 35.7; O2SAT 96
[2022-11-07 08:00] VITALS: BP 138/78; PULSE 86; RESP 18; TEMP 36.1; O2SAT 96
--- NOTE | 2022-11-07 08:39 | PM.IMHP ---
H&P: HPI History of Present Illness Date/Time: 11/07/22 08:39 Chief Complaint: weakness Narrative: This is a 57-year-old male presented to the [place] ED with complaints of jaundice, nausea vomiting and generalized weakness. patient has a past medical history of alcohol abuse, anxiety, aortic stenosis, ascending aortic aneurysm bladder cancer, CAD congestive heart failure, hypertension, depression, erectile dysfunction, NSTEMI, and ERIKA. Patient admitted in swing bed for rehabilitation due to decreased balance decreased mobility in severe limited function endurant and/or mobility. The patient denies SOB, CP, palpitation, extremity numbness, lightheadedness, dizziness, constipation, diarrhea, chills, or fever. Review of Systems Review of Systems: All systems reviewed & are unremarkable except as noted in HPI and below PMFSH Past Medical History Medical History (Updated 11/07/22 @ 09:08 by ROB Jack) Alcohol abuse Anxiety Aortic stenosis Mild to moderate aortic stenosis noted on echocardiogram in March 2019. Ascending aortic aneurysm 4 centimeter ascending aortic aneurysm noted in fall 2018. Bladder cancer With history of TURBT and mitomycin installation. CAD (coronary artery disease) Diffuse 50% stenosis of the marginal branch noted on cardiac catheterization in March 2019. Chronic diastolic (congestive) heart failure Combined systolic and diastolic cardiac dysfunction Ejection fraction of 40 to 45% in March 2019. Depression Erectile dysfunction HTN (hypertension) Nonischemic cardiomyopathy ERIKA (obstructive sleep apnea) Previous history of noncompliance with CPAP therapy. Surgical History Surgical History (Updated 10/24/22 @ 23:45 by Yee Cabrera NP) Aortic valve replaced History of tonsillectomy and adenoidectomy Hx of appendectomy S/P aortic valve replacement S/P CABG x 1 S/P TURP Family History Family History Mother Family history of diabetes mellitus in first degree relative Cerebrovascular accident Father Family history of diabetes mellitus in first degree relative Family history of coronary artery disease Sibling Family history of diabetes mellitus in first degree relative Other Diabetes mellitus Social History Social History (Updated 10/24/22 @ 23:20 by Yee Cabrera NP) Social History: The patient lives in his own home in [place]. Recently . 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 He designates his daughter, Gita Mccullough, as his surrogate decision maker and he wishes to be a full code. He has a history of alcohol abuse, drinking between 7 to 15 beers a day for most of his adult life. He stated that he drinks half a pt of vodka daily. He chews tobacco daily. Denies illicit drug use. Patient chews tobacco. Code status full code Smoking status: Never smoker Smokeless tobacco user: chewing tobacco Second hand tobacco smoke exposure: No Alcohol intake: former Drinks per week: 18 Substance use: former Substance use type: marijuana Lack of Transportation: No Lack of Food: Never True Current Housing: I Have Housing Concerned About Future Housing: No Difficulty Paying Gas/Electric Bills: No Difficulty Paying for Meds: No Currently Unemployed: YES Education: High School Diploma/GED Difficulty w/ Childcare or Family Care: No Living arrangements: alone Occupation/Education: occupation Gender identity (if verbalized by the patient): Male Spiritual care concerns: No Agree to blood products: No Meds Home Medications and Allergies Home Medications Medication Instructions Recorded Confirmed Type atorvastatin 20 mg tablet 20 mg PO DAILY #90 tabs 03/14/21 11/06/22 Rx nitroglycerin 0.4 mg sublingual 0.4 mg sublingual Q5MIN PRN Chest 08/02/21 11/06/22 Rx tablet (Nitrostat) Pain #30 tabs lancets #200 ea 09/17/21 11/07/22 Rx blo
[2022-11-07] MEDS: rifAXIMin 550 MG TABLET PO ×2 (08:42→21:14)
[2022-11-07] MEDS: LACTULOSE 20 GM/30 ML UDC PO ×3 (08:42→16:36)
[2022-11-07] MEDS: CYANOCOBALAMIN 1,000 MCG TABLET 5000 MCG PO (08:43)
[2022-11-07] MEDS: FUROSEMIDE 20 MG TABLET PO (08:44)
[2022-11-07] MEDS: FOLIC ACID 1 MG TABLET PO (08:44)
[2022-11-07] MEDS: ASPIRIN 81 MG CHEWABLE TABLET PO (08:44)
[2022-11-07] MEDS: SPIRONOLACTONE 25 MG TABLET 50 MG PO (08:44)
[2022-11-07] MEDS: busPIRone HCL 5 MG TABLET 10 MG PO ×2 (08:44→16:36)
[2022-11-07] MEDS: THIAMINE HCL 100 MG TABLET PO (08:44)
[2022-11-07] MEDS: CITALOPRAM HYDROBROMIDE 20 MG TABLET 40 MG PO (08:44)
[2022-11-07 08:45] VITALS: PULSE 84
[2022-11-07] MEDS: ATORVASTATIN 10 MG TABLET 20 MG PO (08:45)
[2022-11-07] MEDS: carvediloL 6.25 MG TABLET PO (08:45)
[2022-11-07] MEDS: PANTOPRAZOLE 40 MG TABLET PO (08:45)
[2022-11-07 10:31] LABS: INR 3.8; Prothrombin Time 37.6 Seconds (9.50-12.10)
--- NOTE | 2022-11-07 14:38 | PC.NURSE ---
abd remains large and firm. denies any pain. no stools noted this shift but has smears on pads and greasy film in toliet. encouraged to use urinal for measurement but does not use.
[2022-11-07 15:43] VITALS: BP 96/60; PULSE 56; RESP 20; TEMP 36.1; O2SAT 92
[2022-11-07 21:18] VITALS: PULSE 55
[2022-11-08] VITALS: BP 95/54; PULSE 64; RESP 20; TEMP 35.9; O2SAT 95
[2022-11-08 08:00] VITALS: BP 105/60; PULSE 64; RESP 20; TEMP 36.2; O2SAT 97
[2022-11-08 08:58] LABS: INR 2.6; Prothrombin Time 26.4 Seconds (9.50-12.10)
[2022-11-08] MEDS: LACTULOSE 20 GM/30 ML UDC PO ×2 (09:02→17:41)
[2022-11-08] MEDS: CYANOCOBALAMIN 1,000 MCG TABLET 5000 MCG PO (09:03)
[2022-11-08] MEDS: FOLIC ACID 1 MG TABLET PO (09:03)
[2022-11-08] MEDS: ATORVASTATIN 10 MG TABLET 20 MG PO (09:03)
[2022-11-08] MEDS: ASPIRIN 81 MG CHEWABLE TABLET PO (09:04)
[2022-11-08 09:05] VITALS: PULSE 80
[2022-11-08] MEDS: PANTOPRAZOLE 40 MG TABLET PO (09:05)
[2022-11-08] MEDS: carvediloL 6.25 MG TABLET PO ×2 (09:05→20:18)
[2022-11-08] MEDS: SPIRONOLACTONE 25 MG TABLET 50 MG PO (09:05)
[2022-11-08] MEDS: CITALOPRAM HYDROBROMIDE 20 MG TABLET 40 MG PO (09:05)
[2022-11-08] MEDS: rifAXIMin 550 MG TABLET PO ×2 (09:06→20:18)
[2022-11-08] MEDS: FUROSEMIDE 20 MG TABLET PO (09:10)
[2022-11-08] MEDS: THIAMINE HCL 100 MG TABLET PO (09:10)
[2022-11-08] MEDS: busPIRone HCL 5 MG TABLET 10 MG PO ×2 (09:15→17:41)
[2022-11-08 15:30] VITALS: BP 101/58; PULSE 58; RESP 18; TEMP 36.1; O2SAT 99
[2022-11-08] MEDS: traZODone HCL 50 MG TABLET PO (20:18)
[2022-11-08 23:51] VITALS: BP 99/59; PULSE 78; RESP 18; TEMP 36.3; O2SAT 96
[2022-11-09 05:59] LABS: INR 2.1; Prothrombin Time 21.9 Seconds (9.50-12.10)
[2022-11-09 08:00] VITALS: BP 118/90; PULSE 62; RESP 14; TEMP 35.9; O2SAT 93
[2022-11-09] MEDS: THIAMINE HCL 100 MG TABLET PO (09:10)
[2022-11-09] MEDS: LACTULOSE 20 GM/30 ML UDC PO ×3 (10:17→17:50)
[2022-11-09] MEDS: SPIRONOLACTONE 25 MG TABLET 50 MG PO (10:17)
[2022-11-09] MEDS: busPIRone HCL 5 MG TABLET 10 MG PO ×2 (10:17→17:50)
[2022-11-09] MEDS: rifAXIMin 550 MG TABLET PO ×2 (10:17→21:21)
[2022-11-09] MEDS: PANTOPRAZOLE 40 MG TABLET PO (10:17)
[2022-11-09] MEDS: CYANOCOBALAMIN 1,000 MCG TABLET 5000 MCG PO (10:18)
[2022-11-09] MEDS: CITALOPRAM HYDROBROMIDE 20 MG TABLET 40 MG PO (10:18)
[2022-11-09 10:19] VITALS: PULSE 68
[2022-11-09] MEDS: ATORVASTATIN 10 MG TABLET 20 MG PO (10:19)
[2022-11-09] MEDS: FUROSEMIDE 20 MG TABLET PO (10:19)
[2022-11-09] MEDS: carvediloL 6.25 MG TABLET PO ×2 (10:19→21:20)
[2022-11-09] MEDS: FOLIC ACID 1 MG TABLET PO (10:19)
[2022-11-09] MEDS: ASPIRIN 81 MG CHEWABLE TABLET PO (10:20)
--- NOTE | 2022-11-09 11:24 | PC.NURSE ---
PT abdominal girth is 54 inches today at 0900. ro
[2022-11-09 16:35] VITALS: BP 120/71; PULSE 58; RESP 18; TEMP 36.4; O2SAT 98
[2022-11-09] MEDS: WARFARIN (*PBKC) 2 MG TABLET PO (17:50)
[2022-11-09 21:20] VITALS: PULSE 62
[2022-11-09] MEDS: traZODone HCL 50 MG TABLET PO (21:20)
--- NOTE | 2022-11-09 22:31 | PC.NURSE ---
Pt abdominal girth is 54 @ 2100.
[2022-11-09 23:40] VITALS: BP 118/63; PULSE 62; RESP 18; TEMP 36.6; O2SAT 94
--- NOTE | 2022-11-10 07:03 | PM.EVENT ---
Event Note Event Note Event Note: patient INR 2.1 warfarin 2 mg started
[2022-11-10 08:00] VITALS: BP 114/89; PULSE 57; RESP 14; TEMP 35.6; O2SAT 97
[2022-11-10] MEDS: LACTULOSE 20 GM/30 ML UDC PO ×3 (08:58→16:57)
[2022-11-10] MEDS: busPIRone HCL 5 MG TABLET 10 MG PO ×2 (08:58→16:58)
[2022-11-10] MEDS: CYANOCOBALAMIN 1,000 MCG TABLET 5000 MCG PO (08:58)
[2022-11-10 08:59] VITALS: PULSE 64
[2022-11-10] MEDS: carvediloL 6.25 MG TABLET PO ×2 (08:59→21:14)
[2022-11-10] MEDS: CITALOPRAM HYDROBROMIDE 20 MG TABLET 40 MG PO (08:59)
[2022-11-10] MEDS: FOLIC ACID 1 MG TABLET PO (08:59)
[2022-11-10] MEDS: FUROSEMIDE 20 MG TABLET PO (08:59)
[2022-11-10] MEDS: ASPIRIN 81 MG CHEWABLE TABLET PO (09:00)
[2022-11-10] MEDS: SPIRONOLACTONE 25 MG TABLET 50 MG PO (09:00)
[2022-11-10] MEDS: THIAMINE HCL 100 MG TABLET PO (09:00)
[2022-11-10] MEDS: ATORVASTATIN 10 MG TABLET 20 MG PO (09:00)
[2022-11-10] MEDS: rifAXIMin 550 MG TABLET PO ×2 (09:00→21:13)
[2022-11-10] MEDS: PANTOPRAZOLE 40 MG TABLET PO (09:13)
[2022-11-10 09:51] LABS: INR 1.7; Prothrombin Time 17.8 Seconds (9.50-12.10)
--- NOTE | 2022-11-10 14:54 | PC.NURSE ---
Pt abdominal girth is 54 inches today at 0900.
[2022-11-10 16:00] VITALS: BP 137/90; PULSE 55; RESP 18; TEMP 35.9; O2SAT 99
[2022-11-10] MEDS: WARFARIN (*PBKC) 2 MG TABLET PO (16:58)
[2022-11-10] MEDS: MELATONIN 5 MG TABLET 10 MG PO (21:13)
[2022-11-10 21:14] VITALS: PULSE 113
[2022-11-11] VITALS: BP 104/65; PULSE 98; RESP 18; TEMP 36.9; O2SAT 99
[2022-11-11 07:54] VITALS: BP 107/73; PULSE 64; RESP 18; TEMP 36.1; O2SAT 98
[2022-11-11] MEDS: LACTULOSE 20 GM/30 ML UDC PO ×3 (08:47→17:04)
[2022-11-11 08:48] VITALS: PULSE 82
[2022-11-11] MEDS: busPIRone HCL 5 MG TABLET 10 MG PO ×2 (08:48→17:04)
[2022-11-11] MEDS: ASPIRIN 81 MG CHEWABLE TABLET PO (08:48)
[2022-11-11] MEDS: carvediloL 6.25 MG TABLET PO ×2 (08:48→21:01)
[2022-11-11] MEDS: ATORVASTATIN 10 MG TABLET 20 MG PO (08:49)
[2022-11-11] MEDS: FUROSEMIDE 20 MG TABLET PO (08:49)
[2022-11-11] MEDS: CYANOCOBALAMIN 1,000 MCG TABLET 5000 MCG PO (08:50)
[2022-11-11] MEDS: SPIRONOLACTONE 25 MG TABLET 50 MG PO (08:51)
[2022-11-11] MEDS: THIAMINE HCL 100 MG TABLET PO (08:51)
[2022-11-11] MEDS: CITALOPRAM HYDROBROMIDE 20 MG TABLET 40 MG PO (08:51)
[2022-11-11] MEDS: PANTOPRAZOLE 40 MG TABLET PO (08:52)
[2022-11-11] MEDS: FOLIC ACID 1 MG TABLET PO (08:52)
[2022-11-11] MEDS: rifAXIMin 550 MG TABLET PO ×2 (08:52→21:09)
--- NOTE | 2022-11-11 08:56 | P.PNCROSS_ITS ---
Event Note Event Note Event Note: Patient INR not therapeutic increase warfarin from 2 mg to 3 mg. will need to c ontinue to monitor and adjust medication
[2022-11-11 10:14] LABS: INR 1.8; Prothrombin Time 18.4 Seconds (9.50-12.10)
--- NOTE | 2022-11-11 13:07 | PC.NURSE ---
Patient's feet have 2+ pitting edema. Patient has hx of CHF. Pruner assisted patient to bed and elevated patient's feet. Pruner educated patient that patient had drank a lot of water yesterday, and with a history of CHF, and ongoing A-fib, fluid would pool at dependent levels. Patient advised to keep feet elevated for a while and nurse will continue to monitor. No SOB noted.
--- NOTE | 2022-11-11 13:21 | PC.NURSE ---
Program Management Manager listened to patient's lungs. No crackles noted. Patient's BP 93/64
[2022-11-11 16:00] VITALS: BP 95/59; PULSE 65; RESP 18; TEMP 36; O2SAT 98
[2022-11-11] MEDS: WARFARIN (*PBKC) 1 MG TABLET 3 MG PO (17:05)
[2022-11-11] MEDS: MELATONIN 5 MG TABLET 10 MG PO (21:00)
[2022-11-11 21:01] VITALS: PULSE 56
[2022-11-11] MEDS: traZODone HCL 50 MG TABLET PO (21:01)
--- NOTE | 2022-11-12 06:30 | PC.NURSE ---
Due to computer down town from approximately 2130 11/11/2022 to 0630 11/12/2022, charting completed on hard copy located in patient's chart.
[2022-11-12 07:56] LABS: INR 1.8
[2022-11-12 08:00] VITALS: BP 102/76; PULSE 105; RESP 16; TEMP 36.4; O2SAT 97
[2022-11-12 08:58] VITALS: PULSE 105
[2022-11-12] MEDS: carvediloL 6.25 MG TABLET PO ×2 (08:58→20:31)
[2022-11-12] MEDS: PANTOPRAZOLE 40 MG TABLET PO (08:58)
[2022-11-12] MEDS: ATORVASTATIN 10 MG TABLET 20 MG PO (08:59)
[2022-11-12] MEDS: CYANOCOBALAMIN 1,000 MCG TABLET 5000 MCG PO (08:59)
[2022-11-12] MEDS: FOLIC ACID 1 MG TABLET PO (08:59)
[2022-11-12] MEDS: THIAMINE HCL 100 MG TABLET PO (09:00)
[2022-11-12] MEDS: busPIRone HCL 5 MG TABLET 10 MG PO ×2 (09:00→16:13)
[2022-11-12] MEDS: ASPIRIN 81 MG CHEWABLE TABLET PO (09:00)
[2022-11-12] MEDS: CITALOPRAM HYDROBROMIDE 20 MG TABLET 40 MG PO (09:00)
[2022-11-12] MEDS: SPIRONOLACTONE 25 MG TABLET 50 MG PO (09:01)
[2022-11-12] MEDS: FUROSEMIDE 20 MG TABLET PO (09:01)
[2022-11-12] MEDS: rifAXIMin 550 MG TABLET PO ×2 (09:01→20:31)
[2022-11-12] MEDS: LACTULOSE 20 GM/30 ML UDC PO ×3 (09:01→16:13)
--- NOTE | 2022-11-12 10:07 | P.PNCROSS_ITS ---
Event Note Event Note Event Note: Patient INR is 1.8 with coumadin that was increased yesterday. Patient complain ing of back pain worried he has a UTI a ua ordered for urine and will repeat labs in the morning. We will continue to monitor.
[2022-11-12 13:58] LABS: Appearance Urine Clear (Clear); Bilirubin Urine 3+ (Negative); Blood Urine Trace-Intact (Negative); Glucose Urine UA Trace (Negative); Ketones Urine Trace (Negative); Leukocyte Esterase Ur Negative (Negative); Nitrate Urine Negative (Negative); Protein Urine Trace (Negative); Specific Grav Ur >= 1.030 (1.010-1.020)
[2022-11-12 14:04] LABS: Color Urine Amber (Yellow)
[2022-11-12 14:05] LABS: Add Urine Microscopic? YES; Bacteria Urine Trace /hpf; Mucus Urine Moderate /lpf; WBC Urine None seen /hpf (0-3)
[2022-11-12 16:00] VITALS: BP 105/70; PULSE 100; RESP 16; TEMP 36.4; O2SAT 97
[2022-11-12] MEDS: NITROFURANTOIN MONOHYD MACROCR 100 MG CAP PO ×2 (16:13→20:31)
[2022-11-12] MEDS: WARFARIN (*PBKC) 1 MG TABLET 3 MG PO (16:13)
[2022-11-12 20:31] VITALS: PULSE 65
[2022-11-12] MEDS: traZODone HCL 50 MG TABLET PO (20:31)
--- NOTE | 2022-11-12 20:40 | PC.NURSE ---
Pt's abdominal girth measured at 54 HS 11/12/2022.
[2022-11-12 23:14] VITALS: BP 103/73; PULSE 64; RESP 13; TEMP 36.6; O2SAT 94
[2022-11-13 05:16] LABS: Hematocrit 32.8 % (40.0-54.0); Hemoglobin 10.8 g/dL (14.0-18.0); Mean Corpuscular HGB Conc 32.9 g/dL (32.0-36.0); Mean Corpuscular Hemoglobin 35.5 pg (27.0-31.0); Mean Corpuscular Volume 107.9 fL (78.0-102.0); Mean Platelet Volume 12.1 fl (8.7-11.0); Platelet Count Result 172 K/mm3 (150-420); Red Blood Count 3.04 M/mm3 (4.70-6.10); Red Cell Distribution Width 19.7 % (11.6-14.4); White Blood Count 8.8 K/mm3 (4.8-10.8)
[2022-11-13 05:32] LABS: INR 2.2; Prothrombin Time 22.6 Seconds (9.50-12.10)
[2022-11-13 05:41] LABS: Anion Gap 2 mmol/L (8-16); Blood Urea Nitrogen 10 mg/dL (7-18); Calcium 8.1 mg/dL (8.5-10.1); Carbon Dioxide 33 mmol/L (21-32); Chloride 103 mmol/L (98-108); Estimated CRCL calculation 94 ml/min; Estimated Glomerular Filt Rate > 60; Glucose 109 mg/dL (70-99); Osmolality Calculated 286 mOsm/kg (285-295); Potassium 4.2 mmol/L (3.5-5.1); Sodium 138 mmol/L (136-145)
[2022-11-13 07:50] VITALS: BP 104/68; PULSE 61; RESP 18; TEMP 36.1; O2SAT 96
--- NOTE | 2022-11-13 08:21 | P.PNCROSS_ITS ---
Event Note Event Note Event Note: Started patient on Macrobid last night. Patient ProTime is 2.2 today and I revi ewed his labs today patient was worried about his CR which is 0.93 today that is normal discussed this with patient as well.
[2022-11-13] MEDS: CYANOCOBALAMIN 1,000 MCG TABLET 5000 MCG PO (09:04)
[2022-11-13] MEDS: LACTULOSE 20 GM/30 ML UDC PO ×3 (09:04→17:10)
[2022-11-13] MEDS: FOLIC ACID 1 MG TABLET PO (09:05)
[2022-11-13] MEDS: SPIRONOLACTONE 25 MG TABLET 50 MG PO (09:05)
[2022-11-13] MEDS: ATORVASTATIN 10 MG TABLET 20 MG PO (09:05)
[2022-11-13] MEDS: PANTOPRAZOLE 40 MG TABLET PO (09:05)
[2022-11-13] MEDS: CITALOPRAM HYDROBROMIDE 20 MG TABLET 40 MG PO (09:05)
[2022-11-13] MEDS: ASPIRIN 81 MG CHEWABLE TABLET PO (09:05)
[2022-11-13 09:06] VITALS: PULSE 61
[2022-11-13] MEDS: carvediloL 6.25 MG TABLET PO ×2 (09:06→21:16)
[2022-11-13] MEDS: FUROSEMIDE 20 MG TABLET PO (09:06)
[2022-11-13] MEDS: rifAXIMin 550 MG TABLET PO ×2 (09:06→21:16)
[2022-11-13] MEDS: busPIRone HCL 5 MG TABLET 10 MG PO ×2 (09:06→17:10)
[2022-11-13] MEDS: NITROFURANTOIN MONOHYD MACROCR 100 MG CAP PO ×2 (09:06→21:16)
[2022-11-13] MEDS: THIAMINE HCL 100 MG TABLET PO (09:06)
--- NOTE | 2022-11-13 09:30 | PC.NURSE ---
Abdominal girth 54in.
[2022-11-13 16:40] VITALS: BP 107/72; PULSE 53; RESP 18; TEMP 36; O2SAT 99
[2022-11-13] MEDS: WARFARIN (*PBKC) 1 MG TABLET 3 MG PO (17:10)
[2022-11-13 21:16] VITALS: PULSE 59
[2022-11-13] MEDS: traZODone HCL 50 MG TABLET PO (21:16)
--- NOTE | 2022-11-13 21:20 | PC.NURSE ---
Pt's abdominal girth is 54 HS 11/13/2022.
[2022-11-13 23:16] VITALS: BP 100/79; PULSE 60; RESP 16; TEMP 36.2; O2SAT 92
[2022-11-14 05:40] LABS: Prothrombin Time 30.3 Seconds (9.50-12.10)
[2022-11-14 08:00] VITALS: BP 119/78; PULSE 61; RESP 14; TEMP 36.2; O2SAT 94
[2022-11-14] MEDS: ASPIRIN 81 MG CHEWABLE TABLET PO (08:07)
[2022-11-14] MEDS: rifAXIMin 550 MG TABLET PO ×2 (09:04→20:16)
[2022-11-14] MEDS: PANTOPRAZOLE 40 MG TABLET PO (09:04)
[2022-11-14] MEDS: NITROFURANTOIN MONOHYD MACROCR 100 MG CAP PO ×2 (09:04→20:17)
[2022-11-14] MEDS: LACTULOSE 20 GM/30 ML UDC PO ×3 (09:04→16:33)
[2022-11-14] MEDS: SPIRONOLACTONE 25 MG TABLET 50 MG PO (09:05)
[2022-11-14] MEDS: ATORVASTATIN 10 MG TABLET 20 MG PO (09:05)
[2022-11-14] MEDS: FOLIC ACID 1 MG TABLET PO (09:05)
[2022-11-14] MEDS: CYANOCOBALAMIN 1,000 MCG TABLET 5000 MCG PO (09:05)
--- NOTE | 2022-11-14 09:05 | P.PNIM_ITS ---
Progress Note: A&P Assessment and Plan (1) Weakness: Code(s): R53.1 - Weakness Status: Acute (2) Acute liver failure: Qualifiers: Hepatic coma status: without hepatic coma Qualified Code(s): K72.00 - Acute and subacute hepatic failure without coma Code(s): K72.00 - Acute and subacute hepatic failure without coma Status: Acute Assessment and Plan: * The patient has a history of alcoholism and has elevated liver enzymes on admission that are higher from August when bili was 1.2 and transaminases were less than 100. * CT A/P 10/24 showing hepatic steatosis and trace ascites * RUQ US 10/24 showing diffuse fatty liver infiltration (US repeated 10/30 without change) * Ammonia level mildly elevated to 54.? On scheduled lactulose TID * LFTs acutely elevated likely due to acute alcoholic hepatitis with underlying liver dysfunction. * Continue Spironolactone and Lasix. * Continue Lactulose. * will have to follow up with GI at discharge. (3) Atrial fibrillation: Code(s): I48.91 - Unspecified atrial fibrillation Status: Acute Assessment and Plan: * controlled * continue Coreg will restart warfarin * Holding Warfarin on 11/14/22 for INR of 3.0. Will restart on 11/15/22. (4) Jaundice: Code(s): R17 - Unspecified jaundice Status: Acute Assessment and Plan: * secondary to hepatitis due to alcohol use * will periodically check liver enzymes (5) Alcohol abuse: Code(s): F10.10 - Alcohol abuse, uncomplicated Status: Acute Assessment and Plan: * patient plans to discharge to a rehab (6) HTN (hypertension): Qualifiers: Hypertension type: primary hypertension Qualified Code(s): I10 - Essential (primary) hypertension Code(s): I10 - Essential (primary) hypertension Status: Chronic Assessment and Plan: * stable * continue current medication (7) Anxiety: Code(s): F41.9 - Anxiety disorder, unspecified Status: Chronic Assessment and Plan: * Ativan p.r.n. (8) Depression: Qualifiers: Depression Type: unspecified Qualified Code(s): F32.A - Depression, unspecified Code(s): F32.9 - Major depressive disorder, single episode, unspecified Status: Chronic Assessment and Plan: * continue Celebrex (9) Chronic diastolic (congestive) heart failure: Code(s): I50.32 - Chronic diastolic (congestive) heart failure Status: Acute Assessment and Plan: * Echo EF 50-55% grade 1 diastolic dysfunction * Continue with Coreg and Lasix. Continue Tanner hose? (10) Aortic valve replaced: Code(s): Z95.2 - Presence of prosthetic heart valve Status: Acute Assessment and Plan: Continue Warfarin therapy. Adjust dose of Warfarin as needed. Echo showing that the aortic valve is not well visualized.? Continue daily INR (11) Anemia: Code(s): D64.9 - Anemia, unspecified Status: Acute Assessment and Plan: * stable * no active bleeding noted (12) Ascending aortic aneurysm: Code(s): I71.2 - Thoracic aortic aneurysm, without rupture Status: Chronic (13) ERIKA (obstructive sleep apnea): Code(s): G47.33 - Obstructive sleep apnea (adult) (pediatric) Status: Chronic Assessment and Plan: The patient is noncompliant with therapy. (14) CAD (coronary artery disease): Code(s): I25.10 - Atherosclerotic heart disease of [place] coronary corey
--- NOTE | 2022-11-14 09:05 | PM.IMPN ---
Progress Note: A&P Assessment and Plan (1) Weakness: Code(s): R53.1 - Weakness Status: Acute (2) Acute liver failure: Qualifiers: Hepatic coma status: without hepatic coma Qualified Code(s): K72.00 - Acute and subacute hepatic failure without coma Code(s): K72.00 - Acute and subacute hepatic failure without coma Status: Acute Assessment and Plan: The patient has a history of alcoholism and has elevated liver enzymes on admission that are higher from August when bili was 1.2 and transaminases were less than 100. CT A/P 10/24 showing hepatic steatosis and trace ascites RUQ US 10/24 showing diffuse fatty liver infiltration (US repeated 10/30 without change) Ammonia level mildly elevated to 54.? On scheduled lactulose TID LFTs acutely elevated likely due to acute alcoholic hepatitis with underlying liver dysfunction. Continue Spironolactone and Lasix. Continue Lactulose. will have to follow up with GI at discharge. (3) Atrial fibrillation: Code(s): I48.91 - Unspecified atrial fibrillation Status: Acute Assessment and Plan: controlled continue Coreg will restart warfarin Holding Warfarin on 11/14/22 for INR of 3.0. Will restart on 11/15/22. (4) Jaundice: Code(s): R17 - Unspecified jaundice Status: Acute Assessment and Plan: secondary to hepatitis due to alcohol use will periodically check liver enzymes (5) Alcohol abuse: Code(s): F10.10 - Alcohol abuse, uncomplicated Status: Acute Assessment and Plan: patient plans to discharge to a rehab (6) HTN (hypertension): Qualifiers: Hypertension type: primary hypertension Qualified Code(s): I10 - Essential (primary) hypertension Code(s): I10 - Essential (primary) hypertension Status: Chronic Assessment and Plan: stable continue current medication (7) Anxiety: Code(s): F41.9 - Anxiety disorder, unspecified Status: Chronic Assessment and Plan: Ativan p.r.n. (8) Depression: Qualifiers: Depression Type: unspecified Qualified Code(s): F32.A - Depression, unspecified Code(s): F32.9 - Major depressive disorder, single episode, unspecified Status: Chronic Assessment and Plan: continue Celebrex (9) Chronic diastolic (congestive) heart failure: Code(s): I50.32 - Chronic diastolic (congestive) heart failure Status: Acute Assessment and Plan: Echo EF 50-55% grade 1 diastolic dysfunction Continue with Coreg and Lasix. Continue Tanner hose? (10) Aortic valve replaced: Code(s): Z95.2 - Presence of prosthetic heart valve Status: Acute Assessment and Plan: Continue Warfarin therapy. Adjust dose of Warfarin as needed. Echo showing that the aortic valve is not well visualized.? Continue daily INR (11) Anemia: Code(s): D64.9 - Anemia, unspecified Status: Acute Assessment and Plan: stable no active bleeding noted (12) Ascending aortic aneurysm: Code(s): I71.2 - Thoracic aortic aneurysm, without rupture Status: Chronic (13) ERIKA (obstructive sleep apnea): Code(s): G47.33 - Obstructive sleep apnea (adult) (pediatric) Status: Chronic Assessment and Plan: The patient is noncompliant with therapy. (14) CAD (coronary artery disease): Code(s): I25.10 - Atherosclerotic heart disease of [place] coronary artery without angina pectoris Status: Chronic Assessment and Plan: continue atorvastatin Plan Assessment and Plan Time Spent With Patient Time: 20 minutes Subjective Date/time seen: 11/14/22 09:05 Interval history: This pt. was examined at the bedside in interval assessment after he was admitted to the SWB program at [place] for generalized weakness and debilitation after hospitalization for liver failure. He denies any complaints of pain or dyspnea and feel
[2022-11-14] MEDS: THIAMINE HCL 100 MG TABLET PO (09:06)
[2022-11-14] MEDS: busPIRone HCL 5 MG TABLET 10 MG PO ×2 (09:06→16:33)
[2022-11-14] MEDS: CITALOPRAM HYDROBROMIDE 20 MG TABLET 40 MG PO (09:06)
[2022-11-14 09:07] VITALS: PULSE 83
[2022-11-14] MEDS: FUROSEMIDE 20 MG TABLET PO (09:07)
[2022-11-14] MEDS: carvediloL 6.25 MG TABLET PO ×2 (09:07→20:17)
[2022-11-14 16:00] VITALS: BP 101/62; PULSE 52; RESP 18; TEMP 35.9; O2SAT 97
--- NOTE | 2022-11-14 16:41 | PC.NURSE ---
ABDOMINAL GIRTH MEASUREMENT: 55.5 INCHES
[2022-11-14 20:17] VITALS: PULSE 64
[2022-11-15] VITALS: BP 114/70; PULSE 55; RESP 16; TEMP 36.1; O2SAT 96
[2022-11-15 05:26] LABS: INR 3.1; Prothrombin Time 30.8 Seconds (9.50-12.10)
[2022-11-15 08:00] VITALS: BP 115/80; PULSE 62; RESP 18; TEMP 36.1; O2SAT 96
[2022-11-15] MEDS: LACTULOSE 20 GM/30 ML UDC PO ×3 (08:44→17:03)
[2022-11-15] MEDS: FUROSEMIDE 20 MG TABLET PO (08:45)
[2022-11-15] MEDS: rifAXIMin 550 MG TABLET PO ×2 (08:45→21:05)
[2022-11-15] MEDS: ATORVASTATIN 10 MG TABLET 20 MG PO (08:45)
[2022-11-15] MEDS: busPIRone HCL 5 MG TABLET 10 MG PO ×2 (08:46→17:03)
[2022-11-15] MEDS: ASPIRIN 81 MG CHEWABLE TABLET PO (08:47)
[2022-11-15] MEDS: CYANOCOBALAMIN 1,000 MCG TABLET 5000 MCG PO (08:47)
[2022-11-15] MEDS: THIAMINE HCL 100 MG TABLET PO (08:47)
[2022-11-15] MEDS: PANTOPRAZOLE 40 MG TABLET PO (08:47)
[2022-11-15] MEDS: NITROFURANTOIN MONOHYD MACROCR 100 MG CAP PO ×2 (08:48→21:05)
[2022-11-15] MEDS: CITALOPRAM HYDROBROMIDE 20 MG TABLET 40 MG PO (08:48)
[2022-11-15 08:49] VITALS: PULSE 96
[2022-11-15] MEDS: carvediloL 6.25 MG TABLET PO ×2 (08:49→21:05)
[2022-11-15] MEDS: FOLIC ACID 1 MG TABLET PO (08:49)
[2022-11-15] MEDS: SPIRONOLACTONE 25 MG TABLET 50 MG PO (08:49)
[2022-11-15 16:00] VITALS: BP 110/68; PULSE 54; RESP 18; TEMP 35.9; O2SAT 96
[2022-11-15 21:05] VITALS: PULSE 60
[2022-11-15] MEDS: traZODone HCL 50 MG TABLET PO (21:05)
[2022-11-15] MEDS: MELATONIN 5 MG TABLET 10 MG PO (21:05)
[2022-11-16] VITALS: BP 115/74; PULSE 56; RESP 14; TEMP 36.7; O2SAT 92
[2022-11-16 05:52] LABS: INR 2.2; Prothrombin Time 22.4 Seconds (9.50-12.10)
[2022-11-16 08:00] VITALS: BP 125/59; PULSE 51; RESP 16; TEMP 36.2; O2SAT 94
[2022-11-16] MEDS: THIAMINE HCL 100 MG TABLET PO (08:48)
[2022-11-16] MEDS: SPIRONOLACTONE 25 MG TABLET 50 MG PO (08:48)
[2022-11-16] MEDS: CYANOCOBALAMIN 1,000 MCG TABLET 5000 MCG PO (08:48)
[2022-11-16] MEDS: ATORVASTATIN 10 MG TABLET 20 MG PO (08:49)
[2022-11-16] MEDS: FUROSEMIDE 20 MG TABLET PO (08:50)
[2022-11-16] MEDS: busPIRone HCL 5 MG TABLET 10 MG PO ×2 (08:50→17:14)
[2022-11-16] MEDS: NITROFURANTOIN MONOHYD MACROCR 100 MG CAP PO ×2 (08:50→20:55)
[2022-11-16] MEDS: CITALOPRAM HYDROBROMIDE 20 MG TABLET 40 MG PO (08:50)
[2022-11-16 08:51] VITALS: PULSE 86
[2022-11-16] MEDS: ASPIRIN 81 MG CHEWABLE TABLET PO (08:51)
[2022-11-16] MEDS: PANTOPRAZOLE 40 MG TABLET PO (08:51)
[2022-11-16] MEDS: LACTULOSE 20 GM/30 ML UDC PO ×3 (08:51→17:15)
[2022-11-16] MEDS: FOLIC ACID 1 MG TABLET PO (08:51)
[2022-11-16] MEDS: carvediloL 6.25 MG TABLET PO ×2 (08:51→20:57)
[2022-11-16] MEDS: rifAXIMin 550 MG TABLET PO ×2 (08:52→20:55)
[2022-11-16 16:00] VITALS: BP 115/83; PULSE 62; RESP 16; TEMP 36.2; O2SAT 97
[2022-11-16 20:00] VITALS: PULSE 56; RESP 16; O2SAT 97
[2022-11-16] MEDS: WARFARIN (*PBKC) 1 MG, WARFARIN (*PBKC) 2 MG 3 MG PO (20:55)
[2022-11-16] MEDS: traZODone HCL 50 MG TABLET PO (20:55)
[2022-11-16 20:57] VITALS: PULSE 56
[2022-11-16] MEDS: MELATONIN 5 MG TABLET 10 MG PO (20:57)
[2022-11-17] VITALS: BP 131/92; PULSE 56; RESP 18; TEMP 36.3; O2SAT 92
--- NOTE | 2022-11-17 07:10 | P.PNCROSS_ITS ---
Event Note Event Note Event Note: Patient INR 2.2 restarted patient Coumadin last night. we will continue to [facility] INR
[2022-11-17 07:45] VITALS: BP 111/74; PULSE 62; RESP 18; TEMP 35.9; O2SAT 96
--- NOTE | 2022-11-17 08:00 | PC.NURSE ---
Patient abdominal girth 56 inches.
--- NOTE | 2022-11-17 08:05 | PC.NURSE ---
Addendum entered by Carlene Hahn RN 11/17/22 08:11: MANAGER UTILIZATION REVIEW notified of increase of 2 inches since in abdominal girth since Thursday morning. Original Note: pt. abdominal girth 56 in.
[2022-11-17] MEDS: busPIRone HCL 5 MG TABLET 10 MG PO ×2 (08:53→17:22)
[2022-11-17] MEDS: LACTULOSE 20 GM/30 ML UDC PO ×3 (08:53→17:22)
[2022-11-17] MEDS: ATORVASTATIN 10 MG TABLET 20 MG PO (08:53)
[2022-11-17] MEDS: CYANOCOBALAMIN 1,000 MCG TABLET 5000 MCG PO (08:54)
[2022-11-17] MEDS: CITALOPRAM HYDROBROMIDE 20 MG TABLET 40 MG PO (08:54)
[2022-11-17] MEDS: PANTOPRAZOLE 40 MG TABLET PO ×2 (08:54→20:16)
[2022-11-17] MEDS: THIAMINE HCL 100 MG TABLET PO (08:55)
[2022-11-17] MEDS: SPIRONOLACTONE 25 MG TABLET 50 MG PO (08:55)
[2022-11-17 08:56] VITALS: PULSE 62
[2022-11-17] MEDS: carvediloL 6.25 MG TABLET PO ×2 (08:56→20:17)
[2022-11-17] MEDS: NITROFURANTOIN MONOHYD MACROCR 100 MG CAP PO ×2 (08:56→20:17)
[2022-11-17] MEDS: FUROSEMIDE 20 MG TABLET PO ×2 (08:56)
[2022-11-17] MEDS: FOLIC ACID 1 MG TABLET PO (08:56)
[2022-11-17] MEDS: ASPIRIN 81 MG CHEWABLE TABLET PO (08:56)
[2022-11-17] MEDS: rifAXIMin 550 MG TABLET PO ×2 (08:57→20:28)
[2022-11-17 10:04] LABS: INR 1.7; Prothrombin Time 18.3 Seconds (9.50-12.10)
--- NOTE | 2022-11-17 12:24 | P.PNCROSS_ITS ---
Event Note Event Note Event Note: Pt has limited mobility and he needs a walker to safely walk to the [facility] hroom, kitchen and other areas in his home and to the doctor's appointment. He continues in a well walker safely with therapy and by continue to use a walker at home and commuting his functional mobility deficit will be resolved and will help to prevent falls.
[2022-11-17 16:40] VITALS: BP 120/79; PULSE 64; RESP 16; TEMP 36.4; O2SAT 94
[2022-11-17] MEDS: WARFARIN (*PBKC) 1 MG TABLET 3 MG PO (17:30)
[2022-11-17] MEDS: MELATONIN 5 MG TABLET 10 MG PO (20:16)
[2022-11-17 20:17] VITALS: PULSE 55
[2022-11-17] MEDS: traZODone HCL 50 MG TABLET PO (20:17)
[2022-11-18] VITALS: BP 104/80; PULSE 51; RESP 16; TEMP 36.3; O2SAT 94
[2022-11-18 05:45] LABS: Hematocrit 33.5 % (40.0-54.0); Hemoglobin 11.1 g/dL (14.0-18.0); Mean Corpuscular HGB Conc 33.1 g/dL (32.0-36.0); Mean Corpuscular Hemoglobin 35.4 pg (27.0-31.0); Mean Corpuscular Volume 106.7 fL (78.0-102.0); Mean Platelet Volume 11.7 fl (8.7-11.0); Platelet Count Result 199 K/mm3 (150-420); Red Blood Count 3.14 M/mm3 (4.70-6.10); Red Cell Distribution Width 17.9 % (11.6-14.4); White Blood Count 7.4 K/mm3 (4.8-10.8)
[2022-11-18 05:59] LABS: Anion Gap 4 mmol/L (8-16); Blood Urea Nitrogen 8 mg/dL (7-18); Calcium 8.3 mg/dL (8.5-10.1); Carbon Dioxide 33 mmol/L (21-32); Chloride 102 mmol/L (98-108); Estimated CRCL calculation 108 ml/min; Estimated Glomerular Filt Rate > 60; Glucose 98 mg/dL (70-99); Osmolality Calculated 286 mOsm/kg (285-295); Potassium 4.7 mmol/L (3.5-5.1); Sodium 139 mmol/L (136-145)
[2022-11-18 06:01] LABS: Prothrombin Time 20.8 Seconds (9.50-12.10)
--- NOTE | 2022-11-18 07:41 | P.DS_ITS ---
DS: Admitting Diagnosis Discharge Date 11/18/2022 Admitting Diagnosis rehab, weakness, cirrhosis of liver DS: Discharge Diagnosis Discharge Diagnosis (1) Weakness: Code(s): R53.1 - Weakness Status: Acute (2) Acute liver failure: Qualifiers: Hepatic coma status: without hepatic coma Qualified Code(s): K72.00 - Acute and subacute hepatic failure without coma Code(s): K72.00 - Acute and subacute hepatic failure without coma Status: Acute Assessment and Plan: * The patient has a history of alcoholism and has elevated liver enzymes on admission that are higher from August when bili was 1.2 and transaminases were less than 100. * CT A/P 10/24 showing hepatic steatosis and trace ascites * RUQ US 10/24 showing diffuse fatty liver infiltration (US repeated 10/30 without change) * Ammonia level mildly elevated to 54.? On scheduled lactulose TID * LFTs acutely elevated likely due to acute alcoholic hepatitis with underlying liver dysfunction. * Continue Spironolactone and Lasix. * Continue Lactulose. * will have to follow up with GI at discharge. (3) Atrial fibrillation: Code(s): I48.91 - Unspecified atrial fibrillation Status: Acute Assessment and Plan: * controlled * continue Coreg will restart warfarin * Holding Warfarin on 11/14/22 for INR of 3.0. Will restart on 11/15/22. (4) Jaundice: Code(s): R17 - Unspecified jaundice Status: Acute Assessment and Plan: * secondary to hepatitis due to alcohol use * will periodically check liver enzymes (5) Alcohol abuse: Code(s): F10.10 - Alcohol abuse, uncomplicated Status: Acute Assessment and Plan: * patient plans to discharge to a rehab (6) HTN (hypertension): Qualifiers: Hypertension type: primary hypertension Qualified Code(s): I10 - Essential (primary) hypertension Code(s): I10 - Essential (primary) hypertension Status: Chronic Assessment and Plan: * stable * continue current medication (7) Anxiety: Code(s): F41.9 - Anxiety disorder, unspecified Status: Chronic Assessment and Plan: * Ativan p.r.n. (8) Depression: Qualifiers: Depression Type: unspecified Qualified Code(s): F32.A - Depression, unspecified Code(s): F32.9 - Major depressive disorder, single episode, unspecified Status: Chronic Assessment and Plan: * continue Celebrex (9) Chronic diastolic (congestive) heart failure: Code(s): I50.32 - Chronic diastolic (congestive) heart failure Status: Acute Assessment and Plan: * Echo EF 50-55% grade 1 diastolic dysfunction * Continue with Coreg and Lasix. Continue Tanner hose? (10) Aortic valve replaced: Code(s): Z95.2 - Presence of prosthetic heart valve Status: Acute Assessment and Plan: Continue Warfarin therapy. Adjust dose of Warfarin as needed. Echo showing that the aortic valve is not well visualized.? Continue daily INR (11) Anemia: Code(s): D64.9 - Anemia, unspecified Status: Acute Assessment and Plan: * stable * no active bleeding noted (12) Ascending aortic aneurysm: Code(s): I71.2 - Thoracic aortic aneurysm, without rupture Status: Chronic (13) ERIKA (obstructive sleep apnea): Code(s): G47.33 - Obstructive sleep apnea (adult) (pediatric) Status: Chronic Assessment and Plan: The patient is noncompliant w
--- NOTE | 2022-11-18 07:41 | PM.DS ---
DS: Admitting Diagnosis Discharge Date 11/18/2022 Admitting Diagnosis rehab, weakness, cirrhosis of liver DS: Discharge Diagnosis Discharge Diagnosis (1) Weakness: Code(s): R53.1 - Weakness Status: Acute (2) Acute liver failure: Qualifiers: Hepatic coma status: without hepatic coma Qualified Code(s): K72.00 - Acute and subacute hepatic failure without coma Code(s): K72.00 - Acute and subacute hepatic failure without coma Status: Acute Assessment and Plan: The patient has a history of alcoholism and has elevated liver enzymes on admission that are higher from August when bili was 1.2 and transaminases were less than 100. CT A/P 10/24 showing hepatic steatosis and trace ascites RUQ US 10/24 showing diffuse fatty liver infiltration (US repeated 10/30 without change) Ammonia level mildly elevated to 54.? On scheduled lactulose TID LFTs acutely elevated likely due to acute alcoholic hepatitis with underlying liver dysfunction. Continue Spironolactone and Lasix. Continue Lactulose. will have to follow up with GI at discharge. (3) Atrial fibrillation: Code(s): I48.91 - Unspecified atrial fibrillation Status: Acute Assessment and Plan: controlled continue Coreg will restart warfarin Holding Warfarin on 11/14/22 for INR of 3.0. Will restart on 11/15/22. (4) Jaundice: Code(s): R17 - Unspecified jaundice Status: Acute Assessment and Plan: secondary to hepatitis due to alcohol use will periodically check liver enzymes (5) Alcohol abuse: Code(s): F10.10 - Alcohol abuse, uncomplicated Status: Acute Assessment and Plan: patient plans to discharge to a rehab (6) HTN (hypertension): Qualifiers: Hypertension type: primary hypertension Qualified Code(s): I10 - Essential (primary) hypertension Code(s): I10 - Essential (primary) hypertension Status: Chronic Assessment and Plan: stable continue current medication (7) Anxiety: Code(s): F41.9 - Anxiety disorder, unspecified Status: Chronic Assessment and Plan: Ativan p.r.n. (8) Depression: Qualifiers: Depression Type: unspecified Qualified Code(s): F32.A - Depression, unspecified Code(s): F32.9 - Major depressive disorder, single episode, unspecified Status: Chronic Assessment and Plan: continue Celebrex (9) Chronic diastolic (congestive) heart failure: Code(s): I50.32 - Chronic diastolic (congestive) heart failure Status: Acute Assessment and Plan: Echo EF 50-55% grade 1 diastolic dysfunction Continue with Coreg and Lasix. Continue Tanner hose? (10) Aortic valve replaced: Code(s): Z95.2 - Presence of prosthetic heart valve Status: Acute Assessment and Plan: Continue Warfarin therapy. Adjust dose of Warfarin as needed. Echo showing that the aortic valve is not well visualized.? Continue daily INR (11) Anemia: Code(s): D64.9 - Anemia, unspecified Status: Acute Assessment and Plan: stable no active bleeding noted (12) Ascending aortic aneurysm: Code(s): I71.2 - Thoracic aortic aneurysm, without rupture Status: Chronic (13) ERIKA (obstructive sleep apnea): Code(s): G47.33 - Obstructive sleep apnea (adult) (pediatric) Status: Chronic Assessment and Plan: The patient is noncompliant with therapy. (14) CAD (coronary artery disease): Code(s): I25.10 - Atherosclerotic heart disease of [place] coronary artery without angina pectoris Status: Chronic Assessment and Plan: continue atorvastatin Plan Assessment and Plan DS: Summary Hospital Course Reason for hospitalization: Swing bed, REHab Hospital Course: this is a 67-year-old male that was admitted to our swing unit with the plan to go to alcohol rehab once he is stronger. Patient at previous h
[2022-11-18 08:00] VITALS: BP 107/73; PULSE 64; RESP 18; TEMP 35.9; O2SAT 96
--- NOTE | 2022-11-18 08:00 | PC.NURSE ---
Abdominal girth noted at 55 .
[2022-11-18] MEDS: LACTULOSE 20 GM/30 ML UDC PO (09:00)
[2022-11-18] MEDS: CYANOCOBALAMIN 1,000 MCG TABLET 5000 MCG PO (09:00)
[2022-11-18] MEDS: rifAXIMin 550 MG TABLET PO (09:00)
[2022-11-18] MEDS: FOLIC ACID 1 MG TABLET PO (09:01)
[2022-11-18] MEDS: ATORVASTATIN 10 MG TABLET 20 MG PO (09:01)
[2022-11-18] MEDS: PANTOPRAZOLE 40 MG TABLET PO (09:01)
[2022-11-18] MEDS: THIAMINE HCL 100 MG TABLET PO (09:01)
[2022-11-18] MEDS: SPIRONOLACTONE 25 MG TABLET 50 MG PO (09:01)
[2022-11-18] MEDS: busPIRone HCL 5 MG TABLET 10 MG PO (09:01)
[2022-11-18] MEDS: FUROSEMIDE 20 MG TABLET PO (09:01)
[2022-11-18 09:02] VITALS: PULSE 64
[2022-11-18] MEDS: ASPIRIN 81 MG CHEWABLE TABLET PO (09:02)
[2022-11-18] MEDS: NITROFURANTOIN MONOHYD MACROCR 100 MG CAP PO (09:02)
[2022-11-18] MEDS: CITALOPRAM HYDROBROMIDE 20 MG TABLET 40 MG PO (09:02)
[2022-11-18] MEDS: carvediloL 6.25 MG TABLET PO (09:02)
--- NOTE | 2022-11-18 12:30 | PC.NURSE ---
Discharge instructions reviewed with patient. All questions answered. Pt escorted by wheelchair and assisted into private vehicle.
--- NOTE | 2022-11-18 13:54 | PCCCNOTE ---
Verified with [facility] in [place], [place] that they rec'd RX's. They stated they have and there are some over the counter meds that is not covered by his insurance and that the Xifaxan needs a prior auth. Notified Jona Horner of pre-auth needed and she states the pharmacy will send the request to pt's CONTINUOUS STILL OPERATOR.
--- NOTE | 2022-11-18 14:57 | PCCCNOTE ---
Prior auth started through [employer] for [id number] mg PO BID.
--- NOTE | 2022-11-18 15:05 | PCCCNOTE ---
Notified patient and daughter Hermes about the pre-auth process started for Rifaximin. Family states they will reach out to pt's LIMITED RADIOLOGY TECHNICIAN Dr.Jason Chang to explain pt's situation. Told Hermes that if and when med is approved it will be approved with [facility] in [place].
--- NOTE | 2022-11-25 11:07 | PC.NURSE ---
Unable to contact for discharge call back.
== END 2022-11-18 12:30 | disposition home or self-care (01) | DRG 948 ==
PROVIDERS: Nurse Practitioner; Nurse Practitioner Family; Admitting Provider Internal Medicine; PCP Family Medicine; Visit Provider Internal Medicine
DX: R53.1 Weakness (principal); I42.8 Other cardiomyopathies; I50.32 Chronic diastolic (congestive) heart failure; I48.20 Chronic atrial fibrillation, unspecified; K70.40 Alcoholic hepatic failure without coma; I11.0 Hypertensive heart disease with heart failure; I25.10 Atherosclerotic heart disease of native coronary artery without angina pectoris; I35.0 Nonrheumatic aortic (valve) stenosis; I71.21 Aneurysm of the ascending aorta, without rupture; M54.9 Dorsalgia, unspecified; G47.33 Obstructive sleep apnea (adult) (pediatric); F10.20 Alcohol dependence, uncomplicated; F32.A Depression, unspecified; F41.9 Anxiety disorder, unspecified; I25.2 Old myocardial infarction; Z85.51 Personal history of malignant neoplasm of bladder; Z95.2 Presence of prosthetic heart valve; Z95.1 Presence of aortocoronary bypass graft; Z79.82 Long term (current) use of aspirin
CPT/HCPCS: 36415; 80048; 81001; 85027; 85610; 97110; 97116; 97161; 97165; 97530; 97535; A9270

== ENCOUNTER 2022-12-15 12:04 | Outpatient (CLI) | payer OTHER, SELFPAY ==
[2022-12-15 12:22] LABS: Basophils Absolute Auto 0.1 K/mm3 (0.0-0.1); Basophils Percent Auto 1.3 % (0.2-1.2); Eosinophils Absolute Auto 0.3 K/mm3 (0-0.3); Eosinophils Percent Auto 4.9 % (0-4.4); Hematocrit 41.4 % (42.0-52.0); Hemoglobin 14.2 g/dL (14.0-18.0); Immature Granulocyte Absolute 0.02 K/mm3 (0.00-0.031); Immature Granulocyte Percent A 0.3 % (0-0.5); Lymphocytes Absolute Auto 1.16 K/mm3 (0.9-3.2); Lymphocytes Percent Auto 19.5 % (18.3-44.2); Mean Corpuscular HGB Conc 34.3 g/dl (32-36); Mean Corpuscular Hemoglobin 34.9 pg (26-34); Mean Corpuscular Volume 101.7 fl (80-100); Mean Platelet Volume 9.9 fl (7.4-10.4); Monocytes Absolute Auto 0.6 K/mm3 (0.1-0.6); Monocytes Percent Auto 9.2 % (2.6-8.5); Neutrophils Absolute Auto 3.9 K/mm3 (1.3-6.7); Neutrophils Percent Auto 64.8 % (45.5-73.1); Platelet Count Result 205 k/mm3 (150-375); Red Blood Count 4.07 M/mm3 (4.6-6.20); Red Cell Distribution Width 13.9 % (11.5-14.5)
[2022-12-15 12:40] LABS: Alanine Aminotransferase 53 U/L (6-50); Albumin Level 3.8 g/dL (3.5-5.1); Alkaline Phosphatase 90 U/L (38-126); Anion Gap 3 mmol/L (8-16); Aspartate Amino Transferase 78 U/L (17-59); Bilirubin,Total 1.8 mg/dL (0.2-1.3); Blood Urea Nitrogen 13 mg/dL (9-20); Calcium 8.9 mg/dL (8.4-10.2); Carbon Dioxide 31 mmol/L (22-30); Chloride 100 mmol/L (98-107); Estimated Glomerular Filt Rate > 60; Glucose 118 mg/dL (65-110); Potassium 4.6 mmol/L (3.4-5.0); Sodium 134 mmol/L (137-145)
[2022-12-15 13:04] LABS: INR 5.8
[2022-12-15 13:49] LABS: Folic Acid > 20.0 ng/mL (2.76->20)
== END 2022-12-15 12:05 | disposition home or self-care (01) ==
LOC: ANHLAB 12:05
PROVIDERS: PCP Family Medicine; Visit Provider Physician Assistant
DX: D64.9 Anemia, unspecified (principal); K70.9 Alcoholic liver disease, unspecified; I48.91 Unspecified atrial fibrillation; R16.0 Hepatomegaly, not elsewhere classified; Z79.01 Long term (current) use of anticoagulants
CPT/HCPCS: 36415; 80053; 82607; 82746; 85025; 85610

== ENCOUNTER 2022-12-22 09:58 | Outpatient (CLI) | payer OTHER, SELFPAY ==
[2022-12-22 10:43] LABS: Appearance Urine Clear (Clear); Bilirubin Urine Negative (Negative); Blood Urine Negative (Negative); Color Urine Yellow (Yellow); Glucose Urine UA Negative (Negative); Ketones Urine Negative (Negative); Leukocyte Esterase Ur Negative LEU/UL (NEGATIVE); Nitrate Urine Negative (Negative); Protein Urine Negative (Negative); Specific Grav Ur 1.006 (1.001-1.035); Urobilinogen Urine 0.2 mg/dL (<2.0); pH Urine 6.5 (5.0-9.0)
[2022-12-22 10:48] LABS: Add Urine Microscopic? NO
[2022-12-22 10:51] LABS: INR 1.6; Prothrombin Time 19.8 Seconds (11.1-14.7)
[2022-12-22 10:54] LABS: Alanine Aminotransferase 50 U/L (6-50); Albumin Level 3.8 g/dL (3.5-5.1); Alkaline Phosphatase 86 U/L (38-126); Anion Gap 3 mmol/L (8-16); Aspartate Amino Transferase 74 U/L (17-59); Bilirubin,Total 1.5 mg/dL (0.2-1.3); Blood Urea Nitrogen 12 mg/dL (9-20); Calcium 8.9 mg/dL (8.4-10.2); Carbon Dioxide 30 mmol/L (22-30); Chloride 102 mmol/L (98-107); Cholesterol 233 mg/dL (0-200); Estimated Glomerular Filt Rate > 60; Glucose 120 mg/dL (65-110); HDL Direct 48 mg/dL; Potassium 4.3 mmol/L (3.4-5.0); Sodium 135 mmol/L (137-145); Triglycerides 90 mg/dL (<150)
[2022-12-22 11:04] LABS: LDL Cholesterol Direct 143 mg/dL
[2022-12-22 11:22] LABS: Prostate Specific Antigen 1.1 ng/mL (< OR = 4.0); Thyroid Stimulating Hormone 0.938 uIU/mL (0.465-4.680)
== END 2022-12-22 09:59 | disposition home or self-care (01) ==
PROVIDERS: PCP Family Medicine; Referring Provider Internal Medicine Cardiovascular Disease; Visit Provider Physician Assistant
DX: I48.91 Unspecified atrial fibrillation (principal); Z79.01 Long term (current) use of anticoagulants; F32.A Depression, unspecified; F41.9 Anxiety disorder, unspecified; I10 Essential (primary) hypertension; I50.32 Chronic diastolic (congestive) heart failure; K70.9 Alcoholic liver disease, unspecified; K72.00 Acute and subacute hepatic failure without coma; Z00.00 Encounter for general adult medical examination without abnormal findings; Z12.5 Encounter for screening for malignant neoplasm of prostate
CPT/HCPCS: 36415; 80053; 80061; 81003; 84153; 84443; 85610; G0103

== ENCOUNTER 2022-12-25 12:08 | Outpatient (CLI) | payer OTHER, SELFPAY ==
--- NOTE | ~2022-12-25 | XR_ITS ---
Lumbosacral Spine: AP, oblique, and lateral views Clinical History: Pain Findings: The normal lordotic curve is maintained. Suspected bilateral L5 pars interarticularis defec ts, with 16 mm anterolisthesis of L5 over S1. There is moderate degenerative disc narrowing at L4-L5 and L5-S1. There is moderate to severe facet arthropathy at L4-L5 and L5-S1. There is 3 mm retrolisth esis of L4 over L5. The sacroiliac joints are normally outlined. Impression: Suspected L5 pars interarticularis defects bilaterally, with associated 16 mm anterolisthesis of L5 o swetha S1. 3 mm retrolisthesis of L4 over L5. Degenerative spondylosis of the lower lumbar spine otherwise, as detailed above. Reviewed, dictated and finalized at location . Impression: Suspected L5 pars interarticularis defects bilaterally, with associated 16 mm a nterolisthesis of L5 over S1. 3 mm retrolisthesis of L4 over L5. Degenerative spondylosis of the lower lumbar spine otherwise, as detailed above .
== END 2022-12-25 12:09 | disposition home or self-care (01) ==
PROVIDERS: PCP Family Medicine; Visit Provider Physician Assistant
DX: M47.896 Other spondylosis, lumbar region (principal)
CPT/HCPCS: 72110

== ENCOUNTER 2023-01-09 10:41 | Outpatient (CLI) | payer OTHER, SELFPAY ==
--- NOTE | ~2023-01-09 | XR_ITS ---
AP view of the pelvis and AP and lateral views of the bilateral hips Clinical history: Pain Findings: No acute fracture or dislocation is seen. Osseous alignment is anatomic. Bilateral hip and SI joint spaces are preserved. Soft tissues are unremarkable. Impression: No significant abnormality is seen. Reviewed, dictated and finalized at location . Impression: No significant abnormality is seen.
== END 2023-01-09 10:42 | disposition home or self-care (01) ==
LOC: ANHIMG 10:45
PROVIDERS: PCP Family Medicine; Visit Provider Physician Assistant
DX: M25.551 Pain in right hip (principal); M25.552 Pain in left hip
CPT/HCPCS: 73521

== ENCOUNTER 2023-01-15 11:11 | Outpatient (CLI) | payer OTHER, SELFPAY ==
[2023-01-15 12:30] LABS: Anion Gap 1 mmol/L (8-16); Bilirubin,Total 0.8 mg/dL (0.2-1.3); Blood Urea Nitrogen 11 mg/dL (9-20); Calcium 8.7 mg/dL (8.4-10.2); Carbon Dioxide 28 mmol/L (22-30); Chloride 102 mmol/L (98-107); Estimated Glomerular Filt Rate > 60; Glucose 107 mg/dL (65-110); Sodium 131 mmol/L (137-145)
[2023-01-15 12:31] LABS: Alanine Aminotransferase 36 U/L (6-50); Albumin Level 3.5 g/dL (3.5-5.1); Alkaline Phosphatase 76 U/L (38-126); Aspartate Amino Transferase 50 U/L (17-59)
== END 2023-01-15 11:12 | disposition home or self-care (01) ==
LOC: ANHLAB 11:13
PROVIDERS: PCP Family Medicine; Visit Provider Physician Assistant
DX: K70.9 Alcoholic liver disease, unspecified (principal); K72.00 Acute and subacute hepatic failure without coma
CPT/HCPCS: 36415; 80053; 85610

== ENCOUNTER 2023-02-05 11:46 | Emergency (ER) | payer OTHER, SELFPAY ==
--- NOTE | ~2023-02-05 | XR_ITS ---
Left Knee Technique: AP, lateral, and oblique views were obtained. Clinical History: Pain Findings: No fracture or dislocation is seen. Osseous alignment is anatomic. Joint spaces are preserv ed without degenerative or erosive change. There is prominent prepatellar soft tissue thickening/rachel a. No joint effusion is seen. Impression: Marked prepatellar soft tissue thickening/edema. This could reflect posttraumatic change and/or prepa tellar bursitis. No osseous or articular abnormality. No joint effusion. Reviewed, dictated and finalized at location . Impression: Marked prepatellar soft tissue thickening/edema. This could reflect posttraumat ic change and/or prepatellar bursitis. No osseous or articular abnormality. No joint effusion.
[2023-02-05 12:00] VITALS: BP 158/88; PULSE 55; RESP 16; TEMP 36.9; O2SAT 98
--- NOTE | 2023-02-05 12:09 | ED.LOWEXIN ---
HPI - Extremity Injury (Lower) General Chief Complaint: Extremity Injury, Lower Stated Complaint: left knee pain Time Seen by Provider: 02/05/23 12:10 Source: patient Mode of arrival: ambulatory Limitations: no limitations History of Present Illness HPI Narrative: 58 y/o male presented for c/o left knee pain, bruising and swelling after two falls. First fall was 4 days ago, subsequent fall 3 days ago. Pain is 7/10, worse with bending or straightening the leg or when walking. Pain when touching around the knee. States he trips and falls occasionally, and is following with Dr Vito edge for further evaluation. States his first appointment was last week. Patient is also following with 'back specialist' and was told today he has a fractured vertebrae in lower back. Denies lower extremity numbness, tingling, weakness, saddle paresthesia or loss of b/b. patient also has mechanical valve and takes coumadin, last INR drawn today. Unable to take NSAIDs or Tylenol due to chronic medical conditions. Related Data Home Medications Medication Instructions Recorded Confirmed cholecalciferol (vitamin D3) 50 50 mcg PO DAILY 01/27/23 01/27/23 mcg (2,000 unit) capsule hydrocortisone 1 % topical cream 1 applic topical TID PRN 01/27/23 01/27/23 hydroxyzine HCl 25 mg tablet 25 mg PO BID PRN 01/27/23 01/27/23 ondansetron 4 mg disintegrating 4 mg PO Q8H 01/27/23 01/27/23 tablet potassium chloride 10 mEq 10 meq PO DAILY 01/27/23 01/27/23 capsule,extended release warfarin 2.5 mg tablet 2.5 mg PO DAILY 02/05/23 02/05/23 Allergies Allergy/AdvReac Type Severity Reaction Status Date / Time No Known Allergies Allergy Verified 01/27/23 11:20 Review of Systems Review of Systems: CONSTITUTIONAL: Denies body aches, fever, chills EYES: Denies visual changes ENT: Denies rhinorrhea, congestion CARDIOVASCULAR: Denies chest pain, palpitations, or edema. RESPIRATORY: Denies cough or dyspnea. GASTROINTESTINAL: Denies abdominal pain, nausea, vomiting, or diarrhea. SKIN: Denies rash, itching, or wounds. MUSCULOSKELETAL: Reports left knee pain, chronic back pain NEUROLOGIC: Denies headache, numbness, tingling, or weakness. PSYCH: Denies depression or anxiety. All systems reviewed & are unremarkable except as noted in HPI and below PMFSH Past Medical History Medical History Alcohol abuse Anxiety Aortic stenosis Mild to moderate aortic stenosis noted on echocardiogram in March 2019. Ascending aortic aneurysm 4 centimeter ascending aortic aneurysm noted in fall 2018. Bladder cancer With history of TURBT and mitomycin installation. CAD (coronary artery disease) Diffuse 50% stenosis of the marginal branch noted on cardiac catheterization in March 2019. Chronic diastolic (congestive) heart failure Combined systolic and diastolic cardiac dysfunction Ejection fraction of 40 to 45% in March 2019. Depression Erectile dysfunction HTN (hypertension) Nonischemic cardiomyopathy ERIKA (obstructive sleep apnea) Previous history of noncompliance with CPAP therapy. Surgical History Surgical History Aortic valve replaced History of bladder surgery History of tonsillectomy and adenoidectomy Hx of appendectomy S/P aortic valve replacement S/P CABG x 1 S/P TURP Family History Family History Mother Family history of diabetes mellitus in first degree relative Cerebrovascular accident Father Family history of diabetes mellitus in first degree relative Family history of coronary artery disease Sibling Family history of diabetes mellitus in first degree relative Other Diabetes mellitus Social History Social History Social History: The patient lives in his own home in [place]. Recently . He is retire
--- NOTE | 2023-02-05 13:07 | PC.NURSE ---
pt declines crutches and knee immobilizer
== END 2023-02-05 13:12 | disposition home or self-care (01) ==
PROVIDERS: Emergency Provider Nurse Practitioner Family; PCP Family Medicine
DX: M25.562 Pain in left knee (principal); M25.462 Effusion, left knee; F17.220 Nicotine dependence, chewing tobacco, uncomplicated; I25.10 Atherosclerotic heart disease of native coronary artery without angina pectoris; I11.0 Hypertensive heart disease with heart failure; I50.40 Unspecified combined systolic (congestive) and diastolic (congestive) heart failure; Z95.2 Presence of prosthetic heart valve; Z95.1 Presence of aortocoronary bypass graft
CPT/HCPCS: 73564; 99213; G0463; L1830

== ENCOUNTER 2023-03-02 11:05 | Outpatient (CLI) | payer OTHER, SELFPAY ==
[2023-03-02 12:49] LABS: Hemoglobin A1C 5.5 % (<5.7)
== END 2023-03-02 11:06 | disposition home or self-care (01) ==
LOC: ANHLAB 11:05
PROVIDERS: PCP Family Medicine; Visit Provider Physician Assistant
DX: R73.01 Impaired fasting glucose (principal)
CPT/HCPCS: 36415; 83036; 85610

== ENCOUNTER 2023-03-30 13:28 | Outpatient (RCR) | payer OTHER, SELFPAY ==
[2022-12-30 15:21] LABS: INR 1.9; Prothrombin Time 22.7 Seconds (11.1-14.7)
[2023-01-08 13:31] LABS: INR 3.7; Prothrombin Time 39.4 Seconds (11.1-14.7)
[2023-01-15 12:31] LABS: INR 3.4; Prothrombin Time 37.5 Seconds (11.1-14.7)
[2023-02-05 11:11] LABS: INR 3.3; Prothrombin Time 35.9 Seconds (11.1-14.7)
[2023-02-11 14:24] LABS: INR 3.2; Prothrombin Time 35.7 Seconds (11.1-14.7)
[2023-02-27 12:24] LABS: Prothrombin Time 23.7 Seconds (11.1-14.7)
[2023-03-02 12:23] LABS: INR 2.8; Prothrombin Time 31.4 Seconds (11.1-14.7)
[2023-03-03 13:40] LABS: INR 2.1
[2023-03-04 10:32] LABS: INR 1.6; Prothrombin Time 20.1 Seconds (11.1-14.7)
[2023-03-13 11:40] LABS: INR 1.6; Prothrombin Time 19.8 Seconds (11.1-14.7)
[2023-03-30 13:56] LABS: INR 2.2; Prothrombin Time 26.1 Seconds (11.1-14.7)
== END 2023-03-30 23:59 | disposition home or self-care (01) ==
LOC: ANHLAB 13:28
PROVIDERS: PCP Family Medicine; Visit Provider Internal Medicine Cardiovascular Disease
DX: Z51.81 Encounter for therapeutic drug level monitoring (principal); Z95.2 Presence of prosthetic heart valve; Z79.01 Long term (current) use of anticoagulants
CPT/HCPCS: 36415; 80053; 85610

== ENCOUNTER 2023-06-16 14:43 | Outpatient (RCR) | payer OTHER, SELFPAY ==
[2023-04-07 15:00] LABS: INR 2.1; Prothrombin Time 24.9 Seconds (11.1-14.7)
[2023-04-16 12:26] LABS: INR 4.4; Prothrombin Time 45.9 Seconds (11.1-14.7)
[2023-05-04 10:24] LABS: INR 4.3; Prothrombin Time 45.5 Seconds (11.1-14.7)
[2023-06-16 15:29] LABS: INR 1.8; Prothrombin Time 22.4 Seconds (11.1-14.7)
== END 2023-07-06 23:59 | disposition home or self-care (01) ==
LOC: ANHLAB 14:43
PROVIDERS: PCP Family Medicine; Visit Provider Internal Medicine Cardiovascular Disease
DX: Z51.81 Encounter for therapeutic drug level monitoring (principal); Z95.2 Presence of prosthetic heart valve; Z79.01 Long term (current) use of anticoagulants
CPT/HCPCS: 36415; 85610

== ENCOUNTER → 2023-06-30 15:17 | Outpatient (CLI) | payer OTHER, SELFPAY ==
--- NOTE | ~2023-06-30 | MR_ITS ---
EXAMINATION: MR lumbar spine wo con DATE: 06/30/2023 15:48 INDICATION: Lumbar spondylosis. TECHNIQUE: Magnetic resonance imaging (MRI) of the lumbar spine was performed without intravenous con trast. Sequences included sagittal T2-weighted FSE, sagittal T2-weighted FS FSE, sagittal T1-weighted FSE, and axial T2-weighted FSE. COMPARISON: Lumbar spine radiograph 12/25/2022 FINDINGS: There are chronic bilateral L5 pars defects. There is 4 mm retrolisthesis of L4 on L5 and 7 mm anterolisthesis of L5 on S1. There is mild chronic height loss of L5 vertebral body posteriorly. There is a hemangioma in L4 vertebral body. There is severely decreased disc height at L4-L5 and L5-S 1. The distal spinal cord signal intensity is normal. The conus medullaris is at L1. The following di sc levels are specifically discussed: L1-L2: The disc does not extend beyond the endplate margin. There is moderate bilateral facet joint o steoarthritis. There is no neural foraminal stenosis. There is no central canal stenosis. L2-L3: The disc does not extend beyond the endplate margin. There is mild bilateral facet joint osteo arthritis. There is no neural foraminal stenosis. There is no central canal stenosis. L3-L4: There is a left foraminal protrusion. There is severe bilateral facet joint osteoarthritis. Th ere is mild left neural foraminal stenosis. There is no central canal stenosis. L4-L5: The disc is bulging and has an annular fissure. There is moderate bilateral facet joint osteoa rthritis. There is moderate bilateral neural foraminal stenosis. There is mild central canal stenosis . L5-S1: The disc is bulging and has an annular fissure. There is mild bilateral facet joint osteoarthr itis. There is moderate bilateral neural foraminal stenosis. There is no central canal stenosis. IMPRESSION: 1. Severe lower lumbar spondylosis. 2. Chronic bilateral L5 pars defects with grade 1 anterolisthesis of L5 on S1. Reviewed, dictated and finalized at location E. [facility] [employer]
== END ==
PROVIDERS: PCP Nurse Practitioner Family; Visit Provider Nurse Practitioner Family
DX: M43.06 Spondylolysis, lumbar region (principal); M47.817 Spondylosis without myelopathy or radiculopathy, lumbosacral region
CPT/HCPCS: 72148